=== PATIENT | male | born 1945 | race Caucasian/White ===

== ENCOUNTER → 2016-05-25 | Outpatient (CLI) | payer OTHER ==
[2016-05-25 10:05] LABS: Appearance,Urine Clear (Clear); Bilirubin,Urine Negative (Negative); Glucose,Urine (UA) Negative (Negative); Ketones,Urine Negative (Negative); Leukocyte Esterase,Urine Negative (Negative); Nitrite,Urine Negative (Negative); PH, Urine 5.5 (5.0-8.0); Protein,Urine Negative (Negative); Specific Gravity,Urine 1.022 (1.001-1.035); UA Billing (MACRO vs. MICRO) CHEM
[2016-05-25 10:21] LABS: Anisocytosis Slight; Basophils # (A) 0.1 k/uL (0-0.2); Basophils % (A) 1 %; CH 30.9; Eosinophils # (A) 0.2 k/uL (0-0.7); Eosinophils % (A) 3 %; HDW 3.61; HGB 13.9 gm/dL (13.0-17.5); Luc # (Auto) 0.15; Luc % (Auto) 2; Lymphocytes # (A) 1.5 k/uL (1.0-4.8); Lymphocytes % (A) 20 %; MCH 30.3 pg (25.0-35.0); MCV 91.7 fL (80.0-100.0); Mean Platelet Volume 6.9; Monocytes # (A) 0.5 k/uL (0-1.0); Monocytes % (A) 6 %; Neutrophils % (A) 68 %; Poikilocytosis Slight; RBC 4.58 m/uL (4.30-5.90); RDW 16.1 % (11.5-15.5); WBC 7.4 k/uL (3.8-10.6); WBC (Perox) 7.93
[2016-05-25 10:32] LABS: INR 1.1 (<1.1); Partial Thromboplastin Time 22.8 sec (22.0-30.0); Prothrombin Time 10.8 sec (9.0-12.0)
[2016-05-25 10:33] LABS: ALT 28 U/L (21-72); AST 21 U/L (17-59); Alkaline Phosphatase 77 U/L (38-126); Anion Gap 10 mmol/L; Blood Urea Nitrogen 12 mg/dL (9-20); Calcium 9.2 mg/dL (8.4-10.2); Carbon Dioxide 28 mmol/L (22-30); Chloride 102 mmol/L (98-107); Glucose 105 mg/dL (74-99); Non-African American GFR(MDRD) >60 (>60 ml/min/1.73 sqM); Potassium 4.3 mmol/L (3.5-5.1); Sodium 140 mmol/L (137-145); Total Bilirubin 0.9 mg/dL (0.2-1.3); Total Protein 6.5 g/dL (6.3-8.2)
== END ==
LOC: LABPAT 08:51
PROVIDERS: ATTEND Orthopaedic Surgery
DX: Z01.810 Encounter for preprocedural cardiovascular examination (principal); Z01.812 Encounter for preprocedural laboratory examination
CPT/HCPCS: 80053; 81003; 85025; 85610; 85730; 87070

== ENCOUNTER → 2016-07-28 | Outpatient (CLI) | payer OTHER ==
--- NOTE | 2016-08-05 11:00 | P.ARTDOP ---
Arterial Doppler LOWER EXTREMITY ARTERIAL DOPPLER: DATE OF SERVICE: 07/28/2016 Reason for study: Suspect PVD. Doppler waveforms: Multiphasic bilaterally throughout. Pulse volume recording: Normal configurations throughout. Pressure gradients: None. Ankle-brachial indices: Greater than 1 bilaterally. Toe pressures: 96 on the right, 91 on the left Impression: Normal study.
== END | disposition home or self-care (01) ==
LOC: RADUSWWP 13:50
PROVIDERS: ATTEND Family Medicine
DX: I73.9 Peripheral vascular disease, unspecified (principal)
CPT/HCPCS: 93923

== ENCOUNTER → 2016-09-14 | Outpatient (CLI) | payer OTHER ==
--- NOTE | 2016-09-14 14:18 | US ---
EXAMINATION TYPE: US venous doppler duplex LE LT DATE OF EXAM: 09/14/2016 1:18 PM COMPARISON: NONE CLINICAL HISTORY: R60.0 Localized Edema left leg. Pt states left foot swelling, previous DVT left leg 3 months ago, pt currently on blood thinners SIDE PERFORMED: Left TECHNIQUE: The lower extremity deep venous system is examined utilizing real time linear array sonog hiram with graded compression, doppler sonography and color-flow sonography. VESSELS IMAGED: External Iliac Vein (EIV) Common Femoral Vein Deep Femoral Vein Greater Saphenous Vein * Femoral Vein Popliteal Vein Small Saphenous Vein * Proximal Calf Veins (* superficial vessels) No popliteal fossa lesion is seen. Left Leg: Non-occluding thrombus of indeterminant age and partial compression from left EIV to dista l femoral vein Results called to Apurva Parmar at 's office at time of exam IMPRESSION: 1. THIS EXAMINATION IS NEGATIVE FOR ACUTE THROMBUS IN THE LEFT LEG. 2. EVIDENCE OF OLD THROMBUS WITHIN THE LEFT LEG.
== END | disposition home or self-care (01) ==
LOC: RADUSWWP 12:52
PROVIDERS: ATTEND Family Medicine
DX: R60.0 Localized edema (principal); Z86.718 Personal history of other venous thrombosis and embolism

== ENCOUNTER → 2017-01-15 | Outpatient (CLI) | payer OTHER ==
--- NOTE | 2017-01-15 18:29 | US ---
EXAMINATION TYPE: US venous doppler duplex LE BI DATE OF EXAM: 01/15/2017 6:18 PM COMPARISON: 09/14/2016 CLINICAL HISTORY: DVT I82.409, I82.59. Pt states abnormal labs, previous DVT left leg, pt currently o n blood thinners SIDE PERFORMED: Bilateral TECHNIQUE: The lower extremity deep venous system is examined utilizing real time linear array sonog hiram with graded compression, doppler sonography and color-flow sonography. VESSELS IMAGED: External Iliac Vein (EIV) Common Femoral Vein Deep Femoral Vein Greater Saphenous Vein * Femoral Vein Popliteal Vein Small Saphenous Vein * Proximal Calf Veins (* superficial vessels) Right Leg: Negative for DVT Left Leg: Negative for DVT, marked improvement from previous exam, partial compression at left CFV, however blood flow seen IMPRESSION: There is evidence for minimal chronic deep venous thrombosis on the left side. No evidenc e of deep venous thrombosis on the right side.
== END | disposition home or self-care (01) ==
LOC: RADUSMAIN 17:28
PROVIDERS: ATTEND Family Medicine
DX: I82.409 Acute embolism and thrombosis of unspecified deep veins of unspecified lower extremity (principal)
CPT/HCPCS: 93970

== ENCOUNTER → 2017-04-29 | Outpatient (CLI) | payer OTHER ==
--- NOTE | 2017-04-29 15:48 | US ---
EXAMINATION TYPE: US venous doppler duplex LE LT DATE OF EXAM: 04/29/2017 2:31 PM COMPARISON: US dated 01/15/2017 CLINICAL HISTORY: I82.502 Chronic DVT. SIDE PERFORMED: Left TECHNIQUE: The lower extremity deep venous system is examined utilizing real time linear array sonog hiram with graded compression, doppler sonography and color-flow sonography. VESSELS IMAGED: External Iliac Vein (EIV) Common Femoral Vein Deep Femoral Vein Greater Saphenous Vein * Femoral Vein Popliteal Vein Small Saphenous Vein * Proximal Calf Veins (* superficial vessels) Left Leg: Chronic changes seen in the femoral v, anterior v, widely patent, femoral v of small calib er with thready flow. Veins compressible. Grayscale, color doppler, spectral doppler imaging performed of the deep veins of the lower extremiti es. IMPRESSION: There is no evident deep venous thrombosis at or above the knee. Findings similar to pr evious exam, may be due to paired femoral vein, may be due to chronic deep venous thrombosis and was seen on prior exam.
== END ==
LOC: RADUSWWP 13:54
PROVIDERS: ATTEND Family Medicine
DX: I82.502 Chronic embolism and thrombosis of unspecified deep veins of left lower extremity (principal)

== ENCOUNTER → 2017-09-03 | Outpatient (CLI) | payer OTHER | END | disposition home or self-care (01) | LOC: LABWHC1 11:22 | PROVIDERS: ATTEND Orthopaedic Surgery | DX: Z01.812 Encounter for preprocedural laboratory examination (principal) | CPT/HCPCS: 86850; 86900; 86901; 87070 ==

== ENCOUNTER → 2017-09-13 | Outpatient (CLI) | payer OTHER ==
[2017-09-13 10:25] LABS: INR 1.3 (<1.2); Prothrombin Time 12.4 sec (9.0-12.0)
== END | disposition home or self-care (01) ==
LOC: LABWHC1 09:35
PROVIDERS: ATTEND Orthopaedic Surgery
DX: Z01.812 Encounter for preprocedural laboratory examination (principal); Z79.01 Long term (current) use of anticoagulants
CPT/HCPCS: 36415; 85610

== ENCOUNTER 2017-09-14 06:57 | Inpatient (IN) | payer OTHER ==
[2017-09-07 11:57] VITALS: BMI 30.8
[~2017-09-14 06:57] MED LIST: ACETAMINOPHEN TAB 500 MG TAB PO ONE; DEXAMETHASONE SOD PHOSPHATE 10 MG/ML 1 ML VIAL IV ONE; LIDOCAINE 1% 20 ML VIAL (10MG/ML) FOR IV START INTRADERMA PRN; MELOXICAM 7.5 MG TAB PO ONE; MIDAZOLAM 2 MG/2 ML VIAL IV PRN; ONDANSETRON 4 MG/2 ML VIAL IVP ONE; ROPIVACAINE 246.25 MG, EPINEPHrine 0.5 MG, KETOROLAC 30 MG, cloNIDine HCL/PF 80 MCG, WA... MISCELLANE ONE; SCOPOLAMINE 1.5MG/72HR PATCH TRANSDERM ONE; TRANEXAMIC ACID 1,000 MG in SODIUM CHLORIDE 0.9% 50 ML IVPB ONE; ceFAZolin IN SWFI 2 GM/20 ML SYRINGE IVP ONE
[2017-09-14] MEDS: LACTATED RINGERS 1,000 ML IV SCH (08:08)
[2017-09-14 08:21] LABS: INR 1.3 (<1.2); Prothrombin Time 11.9 sec (9.0-12.0)
[2017-09-14] MEDS ORDERED: GLYCOPYRROLATE 0.2 MG/ML 2 ML VIAL ONE (09:35)
[2017-09-14] MEDS ORDERED: SUCCINYLCHOLINE CHLORIDE 100 MG/5 ML SYR IV ONE (09:35)
[2017-09-14] MEDS ORDERED: ePHEDrine SULFATE/0.9% NACL/PF 50 MG/5 ML SYRINGE IV ONE (09:35)
[2017-09-14] MEDS ORDERED: SODIUM CHLORIDE 0.9% 100 ML BAG ONE (09:35)
[2017-09-14] MEDS ORDERED: fentaNYL (PF) 50 MCG/ML 2 ML AMP ONE (09:35)
[2017-09-14] MEDS ORDERED: PROPOFOL 10 MG/ML 20 ML VIAL IV ONE (09:35)
[2017-09-14] MEDS ORDERED: LIDOCAINE 1% INJ 10MG/ML (20 ML MDV) ONE (09:35)
[2017-09-14] MEDS ORDERED: VECURONIUM 10 MG VIAL IV ONE (09:35)
[2017-09-14] MEDS ORDERED: HYDROmorphone (PF) 1 MG/ML ONE (09:35)
[2017-09-14] MEDS ORDERED: TRANEXAMIC ACID 1,000 MG/10 ML VIAL ONE (09:35)
[2017-09-14] MEDS ORDERED: MIDAZOLAM 2 MG/2 ML VIAL ONE (09:35)
[2017-09-14] MEDS ORDERED: NEOSTIGMINE 1 MG/ML 10 ML VIAL ONE (09:35)
[2017-09-14] MEDS ORDERED: DIAZEPAM 5 MG TAB PO PRN (09:43)
[2017-09-14] MEDS ORDERED: NALOXONE 0.4 MG/ML 1 ML VIAL IV PRN (09:43)
[2017-09-14] MEDS ORDERED: MAGNESIUM HYDROXIDE 2,400 MG/10 ML CUP PO PRN (09:43)
[2017-09-14] MEDS ORDERED: hydrOXYzine PAMOATE 25 MG CAP PO PRN (09:43)
[2017-09-14] MEDS ORDERED: HYDROmorphone 1 MG/ML 1 ML SYRINGE IVP PRN ×3 (09:43)
[2017-09-14] MEDS ORDERED: HYDROcodone/APAP 5-325MG 1 EACH TAB PO PRN (09:43)
[2017-09-14] MEDS ORDERED: ONDANSETRON 4 MG/2 ML VIAL IVP PRN (09:43)
[2017-09-14] MEDS ORDERED: ceFAZolin 3,000 MG in SODIUM CHLORIDE 0.9% IRRIGATIO 3,000 ML IRRIGATION ONE (10:03)
[2017-09-14] MEDS ORDERED: LACTATED RINGERS 1,000 ML IV ONE (10:45)
--- NOTE | 2017-09-14 11:13 | P.OP ---
Date of Procedure: 09/14/17 Preoperative Diagnosis: Severe osteoarthritis left hip Postoperative Diagnosis: Severe osteoarthritis left hip Procedure(s) Performed: Left total hip arthroplasty with a direct anterior approach Implants: Childress [employer] nephew Polarstem size 7 standard [employer]hew R3, 3 hole acetabular shell, 52 mm [employer] reflection 6.5 mm cancellus screw, 20 mm 2 [employer] R3, XLPE 20 acetabular liner [employer]hew Oxinium femoral head 36 m, +0 All components were press-fit. The articulation is Oxinium on polyethylene. Anesthesia: GETA Surgeon: Eric Forbes Wind Farm Engineer #1: Rosalind Ayers Estimated Blood Loss (ml): 500 (188 mL returned with Cell Saver) Pathology: other (Femoral head) Condition: stable Disposition: PACU Indications for Procedure: After failure of conservative treatment we discussed the surgical and nonsurgical treatment options at length. Patient wishes to proceed with a total hip arthroplasty with a direct anterior approach. Complications specific to this procedure were discussed at length, including but not limited to infection, leg length discrepancy, dislocation, and nerve injury. Patient is aware of all these complications and informed consent was obtained Operative Findings: The operative findings are consistent with severe osteoarthritis of the left hip Description of Procedure: Patient was seen and evaluated in the preoperative area, consent was reviewed, and the surgical site was marked with a skin marker. Patient was then brought to the operating room and given prophylactic antibiotics intravenously. 1 g of Tranexamic acid was also given. A general anesthetic was administered by the anesthesia department. The patient was then placed on the [place] table with the bony prominences well-padded. The hip area was then prepped and draped in usual sterile fashion. A universal timeout was then performed, which confirmed the patient's name, surgical site, ALLERGIES, and procedure being performed. Next the incision site was located at 1 cm distal and 1 cm lateral to the anterior superior iliac spine. The skin and subcutaneous tissues were sharply incised. Incision was carefully dissected down to the fascia overlying the tensor fascia kristyn muscle. This fascia was then incised in line with the incision. Next, using blunt finger dissection, the tensor fascia kristyn muscle was dissected off its investing fascia. The muscle was then carefully retracted laterally with a cobra retractor over the lateral neck of the femur. Next, the circumflex vessels were identified and cauterized using the AquaMantis device. The anterior hip capsule was then exposed. The capsule was then opened and an inverted T fashion. Cobra retractors were then placed intracapsularly. The proximal femur was then visualized. The femoral neck was then osteotomized appropriate level above the lesser trochanter. Small amount of traction was placed with the [place] table. A small wedge of bone was then removed from the remaining femoral head. Next, using a corkscrew femoral head was easily removed from the acetabulum. On gross visual inspection, the femoral head had complete loss of articular cartilage in multiple periarticular osteophytes. Attention was then turned to the acetabulum. the acetabulum was exposed and any remaining labrum was excised. Sequential reaming of the acetabulum was performed using fluoroscopic guidance. When the appropriate size was reached, a trial was then placed. The position and fit of the trial was checked with fluoroscopy. The trial was then removed. Then, using fluoroscopic guidance, the final implant was impacted at 20 of anteversion and 40 of abduction, and fully seated in the acetabulum. 2 screws were then placed in the acetabulum. Again fluoroscopy was used to check position of the screws. Next, the liner was then impacted, with a 20 elevated liner located in the anterior superior quadrant. Component locking was confirmed. Attention was then directed to the femur. With the aid of the [place] table, the femur was externally rotated to approximately 130, extended, and abducted under the opposite leg. A side hook was then placed under the proximal femur, and the side hook elevator was used to elevate the proximal femur. Retractors were then placed. A capsular release was performed, as well as a release of the conjoined tendon, which afforded excellent visualization of the proximal femur. Next, a box osteotome was used to lateralize the proximal femur. A can handler was then used to locate the femoral canal. Sequential broaching was then performed with appropriate size which afforded excellent fixation in the proximal femur. A trial was then placed with appropriate head and neck, and the hip was gently reduced with the aid of the [place] table. Fluoroscopy was then used to check position of the components, as well as to ensure equal leg lengths. The hip was then gently dislocated and the trials were then removed. Final implants were then impacted and the hip was again reduced. Final fluoroscopic x-rays confirmed that the components were in anatomic position, as well as equal leg lengths. The hip was also taken through range of motion, and found to be stable. The hip was then copiously irrigated with antibiotic solution with pulsatile lavage. The hip was then irrigated with Irrisept solution. The soft tissues were then injected with a ropivacaine solution, which consisted of 246.25 mg of ropivacaine, 0.5 mg of epinephrine, 30 mg of Toradol, 80 g of clonidine, and 48.45 mL of sterile water, for a total of 100 mL of fluid injected. A second dose of 1 g of Tranexamic acid was also given. the fascia was then closed with 2-0 strata fix suture. The subcutaneous tissue was closed with 3-0 Vicryl. The subcuticular tissue was closed with 3-0 strata fix suture. The skin was then closed with Dermabond glue and a sterile silver dressing. The patient was then transferred to the recovery room in stable condition. The clinic office assistant ANNIKA Whitman was required due to the complexity of surgery, and the need for skilled addictions counselor assistant for positioning, draping, exposure, retraction, and closure of the wound.
[2017-09-14] MEDS: HYDROmorphone 0.5 MG/0.5 ML SYRINGE IVP PRN ×2 (11:48→11:59)
--- NOTE | 2017-09-14 12:14 | XR ---
EXAMINATION TYPE: XR Hip Limited LT DATE OF EXAM: 09/14/2017 CLINICAL HISTORY: Postoperative evaluation TECHNIQUE: Single portable view of the left hip was submitted. FINDINGS: Noted are changes of total hip arthroplasty with femoral and acetabular components appearin g well seated. Alignment is anatomic. Postsurgical soft tissue changes are evident. IMPRESSION: Satisfactory postoperative alignment
--- NOTE | 2017-09-14 12:16 | XR ---
Fluoroscopy History: lt anterior hip lt anterior hip. 31 sec fl time, 2 pics scanned
[2017-09-14] MEDS ORDERED: NITROGLYCERIN SL TABS 0.4 MG TAB SUBLINGUAL PRN (15:40)
[2017-09-14] MEDS ORDERED: IPRATROPIUM 0.5 MG/2.5 ML NEBU INHALATION PRN (15:40)
[2017-09-14] MEDS: SODIUM CHLORIDE 0.9% 1,000 ML IV SCH (16:28)
[2017-09-14] MEDS: BALSALAZIDE DISODIUM 750 MG CAPSULE PO SCH ×2 (16:29→21:24)
[2017-09-14] MEDS: ceFAZolin IN SWFI 2 GM/20 ML SYRINGE IVP SCH (16:30)
--- NOTE | 2017-09-14 17:14 | CONS ---
CONSULTATION DATE OF SERVICE: 09/14/2017 REASON FOR CONSULTATION: Advice regarding COPD and other medical issues requested by Dr. Forbes. HISTORY OF PRESENT ILLNESS: This 71-year-old gentleman with past medical history of COPD, DVT, hypertension, myocardial infarction, DJD, ulcerative colitis, being followed [facility] Dr[facility] after left total hip joint arthroplasty. There is no history of fever, rigors. No history of headache, loss of consciousness or seizures at this time. PAST MEDICAL HISTORY: History of COPD, DVT, hypertension, myocardial infarction, DJD, history of ulcerative colitis, CAD and CABG. MEDICATIONS: Prior to admission include home medications are: 1. Coumadin 5 mg p.o. daily. 2. Coenzyme Q10 10 mg p.o. daily. 3. Spiriva 1 capsule daily p.r.n. 4. Prilosec 20 mg b.i.d. 5. Nitrostat 0.4 mg p.r.n. 6. Mesalamine 370 mg-1125 mg p.o. b.i.d. 7. Zestril 10 mg p.o. daily. 8. Imdur 60 mg p.o. daily. 9. HydroDIURIL 25 mg p.o. daily. 10.Lovenox 100 mg subcu p.r.n. 11.Coreg 6.25 mg b.i.d. 12.Aspirin 81 mg p.o. daily. 13.Tylenol p.m. 2 tablets q.h.s. p.r.n. 14.Tylenol 650 q.6h p.r.n. ALLERGIES: Are STATINS. FAMILY HISTORY: History of CVA, TIA, DVT. SOCIAL HISTORY: Previous history of smoking. Occasional alcohol intake. REVIEW OF SYSTEMS: ENT: No diminished vision. No diminished hearing. Cardio system: No angina or palpitations. Respiration: No cough. GI: No nausea or vomiting. : No dysuria or hematuria. Nervous system: No numbness or weakness. Allergy/Immunology: No asthma or hayfever. Musculoskeletal as mentioned earlier. Hematology/Oncology: No history of anemia. Endocrine: No history of diabetes or hypothyroidism. CONSTITUTIONAL: As mentioned earlier. Dermatology: Negative. Rheumatology: Negative. Psychiatric: As mentioned earlier. PHYSICAL EXAMINATION: The patient is alert and oriented times three. Pulse 64, blood pressure 117/61, respirations 16, temperature 97.2, pulse ox 97% on 2 L. HEENT was conjunctivae normal. Oral mucosa moist. Neck is no jugular venous distention. No carotid bruit. No lymph node enlargement. Cardiovascular systems: S1, S2 muffled. Respirations: Breath sounds diminished in the bases. Few rhonchi. No crackles. ABDOMEN: Soft, nontender. Legs status post surgery. NERVOUS SYSTEM: Higher functions as mentioned earlier. Moves all four extremities. No focal deficits. Lymphatics: No lymph nodes palpable in the neck, axillae or groin. Skin no ulcer, rash or bleeding. LABS: INR 1.3. The previous labs prior to admission, the hematology is normal. Coags are normal. INR 1.3. Otherwise, urine is unremarkable. ASSESSMENT: 1. Status post left total hip joint arthroplasty. 2. History of chronic obstructive pulmonary disease. 3. History of deep vein thrombosis. 4. Hypertension. 5. Myocardial infarction. 6. History of degenerative joint disease. 7. History of ulcerative colitis. 8. History of coronary artery disease, coronary artery bypass grafting. 9. Remote history of nicotine dependence. RECOMMENDATIONS AND DISCUSSION: In this 71-year-old gentleman who presented with multiple medical issues, at this time, I recommend to continue current medications, management and symptomatic treatment. Resume the home medications. DVT prophylaxis. Coumadin protocol has been initiated. We will follow the patient closely with you and the patient may be asked to follow up with [facility] the [facility] in the [facility] setting. Further recommendations to follow. LUCILA / DAMIENN: [id number] / TAMICA
[2017-09-14] MEDS ORDERED: WARFARIN 5 MG TAB PO ONE (18:00)
[2017-09-14] MEDS ORDERED: HYDROmorphone 2 MG TAB PO PRN ×3 (20:27→20:28)
[2017-09-14] MEDS ORDERED: SENNOSIDES-DOCUSATE SODIUM 1 EACH TAB PO SCH (21:00)
[2017-09-14] MEDS: CARVEDILOL 6.25 MG TAB PO SCH (21:27)
[2017-09-15] MEDS: ceFAZolin IN SWFI 2 GM/20 ML SYRINGE IVP SCH (00:25)
[2017-09-15] MEDS: LACTATED RINGERS 1,000 ML IV SCH (00:27)
[2017-09-15] MEDS: HYDROcodone/APAP 5-325MG 1 EACH TAB PO PRN ×2 (03:52→10:54)
[2017-09-15] MEDS: SODIUM CHLORIDE 0.9% 1,000 ML IV SCH (04:42)
[2017-09-15 07:27] LABS: Basophils % (A) 0 %; Eosinophils % (A) 0 %; HCT 34.4 % (39.0-53.0); HGB 11.4 gm/dL (13.0-17.5); Lymphocytes % (A) 7 %; MCH 29.9 pg (25.0-35.0); MCV 90.4 fL (80.0-100.0); Mean Platelet Volume 7.5; Monocytes # (A) 0.9 k/uL (0-1.0); Monocytes % (A) 7 %; Neutrophils # (A) 11.1 k/uL (1.3-7.7); Neutrophils % (A) 85 %; Platelet Count 147 k/uL (150-450); Poikilocytosis Slight; RDW 14.9 % (11.5-15.5); WBC 13.1 k/uL (3.8-10.6)
[2017-09-15] MEDS ORDERED: PANTOPRAZOLE 40 MG TABLET PO SCH (07:30)
[2017-09-15 07:46] LABS: INR 1.2 (<1.2); Prothrombin Time 11.4 sec (9.0-12.0)
--- NOTE | 2017-09-15 08:56 | P.DS ---
Providers Date of admission: 09/14/17 06:57 Expected date of discharge: 09/15/17 Attending physician: Eric Forbes Consults: 09/14/17 09:43 Consult Physician Routine Consulting Provider: Apurva Parmar Consult Reason/Comments: medical management, anticoagulation and lovenox bridging Do you want consulting provider notified?: Yes 09/14/17 14:06 Consult Physician Routine Consulting Provider: Radha Olmos Consult Reason/Comments: medical management Do you want consulting provider notified?: Yes Primary care physician: [facility] - Discharge Diagnosis(es) (1) Primary osteoarthritis of left hip Current Visit: Yes Status: Acute (2) S/P total hip arthroplasty Current Visit: Yes Status: Acute Hospital Course: This is a 71-year-old male with known history of degenerative arthritis of the left hip. The patient presents for evaluation. After discussion and consideration patient elects to proceed with total hip arthroplasty. The patient is seen preoperatively by Dr. Forbes and medically cleared for surgery by their primary care physician. Patient is admitted to [facility] on 09/14/2017 for total hip arthroplasty. The procedures performed without complication or sequelae. The patient is doing well postoperatively. Labs and vital signs are stable on day of discharge. On day of discharge patient's hip incision is healing well. There is minimal erythema. There is no drainage noted at this time. There is minimal soft tissue swelling to the hip and thigh. Patient has full foot and ankle motion without difficulty or pain. Neurovascular status to the left lower extremity is intact. Patient is discharged home in good condition. Please see med rec for accurate list of home medications. Plan - Discharge Summary Discharge Rx Participant: Yes New Discharge Prescriptions: No Action Tiotropium [place] [Spiriva] 1 cap INHALATION RT-DAILY PRN PRN Reason: Dyspnea Nitroglycerin Sl Tabs [Nitrostat] 0.4 mg SUBLINGUAL Q5M PRN PRN Reason: Chest Pain Lisinopril [Zestril] 10 mg PO DAILY Omeprazole [PriLOSEC] 20 mg PO AC-BID Isosorbide Mononitrate ER [Imdur] 60 mg PO DAILY Acetaminophen Tab [Tylenol Tab] 650 mg PO Q6H PRN PRN Reason: Pain Hydrochlorothiazide [Hydrodiuril] 25 mg PO DAILY Aspirin 81 mg PO DAILY Acetaminophen/Diphenhydramine [Tylenol PM Extra Strength] 2 each PO HS PRN PRN Reason: Insomnia Enoxaparin [Lovenox] 100 mg SQ DIRECTED Warfarin [Coumadin] 5 mg PO DAILY Carvedilol [Coreg] 6.25 mg PO BID Ubidecarenone [Coenzyme Q10] 10 mg PO DAILY Mesalamine 375mg Sa Cap 1,125 mg PO BID Discharge Medication List Acetaminophen Tab [Tylenol Tab] 650 mg PO Q6H PRN 05/28/16 [History] Aspirin 81 mg PO DAILY 05/28/16 [History] Hydrochlorothiazide [Hydrodiuril] 25 mg PO DAILY 05/28/16 [History] Isosorbide Mononitrate ER [Imdur] 60 mg PO DAILY 05/28/16 [History] Lisinopril [Zestril] 10 mg PO DAILY 05/28/16 [History] Nitroglycerin Sl Tabs [Nitrostat] 0.4 mg SUBLINGUAL Q5M PRN 05/28/16 [History] Omeprazole [PriLOSEC] 20 mg PO AC-BID 05/28/16 [History] Tiotropium [place] [Spiriva] 1 cap INHALATION RT-DAILY PRN 05/28/16 [History] Acetaminophen/Diphenhydramine [Tylenol PM Extra Strength] 2 each PO HS PRN 09/07 [History] Carvedilol [Coreg] 6.25 mg PO BID 09/07/17 [History] Enoxaparin [Lovenox] 100 mg SQ DIRECTED 09/07/17 [History] Ubidecarenone [Coenzyme Q10] 10 mg PO DAILY 09/07/17 [History] Warfarin [Coumadin] 5 mg PO DAILY 09/07/17 [History] Mesalamine 375mg Sa Cap 1,125 mg PO BID 09/14/17 [History]
[2017-09-15] MEDS ORDERED: UBIDECARENONE 10 MG PO SCH (09:00)
[2017-09-15] MEDS ORDERED: ISOSORBIDE MONONITRATE ER 60 MG TAB.ER.24H PO SCH (09:00)
[2017-09-15] MEDS ORDERED: ASPIRIN 81 MG PO SCH (09:00)
[2017-09-15] MEDS ORDERED: HYDROCHLOROTHIAZIDE 25 MG TAB PO SCH (09:00)
[2017-09-15] MEDS ORDERED: LISINOPRIL 10 MG TAB PO SCH (09:00)
[2017-09-15] MEDS: CARVEDILOL 6.25 MG TAB PO SCH (09:01)
[2017-09-15] MEDS: BALSALAZIDE DISODIUM 750 MG CAPSULE PO SCH (09:01)
[2017-09-15 09:41] VITALS: BP 118/63; PULSE 60; RESP 12; TEMP 97.9
--- NOTE | 2017-09-15 14:11 | PN ---
PROGRESS NOTE DATE OF SERVICE: 09/15/2017 This is a 71-year-old gentleman who was admitted after left total knee arthroplasty, improving significantly. No chest pain. No palpitations. No fever. PHYSICAL EXAM: Alert and oriented x3. Pulse 60, blood pressure 118/63, respirations of 12, temperature 97.8, pulse ox 94% on room air. HEENT: Conjunctivae normal, oral mucosa moist. Neck is no jugular venous distention. No lymph node enlargement. CARDIOVASCULAR SYSTEM: S1, S2, muffled. RESPIRATORY: Breath sounds diminished at the bases, no rhonchi, no crackles. ABDOMEN: Soft, status post surgery. NERVOUS SYSTEM: No focal deficits. LABS: WBC is 13, hemoglobin is 11.5. ASSESSMENT: 1. Status post left total knee joint arthroplasty. 2. Chronic obstructive pulmonary disease. 3. History of deep venous thrombosis. 4. Hypertension. 5. Myocardial infarction. 6. History of degenerative joint disease. 7. History of ulcerative colitis. 8. Coronary artery disease, coronary artery bypass grafting. 9. Remote history of nicotine dependence. RECOMMENDATION: Recommend to continue with the current management and [id number] treatment. At this time I recommend to resume the home medications and follow closely with primary physician, Dr. Gilbert in the outpatient setting. Otherwise, continue to monitor. DVT prophylaxis. The rest of the recommendations per Orthopedic Surgery. Further recommendations to follow. MMODL / IJN: [id number] /
[2017-09-15] MEDS ORDERED: WARFARIN 7.5 MG TAB PO ONE (18:00)
== END 2017-09-15 14:48 | disposition home or self-care (01) | DRG 470 ==
LOC: 2ORMAIN 06:57 → 3SUR 13:59
PROVIDERS: ADMIT Orthopaedic Surgery; ATTEND Orthopaedic Surgery
PROC: 30233N0 Transfusion of Autologous Red Blood Cells into Peripheral Vein, Percutaneous Approach (ICD-10-PCS; 2017-09-14)
PROC: 0SRB06A Replacement of Left Hip Joint with Oxidized Zirconium on Polyethylene Synthetic Substitute, Uncemented, Open Approach (ICD-10-PCS; principal; 2017-09-14 09:20)
DX: M16.12 Unilateral primary osteoarthritis, left hip (principal); K51.90 Ulcerative colitis, unspecified, without complications; I10 Essential (primary) hypertension; I25.10 Atherosclerotic heart disease of native coronary artery without angina pectoris; I25.2 Old myocardial infarction; J44.9 Chronic obstructive pulmonary disease, unspecified; K21.9 Gastro-esophageal reflux disease without esophagitis; H91.90 Unspecified hearing loss, unspecified ear; H40.9 Unspecified glaucoma; R26.81 Unsteadiness on feet; E78.5 Hyperlipidemia, unspecified; Z86.718 Personal history of other venous thrombosis and embolism; Z87.891 Personal history of nicotine dependence; Z95.1 Presence of aortocoronary bypass graft; Z79.01 Long term (current) use of anticoagulants; Z79.82 Long term (current) use of aspirin; Z79.899 Other long term (current) drug therapy; Z88.8 Allergy status to other drugs, medicaments and biological substances; Z98.42 Cataract extraction status, left eye; Z98.41 Cataract extraction status, right eye; Z96.1 Presence of intraocular lens; Z71.6 Tobacco abuse counseling; Z82.49 Family history of ischemic heart disease and other diseases of the circulatory system
CPT/HCPCS: 73501; 85025; 85610; 86850; 86900; 86901; 88300

== ENCOUNTER → 2018-07-29 | Outpatient (CLI) | payer OTHER ==
--- NOTE | 2018-07-30 15:44 | CT ---
EXAMINATION TYPE: CT angio abd aorta w/Runoff DATE OF EXAM: 07/29/2018 COMPARISON: None HISTORY: c/o back pain CT DLP: 1772.4 mGycm, Automated Exposure Control for Dose Reduction was Utilized. CONTRAST: CT scan of the abdomen and pelvis is performed with oral and with IV Contrast, patient injected with 100 mL of Isovue 370. There are 3-D post processed images. FINDINGS: Abdominal aorta shows some atheromatous change. There is no aneurysm or dissection. There is patency of the celiac artery and superior mesenteric artery. There is moderate plaque formation at the origin of the celiac artery with probably 50% stenosis. There is bilateral arterial flow in the renal arter ies. There is arterial flow in the common internal and external iliac arteries bilaterally. There is arterial flow in the femoral arteries. There is significant plaque formation and severe stenosis righ t internal iliac artery. There is subtotal occlusion of the right proximal internal iliac artery. Liver spleen and stomach pancreas gallbladder appear normal. Bile ducts are not dilated. Kidneys have normal size and contour. There is no hydronephrosis. There is no retroperitoneal adenopathy. There i s no mesenteric edema. Bladder distends smoothly. There is no sign of free air. There is no sign of t hickened appendix. There is mild bilateral plaque formation in the femoral arteries. There is patency of the popliteal a rteries. There is patency of the tibial arteries and tibial artery trifurcations. There is arterial f low in the posterior tibial arteries at the ankles. There is suboptimal contrast visualization of the dorsalis pedis arteries. IMPRESSION: There is atherosclerotic disease with evidence of hemodynamic stenosis in the right internal iliac ar tonya. There is variable plaque formation in the femoral arteries without evidence of hemodynamic sten osis. There is limited distal arterial flow in the dorsalis pedis arteries that suggests distal steno sis.
== END ==
LOC: RADCTMAIN 14:53
PROVIDERS: ATTEND Physician Assistant Medical
DX: I70.90 Unspecified atherosclerosis (principal)
CPT/HCPCS: 82565; 84520; 75635; 36415; Q9967

== ENCOUNTER → 2018-07-29 | Outpatient (CLI) | payer OTHER ==
--- NOTE | 2018-07-29 16:12 | MR ---
EXAMINATION TYPE: MR lumbar spine wo con DATE OF EXAM: 07/29/2018 COMPARISON: NONE HISTORY: Low back pain per order. Pain for 40 years per patient. TECHNIQUE: Multiplanar, multisequence imaging of the lumbar spine is performed without IV contrast. FINDINGS: Sagittal images of the lumbar spine show vertebral body heights and alignment to appear sat isfactory. Multilevel disc desiccation and disc space narrowing is present. Disc space narrowing is m ost prominent L4-L5 level where it is moderate to borderline advanced. The conus medullaris is sarah l in position and signal ending at inferior L1 level. There is prominence of epidural fat beginning i n the upper sacrum noted. The bone marrow signal intensity is within normal limits. Axial images at the T12-L1 and L1-L2 levels are felt within normal limits. Axial images at the L2-L3 level show mild facet degenerative changes bilaterally with mild broad disc bulge minimally effacing anterior thecal sac. Axial images at the L3-L4 level show mild to moderate broad disc bulge with broad-based right paracen tral disc protrusion component axial image 13 effacing anterolateral thecal sac. There is mild/modera te facet degenerative changes and ligamentum flavum hypertrophy effacing posterior lateral thecal sac . There is mild right greater than left bilateral anterior inferior neural foraminal narrowing. Axial images at the L4-L5 level show moderate facet degenerative changes bilaterally. There is broad disc bulge with central disc protrusion component effacing anterior thecal sac. There is mild to mode rate right and mild left-sided anterior inferior neural foraminal narrowing. Axial images at the L5-S1 level show moderate facet degenerative changes bilaterally. There is centra l disc protrusion but spinal canal is preserved. Bilateral neural foramina are patent. No suspicious incidental retroperitoneal findings are seen. IMPRESSION: Multilevel degenerative changes in the lumbar spine as detailed above.
== END | disposition home or self-care (01) ==
LOC: RADMRIMAIN 14:33
DX: M47.817 Spondylosis without myelopathy or radiculopathy, lumbosacral region (principal)
CPT/HCPCS: 72148

== ENCOUNTER → 2018-09-19 | Outpatient (CLI) | payer OTHER ==
[2018-09-19 11:49] VITALS: BP 112/70; PULSE 73; RESP 16
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
== END | disposition home or self-care (01) ==
LOC: PNWHC3 11:20
PROVIDERS: ATTEND Anesthesiology
DX: M53.3 Sacrococcygeal disorders, not elsewhere classified (principal); M47.816 Spondylosis without myelopathy or radiculopathy, lumbar region; M54.2 Cervicalgia; M25.512 Pain in left shoulder; I10 Essential (primary) hypertension; I25.2 Old myocardial infarction; K51.90 Ulcerative colitis, unspecified, without complications; J44.9 Chronic obstructive pulmonary disease, unspecified; Z79.82 Long term (current) use of aspirin; Z79.899 Other long term (current) drug therapy; Z88.8 Allergy status to other drugs, medicaments and biological substances; Z86.718 Personal history of other venous thrombosis and embolism
CPT/HCPCS: 99211

== ENCOUNTER 2018-09-22 08:59 | Day surgery (SDC) | payer OTHER ==
[2018-09-20 16:16] VITALS: BMI 30.1
[~2018-09-22 08:59] MED LIST changes: -ACETAMINOPHEN TAB 500 MG TAB PO ONE; -DEXAMETHASONE SOD PHOSPHATE 10 MG/ML 1 ML VIAL IV ONE; +LACTATED RINGERS 1,000 ML IV SCH; -LIDOCAINE 1% 20 ML VIAL (10MG/ML) FOR IV START INTRADERMA PRN; -MELOXICAM 7.5 MG TAB PO ONE; -MIDAZOLAM 2 MG/2 ML VIAL IV PRN; -ONDANSETRON 4 MG/2 ML VIAL IVP ONE; -ROPIVACAINE 246.25 MG, EPINEPHrine 0.5 MG, KETOROLAC 30 MG, cloNIDine HCL/PF 80 MCG, WA... MISCELLANE ONE; -SCOPOLAMINE 1.5MG/72HR PATCH TRANSDERM ONE; -TRANEXAMIC ACID 1,000 MG in SODIUM CHLORIDE 0.9% 50 ML IVPB ONE; -ceFAZolin IN SWFI 2 GM/20 ML SYRINGE IVP ONE
[2018-09-22 09:41] VITALS: RESP 16; TEMP 98.2
--- NOTE | 2018-09-22 10:37 | P.PCN ---
Date of Procedure: 09/22/18 Preoperative Diagnosis: Sacrococcygeal joint arthritis Postoperative Diagnosis: Same as above Procedure(s) Performed: Sacrococcygeal joint steroid injection under fluoroscopic guidance Anesthesia: MAC (Moderate IV conscious sedation with fentanyl and Versed) Surgeon: Jennifer Calle Pathology: none sent Condition: stable Disposition: PACU Description of Procedure: The patient was seen in preoperative holding area consent was obtained and was brought into the procedure room and placed in prone position. Skin was prepped with ChloraPrep and draped in a sterile manner. Lidocaine 1% was used to numb the skin up at the target points that was about junction between the sacrum and the coccyx on the lateral view of fluoroscopy. I used 22-gauge 3-1/2 inch Quincke spinal needle to go and anterior and posterior direction. the sacrococcygeal joint using the lateral view of fluoroscopy I then injected 4 MLS of ropivacaine 0.5% +40 mg of Kenalog around the sacrococcygeal joint. patient tolerated procedure well. If the patient's pain does not get better he might need to have a sacroiliac joint or lumbar facet diagnostic medial branch block in the future.
[2018-09-22] MEDS ORDERED: IV FLUID CONTINUATION 900 ML IV ONE (10:40)
[2018-09-22 10:58] VITALS: BP 109/65; PULSE 62
--- NOTE | 2018-09-22 11:35 | FL ---
EXAMINATION TYPE: FL guided pain mgmt statistic DATE OF EXAM: 09/22/2018 HISTORY: Flouroscopy time 6 seconds of fluoroscopy provided. IMPRESSION: 1. Fluoroscopy time.
== END 2018-09-22 11:14 | disposition home or self-care (01) ==
LOC: ORPAIN 08:59
PROVIDERS: ATTEND Anesthesiology
DX: G89.29 Other chronic pain (principal); M47.898 Other spondylosis, sacral and sacrococcygeal region; M47.816 Spondylosis without myelopathy or radiculopathy, lumbar region; M19.90 Unspecified osteoarthritis, unspecified site; J44.9 Chronic obstructive pulmonary disease, unspecified; Z87.891 Personal history of nicotine dependence; Z86.718 Personal history of other venous thrombosis and embolism; I10 Essential (primary) hypertension; I25.2 Old myocardial infarction; K51.90 Ulcerative colitis, unspecified, without complications; Z95.1 Presence of aortocoronary bypass graft; Z96.642 Presence of left artificial hip joint; Z82.3 Family history of stroke; Z79.82 Long term (current) use of aspirin; Z79.899 Other long term (current) drug therapy; Z88.8 Allergy status to other drugs, medicaments and biological substances
CPT/HCPCS: 20610; J2250; J3301; J3010

== ENCOUNTER → 2018-10-05 | Outpatient (CLI) | payer OTHER ==
[2018-10-05 12:47] VITALS: BP 122/74; PULSE 64; RESP 16
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
== END | disposition home or self-care (01) ==
LOC: PNWHC3 12:19
PROVIDERS: ATTEND Student in an Organized Health Care Education/Training Program
DX: M51.36 Other intervertebral disc degeneration, lumbar region (principal); M47.816 Spondylosis without myelopathy or radiculopathy, lumbar region; Z87.891 Personal history of nicotine dependence; Z79.82 Long term (current) use of aspirin; Z79.899 Other long term (current) drug therapy
CPT/HCPCS: 99211

== ENCOUNTER 2018-10-11 08:42 | Day surgery (SDC) | payer OTHER ==
[2018-10-06 15:19] VITALS: BMI 30.1
[2018-10-11 09:10] VITALS: RESP 16; TEMP 97.3
--- NOTE | 2018-10-11 09:47 | P.PCN ---
Date of Procedure: 10/11/18 Procedure(s) Performed: PREOPERATIVE DIAGNOSIS : 1- Lumbar spondylosis with Facet Arthropathy without myelopathy . 2- Lumber degenerative disc disease POSTOPERATIVE DIAGNOSIS: 1- Lumbar spondylosis with Facet Arthropathy without myelopathy . 2- Lumber degenerative disc disease PROCEDURE: Diagnostic bilateral L3 , L4 , and L5 medial branch block under fluoroscopy guidance(fluoroscopy images available in the radiology Department ) to Block the facet joint at L4 5, and L5-S1 ANESTHESIA: Local with Ropivacain 0.5 % , moderate sedation with intravenous Versed 2 mg and Fentanyl 50 mcg. EBL: Minimal COMPLICATION: None. IV FLUIDS: 100 mL of normal saline. PROCEDURE INDICATION: Chronic low back pain secondary to Facet arthropathy unresponsive to conservative treatment. PROCEDURE DESCRIPTION: the patient was seen and identified in the preop holding area , risks and benefits and possible complications of the procedure and alternative were discussed with the patient, and the patient agreed to proceed with the procedure and signed the consent IV was started and vital signs monitored during the procedure and fluoroscopy was used to maximize the benefit and accuracy of the needle placement, and sedation was given to decrease patient anxiety, patient was taken to the procedure room and placed in prone position vital signs monitored in the back prepped with chlorhexidine X3 then under strict sterile technique using a right oblique fluoroscopy ,the junction of the transverse process and the superior articulating process of the right L3 , L4, and L5 vertebra which corresponding to the fluoroscopy image of the eye of the Jamel dog on the block side for the medial branches and subsequently , after local infiltration of skin and subcu tissuies with Ropivacaine 0.5 % , one mL at each level ,then 22-gauge Quincke-type needles , 3 needle was used , each one of them placed at the junction of the base of the transverse process and the superior articular process at the appropriate level, and the needle was advanced until the periosteum contacted, needle placement confirmed with AP oblique and lateral view and after appropriate needle placement confirmed, and after negative aspiration for heme and CSF and there was no paresthesia 1-1/2 mL of Ropivacaine 0.5% mixed with 20 mg Depo-Medrol , then half mL injected at each level after negative aspiration the needle subsequently removed and the same procedure repeated for the left side at left side at L3,, L4 and L5 levels. At the end of the procedure and the needles removed and a bandage applied after the skin was cleaned the cleaning solution patient taken to recovery room in stable condition and monitors in the recovery room for 20-30 minutes and discharged home in stable condition after discharge criteria met and patient kristie l follow up with the pain clinic in 2-4 weeks
[2018-10-11] MEDS ORDERED: IV FLUID CONTINUATION 1,000 ML IV ONE (09:53)
[2018-10-11 10:08] VITALS: BP 130/71; PULSE 57
--- NOTE | 2018-10-11 10:35 | FL ---
EXAMINATION TYPE: FL guided pain mgmt statistic DATE OF EXAM: 10/11/2018 FLUOROSCOPY Fluoroscopy time of 20 seconds was used during bilateral lumbar facet injections. 4 image/s document /s the procedure.
== END 2018-10-11 10:18 | disposition home or self-care (01) ==
LOC: ORPAIN 08:42
PROVIDERS: ATTEND Specialist
DX: M47.816 Spondylosis without myelopathy or radiculopathy, lumbar region (principal); M51.36 Other intervertebral disc degeneration, lumbar region; G89.29 Other chronic pain; I10 Essential (primary) hypertension; Z88.8 Allergy status to other drugs, medicaments and biological substances
CPT/HCPCS: 64493; 64494; J2250; J1030; J3010; 99152

== ENCOUNTER → 2018-10-25 | Day surgery (SDC) | payer OTHER ==
[2018-10-18 16:00] VITALS: BMI 30.1
[~2018-10-25] MED LIST changes: +IV FLUID CONTINUATION 1,000 ML IV ONE; +LIDOCAINE 1% 20 ML VIAL (10MG/ML) FOR IV START INTRADERMA ONE
[2018-10-25 09:55] VITALS: TEMP 97.9
--- NOTE | 2018-10-25 10:50 | P.PCN ---
Date of Procedure: 10/25/18 Procedure(s) Performed: PREOPERATIVE DIAGNOSIS : 1- Lumbar spondylosis with Facet Arthropathy without myelopathy . 2- Lumber degenerative disc disease POSTOPERATIVE DIAGNOSIS: 1- Lumbar spondylosis with Facet Arthropathy without myelopathy . 2- Lumber degenerative disc disease PROCEDURE: Diagnostic bilateral L3 , L4 , and L5 medial branch block under fluoroscopy guidance(fluoroscopy images available in the radiology Department ) to Block the facet joint at L4 5, and L5-S1 ANESTHESIA: Local with Ropivacain 0.5 % , moderate sedation with intravenous Versed 2 mg and Fentanyl 50 mcg. EBL: Minimal COMPLICATION: None. IV FLUIDS: 100 mL of normal saline. PROCEDURE INDICATION: Chronic low back pain secondary to Facet arthropathy unresponsive to conservative treatment. PROCEDURE DESCRIPTION: the patient was seen and identified in the preop holding area , risks and benefits and possible complications of the procedure and alternative were discussed with the patient, and the patient agreed to proceed with the procedure and signed the consent IV was started and vital signs monitored during the procedure and fluoroscopy was used to maximize the benefit and accuracy of the needle placement, and sedation was given to decrease patient anxiety, patient was taken to the procedure room and placed in prone position vital signs monitored in the back prepped with chlorhexidine X3 then under strict sterile technique using a right oblique fluoroscopy ,the junction of the transverse process and the superior articulating process of the right L3 , L4, and L5 vertebra which corresponding to the fluoroscopy image of the eye of the Jamel dog on the block side for the medial branches and subsequently , after local infiltration of skin and subcu tissuies with Ropivacaine 0.5 % , one mL at each level ,then 22-gauge Quincke-type needles , 3 needle was used , each one of them placed at the junction of the base of the transverse process and the superior articular process at the appropriate level, and the needle was advanced until the periosteum contacted, needle placement confirmed with AP oblique and lateral view and after appropriate needle placement confirmed, and after negative aspiration for heme and CSF and there was no paresthesia 1-1/2 mL of Ropivacaine 0.5% mixed with 20 mg Depo-Medrol , then half mL injected at each level after negative aspiration the needle subsequently removed and the same procedure repeated for the left side at left side at L3,, L4 and L5 levels. At the end of the procedure and the needles removed and a bandage applied after the skin was cleaned the cleaning solution patient taken to recovery room in stable condition and monitors in the recovery room for 20-30 minutes and discharged home in stable condition after discharge criteria met and patient will follow up with the pain clinic in 2-4 weeks
[2018-10-25 11:12] VITALS: BP 158/88; PULSE 55; RESP 18
--- NOTE | 2018-10-25 11:54 | FL ---
EXAMINATION TYPE: FL guided pain mgmt statistic DATE OF EXAM: 10/25/2018 CLINICAL HISTORY: Low back pain. TECHNIQUE: Fluoroscopy. COMPARISON: None. FINDINGS: Fluoroscopic guidance was provided during pain relief procedure performed by Dr. Hardin . A total of 7 seconds of fluoroscopic time was utilized during the procedure and 4 spot images are acquired. Images acquired shows needle localization at multiple levels within the lumbar spine. IMPRESSION: As Above.
== END | disposition home or self-care (01) ==
LOC: ORPAIN 08:55
PROVIDERS: ATTEND Specialist
DX: G89.29 Other chronic pain (principal); M47.816 Spondylosis without myelopathy or radiculopathy, lumbar region; Z88.8 Allergy status to other drugs, medicaments and biological substances
CPT/HCPCS: 64493; 64494; J2250; J1030; J3010; 99152

== ENCOUNTER → 2018-11-10 | Outpatient (CLI) | payer OTHER ==
[2018-11-10 12:49] VITALS: BP 138/71; PULSE 71; RESP 16
--- NOTE | 2018-11-10 15:01 | P.PAINPG ---
Subjective Progress Note Date: 11/10/18 This is 73-year-old who presents for follow-up after 2 diagnostic medial branch blocks. Unfortunately he somewhat misunderstood the pain diaries. He states that he did essentially have no pain after the procedure, however he was very active the next day. And during those later appears of activity has pain increased. However immediately after the block he reports almost 0 pain. Otherwise he reports no new symptoms. He continues to try to be active. Of note he does state that when he received steroids his pain does go away. He has ulcerative colitis, he is followed by the [facility] for his health. Objective - Vital Signs Vital signs: Vital Signs Temp Pulse 71 11/10/18 12:34 Resp 16 11/10/18 12:34 BP 138/71 11/10/18 12:34 Pulse Ox - Exam Vital Signs: Reviewed in EMR GENERAL: Well appearing, in no acute distress, PSYCH: Mood and affect is appropriate. Awake, alert, and oriented SKIN: Skin color, texture, turgor normal, no rashes or lesions HEENT: Normocephalic, atraumatic. EOM intact CV: No pedal edema RESP: Respirations are unlabored, no audible wheezing GI: Abdomen non-distended MUSCULOSKELETAL: Bilateral upper and lower extremity strength is normal and symmetric. No atrophy or tone abnormalities are noted. Lumbar spine: Positive pain to palpation over the lumbar spine and paraspinous muscles. Positive for pain with facet loading and back extension/rotation. Extremities: Peripheral joint ROM is full and pain free without obvious instability or laxity in all four extremities. No edema or skin discolorations noted. Gait: Gait is anantalgic NEUR: Bilateral upper and lower extremity coordination and muscle stretch reflexes are physiologic and symmetric. No loss of sensation is noted. Cranial nerves are grossly intact. Assessment and Plan Assessment: Assessment: 1. Lumbar spondylosis 2. Degenerative disc disease 3. Obesity Plan: 1. Explanation: I explained to him the multiple causes of low back pain includes being facetogenic, discogenic, muscular. 2. Opioid agreement: None 3. Counseling: The patient was counseled extensively on losing weight and stay active. 4. Procedures: Will Schedule him for lumbar RFA, we'll start with a left L3 L4 L5. 5. Consultations: None 6. Investigations: None 7. Medications: He does have excellent pain relief while using oral steroids. He also had whole-body pain relief after relieving preceding steroids shots from his orthopedic surgeon. Thus I told him to speak with his arranger assembler about using an NSAID. 8. Disposition: For his lumbar RFA on the left side. This will be followed by the right side. , PQRS Measure Charge Sheet Measure #226: Tobacco Use: Screen & Cessation Intervention: Pt not a tobacco user Measure #111: Pneumonia Vaccination: Pneumococcal vaccine NOT administered or previously given Measure #47: Advance Care Plan: Advance care planning discussed & documented, pt chose/unable to give Measure #131: Pain Assessment & Follow-up: Pain positive & plan documented, Follow-up scheduled PQRS Narrative: Smoking Status Former smoker Blood Pressure 138/71 Pain Intensity [Lower Back] 4 Scale Used Numeric (1 - 10) Hx Alcohol Use (MH) Yes Home Medications: Ambulatory Orders Acetaminophen Tab [Tylenol Tab] 650 mg PO Q6H PRN 05/28/16 Aspirin 81 mg PO DAILY 05/28/16 Hydrochlorothiazide [Hydrodiuril] 25 mg PO DAILY 05/28/16 Isosorbide Mononitrate ER [Imdur] 60 mg PO DAILY 05/28/16 Lisinopril [Zestril] 10 mg PO DAILY 05/28/16 Nitroglycerin Sl Tabs [Nitrostat] 0.4 mg SUBLINGUAL Q5M PRN 05/28/16 Omeprazole [PriLOSEC] 20 mg PO AC-BID 05/28/16 Tiotropium [place] [Spiriva] 1 cap INHALATION RT-DAILY 05/28/16 Acetaminophen/Diphenhydramine [Tylenol PM Extra Strength] 2 each PO HS 09/07/17 Carvedilol [Coreg] 6.25 mg PO BID 09/07/17 Ubidecarenone [Coenzyme Q10] 10 mg PO DAILY 09/07/17 Mesalamine 375mg Sa Cap 750 mg PO BID 09/14/17 Albuterol Inhaler [Ventolin Hfa Inhaler] 1 - 2 puff INHALATION RT-Q6H PRN 11/07/18 Controlled Substance Measures - Controlled Substance Measures Is patient prescribed a controlled substance at discharge?: No
== END ==
LOC: PNWHC3 12:20
PROVIDERS: ATTEND Student in an Organized Health Care Education/Training Program
DX: M51.36 Other intervertebral disc degeneration, lumbar region (principal); M47.816 Spondylosis without myelopathy or radiculopathy, lumbar region; E66.9 Obesity, unspecified; Z87.891 Personal history of nicotine dependence; Z79.899 Other long term (current) drug therapy; Z79.82 Long term (current) use of aspirin
CPT/HCPCS: 99211

== ENCOUNTER 2018-11-22 06:01 | Day surgery (SDC) | payer OTHER ==
[2018-11-18 17:52] VITALS: BMI 30.8
[~2018-11-22 06:01] MED LIST changes: -IV FLUID CONTINUATION 1,000 ML IV ONE; -LIDOCAINE 1% 20 ML VIAL (10MG/ML) FOR IV START INTRADERMA ONE
[2018-11-22 06:17] VITALS: TEMP 97.3
[2018-11-22 06:32] LABS: Glucose,Whole Blood 174 mg/dL (75-99)
[2018-11-22] MEDS ORDERED: IV FLUID CONTINUATION 1,000 ML IV ONE (07:28)
--- NOTE | 2018-11-22 07:29 | P.PCN ---
Date of Procedure: 11/22/18 Procedure(s) Performed: PREOPERATIVE DIAGNOSIS: 1-Lumbar Spondylosis with Facet Arthropathy without myelopathy. POSTOPERATIVE DIAGNOSIS: 1- Lumbar Spondylosis with Facet Arthropathy without myelopathy. PROCEDURES : Left Radiofrequency thermocoagulation, L3, L4 , and L5 medial branch, with fluoroscopic guidance (fluoroscopy images available in the radiology department) (Radiofrequency thermocoagulation of the left-sided facet joint at L4- 5 , and L5-S1. ANESTHESIA: Moderate sedation with intravenous versed 2 mg and fentaneyl 50 mcg, and local infiltration with Ropivacaine 0.5 % . EBL: Minimal PROCEDURE INDICATION: The patient with low back pain secondary to lumbar facet arthropathy who had more than 50% relief of her pain with previous diagnostic lumbar medial branch block with bupivacaine. PROCEDURE DESCRIPTION / TECHNIQUE: The patient was seen and identified in the preoperative area. Risks, benefits, complications, including but not limited to risk of infection ,bleeding , allergic reactions to the medications and no complete pain releife , and alternatives were discussed with the patient, the patient agreed to proceed with the procedure and signed the consent. IV was started. Vital signs remained stable throughout the procedure. Patient was taken to the OR and time out was completed. The patient was placed in the prone position on the procedure table. The lumber area was prepped and draped in the usual sterile fashion. . Vital signs were closely monitored during the procedure .IV sedation was used during the procedure to decrease patients anxiety. Using AP and then oblique fluoroscopy, the ``eye of the Jamel dog corre sponding to the connection between the superior and transverse articular processes of Left L3, L4, and L5 were identified, marked, and localized with 1% lidocaine. Subsequently, a [id number] radiofrequency cannula with a 10-mm active tip was advanced guided by fluoroscopy to each of the``eyes of the Jamel dog at Left L3, L4, and L5. Each site then underwent sensory testing at 50 Hz and 0 to 1 volt and motor testing at 2.5 Hz and 0 to 3 volt with local stimulation, but no radicular symptoms down the legs. Thereafter the Left L3, L4 , and L5 sites underwent radiofrequency thermocoagulation at 80 degrees celsius for 90 seconds after injecting 0.5 ml of PF Ropivacaine 1ml, then after the thermocoagulation done , 1 ml of the block solution containing Depo-Medrol 40 mg and 3 ml of Ropivacaine 0.5% was injected at the left L3 , L4 , and L5 , levels after negative aspiration of CSF and blood and with no paresthesias. Cannulas were retracted while injecting lidocaine 1% until the needle is out. At the end of the procedure, the skin was cleansed and bandages were applied. COMPLICATIONS: No acute complications. DISPOSITION / PLANS: The patient was placed in a supine position and transferred to the recovery area in a stable condition for observation and was discharged from the recovery room after meeting discharge criteria. Home discharge instructions given to the patient by the staff. The patient was reexamined prior to discharge. The patient will schedule a follow up in the clinic in 2-4 weeks.
[2018-11-22 07:39] VITALS: RESP 18
[2018-11-22 07:56] VITALS: BP 138/79; PULSE 72
--- NOTE | 2018-11-22 09:07 | FL ---
EXAMINATION TYPE: FL guided pain mgmt statistic DATE OF EXAM: 11/22/2018 HISTORY: Pain 8 sec fl, 3 films
== END 2018-11-22 08:02 | disposition home or self-care (01) ==
LOC: ORPAIN 06:01
PROVIDERS: ATTEND Specialist
DX: M47.816 Spondylosis without myelopathy or radiculopathy, lumbar region (principal); I25.10 Atherosclerotic heart disease of native coronary artery without angina pectoris; Z88.8 Allergy status to other drugs, medicaments and biological substances; Z79.82 Long term (current) use of aspirin; H91.90 Unspecified hearing loss, unspecified ear
CPT/HCPCS: 64635; 64636; J2250; J1030; J3010; 99152

== ENCOUNTER → 2018-12-06 | Day surgery (SDC) | payer OTHER ==
[2018-12-02 15:32] VITALS: BMI 16.5
[~2018-12-06] MED LIST changes: +IV FLUID CONTINUATION 725 ML IV ONE; +LIDOCAINE 1% 20 ML VIAL (10MG/ML) FOR IV START INTRADERMA ONE
[2018-12-06 07:36] VITALS: TEMP 97.5
[2018-12-06 07:53] LABS: Glucose,Whole Blood 135 mg/dL (75-99)
[2018-12-06 09:14] VITALS: PULSE 59
--- NOTE | 2018-12-06 09:23 | P.PCN ---
Date of Procedure: 12/06/18 Procedure(s) Performed: PREOPERATIVE DIAGNOSIS: Lumbar Spondylosis POSTOPERATIVE DIAGNOSIS: Same PROCEDURES: Radiofrequency ablation of the L3, L4, L5 medial branches with fluoroscopic guidance on the right side, for facets L4-5 and L5-S1 SURGEON: Greg Hansen MD. ANESTHESIA: Lidocaine 1% 5 mL, Moderate sedation with intravenous Versed and fentanyl, sedation time 22 minutes EBL: Minimal Fluoroscopy was used for the procedure and images were saved in the radiology portion of the chart. PROCEDURE INDICATION: The patient with low back pain secondary to lumbar facet arthropathy who had more than 50% relief of pain with previous diagnostic lumbar medial branch block X2. PROCEDURE DESCRIPTION / TECHNIQUE: The patient was seen and identified in the preoperative area. Risks, benefits, complications, including but not limited to risk of infection ,bleeding , allergic reactions to the medications and incomplete pain relief , and alternatives were discussed with the patient, the patient agreed to proceed with the procedure and signed the consent. IV was started. The operative site was marked. Patient was taken to the OR and time out was completed. The patient was placed in the prone position on the procedure table. The lumbar area was prepped and draped in the usual sterile fashion. . Vital signs were closely monitored during the procedure .IV sedation was used during the procedure to decrease patients anxiety. Using AP and then oblique fluoroscopy, the "eye of the Jamel dog" corresponding to the connection between the superior and transverse articular processes of the right L4 and L5 as well as the sacral ala were identified, marked, and localized with 1% lidocaine. Subsequently, an 18 guage 100 mm radiofrequency cannula with a 10-mm active tip was advanced guided by fluoroscopy to the identified target at each site. Needle positioning was confirmed on AP, oblique and lateral fluoroscopy. Motor testing at 2.5 Hz was done with paraspinal muscle stimulation only, and no radicular symptoms down the legs. Then 1 mL of 4% lidocaine was injected in each site. Radiofrequency thermocoagulation at 80 degrees celsius for 90 seconds was then performed. [place] were removed. Sterile dressings were applied. COMPLICATIONS: No acute complications. DISPOSITION / PLANS: The patient was placed in a supine position and transferred to the recovery area in a stable condition for observation and was discharged from the recovery room after meeting discharge criteria. Home discharge instructions given to the patient by the staff. The patient will follow up in clinic in 4 weeks.
[2018-12-06 09:40] VITALS: BP 130/80; RESP 18
--- NOTE | 2018-12-06 09:43 | FL ---
Fluoroscopy HISTORY: Pain 12 seconds fluoroscopy time supplied to the referring clinician. 8 intraoperative C-arm images docum ent the procedure. See dictated report from anesthesia.
== END ==
LOC: ORPAIN 07:16
PROVIDERS: ATTEND Anesthesiology
DX: M47.816 Spondylosis without myelopathy or radiculopathy, lumbar region (principal); E66.9 Obesity, unspecified; H91.90 Unspecified hearing loss, unspecified ear; Z87.891 Personal history of nicotine dependence; Z79.82 Long term (current) use of aspirin; Z79.899 Other long term (current) drug therapy; Z88.8 Allergy status to other drugs, medicaments and biological substances; Z68.31 Body mass index [BMI] 31.0-31.9, adult
CPT/HCPCS: 64635; 64636; J2250; J3010; 99152

== ENCOUNTER 2019-01-05 13:28 | Inpatient (IN) | payer OTHER, MEDICARE ==
[2019-01-05] MEDS ORDERED: SODIUM CHLORIDE 0.9% 2,000 ML IV STA (14:02)
[2019-01-05] MEDS ORDERED: SODIUM CHLORIDE 0.9% 1,000 ML IV STA (14:02)
--- NOTE | 2019-01-05 14:24 | ED ---
Nausea/Vomiting/Diarrhea HPI - General Chief complaint: Nausea/Vomiting/Diarrhea Stated complaint: Diarrhea Time Seen by Provider: 01/05/19 13:45 Source: patient, RN notes reviewed Mode of arrival: ambulatory Limitations: no limitations - History of Present Illness Initial comments: This a 73-year-old male who had a cardiac catheterization approximately 11 days ago who states he's had approximate 4 days of diarrhea now since starting a new medication. He's had multiple episodes per hour he feels weak lightheaded dizzy he is a diabetic was not had his medication for the same time markedly decreased oral intake. He is generally does not feel well. MD complaint: diarrhea - Related Data Home Medications Medication Instructions Recorded Confirmed Acetaminophen Tab [Tylenol Tab] 650 mg PO Q6H PRN 05/28/16 12/06/18 Aspirin 81 mg PO DAILY 05/28/16 12/06/18 Hydrochlorothiazide [Hydrodiuril] 25 mg PO DAILY 05/28/16 12/06/18 Isosorbide Mononitrate ER [Imdur] 60 mg PO DAILY 05/28/16 12/06/18 Lisinopril [Zestril] 10 mg PO DAILY 05/28/16 12/06/18 Nitroglycerin Sl Tabs [Nitrostat] 0.4 mg SUBLINGUAL Q5M PRN 05/28/16 12/06/18 Omeprazole [PriLOSEC] 20 mg PO AC-BID 05/28/16 12/06/18 Tiotropium [place] [Spiriva] 1 cap INHALATION RT-DAILY 05/28/16 12/06/18 Carvedilol [Coreg] 6.25 mg PO BID 09/07/17 12/06/18 Ubidecarenone [Coenzyme Q10] 10 mg PO DAILY 09/07/17 12/06/18 Mesalamine 375mg Sa Cap 750 mg PO BID 09/14/17 12/06/18 Albuterol Inhaler [Ventolin Hfa 1 - 2 puff INHALATION RT-Q6H PRN 11/07/18 12/06/18 Inhaler] metFORMIN HCL [Glucophage] 500 mg PO BID 11/23/18 12/06/18 Allergies Allergy/AdvReac Type Severity Reaction Status Date / Time [id number] Reductase AdvReac severe Verified 01/05/19 13:34 Inhibitor muscle cramps Review of Systems ROS Statement: Those systems with pertinent positive or pertinent negative responses have been documented in the HPI. ROS Other: All systems not noted in ROS Statement are negative. Past Medical History Past Medical History: COPD, Diabetes Mellitus, Deep Vein Thrombosis (DVT), Hypertension, Myocardial Infarction (SC), Osteoarthritis (OA) Additional Past Medical History / Comment(s): Ulcerative colitis. Chronic Back Pain. New onset DM. Last Myocardial Infarction Date:: 1992 History of Any Multi-Drug Resistant Organisms: None Reported Past Surgical History: Coronary Bypass/CABG, Heart Catheterization, Joint Replacement Additional Past Surgical History / Comment(s): triple bypass, colonoscopy, emily cataract surgery, lt nick. Pain Procedures Past Anesthesia/Blood Transfusion Reactions: No Reported Reaction Past Psychological History: No Psychological Hx Reported Smoking Status: Former smoker Past Alcohol Use History: None Reported Past Drug Use History: None Reported - Past Family History Brother(s) Family Medical History: CVA/TIA, Deep Vein Thrombosis (DVT) General Exam - General Exam Comments Initial Comments: This is a well-developed well-nourished awake alert oriented 3 male who is demonstrating cold with hearing which is normal for him. Limitations: no limitations General appearance: alert, lethargic Head exam: Present: atraumatic, normocephalic, normal inspection Eye exam: Present: normal appearance, PERRL, EOMI. Absent: scleral icterus, conjunctival injection, periorbital swelling ENT exam: Present: mucous membranes dry Neck exam: Present: normal inspection. Absent: tenderness, meningismus, lymphad enopathy Respiratory exam: Present: normal lung sounds bilaterally. Absent: respiratory distress, wheezes, rales, rhonchi, stridor Cardiovascular Exam: Present: normal rhythm, tachycardia, normal heart sounds. Absent: systolic murmur, diastolic murmur, rubs, gallop, clicks GI/Abdominal exam: Present: soft, tenderness (Epigastric tenderness palpation no guarding rebound masses or bruits), normal bowel sounds. Absent: distended, guarding, rebound, rigid Rectal exam: Present: deferred Extremities exam: Present: normal inspection, full ROM, normal capillary refill. Absent: tenderness, pedal edema, joint swelling, calf tenderness Back exam: Present: normal inspection Neurological exam: Present: alert, oriented X3, CN II-XII intact Psychiatric exam: Present: normal affect, normal mood Skin exam: Present: warm, dry, intact, normal color. Absent: rash Course Vital Signs 01/05/19 13:30 Temperature 98.2 F Pulse Rate 103 H Respiratory 16 Rate Blood Pressure 132/73 O2 Sat by Pulse 99 Oximetry Medical Decision Making - Medical Decision Making I did discuss findings with the family patient be admitted with GI consultation workup is not completed in the emergency department C. diff studies are pending - Lab Data Result diagrams: 01/05/19 14:09 01/05/19 14:09 Lab Results 01/05/19 01/05/19 01/05/19 Range/Units 14:09 14:09 14:42 WBC 12.3 H (3.8-10.6) k/uL RBC 4.74 (4.30-5.90) m/uL Hgb 15.2 (13.0-17.5) gm/dL Hct 42.7 (39.0-53.0) % MCV 90.1 (80.0-100.0) fL MCH 32.0 (25.0-35.0) pg MCHC 35.5 (31.0-37.0) g/dL RDW 14.3 (11.5-15.5) % Plt Count 180 (150-450) k/uL Neutrophils % 77 % Lymphocytes % 9 % Monocytes % 10 % Eosinophils % 0 % Basophils % 1 % Neutrophils # 9.5 H (1.3-7.7) k/uL Lymphocytes # 1.1 (1.0-4.8) k/uL Monocytes # 1.2 H (0-1.0) k/uL Eosinophils # 0.0 (0-0.7) k/uL Basophils # 0.1 (0-0.2) k/uL Hyperchromasia Slight Poikilocytosis Slight Sodium 136 L (137-145) mmol/L Potassium 3.6 (3.5-5.1) mmol/L Chloride 100 (98-107) mmol/L Carbon Dioxide 20 L (22-30) mmol/L Anion Gap 16 mmol/L BUN 23 H (9-20) mg/dL Creatinine 1.25 (0.66-1.25) mg/dL Est GFR (CKD-EPI)AfAm 66 (>60 ml/min/1.73 sqM) Est GFR (CKD-EPI)NonAf 57 (>60 ml/min/1.73 sqM) Glucose 265 H (74-99) mg/dL Plasma Lactic Acid Dirk 1.8 (0.7-2.0) mmol/L Calcium 10.2 (8.4-10.2) mg/dL Magnesium 1.2 L (1.6-2.3) mg/dL Total Bilirubin 1.4 H (0.2-1.3) mg/dL AST 32 (17-59) U/L ALT 32 (21-72) U/L Alkaline Phosphatase 70 (38-126) U/L Creatine Kinase 70 (55-170) U/L Total Protein 7.7 (6.3-8.2) g/dL Albumin 4.6 (3.5-5.0) g/dL Lipase 78 (23-300) U/L Acetone, Qual Negative (Negative) - Radiology Data Radiology results: report reviewed (I did review the imaging and report is evidence of enteritis versus ileus.), image reviewed Disposition Clinical Impression: Enteritis, Diarrhea, Dehydration, Hypomagnesemia syndrome, Hyperglycemia Disposition: ADMITTED IP TO THIS HOSP Condition: Fair Referrals: [facility] [Primary Care Provider] - 1-2 days
[2019-01-05 14:45] LABS: Basophils # (A) 0.1 k/uL (0-0.2); Basophils % (A) 1 %; Eosinophils % (A) 0 %; HCT 42.7 % (39.0-53.0); HGB 15.2 gm/dL (13.0-17.5); Hyperchromasia Slight; Lymphocytes # (A) 1.1 k/uL (1.0-4.8); Lymphocytes % (A) 9 %; MCHC 35.5 g/dL (31.0-37.0); MCV 90.1 fL (80.0-100.0); Mean Platelet Volume 6.4; Monocytes # (A) 1.2 k/uL (0-1.0); Monocytes % (A) 10 %; Neutrophils # (A) 9.5 k/uL (1.3-7.7); Neutrophils % (A) 77 %; Platelet Count 180 k/uL (150-450); Poikilocytosis Slight; RBC 4.74 m/uL (4.30-5.90); RDW 14.3 % (11.5-15.5); WBC 12.3 k/uL (3.8-10.6)
[2019-01-05 14:59] LABS: ALT 32 U/L (21-72); AST 32 U/L (17-59); African American GFR (CKD) 66 (>60 ml/min/1.73 sqM); Albumin 4.6 g/dL (3.5-5.0); Alkaline Phosphatase 70 U/L (38-126); Anion Gap 16 mmol/L; Blood Urea Nitrogen 23 mg/dL (9-20); Calcium 10.2 mg/dL (8.4-10.2); Carbon Dioxide 20 mmol/L (22-30); Chloride 100 mmol/L (98-107); Creatine Kinase 70 U/L (55-170); Glucose 265 mg/dL (74-99); Magnesium 1.2 mg/dL (1.6-2.3); Non-African American GFR(CKD) 57 (>60 ml/min/1.73 sqM); Potassium 3.6 mmol/L (3.5-5.1); Sodium 136 mmol/L (137-145); Total Bilirubin 1.4 mg/dL (0.2-1.3); Total Protein 7.7 g/dL (6.3-8.2)
--- NOTE | 2019-01-05 15:23 | XR ---
EXAMINATION TYPE: XR KUB DATE OF EXAM: 01/05/2019 CLINICAL DATA: 73-year-old male with diarrhea, pain, PHH COMPARISON: None FINDINGS: No evidence for free intraperitoneal air. Lung bases are clear. Median sternotomy wires. No dilated small bowel. Scattered colonic air-fluid levels are present. Relative osteopenia of bowel gas in the left side of the colon. No dilated bowel loops are identified. No definite suspicious calcifications. Cam deformity right femoral head neck junction with mild degenerative change at the hip. Left hip tot al arthroplasty demonstrated. IMPRESSION: 1. No evidence for free air or bowel obstruction. 2. Colonic air-fluid levels suggesting liquid stool which could reflect enteritis, colitis, or ileus.
[2019-01-05] MEDS ORDERED: ONDANSETRON 4 MG/2 ML VIAL IVP PRN (15:33)
[2019-01-05] MEDS ORDERED: NALOXONE 0.4 MG/ML 1 ML VIAL IV PRN (15:33)
[2019-01-05] MEDS ORDERED: ALBUTEROL NEBULIZED 2.5 MG/3 ML INHALATION PRN (15:36)
[2019-01-05] MEDS ORDERED: ACETAMINOPHEN TAB 325 MG TAB PO PRN (15:36)
[2019-01-05] MEDS ORDERED: NITROGLYCERIN SL TABS 0.4 MG TAB SUBLINGUAL PRN (15:36)
[2019-01-05] MEDS: MAGNESIUM SULFATE-D5W PMX 1 GM in DEXTROSE/WATER 1 100ML.BAG IVPB SCH ×2 (16:41→18:00)
[2019-01-05] MEDS: SODIUM CHLORIDE 0.9% 1,000 ML IV SCH (16:41)
[2019-01-05] MEDS ORDERED: NON FORMULARY DRUG (Omeprazole 20 MG) PO SCH (17:30)
[2019-01-05 17:35] LABS: Glucose,Whole Blood 205 mg/dL (75-99)
[2019-01-05] MEDS ORDERED: HYDROCORTISONE 1% OINT 28.35 GM TUBE TOPICAL PRN (17:43)
[2019-01-05] MEDS: INSULIN ASPART (NovoLOG) 100 UNIT/ML VIAL SQ SCH ×2 (17:50→20:02)
[2019-01-05] MEDS: CARVEDILOL 6.25 MG TAB PO SCH (17:50)
--- NOTE | 2019-01-05 18:32 | P.HPIM ---
History of Present Illness Patient is a pleasant 73-year-old gentleman came with the diarrhea multiple episodes a day has been going on for last day last 4 days about 30 episodes a day today he had more than 15 today. Patient felt lightheaded dizzy. Patient was having fever and some body aches about couple days ago fever lasted for one day. Patient does have history of ulcerative colitis his normal symptoms of ulcerative colitis of the blood in the stool. Patient presently doesn't have any fever chills. She and uses mesalamine for her ulcerative colitis. Patient had a recent cardiac catheterization which did not show any significant atherosclerotic occlusive disease. Patient also compresses about 4/5 abdominal discomfort dull pain Review of Systems REVIEW OF SYSTEMS: CONSTITUTIONAL: No fever, no malaise, no fatigue. HEENT: No recent visual problems or hearing problems. Denied any sore throat. CARDIOVASCULAR: No chest pain, orthopnea, PND, no palpitations, no syncope. PULMONARY: No shortness of breath, no cough, no hemoptysis. GASTROINTESTINAL: As mentioned in HPI NEUROLOGICAL: No headaches, no weakness, no numbness. HEMATOLOGICAL: Denies any bleeding or petechiae. GENITOURINARY: Denies any burning micturition, frequency, or urgency. MUSCULOSKELETAL/RHEUMATOLOGICAL: Denies any joint pain, swelling, or any muscle pain. ENDOCRINE: Denies any polyuria or polydipsia. The rest of the 14-point review of systems is negative. Past Medical History Past Medical History: COPD, Diabetes Mellitus, Deep Vein Thrombosis (DVT), Hypertension, Myocardial Infarction (DC), Osteoarthritis (OA) Additional Past Medical History / Comment(s): Ulcerative colitis. Chronic Back Pain. New onset DM. Last Myocardial Infarction Date:: 1992 History of Any Multi-Drug Resistant Organisms: None Reported Past Surgical History: Coronary Bypass/CABG, Heart Catheterization, Joint Replacement Additional Past Surgical History / Comment(s): triple bypass, colonoscopy, emily cataract surgery, lt nick. Pain Procedures Past Anesthesia/Blood Transfusion Reactions: No Reported Reaction Past Psychological History: No Psychological Hx Reported Smoking Status: Former smoker Past Alcohol Use History: None Reported Additional Past Alcohol Use History / Comment(s): smoked 40 years 3 ppd quit 01/2017 Past Drug Use History: None Reported - Past Family History Brother(s) Family Medical History: CVA/TIA, Deep Vein Thrombosis (DVT) Medications and Allergies Home Medications Medication Instructions Recorded Confirmed Type Acetaminophen Tab [Tylenol Tab] 650 mg PO Q6H PRN 05/28/16 01/05/19 History Aspirin 81 mg PO DAILY 05/28/16 01/05/19 History Hydrochlorothiazide [Hydrodiuril] 25 mg PO DAILY 05/28/16 01/05/19 History Isosorbide Mononitrate ER [Imdur] 60 mg PO DAILY 05/28/16 01/05/19 History Nitroglycerin Sl Tabs [Nitrostat] 0.4 mg SUBLINGUAL Q5M PRN 05/28/16 01/05/19 History Omeprazole [PriLOSEC] 20 mg PO AC-BID 05/28/16 01/05/19 History Tiotropium [place] [Spiriva] 1 cap INHALATION RT-DAILY 05/28/16 01/05/19 History Carvedilol [Coreg] 6.25 mg PO BID 09/07/17 01/05/19 History Ubidecarenone [Coenzyme Q10] 10 mg PO DAILY 09/07/17 01/05/19 History Mesalamine 375mg Sa Cap 750 mg PO TID 09/14/17 01/05/19 History metFORMIN HCL [Glucophage] 500 mg PO AC-BID 11/23/18 01/05/19 History Clotrimazole [Clotrimazole AF] 1 applic TOPICAL BID PRN 01/05/19 01/05/19 History Fluticasone Nasal [place] [Flonase 1 spray EA NOSTRIL BID PRN 01/05/19 01/05/19 History Nasal [place]] Hydrocortisone Oint 1 applic TOPICAL BID PRN 01/05/19 01/05/19 History [Hydrocortisone 2.5% Oint] Ibuprofen [Motrin] 400 mg PO Q6H PRN 01/05/19 01/05/19 History Lisinopril [Zestril] 5 mg PO BID 01/05/19 01/05/19 History Loratadine 10 mg PO DAILY 01/05/19 01/05/19 History Allergies Allergy/AdvReac Type Severity Reaction Status Date / Time Ofblfyz-Naz-Rup Reductase AdvReac severe Verified 01/05/19 13:34 Inhibitor muscle cramps Physical Exam Vitals: Vital Signs Temp Pulse Pulse Resp BP BP Pulse Ox 01/05/19 17:21 98.0 F 98 16 160/90 97 01/05/19 16:00 98 16 01/05/19 15:49 83 18 155/99 97 01/05/19 13:30 98.2 F 103 H 16 132/73 99 Intake and Output 01/05/19 01/05/19 01/05/19 06:59 14:59 22:59 Other: Weight 99.79 kg PHYSICAL EXAMINATION: GENERAL: The patient is alert and oriented x3, not in any acute distress. Well developed, well nourished. HEENT: Pupils are round and equally reacting to light. EOMI. No scleral icterus. No conjunctival pallor. Normocephalic, atraumatic. No pharyngeal erythema. No thyromegaly. CARDIOVASCULAR: S1 and S2 present. No murmurs, rubs, or gallops. PULMONARY: Chest is clear to auscultation, no wheezing or crackles. ABDOMEN: Soft, very mild diffuse tenderness, nondistended, normoactive bowel sounds. No palpable organomegaly. MUSCULOSKELETAL: No joint swelling or deformity. EXTREMITIES: No cyanosis, clubbing, or pedal edema. NEUROLOGICAL: Gross neurological examination did not reveal any focal deficits. SKIN: No rashes. Results CBC & Chem 7: 01/05/19 14:09 01/05/19 14:09 Labs: Abnormal Lab Results - Last 24 Hours (Table) 01/05/19 01/05/19 01/05/19 Range/Units 14:09 14:09 17:08 WBC 12.3 H (3.8-10.6) k/uL Neutrophils # 9.5 H (1.3-7.7) k/uL Monocytes # 1.2 H (0-1.0) k/uL Sodium 136 L (137-145) mmol/L Carbon Dioxide 20 L (22-30) mmol/L BUN 23 H (9-20) mg/dL Glucose 265 H (74-99) mg/dL POC Glucose (mg/dL) 205 H (75-99) mg/dL Magnesium 1.2 L (1.6-2.3) mg/dL Total Bilirubin 1.4 H (0.2-1.3) mg/dL Thrombosis Risk Factor Assmnt - Choose All That Apply Any of the Below Risk Factors Present?: Yes Each Factor Represents 1 point: Abnormal pulmonary function (COPD), Obesity (BMI >25) Each Risk Factor Represents 2 Points: Age 61-74 years Thrombosis Risk Factor Assessment Total Risk Factor Score: 4 Thrombosis Risk Factor Assessment Level: Moderate Risk Assessment and Plan Plan: -Diarrhea abdominal pain: Most probably viral enteritis ulcerative colitis flareup cannot be ruled out because of which I consulted gastroenterology CRP and ESR will be obtained but the these will be elevated even viral enteritis. C. diff was negative patient will be started on symptomatically treatment consid ering his significant discomfort and using bathroom multiple times in a day for diarrhea. -Acute renal failure secondary to dehydration from diarrhea patient was started on IV fluids will hold off on lisinopril temporally although cord will be continued. -Hypertension: Coronary will be continued and lisinopril will be held temporarily because of acute renal failure -COPD without any acute exacerbation -Type 2 diabetes mellitus next and heparin DVT in the past -Coronary artery disease History of DVT in the past presently not on any anticoagulation DVT prophylaxis early ambulation and subcutaneous heparin
[2019-01-05] MEDS: DIPHENOX-ATROP 2.5-0.025 MG 1 EACH TAB PO PRN (20:02)
[2019-01-05] MEDS: BALSALAZIDE DISODIUM 750 MG CAPSULE PO SCH (20:03)
[2019-01-05 20:09] LABS: Glucose,Whole Blood 222 mg/dL (75-99)
[2019-01-06] MEDS: SODIUM CHLORIDE 0.9% 1,000 ML IV SCH ×4 (00:10→19:52)
[2019-01-06] MEDS: HEPARIN SODIUM,PORCINE 5,000 UNIT/ML 1 ML VIAL SQ SCH ×4 (00:11→22:59)
[2019-01-06] MEDS: DIPHENOX-ATROP 2.5-0.025 MG 1 EACH TAB PO PRN (04:34)
[2019-01-06 07:24] LABS: Glucose,Whole Blood 163 mg/dL (75-99)
[2019-01-06 07:57] LABS: African American GFR (CKD) >90 (>60 ml/min/1.73 sqM); Anion Gap 10 mmol/L; Blood Urea Nitrogen 17 mg/dL (9-20); Calcium 8.5 mg/dL (8.4-10.2); Carbon Dioxide 23 mmol/L (22-30); Chloride 104 mmol/L (98-107); Glucose 157 mg/dL (74-99); Non-African American GFR(CKD) 82 (>60 ml/min/1.73 sqM); Potassium 3.2 mmol/L (3.5-5.1); Sodium 137 mmol/L (137-145)
[2019-01-06] MEDS: IPRATROPIUM 0.5 MG/2.5 ML NEBU INHALATION SCH ×4 (08:41→20:53)
[2019-01-06] MEDS ORDERED: HYDROCHLOROTHIAZIDE 50 MG TAB PO SCH (09:00)
[2019-01-06] MEDS ORDERED: LISINOPRIL 10 MG TAB PO SCH (09:00)
[2019-01-06] MEDS ORDERED: UBIDECARENONE 10 MG PO SCH (09:00)
[2019-01-06] MEDS ORDERED: PANTOPRAZOLE 40 MG/10 ML VIAL IV SCH (09:00)
[2019-01-06] MEDS: CARVEDILOL 6.25 MG TAB PO SCH ×2 (09:14→17:30)
[2019-01-06] MEDS: BALSALAZIDE DISODIUM 750 MG CAPSULE PO SCH ×3 (09:14→19:51)
[2019-01-06] MEDS: ASPIRIN 81 MG PO SCH (09:14)
[2019-01-06] MEDS: ISOSORBIDE MONONITRATE ER 60 MG TAB.ER.24H PO SCH (09:15)
[2019-01-06] MEDS: INSULIN ASPART (NovoLOG) 100 UNIT/ML VIAL SQ SCH ×4 (09:25→19:51)
[2019-01-06 09:33] LABS: HCT 36.3 % (39.0-53.0); HGB 12.8 gm/dL (13.0-17.5); MCH 31.9 pg (25.0-35.0); MCHC 35.1 g/dL (31.0-37.0); MCV 90.9 fL (80.0-100.0); Mean Platelet Volume 6.7; Platelet Count 145 k/uL (150-450); Poikilocytosis Slight; RDW 14.3 % (11.5-15.5); WBC 7.4 k/uL (3.8-10.6)
[2019-01-06] MEDS ORDERED: POTASSIUM CHLORIDE ER 20 MEQ TAB.ER PO STA (11:51)
[2019-01-06 12:01] LABS: Glucose,Whole Blood 166 mg/dL (75-99)
--- NOTE | 2019-01-06 18:50 | CONS ---
CONSULTATION DATE OF DICTATION: 01/06/2019 REASON FOR CONSULTATION: Acute severe diarrhea of 4 days' duration. HISTORY OF PRESENT ILLNESS: The patient is a 73-year-old pleasant white male with history of ulcerative colitis diagnosed about 15 years ago who is maintained on oral mesalamine 3.6 grams daily, admitted to the hospital with acute onset of diarrhea that started about 4 days ago. He started having multiple bowel movements, mucousy, but no blood. He was having about 15 to 20 bowel movements and occasionally 30 a day for the last 4 days. He denies any rectal bleeding. He was just started on Protonix 2 days earlier to that, and he stopped the medication. He was also started on metformin a few days earlier for diabetes mellitus, and he stopped the medication, but no change in his symptoms. He came into the emergency room and was subsequently admitted to the hospital for further evaluation. Today he had about 6 to 8 bowel movements. He never had these symptoms in the past. He reports no recent antibiotic use. Last flareup of ulcerative colitis was approximately 8 months ago and was treated with steroids for 6 weeks and his symptoms resolved. He, however, does not think that this seems like his exacerbation of ulcerative colitis. PAST MEDICAL HISTORY: 1. Ulcerative colitis diagnosed 10 years ago. 2. History of diabetes mellitus. 3. Hypertension. 4. DVT. 5. HI in the past. PAST SURGICAL HISTORY: 1. CABG. 2. Multiple colonoscopies; last one 2-1/2 years ago. 3. Bilateral cataract surgery. MEDICATIONS: Medications at home include: 1. Aspirin. 2. HydroDIURIL. 3. Imdur. 4. Nitrostat. 5. Prilosec. 6. Spiriva. 7. Coreg. 8. Coenzyme Q10. 9. Metformin. 10.Mesalamine. 11.Clotrimazole. 12.Flonase. 13.Hydrocortisone. 14.Motrin. 15.Zestril. 16.Loratadine. ALLERGIES: STATINS. SOCIAL HISTORY: Former smoker. No alcohol use. FAMILY HISTORY: Brother had DVT and CVA. REVIEW OF SYSTEMS: CARDIOPULMONARY: No chest pain or shortness of breath. GENITOURINARY: No dysuria or hematuria. MUSCULOSKELETAL: Unremarkable. SKIN: Unremarkable. ENDOCRINE: Unremarkable. PSYCHIATRIC: Unremarkable. NEUROLOGY: Unremarkable. ENT/VISION: Unremarkable. CONSTITUTIONAL: No recent weight loss. No fever, chills, night sweats. PHYSICAL EXAMINATION: He appears comfortable. No apparent distress. VITAL SIGNS: Stable. Blood pressure is 132/64, pulse rate 72, temperature 98.5. HEENT examination unremarkable. Conjunctivae pink. Sclerae anicteric. Oral cavity no lesions. NECK: No JVD or lymph node enlargement. CHEST: Clear to auscultation. HEART: Regular rate and rhythm. ABDOMEN: Soft. Non-tender. Non-distended. Bowel sounds are positive. No organomegaly. EXTREMITIES: No pedal edema. SKIN: No rashes. NEUROLOGIC: Alert and oriented x3. No focal deficits. LABS: Labs done yesterday showed WBC 12.3, hemoglobin 15.2, and platelets are normal. Basic metabolic panel is within normal limits. BUN 23, creatinine 1.25. Stool C difficile toxin is negative. CRP is elevated at 86.6. Labs from today show WBC 7.4, hemoglobin 12.8, platelets 145. IMPRESSION: 1. Acute onset of diarrhea for the last 4 days' duration with no blood or mucus in the stool. Most likely we are dealing with infectious etiology, but possibility of exacerbation of ulcerative colitis cannot be excluded. However, the patient states that his last flareup of ulcerative colitis was about 8 months ago and usually he has bloody diarrhea with it. At this time will rule out infectious etiology. C difficile toxin is negative. Rest of the stool studies are pending. 2. History of ulcerative colitis diagnosed 10 years ago; has been in clinical remission. Maintained on mesalamine 3.6 grams daily. 3. Acute kidney injury related to dehydration, which is gradually improving. Presently on IV hydration. 4. Chronic obstructive pulmonary disease. 5. Type 2 diabetes mellitus. RECOMMENDATIONS: 1. Await rest of the stool studies. 2. If the stool studies are negative, I will consider starting him on IV steroids tomorrow for possible flareup of ulcerative colitis. 3. In the meantime, continue with clear liquid diet. 4. IV hydration. 5. Repeat labs in the morning. Will follow with you closely during his hospital stay. Thank you for this consultation. MMODL / IJN: [id number] /
[2019-01-06 19:42] LABS: Glucose,Whole Blood 210 mg/dL (75-99)
[2019-01-07 06:57] LABS: Glucose,Whole Blood 155 mg/dL (75-99)
[2019-01-07] MEDS: HEPARIN SODIUM,PORCINE 5,000 UNIT/ML 1 ML VIAL SQ SCH ×3 (07:27→22:22)
[2019-01-07] MEDS: ASPIRIN 81 MG PO SCH (07:27)
[2019-01-07] MEDS: INSULIN ASPART (NovoLOG) 100 UNIT/ML VIAL SQ SCH ×4 (07:27→22:22)
[2019-01-07] MEDS: BALSALAZIDE DISODIUM 750 MG CAPSULE PO SCH ×3 (07:28→22:22)
[2019-01-07] MEDS: PANTOPRAZOLE 40 MG TABLET PO SCH (07:28)
[2019-01-07] MEDS: CARVEDILOL 6.25 MG TAB PO SCH ×2 (07:28→15:32)
[2019-01-07] MEDS: ISOSORBIDE MONONITRATE ER 60 MG TAB.ER.24H PO SCH (07:28)
[2019-01-07] MEDS: SODIUM CHLORIDE 0.9% 1,000 ML IV SCH ×3 (07:34→22:23)
[2019-01-07] MEDS: IPRATROPIUM 0.5 MG/2.5 ML NEBU INHALATION SCH ×4 (09:10→20:15)
[2019-01-07 09:42] LABS: African American GFR (CKD) >90 (>60 ml/min/1.73 sqM); Anion Gap 9 mmol/L; Blood Urea Nitrogen 16 mg/dL (9-20); Carbon Dioxide 22 mmol/L (22-30); Chloride 107 mmol/L (98-107); Glucose 245 mg/dL (74-99); Non-African American GFR(CKD) 82 (>60 ml/min/1.73 sqM); Potassium 3.9 mmol/L (3.5-5.1); Sodium 138 mmol/L (137-145)
--- NOTE | 2019-01-07 09:46 | PN ---
PROGRESS NOTE DATE OF DICTATION: January 07, 2019 Patient is a 73-year-old pleasant white male admitted to the hospital with severe diarrhea for the last few days duration. He has been having bowel movements anywhere from 3-4 an hour which are loose to watery in consistency, but no blood or mucus in the stool. The patient does have history of longstanding ulcerative colitis diagnosed about 10 years ago and has been maintained on oral mesalamine. His last flare-up was about 8 months ago. He however denies any blood or mucus in the stool. He came into the emergency room and he did have stool studies for C difficile toxin that was negative. Stool cultures preliminary results negative. In the meantime, he continues to have diarrhea. He had about 20 bowel movements yesterday, all day yesterday. He denies any abdominal pain. He reports no nausea, vomiting. PHYSICAL EXAMINATION: He appears comfortable. No apparent distress. VITAL SIGNS: Stable. Blood pressure 173/88, pulse is 67, temperature 97.4. HEENT examination unremarkable. Conjunctivae pink. Sclerae anicteric. Oral cavity no lesions. NECK: No JVD or lymph node enlargement. CHEST: Clear to auscultation. HEART: Regular rate and rhythm. ABDOMEN: Soft. Bowel sounds are positive. No organomegaly. EXTREMITIES: No pedal edema. SKIN: No rashes. NEUROLOGIC: Alert and oriented x3. No focal deficits. LABS: From yesterday: WBC 7.4, hemoglobin 12.8, platelets 145 1000. Stool for C difficile toxin is negative. Stool lactoferrin was positive. C-reactive protein was 86. IMPRESSION: This is a patient with longstanding history of ulcerative colitis, admitted to the hospital with severe diarrhea for the last few days duration, has been having bowel movements anywhere from 25-30 a day which are loose to watery in consistency. Stool studies so far: C difficile toxin negative. Cultures still pending. CRP is elevated at 86 and stool lactoferrin is positive. With this, it is likely that we are dealing with exacerbation of ulcerative colitis, though not a classical presentation. RECOMMENDATIONS: 1. Start him on IV Solu-Medrol 20 mg q.8 hours. 2. Continue with a low fiber diet. 3. Continue with oral mesalamine. 4. Hold antimotility agents. 5. Repeat labs in the morning and will follow with you closely. Thank you for this consultation. MMODL / IJN: [id number] /
[2019-01-07] MEDS: methylPREDNISolone SOD SUCCI 40 MG/ML 1 ML VIAL IV SCH ×3 (09:53→22:21)
--- NOTE | 2019-01-07 11:07 | P.PN ---
Subjective Progress Note Date: 01/06/19 Principal diagnosis: Intractable diarrhea Acute renal injury/dehydration Hypokalemia History of ulcerative colitis maintained on mesalamine 73-year-old gentleman came with the diarrhea multiple episodes a day has been going on for last day last 4 days about 30 episodes a day today he had more than 15 today. Patient felt lightheaded dizzy. Patient was having fever and some rula dy aches about couple days ago fever lasted for one day. Patient does have history of ulcerative colitis his normal symptoms of ulcerative colitis of the blood in the stool. Patient presently doesn't have any fever chills. She and uses mesalamine for her ulcerative colitis. Patient had a recent cardiac catheterization which did not show any significant atherosclerotic occlusive disease. Patient also compresses about 4/5 abdominal discomfort dull pain 01/06/2019 Patient is seen and evaluated in room with family members at bedside; continues to have recurrent episodes of watery diarrhea Vital signs remained stable with a temperature of 98.5, pulse 72, respiration 12 and blood pressure 110/64 with SpO2 of 94% on room air Lab review shows a white blood count improved from 12.3 yesterday down to 7.4, hemoglobin of 12.8 and platelet count of 145; chemical profile shows low potassium of 3.2 which will be supplemented with by mouth potassium; blood sugars range between 157-265 Patient has had diarrhea for 4 days; possibility of infectious diarrhea versus ulcerative colitis, patient is maintained on mesalamine 3.6 g daily; C. diff toxin is negative; rest of stool studies are pending; GI is following and recommending to wait for stool studies and starting patient on IV steroids for possible ulcerative colitis flareup if stool studies remain negative; patient remains on clear liquid diet; continue with IV fluid hydration and monitor renal function and electrolytes Objective - Vital Signs Vital signs: Vital Signs Temp 97.6 F 01/06/19 07:00 Pulse 76 01/06/19 08:57 Resp 16 01/06/19 07:00 BP 144/83 01/06/19 07:00 Pulse Ox 96 01/06/19 07:00 Intake & Output 01/05/19 01/06/19 01/06/19 18:59 06:59 18:59 Intake Total 180 1537.5 Balance 180 1537.5 Weight 99.79 kg Intake: Intake, IV Titration 1537.5 Amount Magnesium Sulfate-D5w Pmx 100 1 gm In Dextrose/Water 1 100ml.bag @ 100 mls/hr IVPB Q1H KATELYNN Rx#: [id number] Sodium Chloride 0.9% 1, 1437.5 000 ml @ 125 mls/hr IV . Q8H KATELYNN Rx#:[id number] Oral 180 Other: Voiding Method Toilet Toilet # Voids 2 # Bowel Movements 3 - Exam HEENT: Pupils are round and equally reacting to light. EOMI. No scleral icterus. No conjunctival pallor. Normocephalic, atraumatic. No pharyngeal erythema. No thyromegaly. CARDIOVASCULAR: S1 and S2 present. No murmurs, rubs, or gallops. PULMONARY: Chest is clear to auscultation, no wheezing or crackles. ABDOMEN: Soft, very mild diffuse tenderness, nondistended, normoactive bowel sounds. No palpable organomegaly. MUSCULOSKELETAL: No joint swelling or deformity. EXTREMITIES: No cyanosis, clubbing, or pedal edema. - Labs CBC & Chem 7: 01/06/19 06:57 01/07/19 09:17 Labs: Abnormal Lab Results - Last 24 Hours (Table) 01/05/19 01/05/19 01/05/19 Range/Units 14:09 14:09 15:30 WBC 12.3 H (3.8-10.6) k/uL RBC (4.30-5.90) m/uL Hgb (13.0-17.5) gm/dL Hct (39.0-53.0) % Plt Count (150-450) k/uL Neutrophils # 9.5 H (1.3-7.7) k/uL Monocytes # 1.2 H (0-1.0) k/uL Sodium 136 L (137-145) mmol/L Potassium (3.5-5.1) mmol/L Carbon Dioxide 20 L (22-30) mmol/L BUN 23 H (9-20) mg/dL Glucose 265 H (74-99) mg/dL POC Glucose (mg/dL) (75-99) mg/dL Magnesium 1.2 L (1.6-2.3) mg/dL Total Bilirubin 1.4 H (0.2-1.3) mg/dL C-Reactive Protein 86.6 H (<10.0) mg/L 01/05/19 01/05/19 01/06/19 Range/Units 17:08 19:57 06:57 WBC (3.8-10.6) k/uL RBC 4.00 L (4.30-5.90) m/uL Hgb 12.8 L (13.0-17.5) gm/dL Hct 36.3 L (39.0-53.0) % Plt Count 145 L (150-450) k/uL Neutrophils # (1.3-7.7) k/uL Monocytes # (0-1.0) k/uL Sodium (137-145) mmol/L Potassium (3.5-5.1) mmol/L Carbon Dioxide (22-30) mmol/L BUN (9-20) mg/dL Glucose (74-99) mg/dL POC Glucose (mg/dL) 205 H 222 H (75-99) mg/dL Magnesium (1.6-2.3) mg/dL Total Bilirubin (0.2-1.3) mg/dL C-Reactive Protein (<10.0) mg/L 01/06/19 01/06/19 Range/Units 06:57 07:16 WBC (3.8-10.6) k/uL RBC (4.30-5.90) m/uL Hgb (13.0-17.5) gm/dL Hct (39.0-53.0) % Plt Count (150-450) k/uL Neutrophils # (1.3-7.7) k/uL Monocytes # (0-1.0) k/uL Sodium (137-145) mmol/L Potassium 3.2 L (3.5-5.1) mmol/L Carbon Dioxide (22-30) mmol/L BUN (9-20) mg/dL Glucose 157 H (74-99) mg/dL POC Glucose (mg/dL) 163 H (75-99) mg/dL Magnesium (1.6-2.3) mg/dL Total Bilirubin (0.2-1.3) mg/dL C-Reactive Protein (<10.0) mg/L Assessment and Plan Assessment: -Diarrhea abdominal pain: Most probably viral enteritis ulcerative colitis flareup cannot be ruled out because of which I consulted gastroenterology CRP and ESR will be obtained but the these will be elevated even viral enteritis. C. diff was negative patient will be started on symptomatically treatment considering his significant discomfort and using bathroom multiple times in a day for diarrhea. -Acute renal failure secondary to dehydration from diarrhea patient was started on IV fluids will hold off on lisinopril temporally although cord will be continued. -Hypertension: Coronary will be continued and lisinopril will be held temporarily because of acute renal failure -COPD without any acute exacerbation -Type 2 diabetes mellitus next and heparin DVT in the past -Coronary artery disease History of DVT in the past presently not on any anticoagulation DVT prophylaxis early ambulation and subcutaneous heparin
[2019-01-07 11:56] LABS: Glucose,Whole Blood 180 mg/dL (75-99)
--- NOTE | 2019-01-07 16:01 | P.PN ---
Subjective Progress Note Date: 01/07/19 Principal diagnosis: Intractable diarrhea Acute renal injury/dehydration Hypokalemia History of ulcerative colitis maintained on mesalamine 73-year-old gentleman came with the diarrhea multiple episodes a day has been going on for last day last 4 days about 30 episodes a day today he had more than 15 today. Patient felt lightheaded dizzy. Patient was having fever and some rula dy aches about couple days ago fever lasted for one day. Patient does have history of ulcerative colitis his normal symptoms of ulcerative colitis of the blood in the stool. Patient presently doesn't have any fever chills. She and uses mesalamine for her ulcerative colitis. Patient had a recent cardiac catheterization which did not show any significant atherosclerotic occlusive disease. Patient also compresses about 4/5 abdominal discomfort dull pain 01/06/2019 Patient is seen and evaluated in room with family members at bedside; continues to have recurrent episodes of watery diarrhea Vital signs remained stable with a temperature of 98.5, pulse 72, respiration 12 and blood pressure 110/64 with SpO2 of 94% on room air Lab review shows a white blood count improved from 12.3 yesterday down to 7.4, hemoglobin of 12.8 and platelet count of 145; chemical profile shows low potassium of 3.2 which will be supplemented with by mouth potassium; blood sugars range between 157-265 Patient has had diarrhea for 4 days; possibility of infectious diarrhea versus ulcerative colitis, patient is maintained on mesalamine 3.6 g daily; C. diff toxin is negative; rest of stool studies are pending; GI is following and recommending to wait for stool studies and starting patient on IV steroids for possible ulcerative colitis flareup if stool studies remain negative; patient remains on clear liquid diet; continue with IV fluid hydration and monitor renal function and electrolytes 01/07/2019 Patient is seen and evaluated in room at bedside; reports marked improvement in symptoms since started on IV steroids; patient is being followed by GI and has been started on IV Solu-Medrol 20 mg every 8 hours and recommended a low fiber diet and to continue with oral mesalamine; antimotility agents are put on hold; according to GI patient does not have a classic presentation of exacerbation of ulcerative colitis but in view of elevated CRP at 86 and stool lactoferrin positive he will be treated with IV steroids for acute exacerbation of ulcerativ e colitis Objective - Vital Signs Vital signs: Vital Signs Temp 97.4 F L 01/07/19 07:00 Pulse 70 01/07/19 09:22 Resp 18 01/07/19 07:00 BP 173/88 01/07/19 07:00 Pulse Ox 95 01/07/19 07:00 Intake & Output 01/06/19 01/07/19 01/07/19 18:59 06:59 18:59 Intake Total 240 2045 Balance 240 2045 Intake: Intake, IV Titration 1225 Amount Sodium Chloride 0.9% 1, 1225 000 ml @ 125 mls/hr IV . Q8H [facility] Rx#:[id number] Oral 240 820 Other: Voiding Method Toilet Toilet # Voids 3 2 # Bowel Movements 3 4 # [place] 3 - Exam HEENT: Pupils are round and equally reacting to light. EOMI. No scleral icterus. No conjunctival pallor. Normocephalic, atraumatic. No pharyngeal erythema. No thyromegaly. CARDIOVASCULAR: S1 and S2 present. No murmurs, rubs, or gallops. PULMONARY: Chest is clear to auscultation, no wheezing or crackles. ABDOMEN: Soft, very mild diffuse tenderness, nondistended, normoactive bowel s ounds. No palpable organomegaly. MUSCULOSKELETAL: No joint swelling or deformity. EXTREMITIES: No cyanosis, clubbing, or pedal edema. - Labs CBC & Chem 7: 01/06/19 06:57 01/07/19 09:17 Labs: Abnormal Lab Results - Last 24 Hours (Table) 01/06/19 01/06/19 01/06/19 Range/Units 10:47 11:55 19:38 Glucose (74-99) mg/dL POC Glucose (mg/dL) 166 H 210 H (75-99) mg/dL Calcium (8.4-10.2) mg/dL Stool Lactoferrin POSITIVE H (NEGATIVE) 01/07/19 01/07/19 Range/Units 06:44 09:17 Glucose 245 H (74-99) mg/dL POC Glucose (mg/dL) 155 H (75-99) mg/dL Calcium 8.0 L (8.4-10.2) mg/dL Stool Lactoferrin (NEGATIVE) Microbiology - Last 24 Hours (Table) 01/06/19 10:47 Stool Culture - Preliminary Stool Assessment and Plan Assessment: -Diarrhea abdominal pain: Most probably viral enteritis ulcerative colitis flareup cannot be ruled out because of which I consulted gastroenterology CRP and ESR will be obtained but the these will be elevated even viral enteritis. C. diff was negative patient will be started on symptomatically treatment considering his significant discomfort and using bathroom multiple times in a day for diarrhea. -Acute renal failure secondary to dehydration from diarrhea patient was started on IV fluids will hold off on lisinopril temporally although cord will be demario nued. -Hypertension: Coronary will be continued and lisinopril will be held temporarily because of acute renal failure -COPD without any acute exacerbation -Type 2 diabetes mellitus next and heparin DVT in the past -Coronary artery disease History of DVT in the past presently not on any anticoagulation DVT prophylaxis early ambulation and subcutaneous heparin
[2019-01-07 17:09] LABS: Glucose,Whole Blood 281 mg/dL (75-99)
[2019-01-07] MEDS: DIPHENOX-ATROP 2.5-0.025 MG 1 EACH TAB PO PRN (18:28)
[2019-01-07 22:22] LABS: Glucose,Whole Blood 290 mg/dL (75-99)
[2019-01-08 06:52] LABS: Glucose,Whole Blood 248 mg/dL (75-99)
[2019-01-08] MEDS: INSULIN ASPART (NovoLOG) 100 UNIT/ML VIAL SQ SCH ×4 (07:13→21:08)
[2019-01-08] MEDS: methylPREDNISolone SOD SUCCI 40 MG/ML 1 ML VIAL IV SCH ×2 (07:14→18:17)
[2019-01-08] MEDS: PANTOPRAZOLE 40 MG TABLET PO SCH (07:14)
[2019-01-08] MEDS: BALSALAZIDE DISODIUM 750 MG CAPSULE PO SCH ×3 (07:14→21:06)
[2019-01-08] MEDS: HEPARIN SODIUM,PORCINE 5,000 UNIT/ML 1 ML VIAL SQ SCH ×2 (07:14→17:24)
[2019-01-08] MEDS: ASPIRIN 81 MG PO SCH (07:14)
[2019-01-08] MEDS: CARVEDILOL 6.25 MG TAB PO SCH ×2 (07:14→17:24)
[2019-01-08] MEDS: ISOSORBIDE MONONITRATE ER 60 MG TAB.ER.24H PO SCH (07:14)
[2019-01-08] MEDS: SODIUM CHLORIDE 0.9% 1,000 ML IV SCH ×3 (07:15→21:09)
[2019-01-08] MEDS: IPRATROPIUM 0.5 MG/2.5 ML NEBU INHALATION SCH ×4 (09:29→19:39)
[2019-01-08 11:23] LABS: Basophils # (A) 0.1 k/uL (0-0.2); Basophils % (A) 1 %; Eosinophils % (A) 0 %; HCT 36.4 % (39.0-53.0); HGB 12.4 gm/dL (13.0-17.5); Lymphocytes # (A) 0.7 k/uL (1.0-4.8); Lymphocytes % (A) 7 %; MCH 30.9 pg (25.0-35.0); MCHC 33.9 g/dL (31.0-37.0); Mean Platelet Volume 6.5; Monocytes # (A) 0.6 k/uL (0-1.0); Monocytes % (A) 5 %; Neutrophils # (A) 9.6 k/uL (1.3-7.7); Neutrophils % (A) 86 %; Platelet Count 156 k/uL (150-450); Poikilocytosis Slight; RDW 14.2 % (11.5-15.5); WBC 11.1 k/uL (3.8-10.6)
[2019-01-08 11:38] LABS: African American GFR (CKD) >90 (>60 ml/min/1.73 sqM); Anion Gap 12 mmol/L; Blood Urea Nitrogen 14 mg/dL (9-20); Calcium 8.6 mg/dL (8.4-10.2); Carbon Dioxide 21 mmol/L (22-30); Chloride 108 mmol/L (98-107); Glucose 229 mg/dL (74-99); Non-African American GFR(CKD) 86 (>60 ml/min/1.73 sqM); Potassium 3.9 mmol/L (3.5-5.1); Sodium 141 mmol/L (137-145)
[2019-01-08 12:06] LABS: Glucose,Whole Blood 237 mg/dL (75-99)
--- NOTE | 2019-01-08 12:21 | PN ---
PROGRESS NOTE DATE OF SERVICE: January 08, 2019 Patient is a 73-year-old, pleasant white male admitted to the hospital with severe diarrhea for the last few days duration. He has history of ulcerative colitis which has been in clinical remission for the last several years, maintained on balsalazide 3 tablets 3 times daily. He continues to have severe diarrhea with bowel movements anywhere from 15-20 a day. He was started on IV Solu-Medrol 20 mg q.8 hours yesterday with no significant change in his symptoms. He denies any abdominal pain. No rectal bleeding. PHYSICAL EXAMINATION: He appears comfortable. No apparent distress. Vital signs stable. Blood pressure is 112/86, pulse rate 66 per minute. Afebrile. HEENT Examination unremarkable. Conjunctivae pink. Sclerae anicteric. Oral cavity no lesions. NECK: No JVD or lymph node enlargement. Chest was clear to auscultation. HEART: Regular rate and rhythm. ABDOMEN: Soft. Bowel sounds are positive. No organomegaly. EXTREMITIES: No pedal edema. Skin no rashes. NEUROLOGIC: Alert and oriented x3. No focal deficits. LABORATORY DATA: Labs done from today: WBC 11.1, hemoglobin 12.4, platelets are normal. Basic metabolic panel is within normal limits. IMPRESSION: Acute onset of severe diarrhea for the last few days duration, possibly exacerbation of ulcerative colitis. Stool cultures have been negative. Stool lactoferrin was positive. C diff was negative. Presently on IV Solu-Medrol 20 mg q.8 hours with no significant change in the symptoms. RECOMMENDATION: 1. Continue with Solu-Medrol 20 mg q.8 hours. 2. Advance diet as tolerated. 3. Repeat labs in the morning. 4. Repeat C-reactive protein in the morning. 5. Continue with balsalazide 2.25 g daily. Thank you for this consultation. We will follow with you closely during his hospital stay. MMODL / IJN: [id number] /
--- NOTE | 2019-01-08 16:13 | P.PN ---
Subjective Progress Note Date: 01/08/19 Principal diagnosis: Intractable diarrhea Acute renal injury/dehydration Hypokalemia History of ulcerative colitis maintained on mesalamine 73-year-old gentleman came with the diarrhea multiple episodes a day has been going on for last day last 4 days about 30 episodes a day today he had more than 15 today. Patient felt lightheaded dizzy. Patient was having fever and some rula dy aches about couple days ago fever lasted for one day. Patient does have history of ulcerative colitis his normal symptoms of ulcerative colitis of the blood in the stool. Patient presently doesn't have any fever chills. She and uses mesalamine for her ulcerative colitis. Patient had a recent cardiac catheterization which did not show any significant atherosclerotic occlusive disease. Patient also compresses about 4/5 abdominal discomfort dull pain 01/06/2019 Patient is seen and evaluated in room with family members at bedside; continues to have recurrent episodes of watery diarrhea Vital signs remained stable with a temperature of 98.5, pulse 72, respiration 12 and blood pressure 110/64 with SpO2 of 94% on room air Lab review shows a white blood count improved from 12.3 yesterday down to 7.4, hemoglobin of 12.8 and platelet count of 145; chemical profile shows low potassium of 3.2 which will be supplemented with by mouth potassium; blood sugars range between 157-265 Patient has had diarrhea for 4 days; possibility of infectious diarrhea versus ulcerative colitis, patient is maintained on mesalamine 3.6 g daily; C. diff toxin is negative; rest of stool studies are pending; GI is following and recommending to wait for stool studies and starting patient on IV steroids for possible ulcerative colitis flareup if stool studies remain negative; patient remains on clear liquid diet; continue with IV fluid hydration and monitor renal function and electrolytes 01/07/2019 Patient is seen and evaluated in room at bedside; reports marked improvement in symptoms since started on IV steroids; patient is being followed by GI and has been started on IV Solu-Medrol 20 mg every 8 hours and recommended a low fiber diet and to continue with oral mesalamine; antimotility agents are put on hold; according to GI patient does not have a classic presentation of exacerbation of ulcerative colitis but in view of elevated CRP at 86 and stool lactoferrin positive he will be treated with IV steroids for acute exacerbation of ulcerativ e colitis 01/08/2019 Patient is seen and evaluated in room; reports marked improvement in symptoms; has been ambulating in the room Vital signs remained stable with a temperature of 97.6, pulse 57, blood pressure 119/60 and SpO2 of 93% Lab review shows a white blood count of 11.1, hemoglobin of 12.4; blood sugars slightly elevated at 229 Patient remains on IV Solu-Medrol 20 mg every 8 hours for possible exacerbation of ulcerative colitis; patient is recommended to continue with Balsalazine 2.25 g daily patient's diet will be advanced as tolerated; we will repeat CRP and CBC in the morning Possible discharge in next 24-48 hours once cleared by GI Objective - Vital Signs Vital signs: Vital Signs Temp 97.6 F 01/08/19 07:00 Pulse 65 01/08/19 07:00 Resp 17 01/08/19 07:00 BP 162/79 01/08/19 07:00 Pulse Ox 93 L 01/08/19 07:00 Intake & Output 01/07/19 01/08/19 01/08/19 18:59 06:59 18:59 Intake Total 2110 Balance 2110 Intake: Intake, IV Titration 1250 Amount Sodium Chloride 0.9% 1, 1250 000 ml @ 125 mls/hr IV . Q8H [facility] Rx#:[id number] Oral 860 Other: Voiding Method Toilet # Voids 2 1 # Bowel Movements 2 1 - Exam HEENT: Pupils are round and equally reacting to light. EOMI. No scleral icterus. No conjunctival pallor. Normocephalic, atraumatic. No pharyngeal erythema. No thyromegaly. CARDIOVASCULAR: S1 and S2 present. No murmurs, rubs, or gallops. PULMONARY: Chest is clear to auscultation, no wheezing or crackles. ABDOMEN: Soft, very mild diffuse tenderness, nondistended, normoactive bowel sounds. No palpable organomegaly. MUSCULOSKELETAL: No joint swelling or deformity. EXTREMITIES: No cyanosis, clubbing, or pedal edema. - Labs CBC & Chem 7: 01/08/19 11:00 01/08/19 11:00 Labs: Abnormal Lab Results - Last 24 Hours (Table) 01/07/19 01/07/19 01/07/19 Range/Units 11:44 16:56 22:10 POC Glucose (mg/dL) 180 H 281 H 290 H (75-99) mg/dL 11/17/19 Range/Units 06:40 POC Glucose (mg/dL) 248 H (75-99) mg/dL Assessment and Plan Assessment: -Diarrhea abdominal pain: Most probably viral enteritis ulcerative colitis flareup cannot be ruled out because of which I consulted gastroenterology CRP and ESR will be obtained but the these will be elevated even viral enteritis. C. diff was negative patient will be started on symptomatically treatment considering his significant discomfort and using bathroom multiple times in a day for diarrhea. -Acute renal failure secondary to dehydration from diarrhea patient was started on IV fluids will hold off on lisinopril temporally although cord will be continued. -Hypertension: Coronary will be continued and lisinopril will be held temporarily because of acute renal failure -COPD without any acute exacerbation -Type 2 diabetes mellitus next and heparin DVT in the past -Coronary artery disease History of DVT in the past presently not on any anticoagulation DVT prophylaxis early ambulation and subcutaneous heparin Time with Patient: Greater than 30
[2019-01-08 17:17] LABS: Glucose,Whole Blood 202 mg/dL (75-99)
[2019-01-08 21:16] LABS: Glucose,Whole Blood 203 mg/dL (75-99)
[2019-01-09] MEDS: HEPARIN SODIUM,PORCINE 5,000 UNIT/ML 1 ML VIAL SQ SCH ×4 (00:37→23:19)
[2019-01-09 06:31] LABS: Basophils # (A) 0.1 k/uL (0-0.2); Basophils % (A) 1 %; Eosinophils % (A) 0 %; HCT 33.5 % (39.0-53.0); HGB 11.3 gm/dL (13.0-17.5); Lymphocytes # (A) 1.5 k/uL (1.0-4.8); Lymphocytes % (A) 20 %; MCH 31.5 pg (25.0-35.0); MCHC 33.8 g/dL (31.0-37.0); MCV 93.2 fL (80.0-100.0); Mean Platelet Volume 6.9; Monocytes # (A) 0.4 k/uL (0-1.0); Monocytes % (A) 6 %; Neutrophils # (A) 5.3 k/uL (1.3-7.7); Neutrophils % (A) 72 %; Platelet Count 142 k/uL (150-450); Poikilocytosis Slight; RDW 14.4 % (11.5-15.5); WBC 7.4 k/uL (3.8-10.6)
[2019-01-09 06:50] LABS: C Reactive Protein 20.9 mg/L (<10.0); Magnesium 1.5 mg/dL (1.6-2.3)
[2019-01-09 07:04] LABS: Glucose,Whole Blood 158 mg/dL (75-99)
[2019-01-09] MEDS: BALSALAZIDE DISODIUM 750 MG CAPSULE PO SCH ×3 (08:25→20:23)
[2019-01-09] MEDS: INSULIN ASPART (NovoLOG) 100 UNIT/ML VIAL SQ SCH ×4 (08:25→20:22)
[2019-01-09] MEDS: SODIUM CHLORIDE 0.9% 1,000 ML IV SCH ×3 (08:26→23:18)
[2019-01-09] MEDS: PANTOPRAZOLE 40 MG TABLET PO SCH (08:26)
[2019-01-09] MEDS: CARVEDILOL 6.25 MG TAB PO SCH ×2 (08:26→17:14)
[2019-01-09] MEDS: predniSONE 20 MG TAB PO SCH (08:26)
[2019-01-09] MEDS: ASPIRIN 81 MG PO SCH (08:26)
[2019-01-09] MEDS: ISOSORBIDE MONONITRATE ER 60 MG TAB.ER.24H PO SCH (08:26)
[2019-01-09] MEDS: IPRATROPIUM 0.5 MG/2.5 ML NEBU INHALATION SCH ×4 (09:34→18:59)
[2019-01-09 12:08] LABS: Glucose,Whole Blood 197 mg/dL (75-99)
[2019-01-09] MEDS: AZITHROMYCIN 500 MG TAB PO SCH (14:38)
[2019-01-09 16:39] LABS: Glucose,Whole Blood 303 mg/dL (75-99)
--- NOTE | 2019-01-09 16:40 | PN ---
PROGRESS NOTE DATE OF DICTATION: 01/09/2019 The patient is a 73-year-old pleasant white male admitted to the hospital with severe diarrhea that started about a week before hospitalization. He was having 20 to 30 bowel movements a day. He has a longstanding history of ulcerative colitis. Because of his clinical presentation, it was thought his symptoms were related to exacerbation of ulcerative colitis and he was started on IV steroids, Solu-Medrol 20 mg q.8 hours, which was changed to prednisone 40 mg daily. This morning stool cultures were positive for Campylobacter jejuni. He was started on azithromycin 500 mg daily. The patient is feeling better today. He had only 2 bowel movements. No new complaints. PHYSICAL EXAMINATION: He appears comfortable. No apparent distress. VITAL SIGNS: Stable. Blood pressure 148/78, pulse rate 65, temperature 98. HEENT examination unremarkable. Conjunctivae pink. Sclerae anicteric. Oral cavity no lesions. NECK: No JVD or lymph node enlargement. CHEST: Clear to auscultation. HEART: Regular rate and rhythm. ABDOMEN: Soft. Bowel sounds are positive. No organomegaly. EXTREMITIES: No pedal edema. SKIN: No rashes. NEUROLOGIC: Alert and oriented x3. No focal deficits. LABS: Labs from today show stool positive for Campylobacter jejuni. Basic metabolic panel is normal. WBC 7.4, hemoglobin 11.3. Platelets are 142. C-reactive protein decreased to 20.9. IMPRESSION: 1. Campylobacter jejuni colitis. Patient started on azithromycin 500 mg daily. 2. Possible exacerbation of ulcerative colitis with superimposed acute infectious colitis, on prednisone 40 mg p.o. daily, and he is doing much better. C-reactive protein has decreased from 80 to 20 today. RECOMMENDATIONS: 1. Continue with azithromycin 500 mg daily. 2. Continue with the prednisone 40 mg daily and taper it by 5 mg every week. 3. He can be discharged home tomorrow with an outpatient followup in 2 weeks. Thank you for this consultation. MMODL / IJN: [id number] /
--- NOTE | 2019-01-09 18:40 | P.PN ---
Subjective this is a pleasant 73 yo M with pmh of ulcerative colitis , copd , dvt , DM, Hypertension , coronary artery disease s/p CABG, who present with GI symptoms of nausea, vomiting , diarrhea and abd pain , pt has been evaluated by GI team who found him to have flare up of UC, his stool culture is positive for c.jejeni, and pt was started on zithromax by ID team . pt is improved since admission and his CRP is trending down. Objective - Vital Signs Vital signs: Vital Signs Temp 98.0 F 01/09/19 15:00 Pulse 70 01/09/19 15:31 Resp 18 01/09/19 15:00 BP 148/79 01/09/19 15:00 Pulse Ox 95 01/09/19 15:00 Intake & Output 01/08/19 01/09/19 01/09/19 18:59 06:59 18:59 Intake Total 1440 Balance 1440 Intake: Oral 1440 Other: Voiding Method Toilet # Voids 4 2 2 # Bowel Movements 4 2 5 - Exam GENERAL: The patient is alert and oriented x3, not in any acute distress. Well developed, well nourished. HEENT: Pupils are round and equally reacting to light. EOMI. No scleral icterus. No conjunctival pallor. Normocephalic, atraumatic. No pharyngeal erythema. No thyromegaly. CARDIOVASCULAR: S1 and S2 present. No murmurs, rubs, or gallops. PULMONARY: Chest is clear to auscultation, no wheezing or crackles. -ABDOMEN: Soft, mild abd tenderness with no rebound tenderness, nondistended, no rmoactive bowel sounds. No palpable organomegaly. MUSCULOSKELETAL: No joint swelling or deformity. EXTREMITIES: No cyanosis, clubbing, or pedal edema. NEUROLOGICAL: Gross neurological examination did not reveal any focal deficits. SKIN: No rashes. - Labs CBC & Chem 7: 01/09/19 06:11 01/08/19 11:00 Labs: Abnormal Lab Results - Last 24 Hours (Table) 01/07/19 01/08/19 01/09/19 Range/Units 07:49 21:05 06:11 RBC 3.60 L (4.30-5.90) m/uL Hgb 11.3 L (13.0-17.5) gm/dL Hct 33.5 L (39.0-53.0) % Plt Count 142 L (150-450) k/uL POC Glucose (mg/dL) 203 H (75-99) mg/dL Hemoglobin A1c 7.0 H (4.0-6.0) % Magnesium (1.6-2.3) mg/dL C-Reactive Protein (<10.0) mg/L 01/09/19 01/09/19 01/09/19 Range/Units 06:11 07:01 11:30 RBC (4.30-5.90) m/uL Hgb (13.0-17.5) gm/dL Hct (39.0-53.0) % Plt Count (150-450) k/uL POC Glucose (mg/dL) 158 H 197 H (75-99) mg/dL Hemoglobin A1c (4.0-6.0) % Magnesium 1.5 L (1.6-2.3) mg/dL C-Reactive Protein 20.9 H (<10.0) mg/L 01/09/19 Range/Units 16:36 RBC (4.30-5.90) m/uL Hgb (13.0-17.5) gm/dL Hct (39.0-53.0) % Plt Count (150-450) k/uL POC Glucose (mg/dL) 303 H (75-99) mg/dL Hemoglobin A1c (4.0-6.0) % Magnesium (1.6-2.3) mg/dL C-Reactive Protein (<10.0) mg/L Microbiology - Last 24 Hours (Table) 01/06/19 10:47 Stool Culture - Final Stool Campylobacter jejuni ss jejune Assessment and Plan Assessment: - ulcerative colitis flareup : follow up recommendation by gastroenterology team , pt is on steroid and zithromax, -gastroneteritis, infectious with c. jejunei, complicating UC, c/w zithromax as per ID team -Hypertension: Coronary will be continued and lisinopril will be held temporarily because of acute renal failure -COPD without any acute exacerbation -Type 2 diabetes mellitus next and heparin DVT in the past -Coronary artery disease -History of DVT in the past presently not on any anticoagulation -DVT prophylaxis early ambulation and subcutaneous heparin -gi px: protonix
[2019-01-09 20:18] LABS: Glucose,Whole Blood 236 mg/dL (75-99)
--- NOTE | 2019-01-09 23:01 | P.CONS ---
History of Present Illness - Reason for Consult Consult date: 01/09/19 Positive stool cultures Requesting physician: Almas E Sheet - Chief Complaint diarrhea x 1 week - History of Present Illness Patient is a 73-year-old male past medical history significant for ulcerative colitis patient presented to the ER at [facility] on 01/05/2019 with a chief complaints of diarrhea that apparently started on Wednesday about 5 days before presented to the hospital patient mentioning eating outside on Wednesday the restaurant that he ate fried chicken however after biting to the patient noticed the chicken was brought in his did not eat any further subsequently started having diarrhea 2 days later and the patient was having multiple episodes of loose watery stools almost 10-15 times per day patient did have some crampy lower abdominal pain with intensity about 5-6 out of 10 and no radiation some nausea but no vomiting denies high-grade fever with the symptom the patient was initially evaluated by the ER physician on arrival to the ER the patient was afebrile he did have elevated white count of 12,000 stool for C. dif ficile was negative patient was started on steroids with concern for possible ulcerative colitis exacerbation stool culture was sent which came back positive for Campylobacter jejuni today hence infectious disease was consulted for further recommendation regarding antibiotic therapy. Review of Systems Positive point has been mentioned in HPI rest of the systems are negative Past Medical History Past Medical History: COPD, Diabetes Mellitus, Deep Vein Thrombosis (DVT), Hypertension, Myocardial Infarction (MD), Osteoarthritis (OA) Additional Past Medical History / Comment(s): Ulcerative colitis. Chronic Back Pain. New onset DM. Last Myocardial Infarction Date:: 1992 History of Any Multi-Drug Resistant Organisms: None Reported Past Surgical History: Coronary Bypass/CABG, Heart Catheterization, Joint Replacement Additional Past Surgical History / Comment(s): triple bypass, colonoscopy, emily cataract surgery, lt nick. Pain Procedures Past Anesthesia/Blood Transfusion Reactions: No Reported Reaction Past Psychological History: No Psychological Hx Reported Smoking Status: Former smoker Past Alcohol Use History: None Reported Additional Past Alcohol Use History / Comment(s): smoked 40 years 3 ppd quit 01/2017 Past Drug Use History: None Reported - Past Family History Brother(s) Family Medical History: CVA/TIA, Deep Vein Thrombosis (DVT) Medications and Allergies Home Medications Medication Instructions Recorded Confirmed Type Acetaminophen Tab [Tylenol Tab] 650 mg PO Q6H PRN 05/28/16 01/05/19 History Aspirin 81 mg PO DAILY 05/28/16 01/05/19 History Hydrochlorothiazide [Hydrodiuril] 25 mg PO DAILY 05/28/16 01/05/19 History Isosorbide Mononitrate ER [Imdur] 60 mg PO DAILY 05/28/16 01/05/19 History Nitroglycerin Sl Tabs [Nitrostat] 0.4 mg SUBLINGUAL Q5M PRN 05/28/16 01/05/19 History Omeprazole [PriLOSEC] 20 mg PO AC-BID 05/28/16 01/05/19 History Tiotropium [place] [Spiriva] 1 cap INHALATION RT-DAILY 05/28/16 01/05/19 History Carvedilol [Coreg] 6.25 mg PO BID 09/07/17 01/05/19 History Ubidecarenone [Coenzyme Q10] 10 mg PO DAILY 09/07/17 01/05/19 History Mesalamine 375mg Sa Cap 750 mg PO TID 09/14/17 01/05/19 History metFORMIN HCL [Glucophage] 500 mg PO AC-BID 11/23/18 01/05/19 History Clotrimazole [Clotrimazole AF] 1 applic TOPICAL BID PRN 01/05/19 01/05/19 History Fluticasone Nasal [place] [Flonase 1 spray EA NOSTRIL BID PRN 01/05/19 01/05/19 History Nasal [place]] Hydrocortisone Oint 1 applic TOPICAL BID PRN 01/05/19 01/05/19 History [Hydrocortisone 2.5% Oint] Ibuprofen [Motrin] 400 mg PO Q6H PRN 01/05/19 01/05/19 History Lisinopril [Zestril] 5 mg PO BID 01/05/19 01/05/19 History Loratadine 10 mg PO DAILY 01/05/19 01/05/19 History Azithromycin [Zithromax] 500 mg PO DAILY 3 Days #3 tab 01/09/19 Rx Allergies Allergy/AdvReac Type Severity Reaction Status Date / Time Ahmetlg-Blb-Sts Reductase AdvReac severe Verified 01/05/19 13:34 Inhibitor muscle cramps Physical Exam Vitals: Vital Signs Temp Pulse Pulse Resp BP Pulse Ox 01/09/19 11:36 73 01/09/19 11:27 72 01/09/19 09:44 68 01/09/19 09:34 66 01/09/19 07:00 97.8 F 52 L 17 153/82 92 L 01/09/19 01:07 98.6 F 77 18 139/80 94 L 01/08/19 19:49 97.4 F L 67 16 140/83 94 L 01/08/19 16:12 72 01/08/19 16:00 72 01/08/19 14:47 97.6 F 57 L 17 119/60 93 L 01/08/19 13:34 72 01/08/19 13:20 72 Intake and Output 01/08/19 01/09/19 01/09/19 22:59 06:59 14:59 Intake Total 860 580 Balance 860 580 Intake: Oral 860 580 Other: Voiding Method Toilet # Voids 1 2 # Bowel Movements 1 2 GENERAL DESCRIPTION: Elderly male lying in bed, no distress. No tachypnea or accessory muscle of respiration use. HEENT: Shows Pallor , no scleral icterus. Oral mucous membrane is dry. NECK: Trachea central, no thyromegaly. LUNGS: Unlabored breathing. Clear to auscultation anteriorly. No wheeze or crackle. HEART: S1, S2, regular rate and rhythm. ABDOMEN: Soft, mild distention no tenderness , guarding or rigidity EXTREMITIES: No edema of feet. SKIN: No rash, no masses palpable. NEUROLOGICAL: The patient is awake, alert, oriented x3, mood and affect normal. Results CBC & Chem 7: 01/09/19 06:11 01/08/19 11:00 Labs: Abnormal Lab Results - Last 24 Hours (Table) 01/07/19 01/08/19 01/08/19 Range/Units 07:49 17:14 21:05 RBC (4.30-5.90) m/uL Hgb (13.0-17.5) gm/dL Hct (39.0-53.0) % Plt Count (150-450) k/uL POC Glucose (mg/dL) 202 H 203 H (75-99) mg/dL Hemoglobin A1c 7.0 H (4.0-6.0) % Magnesium (1.6-2.3) mg/dL C-Reactive Protein (<10.0) mg/L 01/09/19 01/09/19 01/09/19 Range/Units 06:11 06:11 07:01 RBC 3.60 L (4.30-5.90) m/uL Hgb 11.3 L (13.0-17.5) gm/dL Hct 33.5 L (39.0-53.0) % Plt Count 142 L (150-450) k/uL POC Glucose (mg/dL) 158 H (75-99) mg/dL Hemoglobin A1c (4.0-6.0) % Magnesium 1.5 L (1.6-2.3) mg/dL C-Reactive Protein 20.9 H (<10.0) mg/L 01/09/19 Range/Units 11:30 RBC (4.30-5.90) m/uL Hgb (13.0-17.5) gm/dL Hct (39.0-53.0) % Plt Count (150-450) k/uL POC Glucose (mg/dL) 197 H (75-99) mg/dL Hemoglobin A1c (4.0-6.0) % Magnesium (1.6-2.3) mg/dL C-Reactive Protein (<10.0) mg/L Microbiology - Last 24 Hours (Table) 01/06/19 10:47 Stool Culture - Final Stool Campylobacter jejuni ss jejune Assessment and Plan Assessment: patient presented to the hospital with intractable diarrhea this patient symptoms started after eating some raw/partially cooked fried chicken for likely the source of this infectious diarrhea and the patient will benefit from treatment with azithromycin (1) Infectious diarrhea Current Visit: Yes Status: Acute Code(s): A09 - INFECTIOUS GASTROENTERITIS AND COLITIS, UNSPECIFIED SNOMED Code(s): 29307982 Plan: 1-we will start the patient on azithromycin 500 mg p.o. daily 2-discontinue Lomotil which is not indicated infectious diarrhea 3-gentle IV fluid We will follow on clinical condition and cultures to further adjust medication if needed Thank you for this consultation we will follow the patient along with you Time with Patient: Greater than 30
[2019-01-09] MEDS ORDERED: Magnesium Replacement Protocol 1 EACH MISC MISCELLANE PRN (23:07)
[2019-01-10 07:01] LABS: Glucose,Whole Blood 163 mg/dL (75-99)
[2019-01-10] MEDS: BALSALAZIDE DISODIUM 750 MG CAPSULE PO SCH (07:22)
[2019-01-10] MEDS: AZITHROMYCIN 500 MG TAB PO SCH (07:22)
[2019-01-10] MEDS: predniSONE 20 MG TAB PO SCH (07:22)
[2019-01-10] MEDS: ISOSORBIDE MONONITRATE ER 60 MG TAB.ER.24H PO SCH (07:23)
[2019-01-10] MEDS: PANTOPRAZOLE 40 MG TABLET PO SCH (07:23)
[2019-01-10] MEDS: ASPIRIN 81 MG PO SCH (07:24)
[2019-01-10] MEDS: CARVEDILOL 6.25 MG TAB PO SCH (07:24)
[2019-01-10] MEDS: INSULIN ASPART (NovoLOG) 100 UNIT/ML VIAL SQ SCH ×2 (07:24→12:11)
[2019-01-10] MEDS: SODIUM CHLORIDE 0.9% 1,000 ML IV SCH (07:25)
[2019-01-10] MEDS: HEPARIN SODIUM,PORCINE 5,000 UNIT/ML 1 ML VIAL SQ SCH (07:30)
[2019-01-10] MEDS ORDERED: CALCIUM CARB-VIT D 500MG-200UN 1 EACH TAB PO SCH (07:30)
[2019-01-10] MEDS: IPRATROPIUM 0.5 MG/2.5 ML NEBU INHALATION SCH ×3 (07:47→15:38)
[2019-01-10] MEDS ORDERED: amLODIPine 5 MG TAB PO SCH (09:00)
[2019-01-10] MEDS ORDERED: MAGNESIUM OXIDE 400 MG TAB PO STA (10:00)
[2019-01-10 11:46] LABS: Glucose,Whole Blood 230 mg/dL (75-99)
--- NOTE | 2019-01-10 13:32 | P.PN ---
Subjective Progress Note Date: 01/10/19 The patient is a pleasant 73-year-old male admitted to the hospital with severe diarrhea that started about a week before this hospitalization. Prior to admission he was having 20-30 bowel movements a day. He has he has a history of ulcerative colitis, and because of clinical presentation he was thought to have an ulcerative flare and started on IV steroids which then were switched to oral prednisone 40 mg daily. Yesterday stool cultures were positive for Campylobacter jejuni. Patient was started on azithromycin 500 mg daily is feeling better today. No further diarrhea, nausea, or vomiting. Objective - Vital Signs Vital signs: Vital Signs Temp 98.7 F 01/10/19 07:35 Pulse 70 01/10/19 12:00 Resp 16 01/10/19 07:35 BP 168/91 01/10/19 07:35 Pulse Ox 95 01/10/19 07:35 Intake & Output 01/09/19 01/10/19 01/10/19 18:59 06:59 18:59 Intake Total 1160 110 Balance 1160 110 Intake: Oral 1160 110 Other: Voiding Method Toilet # Voids 2 2 # Bowel Movements 5 1 - Exam General appearance: The patient is alert, oriented, in no acute distress. HET: Head is normocephalic and atraumatic. Pupils are equal and reactive. Oropharynx is clear without lesions. Neck: Supple without lymphadenopathy. Trachea midline. Heart: S1 S2. Regular rate and rhythm. Lungs: No crackles or wheezes are heard. Abdomen: Soft, nontender, nondistended with bowel sounds. No peritoneal signs. No palpable organomegaly or masses. Extremities: Normal skin color and turgor. No cyanosis, rash, ulceration, clubbing, or edema. Radial and pedal pulses are 2/4 bilaterally. Neurological: No focal deficits. Strength and sensation are grossly intact. - Labs CBC & Chem 7: 01/09/19 06:11 01/08/19 11:00 Labs: Abnormal Lab Results - Last 24 Hours (Table) 01/09/19 01/09/19 01/10/19 Range/Units 16:36 20:06 06:33 POC Glucose (mg/dL) 303 H 236 H (75-99) mg/dL Magnesium 1.5 L (1.6-2.3) mg/dL 01/10/19 01/10/19 Range/Units 06:49 11:44 POC Glucose (mg/dL) 163 H 230 H (75-99) mg/dL Magnesium (1.6-2.3) mg/dL Assessment and Plan Assessment: 1.Campylobacter jejuni . Patient currently on azithromycin 500 mg daily. 2. Possible exacerbation of ulcerative colitis with superimposed acute infectious colitis, currently on prednisone 40 mg by mouth daily and is doing better. C reactive protein has decreased from 80-20 yesterday Plan: 1. Continue with azithromycin 500 mg daily. 2. Continue with prednisone 40 mg daily and taper by 5 mg every week 3. Patient is okay to be discharged home with outpatient following up in 2-3 weeks. The above dictated assessment and findings were discussed with Dr. Hodges. The impression and plan of care have been directed as dictated.
--- NOTE | 2019-01-10 14:42 | PN ---
PROGRESS NOTE DATE OF SERVICE: 01/10/2019 REASON FOR FOLLOWUP: Acute bacterial gastroenteritis with Campylobacter. INTERVAL HISTORY: The patient is currently afebrile. The patient is breathing comfortably. The patient denies having any chest pain or any cough. The patient's diarrhea has much improved and mentioned he has had to go only once since this morning and it is forming up. No nausea. No vomiting. No abdominal pain. PHYSICAL EXAMINATION: Blood pressure 160/91 with a pulse of 62, temperature 98.7, he is 95% on room air. General description is an elderly male, up in the room, in no distress. RESPIRATORY SYSTEM: Unlabored breathing, clear to auscultation anteriorly. HEART: S1, S2. Regular rate and rhythm. ABDOMEN: Soft. No tenderness. LABS: No new labs have been obtained today. DIAGNOSTIC IMPRESSION: Patient with acute Campylobacter jejuni gastroenteritis, possibly related to exposure to partially cooked chicken. Patient clinically responded to azithromycin, to continue for another three days and close outpatient followup. MMODL / IJN: [id number] /
[2019-01-10] MEDS: MAGNESIUM SULFATE-D5W PMX 1 GM in DEXTROSE/WATER 1 100ML.BAG IVPB SCH ×2 (14:59→15:11)
[2019-01-10 15:22] VITALS: BP 119/75; PULSE 60; RESP 18; TEMP 97.6
--- NOTE | 2019-01-10 22:18 | P.DS ---
Providers Date of admission: 01/05/19 15:33 Attending physician: Wiliam Dawn Consults: 01/05/19 15:34 Consult Physician Routine Consulting Provider: Fanny Hodges Consult Reason/Comments: Diarrhea Do you want consulting provider notified?: Yes 01/09/19 12:25 Consult Physician Routine Consulting Provider: Emilie Monteiro Consult Reason/Comments: recommendation for treatment of positive cultures Do you want consulting provider notified?: Yes Primary care physician: [facility] Hospital Course: Diagnoses: - ulcerative colitis flareup -gastroneteritis, infectious with c. jejunei, complicating UC, c/w zithromax as per ID team -Hypertension: Coronary will be continued and lisinopril will be held temporarily because of acute renal failure -Hypomagnesemia -COPD without any acute exacerbation -Type 2 diabetes mellitus -History of Coronary artery disease -History of DVT in the past presently not on any anticoagulation Hospital course: this is a pleasant 73 yo M with pmh of ulcerative colitis , copd , dvt , DM, Hypertension , coronary artery disease s/p CABG, who present with GI symptoms of nausea, vomiting , diarrhea and abd pain , pt has been evaluated by GI team who found him to have flare up of UC, his stool culture is positive for c.jejeni, and pt was started on zithromax by ID team . pt is improved since admission and his CRP is trending down. Patient is tolerating diet well with no nausea vomiting, has abdominal pain is significantly improved and he still has semi loose bowel movements about 16 BM yesterday, however it is 2-3 times since morning, but is much improved compared to where he comes to the hospital by more than 50% as per patient description. Patient will be discharged on Zithromax 500 mg daily and tapered dose of prednisone 40 with lowering the dose 5 mg every week On the day of discharge patient denies any other symptoms, no chest pain or dyspnea. No dizziness on the day of discharge pt magnesium was 1.5 , iv replacement was ordered however pt refused iv therapy because he did not want iv line to be placed again. risk including but not limited to the risk of hypomagnesemia and hypokalemia and/or cardiac arrhythmia and/or are explained for him in detail, he agrees to oral mg oxide with script provided for him , pt was encourage to consume more Mg-rich food like fruit and vegetables and f/u closely with his doctors and he agrees Patient was cleared for discharge by gastroenterology and ID team Problems and management plan were discussed with the patient and he verbalized understanding and acceptance Patient was found stable and can be discharged home however he needs follow-up as an outpatient. Patient was instructed to follow up with PCP within one week and patient agrees. Appointments made for the patient with the [facility] on 01/[address] Monteiro on 01/[address] Hodges the transport aircrewman on 01/30 and patient made aware of these appointments and timing and he agrees and states he will follow-up. Gen: patient is a AAOx3, no distress CVS: S1-S2, RRR, no murmur Lungs: B/L CTA, no wheezing Abdomen: soft, no distention, no tenderness, positive bowel sounds Extremity: no leg edema or induration Time spent more than 35 minutes Patient Condition at Discharge: Fair Plan - Discharge Summary Discharge Rx Participant: Yes New Discharge Prescriptions: New Azithromycin [Zithromax] 500 mg PO DAILY 3 Days #3 tab Calcium Carb-Vit D 500Mg-200Un [Oscal 500+D] 1 each PO BID-W/MEALS #60 tab Pantoprazole [Protonix] 40 mg PO DAILY #20 tablet. Magnesium Oxide [Mag-Ox] 400 mg PO BID #20 tablet predniSONE 10 mg PO DIRECTED #84 tab Continue Tiotropium [place] [Spiriva] 1 cap INHALATION RT-DAILY Nitroglycerin Sl Tabs [Nitrostat] 0.4 mg SUBLINGUAL Q5M PRN PRN Reason: Chest Pain Omeprazole [PriLOSEC] 20 mg PO AC-BID Isosorbide Mononitrate ER [Imdur] 60 mg PO DAILY Acetaminophen Tab [Tylenol] 650 mg PO Q6H PRN PRN Reason: Pain Hydrochlorothiazide [Hydrodiuril] 25 mg PO DAILY Aspirin 81 mg PO DAILY Carvedilol [Coreg] 6.25 mg PO BID Ubidecarenone [Coenzyme Q10] 10 mg PO DAILY Mesalamine 375mg Sa Cap 750 mg PO TID metFORMIN HCL [Glucophage] 500 mg PO AC-BID Lisinopril [Zestril] 5 mg PO BID Hydrocortisone Oint [Hydrocortisone 2.5% Oint] 1 applic TOPICAL BID PRN PRN Reason: ITCHING EARS Fluticasone Nasal [place] [Flonase Nasal [place]] 1 spray EA NOSTRIL BID PRN PRN Reason: Allergy Symptoms Clotrimazole [Clotrimazole AF] 1 applic TOPICAL BID PRN PRN Reason: FUNGAL INFECTION Discontinued Loratadine 10 mg PO DAILY Ibuprofen [Motrin] 400 mg PO Q6H PRN PRN Reason: Pain Discharge Medication List Acetaminophen Tab [Tylenol] 650 mg PO Q6H PRN 05/28/16 [History] Aspirin 81 mg PO DAILY 05/28/16 [History] Hydrochlorothiazide [Hydrodiuril] 25 mg PO DAILY 05/28/16 [History] Isosorbide Mononitrate ER [Imdur] 60 mg PO DAILY 05/28/16 [History] Nitroglycerin Sl Tabs [Nitrostat] 0.4 mg SUBLINGUAL Q5M PRN 05/28/16 [History] Omeprazole [PriLOSEC] 20 mg PO AC-BID 05/28/16 [History] Tiotropium [place] [Spiriva] 1 cap INHALATION RT-DAILY 05/28/16 [History] Carvedilol [Coreg] 6.25 mg PO BID 09/07/17 [History] Ubidecarenone [Coenzyme Q10] 10 mg PO DAILY 09/07/17 [History] Mesalamine 375mg Sa Cap 750 mg PO TID 09/14/17 [History] metFORMIN HCL [Glucophage] 500 mg PO AC-BID 11/23/18 [History] Clotrimazole [Clotrimazole AF] 1 applic TOPICAL BID PRN 01/05/19 [History] Fluticasone Nasal [place] [Flonase Nasal [place]] 1 spray EA NOSTRIL BID PRN 01/05/19 [History] Hydrocortisone Oint [Hydrocortisone 2.5% Oint] 1 applic TOPICAL BID PRN 01/05/19 [History] Lisinopril [Zestril] 5 mg PO BID 01/05/19 [History] Azithromycin [Zithromax] 500 mg PO DAILY 3 Days #3 tab 01/09/19 [Rx] Calcium Carb-Vit D 500Mg-200Un [Oscal 500+D] 1 each PO BID-W/MEALS #60 tab 01/10 [Rx] Magnesium Oxide [Mag-Ox] 400 mg PO BID #20 tablet 01/10/19 [Rx] Pantoprazole [Protonix] 40 mg PO DAILY #20 tablet. 01/10/19 [Rx] predniSONE 10 mg PO DIRECTED #84 tab 01/10/19 [Rx] Follow up Appointment(s)/Referral(s): Emilie Monteiro MD [STAFF PHYSICIAN] - 01/17/19 1:30 pm [facility] [Primary Care Provider] - 01/26/19 3:00 pm (With Fanny Steven MD [STAFF PHYSICIAN] - 01/30/19 1:30 pm Patient Instructions/Handouts: Dehydration (DC), Hypomagnesemia (DC) Activity/Diet/Wound Care/Special Instructions: Fax discharge medication list to [facility] at dc, INdigent form given to nursing resume your previous diet and encourage fruit and vegetables consumption activity is limited till you see your doctor Discharge Disposition: HOME SELF-CARE
== END 2019-01-10 17:03 | disposition home or self-care (01) | DRG 372 ==
LOC: EC 13:28 → 4SSUR 15:33
PROVIDERS: ADMIT Internal Medicine; ATTEND Internal Medicine
DX: A04.5 Campylobacter enteritis (principal); K51.90 Ulcerative colitis, unspecified, without complications; N17.9 Acute kidney failure, unspecified; E11.65 Type 2 diabetes mellitus with hyperglycemia; J44.9 Chronic obstructive pulmonary disease, unspecified; E83.42 Hypomagnesemia; E86.0 Dehydration; E87.6 Hypokalemia; I10 Essential (primary) hypertension; I25.10 Atherosclerotic heart disease of native coronary artery without angina pectoris; I25.2 Old myocardial infarction; G89.29 Other chronic pain; M19.90 Unspecified osteoarthritis, unspecified site; M54.9 Dorsalgia, unspecified; R79.82 Elevated C-reactive protein (CRP); Z79.82 Long term (current) use of aspirin; Z79.84 Long term (current) use of oral hypoglycemic drugs; Z79.899 Other long term (current) drug therapy; Z86.718 Personal history of other venous thrombosis and embolism; Z87.891 Personal history of nicotine dependence; Z95.1 Presence of aortocoronary bypass graft; Z88.8 Allergy status to other drugs, medicaments and biological substances; Z96.642 Presence of left artificial hip joint; Z98.42 Cataract extraction status, left eye; Z98.41 Cataract extraction status, right eye; Z96.1 Presence of intraocular lens; Z82.3 Family history of stroke; Z82.49 Family history of ischemic heart disease and other diseases of the circulatory system
CPT/HCPCS: 36415; 74018; 80048; 80053; 82009; 82550; 83036; 83605; 83630; 83690; 83735; 85025; 85027; 85652; 86140; 87045; 87046; 87324; 94640; 96360; 96361; 99285

== ENCOUNTER 2019-03-22 06:42 | Day surgery (SDC) | payer MEDICARE, OTHER ==
[2019-03-17 13:38] VITALS: BMI 30.1
[~2019-03-22 06:42] MED LIST changes: -IV FLUID CONTINUATION 725 ML IV ONE; -LACTATED RINGERS 1,000 ML IV SCH; +LIDOCAINE 1% (10MG/ML) FOR IV START INTRADERMA PRN; -LIDOCAINE 1% 20 ML VIAL (10MG/ML) FOR IV START INTRADERMA ONE
[2019-03-22 07:16] VITALS: TEMP 97.9
[2019-03-22 07:22] LABS: Glucose,Whole Blood 178 mg/dL (75-99)
[2019-03-22] MEDS: LACTATED RINGERS 1,000 ML IV SCH ×2 (07:23→07:29)
[2019-03-22] MEDS ORDERED: PROPOFOL 10 MG/ML 20 ML VIAL IV ONE (07:31)
[2019-03-22] MEDS ORDERED: LIDOCAINE 1% INJ 10MG/ML (20 ML MDV) ONE (07:31)
[2019-03-22 08:02] VITALS: RESP 16
--- NOTE | 2019-03-22 08:02 | P.PCN ---
Date of Procedure: 03/22/19 Procedure(s) Performed: Brief history: Patient is a pleasant 70-year-old white male scheduled for an elective upper endoscopy as well as colonoscopy as a part of evaluation of intermittent epigastric pain, abdominal bloating and long-standing history of ulcerative colitis diagnosed in 1989. He remains in clinical remission. He recently had a flareup in December 2018 at which time he was diagnosed with Campylobacter jejuni infection and also had a flareup of ulcerative colitis treated with stapling doses of steroids. His last colonoscopy was in February 2016. Procedure performed: Esophagogastroduodenoscopy with biopsy Colonoscopy with random biopsies Preoperative diagnosis: Epigastric pain/abdominal bloating Long-standing history of ulcerative colitis Anesthesia: MAC Procedure: After informed consent was obtained from the patient was brought into the endoscopy unit and IV sedation was administered by anesthesia under continuous monitoring. Initially upper endoscopy was done. The Olympus GF 160 video endoscope was inserted inserted into the mouth and esophagus intubated without any difficulty and was gradually advanced into the stomach and duodenum and carefully examined. The bulb and second part of the duodenum appeared normal. The scope was then withdrawn into the stomach adequately insufflated with air and upon careful examination the antrum had mild gastritis and biopsies were done from this area. The body, cardia and fundus appeared normal. The scope was then withdrawn into the esophagus. The GE junction was located at 40 cm to the incisors. It appeared regular with no erythema erosions or ulcerations. Rest of the esophagus appeared normal. Patient tolerated the procedure well. At this time the patient continued to remain sedation. Initial digital rectal examination was normal. Olympus CF 160 video colonoscope was then inserted into the rectum and gradually advanced to the cecum without any difficulty. Careful examination was performed as the scope was gradually being withdrawn. The prep was excellent. The cecum, ascending colon, transverse colon, descending colon appeared normal. In the sigmoid colon there was mild patchy areas of erythema noted. The rest of the, sigmoid colon and rectum appeared normal. biopsies were done at every Ret 10 cm intervals from the cecum to the rectum to rule out dysplasia. Reroflexion was performed in the rectum and no lesions were noted. Patient tolerated the procedure well. Impression: 1. Upper endoscopy revealed minimal antral gastritis but no evidence of esophagitis or peptic ulcer disease 2. Colonoscopy revealed mild erythema noted in the sigmoid colon consistent with mild colitis but the rest of the colon appeared normal. Recommendations: Findings of this examination were discussed with the patient as well as his family. He was advised to follow with the biopsy sites. If the biopsy does not show any evidence of dysplasia, he can have a repeat coloscopy in 2 years.
[2019-03-22 08:19] VITALS: BP 148/78; PULSE 69
== END 2019-03-22 08:39 | disposition home or self-care (01) ==
LOC: ORWHC2ENDO 06:42
PROVIDERS: ATTEND Internal Medicine Gastroenterology
DX: K29.50 Unspecified chronic gastritis without bleeding (principal); K63.89 Other specified diseases of intestine; K51.90 Ulcerative colitis, unspecified, without complications; I25.2 Old myocardial infarction; I25.10 Atherosclerotic heart disease of native coronary artery without angina pectoris; I10 Essential (primary) hypertension; E78.5 Hyperlipidemia, unspecified; J44.9 Chronic obstructive pulmonary disease, unspecified; E11.9 Type 2 diabetes mellitus without complications; Z79.82 Long term (current) use of aspirin; Z79.899 Other long term (current) drug therapy; Z79.84 Long term (current) use of oral hypoglycemic drugs; Z88.8 Allergy status to other drugs, medicaments and biological substances; Z86.718 Personal history of other venous thrombosis and embolism; Z87.891 Personal history of nicotine dependence; Z95.1 Presence of aortocoronary bypass graft; Z91.89 Other specified personal risk factors, not elsewhere classified
CPT/HCPCS: 88305; 45380; 43239; J2001; J2704

== ENCOUNTER → 2022-02-21 | Outpatient (CLI) | payer OTHER ==
--- NOTE | 2022-02-21 13:51 | MR ---
EXAMINATION TYPE: MR lumbar spine wo con DATE OF EXAM: 02/21/2022 1:32 PM COMPARISON: MRI lumbar spine 08/08/2018. CLINICAL INDICATION:Male, 76 years old with history of M54.59 low back pain; TECHNIQUE: Multi planar, multi sequence imaging was performed utilizing: T1-weighted, T2-weighted, a nd turbo inversion recovery imaging of the lumbar spine. IV Contrast: None. FINDINGS: Alignment: The lumbar vertebral bodies have preserved heights and alignment. Cord: The conus medullaris and the distal spinal cord appear unremarkable with regards to their signa l intensity and morphology. Bones/Discs: Multilevel disc degeneration changes this signal is grossly maintained. Multilevel dege nerative disc disease is noted and most pronounced at the L3-L5. L1-L2: No evidence of significant spinal canal stenosis or neural foraminal stenosis. L2-L3: Disc bulge and facet joint arthropathy without significant spinal canal stenosis and mild bila teral neural foraminal stenosis. L3-L4: Disc bulge and facet joint arthropathy without significant spinal canal stenosis and mild bila teral neural foraminal stenosis. L4-L5: Central disc protrusion without significant spinal canal stenosis. Facet joint arthropathy wit h mild bilateral neural foraminal stenosis. L5-S1: No evidence of significant spinal canal stenosis. Facet joint arthropathy mild bilateral neura l foraminal stenosis. IMPRESSION: 1. No definitive evidence of disc herniation or significant spinal canal stenosis. 2. Multilevel disc degeneration with associated osteoarthritic changes. Sylvian multilevel mild neur al foraminal stenosis.
== END | disposition home or self-care (01) ==
LOC: RADMRIMAIN 12:19
PROVIDERS: ATTEND Physician Assistant Medical
DX: M51.36 Other intervertebral disc degeneration, lumbar region (principal); M99.73 Connective tissue and disc stenosis of intervertebral foramina of lumbar region; M48.061 Spinal stenosis, lumbar region without neurogenic claudication; M47.816 Spondylosis without myelopathy or radiculopathy, lumbar region
CPT/HCPCS: 72148

== ENCOUNTER → 2022-05-20 | Outpatient (CLI) | payer OTHER ==
--- NOTE | 2022-05-20 14:15 | P.PAINPG ---
PQRS Measure Charge Sheet Comment: A 76 yr old male with a history of severe and chronic LBP secondary to lumbar DDD and spondylosis with facet arthropathy without myelopathy presents today for evaluation s/p IRENE L4-L5. Pt states he experienced 100% pain relief x 3 days s/p procedure. Pt states he underwent an RFA of the BL L4-L5, L5-S1 and experienced 90% pain relief x 2 yrs s/p procedure. Pain level is provoked at 9 /10 in intensity, constant, localized in the lumbar spine R>L, sharp in character w/o shooting pain. Pain is provoked by bending, lifting, twisting. Pain is alleviated with heat, medications, sitting, use of a cane fro ambulatory assistance, repositioning and rest. Interventional pain procedures completed include IRENE L4-L5, BL RFA L3-L5 (Nov 2018) Patient is currently on Tyl Patient denies any side effects of the medication(s), denies excessive drowsiness or sleepiness, denies suicidal ideation and reports that the current pain medication is helping to control the pain and improve activities of daily living. Patient denies any motor or sensory deficits. Patient denies any fever or night sweats, denies any change in the bowel movements or urination. Physical Examination: -Constitutional: Cooperative. Not in acute distress . - Neurologic: Cranial nerve II to XII intact. No focal neurological deficits. - Psychatric: Alert & oriented x 3. Matching mood & appropriate affect. Judgment and insight intact. - Musculoskeletal: Cervical spine: Muscle bulk/ tone/ strength in the bilateral upper extremities normal Vertebral body tenderness to palpation over Spurling test positive Distraction test positive Facet loading test positive TTP Thoracic spine Muscle bulk / tone/ strength in the bilateral paraspinal muscles normal Vertebral body tender to palpation over Facet loading test positive TTP Lumbar spine: Motor bulk/ tone/ strength lower extremities , thigh and legs : 5/5 Deep tendon reflexes : Normal Knee Jerk. Normal Ankle Jerk . Vertebral body tenderness to palpation over Lumbar Facet Loading Test positive TTP over BL L4-L5, L5-S1 facets Straight Leg Raise: positive at 30 degrees right side/ left side Gaenslen's Test positive Sacral spine : Severe tenderness over the Sacroiliac joint: right side / left side Range of motion: Flexion of the lumbar spine <60 degrees Range of motion: Extension of the lumbar spine <20 degrees Gaenslen's Test positive right side / left side Crystal test: positive right side / left side Thigh Thrust Test positive right side / left side Sacral Thrust Test positive right side / left side Assessment and plan: Chronic LBP secondary to lumbar DDD, spondylosis with facet arthropathy without myelopathy Recommendation of BL RFA L4-L5, L5-S1. Pt exhibited sufficient and sub stantial pain relief w prior RFA procedure. Risks, benefits of procedure discussed and pt verbalized understanding. Admits to anticoagulant use or medical history of diabetes. Protocol for discontinuation/ continuation of medications stephanie procedure discussed. All questions answered. I have spent less than 30 minutes on patient care today. Dr Hardin was available by phone for the evaluation of this patient. The time was used to review the medical records including relevant urine studies and Prescription history (MAPs), review of the available imaging, evaluation and examination of the patient, coordination of care with the medical staff and if applicable referring physicians, as well as creation of the medical record PQRS Narrative: Smoking Status Former smoker Hx Alcohol Use (MH) Yes Home Medications: Ambulatory Orders Aspirin 81 mg PO DAILY 05/28/16 Isosorbide Mononitrate ER [Imdur] 60 mg PO DAILY 05/28/16 Nitroglycerin Sl Tabs [Nitrostat] 0.4 mg SUBLINGUAL Q5M PRN 05/28/16 Omeprazole [PriLOSEC] 20 mg PO AC-BID 05/28/16 Tiotropium [place] [Spiriva] 2 puff INHALATION BID 05/28/16 hydroCHLOROthiazide [Hydrodiuril] 25 mg PO DAILY 05/28/16 carvediloL [Coreg] 6.25 mg PO BID 09/07/17 Mesalamine 375mg Sa Cap 1,200 mg PO BID 09/14/17 metFORMIN HCL [Glucophage] 1,000 mg PO AC-BID 11/23/18 Clotrimazole [Clotrimazole AF] 1 applic TOPICAL BID PRN 01/05/19 lisinopriL [Zestril] 5 mg PO BID 01/05/19 Calcium Carb-Vit D 500Mg-5Mcg [Oscal 500+D 5 Mcg (200 Iu)] 1 each PO BID-W/MEALS #60 tab 01/10/19 Magnesium Oxide [Mag-Ox] 400 mg PO DAILY 03/17/19 Ibuprofen/Diphenhydramine HCl [Advil Pm Liqui-Gels] 1 each PO HS 04/27/22 Controlled Substance Measures - Controlled Substance Measures Is patient prescribed a controlled substance at discharge?: No
[2022-05-20 14:51] VITALS: BP 154/74; PULSE 60; RESP 18; TEMP 97.5
== END ==
LOC: PNWHC3 12:07
PROVIDERS: ATTEND Specialist
DX: M51.36 Other intervertebral disc degeneration, lumbar region (principal); M47.816 Spondylosis without myelopathy or radiculopathy, lumbar region; G89.29 Other chronic pain; Z87.891 Personal history of nicotine dependence; Z79.82 Long term (current) use of aspirin; Z88.8 Allergy status to other drugs, medicaments and biological substances
CPT/HCPCS: 99211

== ENCOUNTER → 2022-08-06 | Outpatient (CLI) | payer OTHER ==
[2022-08-06 14:32] VITALS: BP 130/68; PULSE 59; RESP 18
--- NOTE | 2022-08-13 10:29 | P.PAINPG ---
PQRS Measure Charge Sheet Comment: A 76 yr old male with a history of severe and chronic LBP x yrs secondary to lumbar DDD and spondylosis with facet arthropathy without myelopathy presents today for evaluation s/p BL RFA L4-L5, L5-S1. Pt states he experienced 0 % pain relief s/p procedure. Pain level is provoked at 8 /10 in intensity, constant, localized in the lumbar spine, dull in character without shooting pain. Pain is provoked by walking, bending. Pain is alleviated with medication, sitting, reclining and rest. Interventional pain procedures completed include BL RFA L3-L5 (June 2022) Patient is currently on ASA Patient denies any side effects of the medication(s), denies excessive drowsiness or sleepiness, denies suicidal ideation and reports that the current pain medication is helping to control the pain and improve activities of daily living. Patient denies any motor or sensory deficits. Patient denies any fever or night sweats, denies any change in the bowel movements or urination. Physical Examination: -Constitutional: Cooperative. Not in acute distress . - Neurologic: Cranial nerve II to XII intact. No focal neurological deficits. - Psychatric: Alert & oriented x 3. Matching mood & appropriate affect. Judgment and insight intact. - Musculoskeletal: Cervical spine: Muscle bulk/ tone/ strength in the bilateral upper extremities normal Vertebral body tenderness to palpation over Spurling test positive Distraction test positive Facet loading test positive TTP Thoracic spine Muscle bulk / tone/ strength in the bilateral paraspinal muscles normal Vertebral body tender to palpation over Facet loading test positive TTP Lumbar spine: Point tenderness over BL iliolumbar joint Motor bulk/ tone/ strength lower extremities , thigh and legs : 5/5 Deep tendon reflexes : Normal Knee Jerk. Normal Ankle Jerk . Vertebral body tenderness to palpation over Henao Test positive Lumbar Facet Loading Test positive Straight Leg Raise: positive at 30 degrees right side/ left side Gaenslen's Test positive Sacral spine : Severe tenderness over the Sacroiliac joint: right side / left side Range of motion: Flexion of the lumbar spine <60 degrees Range of motion: Extension of the lumbar spine <20 degrees Gaenslen's Test positive right side / left side Crystal test: positive right side / left side Thigh Thrust Test positive right side / left side Sacral Thrust Test positive right side / left side Assessment and plan: Chronic LBP secondary to lumbar DDD, spondylosis with facet arthropathy without myelopathy Recommendation of BL iliolumbar ligament injection. May need a series for optimal pain relief. Risks, benefits of procedure discussed and pt verbalized understanding. Admits to anticoagulant use or medical history of diabetes. Protocol for discontinuation/ continuation of medications stephanie procedure discussed. Minimal anesthesia provided, if clinically indicated, consisting of Versed and Fentanyl. All questions answered. I have spent less than 30 minutes on patient care today. Dr Hardin was available by phone for the evaluation of this patient. The time was used to review the medical records including relevant urine studies and Prescription history (MAPs), review of the available imaging, evaluation and examination of the patient, coordination of care with the medical staff and if applicable referring physicians, as well as creation of the medical record PQRS Narrative: Smoking Status Former smoker Hx Alcohol Use (MH) Yes Home Medications: Ambulatory Orders Aspirin 81 mg PO DAILY 05/28/16 Isosorbide Mononitrate ER [Imdur] 60 mg PO DAILY 05/28/16 Nitroglycerin Sl Tabs [Nitrostat] 0.4 mg SUBLINGUAL Q5M PRN 05/28/16 Omeprazole [PriLOSEC] 20 mg PO AC-BID 05/28/16 Tiotropium [place] [Spiriva] 2 puff INHALATION BID 05/28/16 hydroCHLOROthiazide [Hydrodiuril] 25 mg PO DAILY 05/28/16 carvediloL [Coreg] 6.25 mg PO BID 09/07/17 Mesalamine 375mg Sa Cap 1,200 mg PO BID 09/14/17 metFORMIN HCL [Glucophage] 1,000 mg PO AC-BID 11/23/18 Clotrimazole [Clotrimazole AF] 1 applic TOPICAL BID PRN 01/05/19 lisinopriL [Zestril] 5 mg PO BID 01/05/19 Calcium Carb-Vit D 500Mg-5Mcg [Oscal 500+D 5 Mcg (200 Iu)] 1 each PO BID-W/MEALS #60 tab 01/10/19 Magnesium Oxide [Mag-Ox] 400 mg PO DAILY 03/17/19 Ibuprofen/Diphenhydramine HCl [Advil Pm Liqui-Gels] 1 each PO HS 04/27/22 Controlled Substance Measures - Controlled Substance Measures Is patient prescribed a controlled substance at discharge?: No
== END ==
LOC: PNWHC3 12:26
PROVIDERS: ATTEND Specialist
DX: M51.36 Other intervertebral disc degeneration, lumbar region (principal); M47.816 Spondylosis without myelopathy or radiculopathy, lumbar region; G89.29 Other chronic pain; Z87.891 Personal history of nicotine dependence; Z79.82 Long term (current) use of aspirin; Z88.6 Allergy status to analgesic agent
CPT/HCPCS: 99211

== ENCOUNTER 2022-09-03 11:50 | Day surgery (SDC) | payer OTHER ==
[2022-08-31 11:27] VITALS: BMI 27.3
[~2022-09-03 11:50] MED LIST changes: +LACTATED RINGERS 1,000 ML IV SCH; -LIDOCAINE 1% (10MG/ML) FOR IV START INTRADERMA PRN
[2022-09-03 12:18] VITALS: TEMP 97.7
[2022-09-03 12:31] LABS: Glucose,Whole Blood 112 mg/dL (70-110)
[2022-09-03] MEDS ORDERED: ROPIVACAINE 5 MG/ML 20 ML AMPULE ONE (12:37)
[2022-09-03] MEDS ORDERED: methylPREDNISolone ACETATE 40 MG/ML 1 ML VIAL ONE (12:37)
[2022-09-03 12:49] VITALS: PULSE 55; RESP 18
--- NOTE | 2022-09-03 12:51 | P.PCN ---
Date of Procedure: 09/03/22 Procedure(s) Performed: Procedure= bilateral iliolumbar ligament steroid injection under fluoroscopy guidance (fluoroscopy image stored on file in the radiology Department ) Preoperative diagnosis= 1-bilateral iliolumbar ligament neuralgia 2-lumbar degenerative disc disease 3-lumbar facet arthropathy Postoperative diagnosis=Same as preop Diagnosis . Complication = none Condition= stable Anesthesia= local anesthesia with ropivacaine 0.5% 4 ml only Indication for the procedure= patient complaining of low back pain , examination was positive for severe tenderness over the iliolumbar ligament bilaterally and patient diagnosed with iliolumbar ligament neuralgia, for this reason he was good candidate for iliolumbar ligament steroid injection. Description of the procedure= procedure risk and benefits discussed with the patient, including but not limited, risk of infection and bleeding, and ALLERGIC reaction to the medication and not complete pain relief and patient agreed with the preceding patient taken to the operating room, placed in prone position or standard monitors applied to the patient then after induction of anesthesia back prepped with chlorhexidine 3 times , Then under strict sterile technique, first I did the right sacroiliac joint the which was identified under fluoroscopy guidance been local infiltration of the skin and subcu interstitial with lidocaine 1% then 25-gauge Quincke Needle advanced slowly under fluoroscopy and placed in the proximity of right iliolumbar ligament, (in the middle of the distance between the L5 transverse process and the sacral alar on the right side) needle placement confirmed with AP and oblique and lateral view, and after appropriate needle placement confirmed and after negative aspiration, or heme , then Ropivacaine 0.5% 2 mL, and 20 mg of Depo-Medrol mixed together ,after negative aspiration patient tolerated the procedure well without any complication. Then the exact same procedure done for the left side and I did the left side iliolumbar ligament steroid injection, then the the procedure patient tolerated the procedure well without any complication and patient back cleaned and patient returned to the supine position and transferred to recovery room in stable condition
[2022-09-03 13:07] VITALS: BP 136/67
--- NOTE | 2022-09-03 13:49 | FL ---
Fluoroscopy History: SNG Sheath Lig Inj Atul Ileo Lumbar Inj 7sec fluoro time [id number] DAP
== END 2022-09-03 13:09 | disposition home or self-care (01) ==
LOC: ORPAIN 11:50
PROVIDERS: ATTEND Specialist
DX: M51.36 Other intervertebral disc degeneration, lumbar region (principal); M47.816 Spondylosis without myelopathy or radiculopathy, lumbar region; Z79.82 Long term (current) use of aspirin
CPT/HCPCS: 20550; J1030; J2795

== ENCOUNTER → 2022-09-28 | Outpatient (CLI) | payer OTHER ==
[2022-09-28 12:38] VITALS: BP 99/63; PULSE 65; RESP 15; TEMP 97.7
--- NOTE | 2022-09-28 14:43 | P.PAINPG ---
PQRS Measure Charge Sheet Comment: A 76 yr old male with a history of severe and chronic LBP x yrs secondary to lumbar DDD and spondylosis with facet arthropathy without myelopathy presents today for evaluation s/p BL iliolumbar ligament injection. Pt states he experienced 0 % pain relief s/p procedure. Pain level is provoked at 8 /10 in intensity, constant, localized in the lumbar spine, dull in character without shooting pain. Pain is provoked by walking, bending. Pain is alleviated with medication, sitting, reclining and rest. Oswestry axial pain score of 28. Interventional pain procedures completed include BL RFA L3-L5 (June 2022), BL iliolumbar (Sep 2022) Patient is currently on ASA Patient denies any side effects of the medication(s), denies excessive drowsiness or sleepiness, denies suicidal ideation and reports that the current pain medication is helping to control the pain and improve activities of daily living. Patient denies any motor or sensory deficits. Patient denies any fever or night sweats, denies any change in the bowel movements or urination. Physical Examination: -Constitutional: Cooperative. Not in acute distress . - Neurologic: Cranial nerve II to XII intact. No focal neurological deficits. - Psychatric: Alert & oriented x 3. Matching mood & appropriate affect. Judgment and insight intact. - Musculoskeletal: Cervical spine: Muscle bulk/ tone/ strength in the bilateral upper extremities normal Vertebral body tenderness to palpation over Spurling test positive Distraction test positive Facet loading test positive TTP Thoracic spine Muscle bulk / tone/ strength in the bilateral paraspinal muscles normal Vertebral body tender to palpation over Facet loading test positive TTP Lumbar spine: Motor bulk/ tone/ strength lower extremities , thigh and legs : 5/5 Deep tendon reflexes : Normal Knee Jerk. Normal Ankle Jerk . Vertebral body tenderness to palpation over L5 Henao Test positive Lumbar Facet Loading Test positive Straight Leg Raise: positive at 35 degrees right side/ left side Gaenslen's Test positive Sacral spine : Severe tenderness over the Sacroiliac joint: right side / left side Range of motion: Flexion of the lumbar spine <60 degrees Range of motion: Extension of the lumbar spine <20 degrees Gaenslen's Test positive right side / left side Crystal test: positive right side / left side Thigh Thrust Test positive right side / left side Sacral Thrust Test positive right side / left side Assessment and plan: Chronic LBP secondary to lumbar DDD, spondylosis with facet arthropathy without myelopathy Recommendation of R TFESI L5-S1. May need a series for optimal pain relief. Risks, benefits of procedure discussed and pt verbalized understanding. Admits to anticoagulant use or medical history of diabetes. Protocol for discontinuation/ continuation of medications stephanie procedure discussed. Minimal anesthesia provided, if clinically indicated, consisting of Versed and Fentanyl. All questions answered. I have spent less than 30 minutes on patient care today. Dr Hardin was available by phone for the evaluation of this patient. The time was used to review the medical records including relevant urine studies and Prescription history (MAPs), review of the available imaging, evaluation and examination of the patient, coordination of care with the medical staff and if applicable referring physicians, as well as creation of the medical record PQRS Narrative: Smoking Status Former smoker Hx Alcohol Use (MH) Yes Home Medications: Ambulatory Orders Aspirin 81 mg PO DAILY 05/28/16 Isosorbide Mononitrate ER [Imdur] 60 mg PO DAILY 05/28/16 Nitroglycerin Sl Tabs [Nitrostat] 0.4 mg SUBLINGUAL Q5M PRN 05/28/16 Omeprazole [PriLOSEC] 20 mg PO AC-BID 05/28/16 Tiotropium [place] [Spiriva] 2 puff INHALATION BID 05/28/16 hydroCHLOROthiazide [Hydrodiuril] 25 mg PO DAILY 05/28/16 carvediloL [Coreg] 6.25 mg PO BID 09/07/17 Mesalamine 375mg Sa Cap 1,200 mg PO BID 09/14/17 metFORMIN HCL [Glucophage] 1,000 mg PO AC-BID 11/23/18 Clotrimazole [Clotrimazole AF] 1 applic TOPICAL BID PRN 01/05/19 lisinopriL [Zestril] 5 mg PO BID 01/05/19 Magnesium Oxide [Mag-Ox] 400 mg PO DAILY 03/17/19 Ibuprofen/Diphenhydramine HCl [Advil Pm Liqui-Gels] 1 each PO HS 04/27/22 Controlled Substance Measures - Controlled Substance Measures Is patient prescribed a controlled substance at discharge?: No
== END ==
LOC: PNWHC3 12:08
PROVIDERS: ATTEND Specialist
DX: M51.36 Other intervertebral disc degeneration, lumbar region (principal); M47.816 Spondylosis without myelopathy or radiculopathy, lumbar region; G89.29 Other chronic pain; Z87.891 Personal history of nicotine dependence; Z79.82 Long term (current) use of aspirin; Z88.8 Allergy status to other drugs, medicaments and biological substances
CPT/HCPCS: 99211

== ENCOUNTER 2022-10-15 11:46 | Day surgery (SDC) | payer OTHER ==
[2022-10-09 14:43] VITALS: BMI 27.3
[2022-10-15 12:33] VITALS: TEMP 97.1
[2022-10-15 12:34] LABS: Glucose,Whole Blood 140 mg/dL (70-110)
[2022-10-15] MEDS ORDERED: IOPAMIDOL M200 10 ML VIAL ONE (12:37)
[2022-10-15] MEDS ORDERED: DEXAMETHASONE SOD PHOSPHATE 10 MG/ML 1 ML VIAL ONE (12:37)
--- NOTE | 2022-10-15 12:47 | P.PCN ---
Date of Procedure: 10/15/22 Surgeon: Jennifer Calle Pathology: none sent Condition: stable Disposition: PACU Description of Procedure: Preoperative Diagnosis: lumbar radiculopathy, Lumbar DDD, Lumbar spondylosis Postoperative Diagnosis: Same as above Procedure(s) Performed: Transforaminal epidural steroid injection for level L5- S1 on the Right side under fluoroscopic guidance Anesthesia: Local only with 1% lidocaine Surgeon: Jennifer Calle Condition: stable Disposition: PACU Description of Procedure: . The patient was seen and identified in the preoperative area. Risks, benefits, complications, and alternatives were discussed with the patient. The patient agreed to proceed with the procedure and signed the consent. IV was started, and vital signs were stable. Patient was taken to the OR and time out was completed. The patient was placed in the prone position on procedure table and a pillow was placed under the abdomen to reduce lumbar lordosis. The lumbosacral area was prepped and draped in the usual sterile fashion. Critical pause was taken. Vital signs were closely monitored during the procedure. Conscious sedation was used during the procedure to decrease patients anxiety. Lidocaine 1% was used to numb the skin up at the target points that were chosen as follows: For the L5-S1 level the target point was at the 6 o'clock position of L5 pedicle in the Rt oblique view. The correct view was obtained by squaring off the L5 vertebra on the AP view of fluoroscopy then the C-arm was tilted to the Rt oblique position to an angle at which the superior articular process of the lower vertebra would point to the middle of the pedicle above it at the 6 o'clock position as mentioned above . Then I used 3-1/2 inch 22-gauge Quincke spinal needle to get to the target point mentioned above by touching the inferior edge of the L4 pedicle and then walking off the bone and into the superior part of the L5-S1 foramen using the lateral view of fluoroscopy. I then injected 1 mL of Isovue contrast dye which showed typical epidurogram around the L5 nerve root and into the epidural space. Then I injected 1 mL of lidocaine 1% +10 mg of Decadron.. Patient tolerated procedure well,and was transferred to PACU in stable condition. A copy of the needle placement picture was saved to the fluoroscopy machine.
[2022-10-15 13:21] VITALS: BP 151/69; PULSE 57; RESP 18
--- NOTE | 2022-10-15 13:24 | FL ---
Intraoperative/procedural fluoroscopic services were provided for right lumbar transforaminal epidura l injection. Total fluoroscopy time is 12.0 seconds with a total of 2 submitted images to PACS. Total DAP [id number] [id number]. Please see the operative note for further details.
== END 2022-10-15 13:29 | disposition home or self-care (01) ==
LOC: ORPAIN 11:46
PROVIDERS: ATTEND Anesthesiology
DX: M51.16 Intervertebral disc disorders with radiculopathy, lumbar region (principal); M47.26 Other spondylosis with radiculopathy, lumbar region; I10 Essential (primary) hypertension; E78.5 Hyperlipidemia, unspecified; I25.10 Atherosclerotic heart disease of native coronary artery without angina pectoris; Z95.1 Presence of aortocoronary bypass graft; Z88.8 Allergy status to other drugs, medicaments and biological substances; Z79.899 Other long term (current) drug therapy
CPT/HCPCS: 64483; J1100; Q9966

== ENCOUNTER → 2022-11-26 | Outpatient (CLI) | payer OTHER ==
--- NOTE | 2022-11-26 14:54 | P.PAINPG ---
PQRS Measure Charge Sheet Comment: A 76 yr old male with a history of severe and chronic LBP x yrs secondary to lumbar DDD and spondylosis with facet arthropathy without myelopathy presents today for evaluation s/p R TFESI L5-S1 #1. Pt states he experienced 80 % pain relief x 3 wks s/p procedure. Pain level is provoked at 3 /10 in intensity, constant, localized in the lumbar spine, dull in character without shooting pain. Pain is provoked by walking, bending. Pain is alleviated with medication, sitting, reclining and rest. Oswestry axial pain score of 28. Interventional pain procedures completed include BL RFA L3-L5 (June 2022), BL iliolumbar (Sep 2022), R TFESI L5-S1 x1 Patient is currently on ASA Patient denies any side effects of the medication(s), denies excessive drowsiness or sleepiness, denies suicidal ideation and reports that the current pain medication is helping to control the pain and improve activities of daily living. Patient denies any motor or sensory deficits. Patient denies any fever or night sweats, denies any change in the bowel movements or urination. Physical Examination: -Constitutional: Cooperative. Not in acute distress . - Neurologic: Cranial nerve II to XII intact. No focal neurological deficits. - Psychatric: Alert & oriented x 3. Matching mood & appropriate affect. Judgment and insight intact. - Musculoskeletal: Cervical spine: Muscle bulk/ tone/ strength in the bilateral upper extremities normal Vertebral body tenderness to palpation over Spurling test positive Distraction test positive Facet loading test positive TTP Thoracic spine Muscle bulk / tone/ strength in the bilateral paraspinal muscles normal Vertebral body tender to palpation over Facet loading test positive TTP Lumbar spine: Motor bulk/ tone/ strength lower extremities , thigh and legs : 5/5 Deep tendon reflexes : Normal Knee Jerk. Normal Ankle Jerk . Vertebral body tenderness to palpation over L5 Henao Test positive Lumbar Facet Loading Test positive Straight Leg Raise: positive at 35 degrees right side/ left side Gaenslen's Test positive Sacral spine : Severe tenderness over the Sacroiliac joint: right side / left side Range of motion: Flexion of the lumbar spine <60 degrees Range of motion: Extension of the lumbar spine <20 degrees Gaenslen's Test positive right side / left side Crystal test: positive right side / left side Thigh Thrust Test positive right side / left side Sacral Thrust Test positive right side / left side Assessment and plan: Chronic LBP secondary to lumbar DDD, spondylosis with facet arthropathy without myelopathy Will follow up with the [place] hospital. All questions answered. I have spent less than 30 minutes on patient care today. Dr Hardin was available by phone for the evaluation of this patient. The time was used to review the medical records including relevant urine studies and Prescription history (MAPs), review of the available imaging, evaluation and examination of t he patient, coordination of care with the medical staff and if applicable referring physicians, as well as creation of the medical record PQRS Narrative: Smoking Status Former smoker Hx Alcohol Use (MH) Yes Home Medications: Ambulatory Orders Aspirin 81 mg PO DAILY 05/28/16 Isosorbide Mononitrate ER [Imdur] 60 mg PO DAILY 05/28/16 Nitroglycerin Sl Tabs [Nitrostat] 0.4 mg SL Q5M PRN 05/28/16 Omeprazole [PriLOSEC] 20 mg PO DAILY 05/28/16 carvediloL [Coreg] 6.25 mg PO BID 09/07/17 lisinopriL [Zestril] 5 mg PO BID 01/05/19 Albuterol Inhaler [Ventolin Hfa Inhaler] 2 puff INHALATION RT-Q6H PRN 11/10/22 Calcium Carbonate [Tums] 1,000 mg PO TID PRN 11/10/22 Cyanocobalamin (Vitamin B-12) [Vitamin B-12] 1,000 mcg PO DAILY 11/10/22 Empagliflozin [Jardiance] 10 mg PO DAILY 11/10/22 Fluticasone Propion/Salmeterol [Advair 250-50 Diskus] 1 puff INHALATION RT-BID 11/10/22 Loperamide HCl [Loperamide] 2 mg PO TID PRN 11/10/22 Magnesium Oxide 420mg 420 mg PO BID 11/10/[address] 1200mg 2,400 mg PO BID 11/10/22 Omeprazole 40 mg PO HS 11/10/22 Tiotropium 2.5 Mcg/Puff [Spiriva Respimat 2.5 Mcg] 2 puff INHALATION RT-DAILY 11/10/22 metFORMIN HCL 1,000 mg PO BID 11/10/22 Controlled Substance Measures - Controlled Substance Measures Is patient prescribed a controlled substance at discharge?: No
[2022-11-27 09:18] VITALS: BP 119/60; PULSE 59; RESP 16
== END ==
LOC: PNWHC3 11:56
PROVIDERS: ATTEND Specialist
DX: M51.36 Other intervertebral disc degeneration, lumbar region (principal); M47.816 Spondylosis without myelopathy or radiculopathy, lumbar region; G89.29 Other chronic pain; E11.9 Type 2 diabetes mellitus without complications; Z79.01 Long term (current) use of anticoagulants; Z79.84 Long term (current) use of oral hypoglycemic drugs; Z87.891 Personal history of nicotine dependence; Z79.82 Long term (current) use of aspirin; Z88.8 Allergy status to other drugs, medicaments and biological substances
CPT/HCPCS: 99211

== ENCOUNTER 2022-12-22 20:33 | Inpatient (IN) | payer OTHER, MEDICARE ==
[2022-12-22] MEDS ORDERED: PANTOPRAZOLE 40 MG/10 ML VIAL IVP STA (21:08)
[2022-12-22] MEDS ORDERED: SODIUM CHLORIDE 0.9% 1,000 ML IV STA (21:08)
--- NOTE | 2022-12-22 21:10 | ED ---
General Adult HPI - General Chief complaint: GI Bleed Stated complaint: GI bleed Time Seen by Provider: 12/22/22 20:35 Source: patient, RN notes reviewed Mode of arrival: EMS Limitations: no limitations - History of Present Illness Initial comments: Patient is a pleasant 77-year-old male presenting to the emergency department with concern for GI bleed. Onset was last day. Patient does have nausea. Patient is having dark stools, red. No abdominal pain. Patient does have history of ulcerative colitis. No weakness or dyspnea. - Related Data Home Medications Medication Instructions Recorded Confirmed Aspirin 81 mg PO DAILY 05/28/16 12/22/22 Isosorbide Mononitrate ER [Imdur] 60 mg PO DAILY 05/28/16 12/22/22 Nitroglycerin Sl Tabs [Nitrostat] 0.4 mg SL Q5M PRN 05/28/16 12/22/22 Omeprazole [PriLOSEC] 20 mg PO DAILY 05/28/16 12/22/22 carvediloL [Coreg] 6.25 mg PO BID 09/07/17 12/22/22 lisinopriL [Zestril] 5 mg PO BID 01/05/19 12/22/22 Calcium Carbonate [Tums] 1,000 mg PO TID PRN 11/10/22 12/22/22 Cyanocobalamin (Vitamin B-12) 1,000 mcg PO DAILY 11/10/22 12/22/22 [Vitamin B-12] Empagliflozin [Jardiance] 10 mg PO DAILY 11/10/22 12/22/22 Loperamide HCl [Loperamide] 2 mg PO TID PRN 11/10/22 12/22/22 Magnesium Oxide 420mg 420 mg PO BID 11/10/22 12/22/[address] 1200mg 2,400 mg PO BID 11/10/22 12/22/22 Omeprazole 40 mg PO HS 11/10/22 12/22/22 Tiotropium 2.5 Mcg/Puff [Spiriva 2 puff INHALATION RT-DAILY 11/10/22 12/22/22 Respimat 2.5 Mcg] metFORMIN HCL 1,000 mg PO BID 11/10/22 12/22/22 Mometasone/Formoterol [Dulera 100 2 puff INHALATION RT-BID 12/22/22 12/22/22 Mcg-5 Mcg Inhaler] Allergies Allergy/AdvReac Type Severity Reaction Status Date / Time Ufezfrx-BIV-HeU Reductase AdvReac severe Verified 12/22/22 21:14 Inhibitor muscle [Zkpjjhx-Upg-Gib Reductase cramps Inhibitor] Review of Systems ROS Statement: Those systems with pertinent positive or pertinent negative responses have been documented in the HPI. ROS Other: All systems not noted in ROS Statement are negative. Constitutional: Denies: fever Eyes: Denies: eye pain ENT: Denies: ear pain Respiratory: Denies: cough, dyspnea Cardiovascular: Denies: chest pain Endocrine: Denies: fatigue Gastrointestinal: Reports: nausea, hematochezia. Denies: abdominal pain, vomiting Genitourinary: Denies: dysuria Musculoskeletal: Denies: back pain Past Medical History Past Medical History: Coronary Artery Disease (CAD), COPD, Diabetes Mellitus, Deep Vein Thrombosis (DVT), GERD/Reflux, Hyperlipidemia, Hypertension, My ocardial Infarction ([place]), Osteoarthritis (OA) Additional Past Medical History / Comment(s): Ulcerative colitis. Chronic Back Pain. "itchy scalp" Last Myocardial Infarction Date:: 1992 History of Any Multi-Drug Resistant Organisms: None Reported Past Surgical History: Coronary Bypass/CABG, Heart Catheterization, Joint Replacement Additional Past Surgical History / Comment(s): colonoscopy, emily cataract surgery, triple bypass 25 yrs ago, left hip replacement, Past Anesthesia/Blood Transfusion Reactions: No Reported Reaction Past Psychological History: Anxiety Smoking Status: Former smoker Past Alcohol Use History: Rare Past Drug Use History: None Reported - Past Family History Brother(s) Family Medical History: CVA/TIA, Deep Vein Thrombosis (DVT) Father Family Medical History: Cancer General Exam Limitations: no limitations General appearance: alert, in no apparent distress Head exam: Present: normocephalic Eye exam: Present: normal appearance ENT exam: Present: mucous membranes dry Neck exam: Present: normal inspection Respiratory exam: Present: normal lung sounds bilaterally Cardiovascular Exam: Present: regular rate, normal rhythm GI/Abdominal exam: Present: soft, normal bowel sounds. Absent: distended, tenderness, guarding, rebound, rigid, pulsatile mass Rectal exam: Present: black stool Extremities exam: Present: normal inspection Neurological exam: Present: alert Psychiatric exam: Present: normal affect, normal mood Skin exam: Present: normal color Course Vital Signs 12/22/22 12/22/22 12/22/22 20:35 21:00 22:00 Temperature 97.6 F Pulse Rate 86 90 82 Respiratory 18 16 18 Rate Blood Pressure 86/59 89/44 102/53 O2 Sat by Pulse 100 100 97 Oximetry Medical Decision Making - Medical Decision Making Was pt. sent in by a medical professional or institution (, PA, OWNER, urgent care, hospital, or care home...) When possible be specific @ -No Did you speak to anyone other than the patient for history (EMS, parent, family, police, friend...)? What history was obtained from this source @ - is present after arrival and provides additional history including on set of 1 AM this morning. Did you review nursing and triage notes (agree or disagree)? Why? @ -I reviewed and agree with nursing and triage notes Were old charts reviewed (outside hosp., previous admission, EMS record, old EKG, old radiological studies, urgent care reports/EKG's, care home records)? Report findings @ -No old charts were reviewed Differential Diagnosis (chest pain, altered mental status, abdominal pain women, abdominal pain men, vaginal bleeding, weakness, fever, dyspnea, syncope, headache, dizziness, GI bleed, back pain, seizure, CVA, palpatations, mental health, musculoskeletal)? @ -Differential GI Bleed: Esophageal varices, aortoenteric fistula, [place], gastritis, peptic ulcer disease, diverticulosis, inflammatory bowel disease, hemorrhoids, fissure, colitis, malignancy, Meckels diverticulum, this is not meant to be an all- inclusive list. EKG interpreted by me (3pts min.). @ -As above X-rays interpreted by me (1pt min.). @ -None done CT interpreted by me (1pt min.). @ -None done U/S interpreted by me (1pt. min.). @ -None done What testing was considered but not performed or refused? (CT, X-rays, U/S, labs)? Why? @ -None What meds were considered but not given or refused? Why? @ -None Did you discuss the management of the patient with other professionals (professionals i.e. , ANNIKA, OWNER, lab, RT, psych nurse, director of social services, roller mechanic, teacher, guest services officer, leather case finisher)? Give summary @ -Case was discussed with Dr. mckeon who will admit covering hospital call Was smoking cessation discussed for >3mins.? @ -No Was critical care preformed (if so, how long)? @ -33 minutes critical care time provided Were there social determinants of health that impacted care today? How? (H omelessness, low income, unemployed, alcoholism, drug addiction, transportation, low edu. Level, literacy, decrease access to med. care, long term, rehab)? @ -No Was there de-escalation of care discussed even if they declined (Discuss DNR or withdrawal of care, Hospice)? DNR status @ -No What co-morbidities impacted this encounter? (DM, HTN, Smoking, COPD, CAD, Cancer, CVA, ARF, Chemo, Hep., AIDS, mental health diagnosis, sleep apnea, morbid obesity)? @ -None Was patient admitted / discharged? Hospital course, mention meds given and route, prescriptions, significant lab abnormalities, going to OR and other pertinent info. @ -Patient reevaluated. Blood pressure has increased to 100 systolic on several readings. Patient and family updated on results and plan. Patient will be given 1 unit of blood secondary to hemoglobin 6.0. Patient will be admitted. Admission orders written. GI will be placed on consult. Undiagnosed new problem with uncertain prognosis? @ -No Drug Therapy requiring intensive monitoring for toxicity (Heparin, Nitro, Insulin, Cardizem)? @ -Patient will need monitoring for blood transfusion Were any procedures done? @ -No Diagnosis/symptom? @ -Lower GI hemorrhage Acute, or Chronic, or Acute on Chronic? @ -Acute Uncomplicated (without systemic symptoms) or Complicated (systemic symptoms)? @ -default Side effects of treatment? @ -No Exacerbation, Progression, or Severe Exacerbation? @ -No Poses a threat to life or bodily function? How? (Chest pain, [place], [place], pneumonia, PE, COPD, DKA, ARF, appy, cholecystitis, CVA, Diverticulitis, Homicidal, Suicidal, threat to staff... and all critical care pts) @ -No - Lab Data Result diagrams: 12/22/22 21:28 12/22/22 21:28 Lab Results 12/22/22 12/22/22 12/22/22 Range/Units 21:28 21:28 21:28 WBC 11.8 H (3.8-10.6) k/uL RBC 2.19 L (4.30-5.90) m/uL Hgb 6.0 L* D (13.0-17.5) gm/dL Hct 19.3 L* (39.0-53.0) % MCV 88.1 D (80.0-100.0) fL MCH 27.5 (25.0-35.0) pg MCHC 31.2 (31.0-37.0) g/dL RDW 15.6 H (11.5-15.5) % Plt Count 182 D (150-450) k/uL MPV 8.9 Neutrophils % 77 % Lymphocytes % 13 % Monocytes % 7 % Eosinophils % 1 % Basophils % 0 % Neutrophils # 9.1 H (1.3-7.7) k/uL Lymphocytes # 1.5 (1.0-4.8) k/uL Monocytes # 0.8 (0-1.0) k/uL Eosinophils # 0.1 (0-0.7) k/uL Basophils # 0.0 (0-0.2) k/uL Hypochromasia Marked Poikilocytosis Slight PT 14.0 H (10.0-12.5) sec INR 1.3 H (<1.2) APTT 22.0 (22.0-30.0) sec Sodium 138 (137-145) mmol/L Potassium 4.5 (3.5-5.1) mmol/L Chloride 111 H (98-107) mmol/L Carbon Dioxide 16 L (22-30) mmol/L Anion Gap 11 mmol/L BUN 35 H (9-20) mg/dL Creatinine 0.93 (0.66-1.25) mg/dL Est GFR (CKD-EPI)AfAm >90 (>60 ml/min/1.73 sqM) Est GFR (CKD-EPI)NonAf 79 (>60 ml/min/1.73 sqM) Glucose 151 H (74-99) mg/dL Calcium 7.9 L (8.4-10.2) mg/dL Total Bilirubin 0.9 (0.2-1.3) mg/dL AST 32 (17-59) U/L ALT 20 (4-49) U/L Alkaline Phosphatase 51 (38-126) U/L Total Protein 4.5 L (6.3-8.2) g/dL Albumin 2.5 L (3.5-5.0) g/dL Blood Type Blood Type Recheck Bld Type Recheck Status Antibody Screen Spec Expiration Date 12/22/22 Range/Units 21:28 WBC (3.8-10.6) k/uL RBC (4.30-5.90) m/uL Hgb (13.0-17.5) gm/dL Hct (39.0-53.0) % MCV (80.0-100.0) fL MCH (25.0-35.0) pg MCHC (31.0-37.0) g/dL RDW (11.5-15.5) % Plt Count (150-450) k/uL MPV Neutrophils % % Lymphocytes % % Monocytes % % Eosinophils % % Basophils % % Neutrophils # (1.3-7.7) k/uL Lymphocytes # (1.0-4.8) k/uL Monocytes # (0-1.0) k/uL Eosinophils # (0-0.7) k/uL Basophils # (0-0.2) k/uL Hypochromasia Poikilocytosis PT (10.0-12.5) sec INR (<1.2) APTT (22.0-30.0) sec Sodium (137-145) mmol/L Potassium (3.5-5.1) mmol/L Chloride (98-107) mmol/L Carbon Dioxide (22-30) mmol/L Anion Gap mmol/L BUN (9-20) mg/dL Creatinine (0.66-1.25) mg/dL Est GFR (CKD-EPI)AfAm (>60 ml/min/1.73 sqM) Est GFR (CKD-EPI)NonAf (>60 ml/min/1.73 sqM) Glucose (74-99) mg/dL Calcium (8.4-10.2) mg/dL Total Bilirubin (0.2-1.3) mg/dL AST (17-59) U/L ALT (4-49) U/L Alkaline Phosphatase (38-126) U/L Total Protein (6.3-8.2) g/dL Albumin (3.5-5.0) g/dL Blood Type A Negative Blood Type Recheck A Neg Bld Type Recheck Status No Antibody Screen NEGATIVE Spec Expiration Date 12/25/20222327 Critical Care Time Critical Care Time: Yes Total Critical Care Time: 33 Disposition Clinical Impression: Lower gastrointestinal hemorrhage Disposition: ADMITTED IP TO THIS HOSP Is patient prescribed a controlled substance at d/c from ED?: No Referrals: Apurva Parmar, PAC [Family Provider] - 1-2 days Time of Disposition: 23:04
[2022-12-22 22:01] LABS: ALT 20 U/L (4-49); AST 32 U/L (17-59); African American GFR (CKD) >90 (>60 ml/min/1.73 sqM); Albumin 2.5 g/dL (3.5-5.0); Alkaline Phosphatase 51 U/L (38-126); Anion Gap 11 mmol/L; Blood Urea Nitrogen 35 mg/dL (9-20); Calcium 7.9 mg/dL (8.4-10.2); Carbon Dioxide 16 mmol/L (22-30); Chloride 111 mmol/L (98-107); Glucose 151 mg/dL (74-99); Non-African American GFR(CKD) 79 (>60 ml/min/1.73 sqM); Potassium 4.5 mmol/L (3.5-5.1); Sodium 138 mmol/L (137-145); Total Bilirubin 0.9 mg/dL (0.2-1.3); Total Protein 4.5 g/dL (6.3-8.2)
[2022-12-22 22:33] LABS: Basophils % (A) 0 %; Eosinophils # (A) 0.1 k/uL (0-0.7); Eosinophils % (A) 1 %; Hypochromasia Marked; Lymphocytes # (A) 1.5 k/uL (1.0-4.8); Lymphocytes % (A) 13 %; MCH 27.5 pg (25.0-35.0); MCHC 31.2 g/dL (31.0-37.0); Mean Platelet Volume 8.9; Monocytes # (A) 0.8 k/uL (0-1.0); Monocytes % (A) 7 %; Neutrophils # (A) 9.1 k/uL (1.3-7.7); Neutrophils % (A) 77 %; Poikilocytosis Slight; RBC 2.19 m/uL (4.30-5.90); RDW 15.6 % (11.5-15.5); WBC 11.8 k/uL (3.8-10.6)
[2022-12-22 22:38] LABS: INR 1.3 (<1.2)
[2022-12-22 22:59] LABS: HCT 19.3 % (39.0-53.0); MCV 88.1 fL (80.0-100.0); Platelet Count 182 k/uL (150-450)
[2022-12-22] MEDS ORDERED: NALOXONE 0.4 MG/ML 1 ML VIAL IV PRN (23:04)
[2022-12-22] MEDS ORDERED: ACETAMINOPHEN TAB 325 MG TAB PO PRN (23:04)
[2022-12-22] MEDS ORDERED: ACETAMINOPHEN TAB 500 MG TAB PO STA (23:05)
[2022-12-22] MEDS ORDERED: PANTOPRAZOLE 40 MG/10 ML VIAL IV SCH (23:15)
[2022-12-22] MEDS: SODIUM CHLORIDE 0.9% 1,000 ML IV SCH (23:39)
[2022-12-23] MEDS ORDERED: SODIUM CHLORIDE 0.9% 1,000 ML IV ONE ×3 (01:38→14:59)
[2022-12-23 02:04] LABS: Glucose,Whole Blood 202 mg/dL (70-110)
[2022-12-23] MEDS: SODIUM CHLORIDE 0.9% 1,000 ML IV ONE ×2 (02:16→02:29)
[2022-12-23] MEDS: NOREPINEPHRINE 4 MG in SODIUM CHLORIDE 0.9% 250 ML IV SCH ×3 (02:45→17:52)
--- NOTE | 2022-12-23 03:27 | P.CNPUL ---
History of Present Illness Consult date: 12/23/22 Requesting physician: Danilo Arteaga Reason for consult: other (Acute GI bleed and ICU management) Chief complaint: GI bleeding History of present illness: I am seeing this patient in new consultation today 12/23/2022 in the emergency room, after an A-team was called for symptomatic anemia and GI bleeding. Patient is a 77-year-old white male with past medical history significant for ulcerative colitis, coronary artery disease with previous CABG, hyperlipidemia, hypertension, COPD, history of DVT, GERD, osteoarthritis. Patient states that he has been having dark red bowel movements for the last 4 days. Admits abdominal distention and mild abdominal tenderness. Admits nausea without any reported emesis. On arrival to the emergency room, his hemoglobin was found to be 6 g/dL. Patient was transfused 2 units PRBC. On my evaluation, he remains hypotensive. We have given a total of 3 L normal saline bolus. He is being started on Levophed for refractory hypotension. GI has been consulted. Despite his hypotension, patient is awake and alert. He is able to answer my questions. There is generalized pallor. He is hypothermic, and external warming blanket is on. He states that he has been taking extra doses of aspirin when he is in pain. Denies any anticoagulant use. Patient states that he has had multiple colonoscopies. Denies history of GI malignancies. Admits history of ulcerative colitis. Patient is incontinent and there is dark red blood with clots. CBC on arrival shows a WBC count 11.8, hemoglobin 6, hematocrit 19.3, platelets 182. INR 1.3. APTT 22. BMP on arrival shows sodium 130, potassium 4.5, chloride 111, serum bicarb 16, BUN 35, creatinine 0.93, glucose 151. LFTs not elevated. Normal saline is infusing at 130 ML's per hour. As stated above, the patient remains hypotensive, this can receive an additional 2 units PRBCs per GI. Patient will be admitted to the intensive care unit. Review of Systems REVIEW OF SYSTEMS: CONSTITUTIONAL: Denies any recent significant weight loss or weight gain. EYES: Denies change in vision. EARS, NOSE, MOUTH, THROAT: Denies headaches, denies sore throat. CARDIOVASCULAR: Denies chest pain, palpitations or syncopal episodes. RESPIRATORY: Denies shortness of breath, cough, congestion or hemoptysis. GASTROINTESTINAL: See HPI GENITOURINARY: Denies hematuria, denies infections. MUSKULOSKELETAL: Denies pain, denies swelling. INTEGUMENTARY: Denies rash, denies eczema. NEUROLOGICAL: Denies recent memory loss, no recent seizure activity. PSYCHIATRIC: Denies anxiety, denies depression. HEMATOLOGIC/LYMPHATIC: Denies anemia, denies enlarged lymph node Past Medical History Past Medical History: Coronary Artery Disease (CAD), COPD, Diabetes Mellitus, Deep Vein Thrombosis (DVT), GERD/Reflux, Hyperlipidemia, Hypertension, Myocardial Infarction ([place]), Osteoarthritis (OA) Additional Past Medical History / Comment(s): Ulcerative colitis. Chronic Back Pain. "itchy scalp" Last Myocardial Infarction Date:: 1992 History of Any Multi-Drug Resistant Organisms: None Reported Past Surgical History: Coronary Bypass/CABG, Heart Catheterization, Joint Replacement Additional Past Surgical History / Comment(s): colonoscopy, emily cataract surgery, triple bypass 25 yrs ago, left hip replacement, Past Anesthesia/Blood Transfusion Reactions: No Reported Reaction Past Psychological History: Anxiety Smoking Status: Former smoker Past Alcohol Use History: Rare Past Drug Use History: None Reported - Past Family History Brother(s) Family Medical History: CVA/TIA, Deep Vein Thrombosis (DVT) Father Family Medical History: Cancer Medications and Allergies Home Medications Medication Instructions Recorded Confirmed Type RX: Aspirin 81 mg PO DAILY 05/28/16 12/22/22 History RX: Isosorbide Mononitrate ER 60 mg PO DAILY 05/28/16 12/22/22 History [Imdur] RX: Nitroglycerin Sl Tabs 0.4 mg SL Q5M PRN 05/28/16 12/22/22 History [Nitrostat] RX: Omeprazole [PriLOSEC] 20 mg PO DAILY 05/28/16 12/22/22 History RX: carvediloL [Coreg] 6.25 mg PO BID 09/07/17 12/22/22 History RX: lisinopriL [Zestril] 5 mg PO BID 01/05/19 12/22/22 History Magnesium Oxide 420mg 420 mg PO BID 11/10/22 12/22/[address] 1200mg 2,400 mg PO BID 11/10/22 12/22/22 History RX: Calcium Carbonate [Tums] 1,000 mg PO TID PRN 11/10/22 12/22/22 History RX: Cyanocobalamin (Vitamin B-12) 1,000 mcg PO DAILY 11/10/22 12/22/22 History [Vitamin B-12] RX: Empagliflozin [Jardiance] 10 mg PO DAILY 11/10/22 12/22/22 History RX: Loperamide HCl [Loperamide] 2 mg PO TID PRN 11/10/22 12/22/22 History RX: Omeprazole 40 mg PO HS 11/10/22 12/22/22 History RX: Tiotropium 2.5 Mcg/Puff 2 puff INHALATION RT-DAILY 11/10/22 12/22/22 History [Spiriva Respimat 2.5 Mcg] RX: metFORMIN HCL 1,000 mg PO BID 11/10/22 12/22/22 History Mometasone/Formoterol [Dulera 100 2 puff INHALATION RT-BID 12/22/22 12/22/22 History Mcg-5 Mcg Inhaler] Allergies Allergy/AdvReac Type Severity Reaction Status Date / Time Irbpuvf-TJN-UgL Reductase AdvReac severe Verified 12/22/22 21:14 Inhibitor muscle [Aepfmzb-Mgj-Bha Reductase cramps Inhibitor] Physical Exam Vitals: Vital Signs Temp Pulse Resp BP Pulse Ox 12/23/22 02:07 84 19 97/49 100 12/23/22 01:30 95 F L 84 27 H 80/46 95 12/23/22 01:22 95 F L 85 16 84/44 96 12/23/22 01:21 95 F L 85 16 84/44 96 12/23/22 01:13 94.8 F L 91 18 61/34 12/23/22 01:00 96 16 126/102 97 12/23/22 00:30 103 H 18 73/50 97 12/23/22 00:29 97.6 F 102 H 18 74/45 97 12/23/22 00:09 97.6 F 99 16 92/54 12/23/22 00:00 89 18 78/45 94 L 12/22/22 23:59 97.6 F 64 16 78/45 100 12/22/22 23:30 82 16 94/39 96 12/22/22 22:00 82 18 102/53 97 12/22/22 21:00 90 16 89/44 100 12/22/22 20:35 97.6 F 86 18 86/59 100 Intake and Output 12/22/22 12/22/22 12/23/22 14:59 22:59 06:59 Intake Total 620 Balance 620 Intake: Blood Product 620 As-1 Unit 310 [id number] Rc As-1 Unit 310 [id number] Other: Weight 81.647 kg GENERAL EXAM: Alert, 77-year-old white male, generalized pallor, hypothermic, comfortable in no apparent distress. HEAD: Normocephalic and atraumatic EYES: Normal reaction of pupils, equal size. NOSE: Clear with pink turbinates. THROAT: No erythema or exudates. NECK: No masses, no JVD. CHEST: No chest wall deformity. There is a healed sternotomy incision LUNGS: Equal air entry with no crackles, wheeze, rhonchi or dullness. On room air. No conversational dyspnea or accessory muscle use.. CVS: S1 and S2 normal with no audible murmur, regular rhythm. No extra heart sounds ABDOMEN: No hepatosplenomegaly, active bowel sounds, no guarding or rigidity. Some facial grimacing with deep palpation. Abdomen appears bloated and mildly distended. SPINE: No scoliosis or deformity SKIN: No rashes. Generalized pallor CENTRAL NERVOUS SYSTEM: No focal deficits, tone is normal in all 4 extremities. EXTREMITIES: There is no peripheral edema, clubbing, or cyanosis. Peripheral pulses are intact. Results - Laboratory Findings CBC and BMP: 12/22/22 21:28 12/22/22 21:28 PT/INR, D-dimer PT 14.0 sec (10.0-12.5) H 12/22/22 21:28 INR 1.3 (<1.2) H 12/22/22 21:28 Abnormal lab findings: Abnormal Labs 12/22/22 12/22/22 12/22/22 21:28 21:28 21:28 WBC 11.8 H RBC 2.19 L Hgb 6.0 L* D Hct 19.3 L* RDW 15.6 H Neutrophils # 9.1 H PT 14.0 H INR 1.3 H Chloride 111 H Carbon Dioxide 16 L BUN 35 H Glucose 151 H POC Glucose (mg/dL) Calcium 7.9 L Total Protein 4.5 L Albumin 2.5 L Crossmatch 12/22/22 12/23/22 21:28 02:03 WBC RBC Hgb Hct RDW Neutrophils # PT INR Chloride Carbon Dioxide BUN Glucose POC Glucose (mg/dL) 202 H Calcium Total Protein Albumin Crossmatch See Detail Assessment and Plan Assessment: Acute GI bleeding Symptomatic anemia, secondary to above, status/post transfusion 2 units PRBC Hypovolemic shock, secondary to above Prerenal azotemia Non-anion gap metabolic acidosis, secondary to diarrhea History of ulcerative colitis Coronary artery disease, with remote history of previous CABG Hyperlipidemia COPD, stable History of DVT GERD Osteoarthritis Plan: Patient will be transferred to the intensive care unit Patient is status post 2 units PRBC transfusion. Patient will be given an additional 2 units PRBC. Patient has received 3 L normal saline bolus. Despite this, he remains hypotensive, and norepinephrine will be started. GI called and made aware of consult. Repeat hemoglobin pending Add Protonix twice a day Hold NSAIDs Patient is hypothermic and has external warming blanket on Patient's condition is currently critical, and he is a full code. Patient is being monitored in the intensive care unit. I have personally seen and examined the patient, performed the documentation and the assessment and plan as written. Number of minutes spent on the visit:20 Time with Patient: Greater than 30
[2022-12-23 03:33] LABS: African American GFR (CKD) 87 (>60 ml/min/1.73 sqM); Anion Gap 11 mmol/L; Blood Urea Nitrogen 34 mg/dL (9-20); Calcium 6.9 mg/dL (8.4-10.2); Carbon Dioxide 11 mmol/L (22-30); Chloride 116 mmol/L (98-107); Glucose 137 mg/dL (74-99); Non-African American GFR(CKD) 76 (>60 ml/min/1.73 sqM); Potassium 4.8 mmol/L (3.5-5.1); Sodium 138 mmol/L (137-145)
--- NOTE | 2022-12-23 07:20 | CT ---
EXAMINATION TYPE: CT angio abdomen pelvis CT DLP: 2431.4 mGycm, Automated exposure control for dose reduction was used. DATE OF EXAM: 12/23/2022 6:37 AM COMPARISON: CTA abdomen aorta with runoff 07/29/2018. CLINICAL INDICATION:Male, 77 years old with history of GI bleed PROTOCOL; GI Bleed TECHNIQUE: Multiple thin slice sub-millimeter images were obtained of the abdomen and pelvis before a nd after the uneventful administration of contrast. Patient was given Isovue 370, 100 cc intravenousl y. Delayed imaging was performed. 3-D reconstructed images and maximum intensity projection images w ere obtained of the aorta. FINDINGS: CTA Abdomen and pelvis: The abdominal aorta does not demonstrate aneurysmal dilatation. Atherosclero tic plaquing is identified within the abdominal aorta. The origins of the superior mesenteric artery , renal arteries, inferior mesenteric artery, and celiac axis are patent. Mild stenosis of the origin of the celiac axis secondary to plaque formation. Mild stenosis of the origin of the SMA secondary t o noncalcified plaque. Atherosclerotic plaquing is identified in the common iliac arteries. LIVER: Posterior notch sign with subtle surface nodularity of the liver. GALLBLADDER AND BILE DUCTS: Contracted appearance of the gallbladder. Cholelithiasis. No biliary duct al dilatation. PANCREAS: Mildly atrophic. SPLEEN: Mildly enlarged measuring 16.0 cm in AP dimension. ADRENAL GLANDS: Unremarkable. KIDNEYS AND URETERS: No evidence of hydronephrosis or renal calculus. The kidneys enhance symmetrical ly. PELVIS BLADDER: Nondistended with Rayo catheter in place. REPRODUCTIVE: Unremarkable. ABDOMEN & PELVIS STOMACH AND BOWEL: Small hiatal hernia, duodenum is unremarkable. Rectal tube identified. No focal rula wel wall thickening or surrounding inflammatory changes. No focal hyperdense material within the dell l. No evidence of bowel obstruction. PERITONEUM: No evidence of pneumoperitoneum. Small volume ascites within the abdomen pelvis. VASCULATURE: No evidence of aortic aneurysm. MUSCULOSKELETAL: No acute osseous abnormalities. Left total hip arthroplasty. Median sternotomy wires . Mild degenerative changes of the visualized spine. LYMPH NODES: No gross evidence for lymphadenopathy. SOFT TISSUE/ABDOMINAL WALL: Unremarkable LOWER CHEST: Visualized lung bases are clear. Coronary artery calcifications. IMPRESSION 1. No CTA evidence for active GI bleed. 2. Atherosclerotic disease involving abdominal aorta without evidence for aneurysm. 3. Small volume ascites. 4. Splenomegaly. 5. Subtle surface nodularity of the liver. Correlate for cirrhosis. 6. Cholelithiasis.
[2022-12-23] MEDS ORDERED: DEXTROSE 50% SYRINGE 50 ML IVP PRN ×2 (08:10)
--- NOTE | 2022-12-23 09:02 | CONS ---
CONSULTATION HISTORY OF PRESENT ILLNESS: This is a 77-year-old gentleman with a history of hypertension, type 2 diabetes, hyperlipidemia, CAD with prior bypass surgery, and PCI. He had a recent cardiac cath in October of this year, which revealed that he had a graft to the obtuse marginal branch, occluded but the graft to the diagonal, PEDROZA to LAD were patent. His right coronary was heavily calcified with a lot of plaque, but no critical stenosis was noted. He was advised medical therapy. This procedure was performed on November 10, 2022. This patient's hemoglobin at that time was about 10.7. He came into the emergency room complaining of having seen some blood in his stool, felt weak, and had some nausea, dark stools, and some horace blood in the stools also. He does have history of ulcerative colitis. He complained of some fatigue as well. He also had abdominal bloating and discomfort. Was found to have a hemoglobin of 6.0 with active lower gastrointestinal bleeding with a combination of melanotic stool as well as red stool. His hemoglobin is 6.2. He received 2 units of blood and he is going to get 2 additional units of blood. He still has some melanotic stool mixed with horace blood at this time. He does not have any chest discomfort. His troponin is elevated, which is probably related to oxygen mismatch given his drop in hemoglobin and known diffuse coronary disease. He is resting comfortably at the time of my evaluation. He is on a small dose of Levophed which is being weaned off. Blood pressure is about 110. Urine output is fair. He is on 130 mL of IV fluids. His last echo revealed ejection fraction of 50% to 55% and this was performed on November 11, 2022. He did not have any significant pulmonary hypertension. He has mild aortic sclerosis without stenosis. PAST MEDICAL HISTORY: 1. Type 2 diabetes. 2. Hypertension. 3. Hyperlipidemia. 4. CAD with prior bypass surgery. Recent cardiac cath suggesting diffuse noncritical disease and medical therapy advised. 5. History of previous GI bleed as well. CT angiogram did not reveal any evidence for active GI bleeding and there was some nodularity on the liver for possible cirrhosis and some cholelithiasis. 6. Remarkable for some orthopedic surgeries. 7. Cataract surgery as well. PHYSICAL EXAMINATION: VITAL SIGNS: Blood pressure is 112/70, pulse rate is about 72 per minute. HEENT: Unremarkable. Fundus was not examined. NECK: Supple. No JVD. HEART: S1, S2 heard normally. No significant murmurs. LUNGS: Reveal bilateral decent air entry. ABDOMEN: Distended, mildly bloated. No tenderness. EXTREMITIES: Lower extremities reveal diminished pulses. CENTRAL NERVOUS SYSTEM: Normal. IMAGING STUDIES: EKG revealed sinus mechanism with precordial ST depression, cannot exclude this being ischemia. The ST-segment depression is more prominent compared to the one that he had already from October of last year. This could be a nonspecific finding. LABORATORY DATA: Suggest that the initial troponin is 0.846. IMPRESSION: 1. Acute lower gastrointestinal bleeding with active melanotic stool combined with mixed blood and a hemoglobin of 6.0. 2. Coronary artery disease, stable with previous bypass surgery and PCI, details of percutaneous coronary intervention unavailable. 3. Hypertension. 4. Type 2 diabetes. 5. Hyperlipidemia. RECOMMENDATIONS: No intervention is necessary for elevated troponin. If the patient is tachycardic, I would recommend intravenous beta janessa since he is n.p.o. Obviously no heparin. We will monitor the patient closely. Agree with blood transfusion which is being done aggressively. Whenever possible endoscopy and if there is a source of bleeding that can be addressed would be helpful. Prognosis remains guarded. MMODL / IJN: [id number] /
[2022-12-23] MEDS ORDERED: PROPOFOL 10 MG/ML 20 ML VIAL IV ONE (09:05)
[2022-12-23] MEDS ORDERED: MIDAZOLAM 2 MG/2 ML VIAL ONE (09:05)
[2022-12-23] MEDS ORDERED: SUCCINYLCHOLINE CHLORIDE 200 MG/10 ML VIAL IV ONE (09:05)
[2022-12-23] MEDS ORDERED: LIDOCAINE 1% INJ 10MG/ML (20 ML MDV) ONE (09:05)
[2022-12-23] MEDS ORDERED: PHENYLEPHRINE-0.9% NACL SYG 1,000 MCG/10 ML SYRINGE ONE (09:05)
[2022-12-23 09:18] LABS: Basophils % (A) 0 %; Eosinophils % (A) 0 %; HCT 28.7 % (39.0-53.0); Hypochromasia Slight; Lymphocytes # (A) 1.5 k/uL (1.0-4.8); Lymphocytes % (A) 14 %; MCH 31.4 pg (25.0-35.0); MCHC 34.4 g/dL (31.0-37.0); MCV 91.1 fL (80.0-100.0); Mean Platelet Volume 12.8; Monocytes # (A) 0.6 k/uL (0-1.0); Monocytes % (A) 6 %; Neutrophils # (A) 8.7 k/uL (1.3-7.7); Neutrophils % (A) 79 %; Poikilocytosis Slight; RBC 3.15 m/uL (4.30-5.90); RDW 14.7 % (11.5-15.5)
[2022-12-23 09:25] LABS: HGB 9.9 gm/dL (13.0-17.5)
--- NOTE | 2022-12-23 10:15 | P.CONS ---
History of Present Illness - Reason for Consult Consult date: 12/23/22 GI bleed Requesting physician: Richardson May - Chief Complaint Bloody bowel movements - History of Present Illness This is 77-year-old male with a history of coronary artery disease status post CABG, COPD, ulcerative colitis, GERD, DVT, and hyperlipidemia who presented to the emergency department with complaints of rectal bleeding and bloody bowel movements are. Patient was noted to be significantly anemic with a hemoglobin of 6.0 with active bleed of dark blood coming per rectum. Patient states he has had dark stool and maroon colored blood over the last 2 weeks duration. He denies being on any anticoagulation, states that he takes via low-dose aspirin daily however if he has back pain he will take at least 2 full dose aspirin daily. Patient has followed with Dr. Hodges for his ulcerative colitis currently on mesalamine but has not seen her in 2-3 years. Last EGD and colonoscopy was done by Dr. Hodges in 2019. EGD revealed minimal antral gastritis but no e vidence of esophagitis or peptic ulcer disease. Colonoscopy revealed mild erythema noted in the sigmoid colon consistent with mild colitis but the rest of the colon appeared normal.. He currently denies any abdominal pain, no nausea or vomiting. He has a rectal tube in place with about 200 mL of dark red blood. He was admitted to the ICU for symptomatic anemia with active GI bleed. Currently on pressors. Patient had a CTA chest abdomen and pelvis that reported no active bleed noted. Did note subtle nodularity of the liver, correlate for cirrhosis. Patient denies any previous history of known liver disease, denies any history of cirrhosis of the liver and no history of alcohol abuse. Patient was given 4 units of PRBC transfusion, repeat CBC currently pending. Admitting Labs WBC 11.8 hemoglobin 6.0 hematocrit 19 platelet count 182,010 or 1.3 sodium 138 potassium 4.5 BUN 35 creatinine 0.9 glucose 151, total bilirubin 0.9 AST 32 ALT 20 alkaline phosphatase 51 troponin 0.846 Review of Systems REVIEW OF SYSTEMS: CARDIOPULMONARY: No chest pain or shortness of breath. Gastrointestinal: No abdominal pain. No nausea or vomiting. No hematemesis, coffee-ground emesis. Rectal bleeding dark maroon. GENITOURINARY: No dysuria or hematuria. MUSCULOSKELETAL: Reports normal range of motion., Joint pain. Back pain. SKIN: No rashes. No jaundice. ENDOCRINE: No chills, fevers. No excessive weight gain or loss. No polydipsia or polyuria. PSYCHIATRIC: Unremarkable. NEUROLOGY: No change in mental status. Denies dizziness, headache. ENT: Vision unremarkable. CONSTITUTIONAL: No recent weight loss. No fever, chills, night sweats. Past Medical History Past Medical History: Coronary Artery Disease (CAD), COPD, Diabetes Mellitus, Deep Vein Thrombosis (DVT), GERD/Reflux, Hyperlipidemia, Hypertension, Myocard ial Infarction (OK), Osteoarthritis (OA) Additional Past Medical History / Comment(s): Ulcerative colitis. Chronic Back Pain. "itchy scalp" Last Myocardial Infarction Date:: 1992 History of Any Multi-Drug Resistant Organisms: None Reported Past Surgical History: Coronary Bypass/CABG, Heart Catheterization, Joint Replacement Additional Past Surgical History / Comment(s): colonoscopy, emily cataract surgery, triple bypass 25 yrs ago, left hip replacement, Past Anesthesia/Blood Transfusion Reactions: No Reported Reaction Past Psychological History: Anxiety Smoking Status: Former smoker Past Alcohol Use History: Rare Past Drug Use History: None Reported - Past Family History Brother(s) Family Medical History: CVA/TIA, Deep Vein Thrombosis (DVT) Father Family Medical History: Cancer Medications and Allergies Home Medications Medication Instructions Recorded Confirmed Type Aspirin 81 mg PO DAILY 05/28/16 12/22/22 History Isosorbide Mononitrate ER [Imdur] 60 mg PO DAILY 05/28/16 12/22/22 History Nitroglycerin Sl Tabs [Nitrostat] 0.4 mg SL Q5M PRN 05/28/16 12/22/22 History Omeprazole [PriLOSEC] 20 mg PO DAILY 05/28/16 12/22/22 History carvediloL [Coreg] 6.25 mg PO BID 09/07/17 12/22/22 History lisinopriL [Zestril] 5 mg PO BID 01/05/19 12/22/22 History Calcium Carbonate [Tums] 1,000 mg PO TID PRN 11/10/22 12/22/22 History Cyanocobalamin (Vitamin B-12) 1,000 mcg PO DAILY 11/10/22 12/22/22 History [Vitamin B-12] Empagliflozin [Jardiance] 10 mg PO DAILY 11/10/22 12/22/22 History Loperamide HCl [Loperamide] 2 mg PO TID PRN 11/10/22 12/22/22 History Magnesium Oxide 420mg 420 mg PO BID 11/10/22 12/22/[address] 1200mg 2,400 mg PO BID 11/10/22 12/22/22 History Omeprazole 40 mg PO HS 11/10/22 12/22/22 History Tiotropium 2.5 Mcg/Puff [Spiriva 2 puff INHALATION RT-DAILY 11/10/22 12/22/22 History Respimat 2.5 Mcg] metFORMIN HCL 1,000 mg PO BID 11/10/22 12/22/22 History Mometasone/Formoterol [Dulera 100 2 puff INHALATION RT-BID 12/22/22 12/22/22 History Mcg-5 Mcg Inhaler] Allergies Allergy/AdvReac Type Severity Reaction Status Date / Time Xghbxlc-PEM-JwH Reductase AdvReac severe Verified 12/22/22 21:14 Inhibitor muscle [Kwztpag-Byn-Wti Reductase cramps Inhibitor] Physical Exam Vitals: Vital Signs Temp Pulse Resp BP Pulse Ox 12/23/22 07:19 36.9 F L 78 18 107/53 96 12/23/22 07:18 36.9 F L 78 18 107/53 96 12/23/22 07:00 76 18 127/59 97 12/23/22 06:45 72 18 99 12/23/22 06:30 98.4 F 77 11 L 118/61 97 12/23/22 06:00 95/53 12/23/22 05:52 36.5 F L 98 16 102/63 97 12/23/22 05:45 75 18 99/52 97 12/23/22 05:32 36.5 F L 75 19 99/52 97 12/23/22 05:30 16 94/54 97 12/23/22 05:18 97.5 F L 80 14 94/54 97 12/23/22 05:15 80 22 104/53 98 12/23/22 05:00 80 19 95/53 98 12/23/22 04:45 81 13 94/50 98 12/23/22 04:30 81 24 89/47 96 12/23/22 04:15 80 17 78/50 94 L 12/23/22 04:00 79 21 92/55 94 L 12/23/22 03:57 35.6 F L 79 21 92/55 94 L 12/23/22 03:45 78 15 90/47 96 12/23/22 03:37 35.5 F L 78 12 90/47 94 L 12/23/22 03:30 77 18 96/59 94 L 12/23/22 03:15 95.9 F L 78 18 86/47 95 12/23/22 03:00 80 25 H 76/44 97 12/23/22 02:45 82 23 93 L 12/23/22 02:07 84 19 97/49 100 12/23/22 01:30 95 F L 84 27 H 80/46 95 12/23/22 01:22 95 F L 85 16 84/44 96 12/23/22 01:21 95 F L 85 16 84/44 96 12/23/22 01:13 94.8 F L 91 18 61/34 12/23/22 01:00 96 16 126/102 97 12/23/22 00:30 103 H 18 73/50 97 12/23/22 00:29 97.6 F 102 H 18 74/45 97 12/23/22 00:09 97.6 F 99 16 92/54 12/23/22 00:00 89 18 78/45 94 L 12/22/22 23:59 97.6 F 64 16 78/45 100 12/22/22 23:30 82 16 94/39 96 12/22/22 22:00 82 18 102/53 97 12/22/22 21:00 90 16 89/44 100 12/22/22 20:35 97.6 F 86 18 86/59 100 Intake and Output 12/22/22 12/23/22 12/23/22 22:59 06:59 14:59 Intake Total 940.888 283 Balance 940.888 283 Intake: Intake, IV Titration 10.888 Amount Norepinephrine 4 mg In 10.888 Sodium Chloride 0.9% 250 ml @ 0.03 MCG/KG/MIN 9. 332 mls/hr IV .Q24H [facility] Rx#:[id number] Blood Product 930 283 Rc As-1 Unit 310 [id number] Rc As-1 Unit 310 [id number] Rc As-1 Unit 310 [id number] Rc Pheresis As-3 Unit 0 283 [id number] Other: Weight 81.647 kg General appearance: The patient is alert, oriented, appears in no acute distress. HET: Head is normocephalic and atraumatic. Conjunctiva pink. Sclera anicteric. Neck: Supple without lymphadenopathy. Trachea midline. Heart: S1 S2. Regular rate and rhythm. Lungs: Diminished. Abdomen: Soft, nontender, mildly distended. No guarding or rigidity. Skin: No rashes. No jaundice. Extremities: Normal skin color and turgor. No pedal edema. Neurological: No focal deficits. Alert and oriented x3. Results CBC & Chem 7: 12/23/22 07:45 12/23/22 03:10 Labs: Abnormal Lab Results - Last 24 Hours (Table) 12/22/22 12/22/22 12/22/22 Range/Units 21:28 21:28 21:28 WBC 11.8 H (3.8-10.6) k/uL RBC 2.19 L (4.30-5.90) m/uL Hgb 6.0 L* D (13.0-17.5) gm/dL Hct 19.3 L* (39.0-53.0) % RDW 15.6 H (11.5-15.5) % Neutrophils # 9.1 H (1.3-7.7) k/uL PT 14.0 H (10.0-12.5) sec INR 1.3 H (<1.2) Chloride 111 H (98-107) mmol/L Carbon Dioxide 16 L (22-30) mmol/L BUN 35 H (9-20) mg/dL Glucose 151 H (74-99) mg/dL POC Glucose (mg/dL) (70-110) mg/dL Calcium 7.9 L (8.4-10.2) mg/dL Troponin I (0.000-0.034) ng/mL Total Protein 4.5 L (6.3-8.2) g/dL Albumin 2.5 L (3.5-5.0) g/dL Crossmatch 12/22/22 12/23/22 12/23/22 Range/Units 21:28 02:03 03:10 WBC (3.8-10.6) k/uL RBC (4.30-5.90) m/uL Hgb (13.0-17.5) gm/dL Hct (39.0-53.0) % RDW (11.5-15.5) % Neutrophils # (1.3-7.7) k/uL PT (10.0-12.5) sec INR (<1.2) Chloride 116 H (98-107) mmol/L Carbon Dioxide 11 L (22-30) mmol/L BUN 34 H (9-20) mg/dL Glucose 137 H (74-99) mg/dL POC Glucose (mg/dL) 202 H (70-110) mg/dL Calcium 6.9 L (8.4-10.2) mg/dL Troponin I (0.000-0.034) ng/mL Total Protein (6.3-8.2) g/dL Albumin (3.5-5.0) g/dL Crossmatch See Detail 12/23/22 Range/Units 03:10 WBC (3.8-10.6) k/uL RBC (4.30-5.90) m/uL Hgb (13.0-17.5) gm/dL Hct (39.0-53.0) % RDW (11.5-15.5) % Neutrophils # (1.3-7.7) k/uL PT (10.0-12.5) sec INR (<1.2) Chloride (98-107) mmol/L Carbon Dioxide (22-30) mmol/L BUN (9-20) mg/dL Glucose (74-99) mg/dL POC Glucose (mg/dL) (70-110) mg/dL Calcium (8.4-10.2) mg/dL Troponin I 0.846 H* (0.000-0.034) ng/mL Total Protein (6.3-8.2) g/dL Albumin (3.5-5.0) g/dL Crossmatch CT scan - abdomen: report reviewed Assessment and Plan (1) GI bleed Narrative/Plan: 77-year-old male with history of ulcerative colitis on mesalamine who follows with Dr. Hodges however has not been seen within 2-3 years came in with dark maroon colored blood per rectum. Patient was noted to be hypotensive with a hemoglobin of 6, BUN elevated at 34. Patient denies any abdominal pain, nausea or vomiting. Currently on mesalamine. Last EGD colonoscopy [address] Hodges without any significant findings. This is likely an upper GI bleed, possible etiology includes peptic ulcer disease, AVM, gastritis, esophagitis, or other possible etiologies. Patient currently in ICU getting supportive care with pressors and IV fluids. He is status post 4 units of PRBC transfusion. Scheduled for upper endoscopy Current Visit: Yes Status: Acute Code(s): K92.2 - GASTROINTESTINAL HEMORRHAGE, UNSPECIFIED SNOMED Code(s): 23399628 (2) Symptomatic anemia Current Visit: Yes Status: Acute Code(s): D64.9 - ANEMIA, UNSPECIFIED SNOMED Code(s): 608737844 (3) COPD (chronic obstructive pulmonary disease) Current Visit: Yes Status: Acute Code(s): J44.9 - CHRONIC OBSTRUCTIVE PULMONARY DISEASE, UNSPECIFIED SNOMED Code(s): 48076996 (4) Coronary artery disease Current Visit: Yes Status: Acute Code(s): I25.10 - ATHSCL HEART DISEASE OF [place] CORONARY ARTERY W/O ANG PCTRS SNOMED Code(s): 13464195 Plan: 1. Continue symptomatic and supportive care 2. Repeat stat CBC, transfuse for hemoglobin less than 7 3. Continue ICU management 4. Protonix 40 mg twice a day 5. Keep nothing by mouth 6. Avoid NSAIDs 7. Patient scheduled for EGD. Procedure discussed with patient including risks and benefits, patient is agreeable to proceed. Thank you for this consultation, we will continue to follow. Dr. Yesica Hodges I agree with the dictator's note, documented as a scribe by Page Jacobson.
--- NOTE | 2022-12-23 10:25 | P.PCN ---
Date of Procedure: 12/23/22 Procedure(s) Performed: BRIEF HISTORY: Patient is a 76-year-old, pleasant, white been admitted hospital with severe GI bleed. He has been having intermittent black tarry stools for the last 2 weeks. Gastric into the emergency room and was noted to have significant amount of large black dark colored stool and was subsequently hypertensive. Had a hemoglobin of 6 months procedure. He initially received 2 units of peptic ulceration and was transferred to the intensive care unit and while in ICU had minimal amount of bleeding and the tumor units of is a transition. Repeat CBC is pending this morning. His been taking aspirin on a regular basis. No history of peptic ulcer disease. He has long-standing history of ulcerative colitis which has been in clinical remission.. No history of chronic liver disease or alcohol abuse. PROCEDURE PERFORMED: Esophagogastroduodenoscopy with esophageal variceal ligation. PREOPERATIVE DIAGNOSIS: Acute upper GI bleed. Anesthesia Gen. PROCEDURE: After informed consent was obtained, the patient was brought into the endoscopy unit. IV sedation was administered by Anesthesia under continuous monitoring. Initially the Olympus GIF-140 video endoscope was inserted into the mouth. Esophagus intubated without any difficulty. It was gradually advanced into the stomach and duodenum and carefully examined. There was large amount of fresh blood with clots noted in the stomach and the duodenal bulb. Using a therapeutic duodenoscope most of the clots were suctioned out. The bulb and the second part of the duodenum appeared normal. The scope at this time was withdrawn to the stomach, adequately insufflated with air, and upon careful examination, mucosa of the antrum, body, appeared normal. The rest of large amount of clots noted in the cardia and the fundus of the stomach. As suction was being performed with therapeutic scope there was fresh blood that was noticed from the distal esophagus. At this endoscope was withdrawn to the esophagus. There were large distal esophageal varices noted and one of the esophageal varix that have active bleeding identified. At this time the patient was bleeding significantly the scope was removed and anesthesia decided to intubate the patient. Patient was started on IV Sandostatin drip. 1 unit of PRBC transfusion was ordered. Repeat EGD was performed. Scope was advanced into the distal esophagus. Total of 6 bands were deployed one of them on the actively bleeding esophageal varix and good hemostasis was achieved. Patient tolerated the procedure well. IMPRESSION: 1. Actively bleeding distal esophageal varix status post variceal ligation as described above 2. Large distal esophageal varices. 3. Large clot in the fundus of the stomach and this area could not be adequately visualized. RECOMMENDATIONS: The findings of this examination were discussed with the patient . He'll be started on IV Sandostatin drip at 50 mcg/hour an hour. Continue with IV Protonix every 12 hours.. Monitor CBC every 6 hours and transfuse as needed.
[2022-12-23] MEDS ORDERED: LACTATED RINGERS 1,000 ML IV ONE ×2 (10:28)
--- NOTE | 2022-12-23 11:00 | XR ---
EXAMINATION TYPE: XR chest 1V portable DATE OF EXAM: 12/23/2022 10:53 AM COMPARISON: Chest radiographs from 11/10/2022 TECHNIQUE: XR chest 1V portable Portable AP radiograph of the chest. CLINICAL INDICATION:Male, 77 years old with history of Tube placement; FINDINGS: Patient is rotated which limits evaluation. Lungs/Pleura: No pleural effusion or pneumothorax. Left midlung linear atelectasis. Left basilar atel ectasis. Pulmonary vascularity: Unremarkable. Heart/mediastinum: Cardiomediastinal silhouette is prominent in size. Atherosclerotic calcifications are seen in the aorta. Musculoskeletal: No acute osseous pathology. Midline sternotomy wires are noted and stable. Other findings: None Lines/Tubes: Endotracheal tube with distal tip 2.7 cm above the joanna Enteric tube with its distal tip and side-port projecting under the diaphragm and projecting over the gastric lumen. Distal tip in the region of distal stomach. IMPRESSION: 1. Appropriate position of endotracheal and enteric tubes. 2. Left basilar and midlung atelectasis.
[2022-12-23 11:05] LABS: Glucose,Whole Blood 147 mg/dL (70-110)
[2022-12-23] MEDS: SODIUM CHLORIDE 0.9% 1,000 ML IV SCH ×3 (11:07→18:39)
[2022-12-23] MEDS: PANTOPRAZOLE 40 MG/10 ML VIAL IVP SCH ×2 (11:07→20:38)
[2022-12-23] MEDS: OCTREOTIDE 500 MCG in SODIUM CHLORIDE 0.9% 250 ML IV SCH ×2 (11:08→18:40)
[2022-12-23] MEDS: INSULIN ASPART (NovoLOG) 100 UNIT/ML VIAL SQ SCH ×3 (11:09→20:39)
[2022-12-23] MEDS: LEVOFLOXACIN 500MG-D5W PMX 500 MG in DEXTROSE/WATER 1 100ML.BAG IVPB SCH (11:26)
[2022-12-23] MEDS ORDERED: IPRATROPIUM 0.5 MG/2.5 ML NEBU INHALATION SCH (12:00)
[2022-12-23 12:05] LABS: ABG Base Excess -9.5 mmol/L; ABG HCO3 18 mmol/L (21-25); ABG Oxygen Saturation 98.3 % (94-97); ABG PCO2 40 mmHg (35-45); ABG PH 7.25 (7.35-7.45); ABG PO2 115 mmHg (83-108); ABG TCO2 19 mmol/L (19-24); Allen Test Performed? Yes
[2022-12-23] MEDS ORDERED: IPRATROPIUM-ALBUTEROL 3 ML NEB INHALATION PRN (12:13)
[2022-12-23] MEDS ORDERED: SODIUM BICARB 8.4% 50 ML SYR (1 MEQ/ML) IV STA ×2 (12:20→16:50)
--- NOTE | 2022-12-23 14:07 | P.HPIM ---
History of Present Illness H&P Date: 12/23/22 Patient is a 77-year-old male with history of ulcerative colitis, CAD status post CABG, hypertension, dyslipidemia, COPD, type 2 diabetes presenting with GI bleed. Patient currently intubated and sedated. Significant other at bedside. Claims that he has not been feeling well for the last 3 days. Complaining of abdominal pain. Occasionally has back pain as well. He does take aspirin and Aleve. Unsure if he was taking more. 2 L, he is also complaining of chest pain and they claimed that he has been doubling his aspirin recently. Does not smoke, no alcohol use or illicit drug use. In the ED, initial temperature was 97.6, pulse 86, respiratory rate 18, blood pressure 86/59, saturating 100% on room air. WBC 11.8, hemoglobin 6, platelet 182, INR 1.3, bicarb 16, BUN 35, creatinine 0.93. In the ED, patient was transfused 2 units of PRBCs and was given IV fluids up to 3 L. Despite fluids and blood products, patient remained hypotensive. He was initially admitted to another hospitalist service. ICU was also consulted. He was started on norepinephrine, along with 2 more units of PRBCs. Patient now in medical ICU. GI consulted. EGD showed active bleeding and distal esophageal varices status post variceal ligation, large distal esophageal varices, large clot in the fundus of the stomach. Cannot be visualized. Patient also started on octreotide drip. Pertinent positives and negatives as discussed in HPI, a complete review of systems was performed and all other systems are negative. Patient seen and examined at bedside. Vital signs reviewed General: Intubated and sedated Derm: warm, dry Head: atraumatic, normocephalic, symmetric Eyes: Anicteric sclera, pupils equal and reactive ENT: Nose and ears atraumatic, NG tube in place with dark red blood draining Neck: No thyromegaly, supple Mouth: no lip lesion, mucus membranes moist Cardiovascular: S1S2 reg, no murmur, no edema Lungs: clear to auscultation bilateral, no rhonchi, no rales, no wheeze, no accessory muscle use, intubated Abdominal: soft, nontender to palpation, no guarding, no appreciable organomegaly Ext: no gross muscle atrophy Neuro: Sedated Psych: Unable to assess Assessment/Plan: Active: Acute blood loss anemia secondary to upper GI bleed Hemorrhagic shock Esophageal varices status post ligation History of ulcerative colitis Metabolic acidosis History of hypertension NSTEMI History of CAD status post CABG Type 2 diabetes -GI note reviewed -On 40 mg IV twice a day Protonix -On norepinephrine, continue to wean vasopressors -CBCs every 6 hours -ICU note reviewed, continue supportive care -Hold home antihypertensives -Hold aspirin -Cardiology consulted -Troponin uptrend to 16.7 -Sliding scale insulin, hold oral antidiabetic Chronic: COPD without exacerbation The patient is admitted with an anticipated greater than 2 midnight stay as inpatient status for evaluation of GI bleed. Surrogate decision-maker: Daughter CODE STATUS: Full code DVT prophylaxis: SCDs Anticipated discharge date: Pending clinical course Anticipated discharge place: Pending clinical course A total of 65 minutes was spent on the care of this complex patient more than 50% of the time was spent in counseling and care coordination. Past Medical History Past Medical History: Coronary Artery Disease (CAD), COPD, Diabetes Mellitus, Deep Vein Thrombosis (DVT), GERD/Reflux, Hyperlipidemia, Hypertension, Myocardial Infarction (AR), Osteoarthritis (OA) Additional Past Medical History / Comment(s): Ulcerative colitis. Chronic Back Pain. "itchy scalp" Last Myocardial Infarction Date:: 1992 History of Any Multi-Drug Resistant Organisms: None Reported Past Surgical History: Coronary Bypass/CABG, Heart Catheterization, Joint Repla cement Additional Past Surgical History / Comment(s): colonoscopy, emily cataract surgery, triple bypass 25 yrs ago, left hip replacement, Past Anesthesia/Blood Transfusion Reactions: No Reported Reaction Past Psychological History: Anxiety Smoking Status: Former smoker Past Alcohol Use History: Rare Past Drug Use History: None Reported - Past Family History Brother(s) Family Medical History: CVA/TIA, Deep Vein Thrombosis (DVT) Father Family Medical History: Cancer Medications and Allergies Home Medications Medication Instructions Recorded Confirmed Type Aspirin 81 mg PO DAILY 05/28/16 12/22/22 History Isosorbide Mononitrate ER [Imdur] 60 mg PO DAILY 05/28/16 12/22/22 History Nitroglycerin Sl Tabs [Nitrostat] 0.4 mg SL Q5M PRN 05/28/16 12/22/22 History Omeprazole [PriLOSEC] 20 mg PO DAILY 05/28/16 12/22/22 History carvediloL [Coreg] 6.25 mg PO BID 09/07/17 12/22/22 History lisinopriL [Zestril] 5 mg PO BID 01/05/19 12/22/22 History Calcium Carbonate [Tums] 1,000 mg PO TID PRN 11/10/22 12/22/22 History Cyanocobalamin (Vitamin B-12) 1,000 mcg PO DAILY 11/10/22 12/22/22 History [Vitamin B-12] Empagliflozin [Jardiance] 10 mg PO DAILY 11/10/22 12/22/22 History Loperamide HCl [Loperamide] 2 mg PO TID PRN 11/10/22 12/22/22 History Magnesium Oxide 420mg 420 mg PO BID 11/10/22 12/22/[address] 1200mg 2,400 mg PO BID 11/10/22 12/22/22 History Omeprazole 40 mg PO HS 11/10/22 12/22/22 History Tiotropium 2.5 Mcg/Puff [Spiriva 2 puff INHALATION RT-DAILY 11/10/22 12/22/22 History Respimat 2.5 Mcg] metFORMIN HCL 1,000 mg PO BID 11/10/22 12/22/22 History Mometasone/Formoterol [Dulera 100 2 puff INHALATION RT-BID 12/22/22 12/22/22 History Mcg-5 Mcg Inhaler] Allergies Allergy/AdvReac Type Severity Reaction Status Date / Time Dlyxxcm-LDS-VfG Reductase AdvReac severe Verified 12/22/22 21:14 Inhibitor muscle [Bdzrudr-Pbr-Tng Reductase cramps Inhibitor] Physical Exam Vitals: Vital Signs Temp Pulse Resp BP Pulse Ox 12/23/22 07:19 36.9 F L 78 18 107/53 96 12/23/22 07:18 36.9 F L 78 18 107/53 96 12/23/22 07:00 76 18 127/59 97 12/23/22 06:45 72 18 99 12/23/22 06:30 98.4 F 77 11 L 118/61 97 12/23/22 06:00 95/53 12/23/22 05:52 36.5 F L 98 16 102/63 97 12/23/22 05:45 75 18 99/52 97 12/23/22 05:32 36.5 F L 75 19 99/52 97 12/23/22 05:30 16 94/54 97 12/23/22 05:18 97.5 F L 80 14 94/54 97 12/23/22 05:15 80 22 104/53 98 12/23/22 05:00 80 19 95/53 98 12/23/22 04:45 81 13 94/50 98 12/23/22 04:30 81 24 89/47 96 12/23/22 04:15 80 17 78/50 94 L 12/23/22 04:00 79 21 92/55 94 L 12/23/22 03:57 35.6 F L 79 21 92/55 94 L 12/23/22 03:45 78 15 90/47 96 12/23/22 03:37 35.5 F L 78 12 90/47 94 L 12/23/22 03:30 77 18 96/59 94 L 12/23/22 03:15 95.9 F L 78 18 86/47 95 12/23/22 03:00 80 25 H 76/44 97 12/23/22 02:45 82 23 93 L 12/23/22 02:07 84 19 97/49 100 12/23/22 01:30 95 F L 84 27 H 80/46 95 12/23/22 01:22 95 F L 85 16 84/44 96 12/23/22 01:21 95 F L 85 16 84/44 96 12/23/22 01:13 94.8 F L 91 18 61/34 12/23/22 01:00 96 16 126/102 97 12/23/22 00:30 103 H 18 73/50 97 12/23/22 00:29 97.6 F 102 H 18 74/45 97 12/23/22 00:09 97.6 F 99 16 92/54 12/23/22 00:00 89 18 78/45 94 L 12/22/22 23:59 97.6 F 64 16 78/45 100 12/22/22 23:30 82 16 94/39 96 12/22/22 22:00 82 18 102/53 97 12/22/22 21:00 90 16 89/44 100 12/22/22 20:35 97.6 F 86 18 86/59 100 Intake and Output 12/22/22 12/23/22 12/23/22 22:59 06:59 14:59 Intake Total 940.888 283 Balance 940.888 283 Intake: Intake, IV Titration 10.888 Amount Norepinephrine 4 mg In 10.888 Sodium Chloride 0.9% 250 ml @ 0.03 MCG/KG/MIN 9. 332 mls/hr IV .Q24H [facility] [place] Rx#:[id number] Blood Product 930 283 Rc As-1 Unit 310 [id number] Rc As-1 Unit 310 [id number] Rc As-1 Unit 310 [id number] Rc Pheresis As-3 Unit 0 283 [id number] Other: Weight 81.647 kg Results CBC & Chem 7: 12/23/22 07:45 12/23/22 03:10 Labs: Abnormal Lab Results - Last 24 Hours (Table) 12/22/22 12/22/22 12/22/22 Range/Units 21:28 21:28 21:28 WBC 11.8 H (3.8-10.6) k/uL RBC 2.19 L (4.30-5.90) m/uL Hgb 6.0 L* D (13.0-17.5) gm/dL Hct 19.3 L* (39.0-53.0) % RDW 15.6 H (11.5-15.5) % Neutrophils # 9.1 H (1.3-7.7) k/uL PT 14.0 H (10.0-12.5) sec INR 1.3 H (<1.2) Chloride 111 H (98-107) mmol/L Carbon Dioxide 16 L (22-30) mmol/L BUN 35 H (9-20) mg/dL Glucose 151 H (74-99) mg/dL POC Glucose (mg/dL) (70-110) mg/dL Calcium 7.9 L (8.4-10.2) mg/dL Troponin I (0.000-0.034) ng/mL Total Protein 4.5 L (6.3-8.2) g/dL Albumin 2.5 L (3.5-5.0) g/dL Crossmatch 12/22/22 12/23/22 12/23/22 Range/Units 21:28 02:03 03:10 WBC (3.8-10.6) k/uL RBC (4.30-5.90) m/uL Hgb (13.0-17.5) gm/dL Hct (39.0-53.0) % RDW (11.5-15.5) % Neutrophils # (1.3-7.7) k/uL PT (10.0-12.5) sec INR (<1.2) Chloride 116 H (98-107) mmol/L Carbon Dioxide 11 L (22-30) mmol/L BUN 34 H (9-20) mg/dL Glucose 137 H (74-99) mg/dL POC Glucose (mg/dL) 202 H (70-110) mg/dL Calcium 6.9 L (8.4-10.2) mg/dL Troponin I (0.000-0.034) ng/mL Total Protein (6.3-8.2) g/dL Albumin (3.5-5.0) g/dL Crossmatch See Detail 12/23/22 Range/Units 03:10 WBC (3.8-10.6) k/uL RBC (4.30-5.90) m/uL Hgb (13.0-17.5) gm/dL Hct (39.0-53.0) % RDW (11.5-15.5) % Neutrophils # (1.3-7.7) k/uL PT (10.0-12.5) sec INR (<1.2) Chloride (98-107) mmol/L Carbon Dioxide (22-30) mmol/L BUN (9-20) mg/dL Glucose (74-99) mg/dL POC Glucose (mg/dL) (70-110) mg/dL Calcium (8.4-10.2) mg/dL Troponin I 0.846 H* (0.000-0.034) ng/mL Total Protein (6.3-8.2) g/dL Albumin (3.5-5.0) g/dL Crossmatch
[2022-12-23 14:25] LABS: HCT 31.5 % (39.0-53.0); HGB 10.2 gm/dL (13.0-17.5); Hypochromasia Moderate; MCHC 32.5 g/dL (31.0-37.0); MCV 92.2 fL (80.0-100.0); Mean Platelet Volume 8.8; Platelet Count 162 k/uL (150-450); Poikilocytosis Slight; RBC 3.42 m/uL (4.30-5.90); RDW 15.3 % (11.5-15.5); WBC 30.2 k/uL (3.8-10.6)
[2022-12-23] MEDS: IPRATROPIUM-ALBUTEROL 3 ML NEB INHALATION SCH ×2 (15:01→19:58)
--- NOTE | 2022-12-23 15:48 | P.PN ---
Progress Note - Text Progress Note Date: 12/23/22 Patient was reevaluated this afternoon, he underwent EGD, and he was found to have bleeding esophageal varix requiring ligation. Patient received a total of 4 units of packed RBCs so far, patient had no previous history of alcohol related liver disease but apparently he does have findings suggestive of liver cirrhosis. At any rate patient was sent back to the ICU intubated and mechanically ventilated, his ventilator settings were adjusted, patient remains on norepinephrine at 0.12 mcg/kg/m he is on octreotide, and the plan is to keep him intubated and mechanically ventilated overnight, discussed his condition and his status with the at bedside, I also discussed his condition with Dr. Baxter/net programmer analyst the plan is to keep him intubated overnight, we will address possibly weaning and extubation in the next 24 hours. Patient is obviously critically ill, lines including a central line and arterial line were placed. We will continue to follow.
[2022-12-23 17:58] LABS: Glucose,Whole Blood 138 mg/dL (70-110)
[2022-12-23 18:18] LABS: HCT 26.6 % (39.0-53.0); HGB 9.1 gm/dL (13.0-17.5); Hypochromasia Slight; MCH 30.5 pg (25.0-35.0); MCHC 34.2 g/dL (31.0-37.0); MCV 89.3 fL (80.0-100.0); Platelet Count 149 k/uL (150-450); Poikilocytosis Moderate; RBC 2.98 m/uL (4.30-5.90); RDW 15.7 % (11.5-15.5); WBC 30.4 k/uL (3.8-10.6)
[2022-12-23 18:32] LABS: African American GFR (CKD) 81 (>60 ml/min/1.73 sqM); Anion Gap 7 mmol/L; Blood Urea Nitrogen 38 mg/dL (9-20); Calcium 6.5 mg/dL (8.4-10.2); Carbon Dioxide 15 mmol/L (22-30); Chloride 117 mmol/L (98-107); Glucose 122 mg/dL (74-99); Non-African American GFR(CKD) 70 (>60 ml/min/1.73 sqM); Potassium 4.6 mmol/L (3.5-5.1); Sodium 139 mmol/L (137-145)
[2022-12-23] MEDS: BUDESONIDE 1 MG/2 ML NEBU INHALATION SCH (19:58)
[2022-12-23] MEDS: FORMOTEROL FUMARATE 20 MCG/2 ML NEBU INHALATION SCH (19:59)
[2022-12-23] MEDS ORDERED: SYMBICORT 80-4.5 MCG INHALER INHALATION SCH (20:00)
[2022-12-23 20:28] LABS: Glucose,Whole Blood 139 mg/dL (70-110)
[2022-12-23] MEDS: CHLORHEXIDINE GLUCONATE 15 ML CUP MUCOUS MEM SCH (20:38)
--- NOTE | 2022-12-23 21:58 | OP ---
OPERATIVE REPORT DATE OF SERVICE : PROCEDURES PERFORMED: Placement of a right femoral arterial line. PREOPERATIVE DIAGNOSES: Gastrointestinal bleeding and hypotension requiring norepinephrine. POSTOPERATIVE DIAGNOSES: Gastrointestinal bleeding and hypotension requiring norepinephrine. ANESTHESIA USED: None deployed. DESCRIPTION OF PROCEDURE: The right groin was prepared in a sterile fashion. Drapes were applied, the right femoral artery was palpated, easily cannulated, and a guidewire was placed. The area around the guidewire was dilated. Then, a femoral arterial catheter was placed over the guidewire, and the guidewire was removed. Good blood flow, good waveform, line was secured using 3.0 silk sutures, no complications. MMODL / IJN: [id number] /
--- NOTE | 2022-12-23 21:58 | OP ---
OPERATIVE REPORT DATE OF SERVICE : PROCEDURES PERFORMED: Placement of a right triple-lumen catheter in the right femoral vein. PREOPERATIVE DIAGNOSES: Massive gastrointestinal bleeding and hypotension requiring norepinephrine. POSTOPERATIVE DIAGNOSES: Massive gastrointestinal bleeding and hypotension requiring norepinephrine. ANESTHESIA USED: 2 mL of 1% lidocaine. DESCRIPTION OF PROCEDURE: The patient was placed in supine position, the right groin was prepared in a sterile fashion and drapes were applied. The area was locally anesthetized. Then, the femoral vein was easily cannulated and a guidewire was placed. The area around the guidewire was dilated. Then, a triple-lumen catheter was inserted over the guidewire, and the guidewire was removed. Good blood flow noted in the 3 different ports of the triple- lumen catheter, line was secured using 3.0 silk sutures. No complications. MMODL / IJN: [id number] /
[2022-12-24 00:03] LABS: Glucose,Whole Blood 191 mg/dL (70-110)
[2022-12-24 00:03] LABS: Glucose,Whole Blood 177 mg/dL (70-110)
[2022-12-24 00:22] LABS: Anisocytosis Slight; HCT 27.8 % (39.0-53.0); HGB 9.3 gm/dL (13.0-17.5); Hypochromasia Moderate; MCH 30.2 pg (25.0-35.0); MCHC 33.5 g/dL (31.0-37.0); MCV 90.2 fL (80.0-100.0); Mean Platelet Volume 9.5; Platelet Count 150 k/uL (150-450); Poikilocytosis Moderate; RBC 3.08 m/uL (4.30-5.90); RDW 16.3 % (11.5-15.5); WBC 32.2 k/uL (3.8-10.6)
[2022-12-24] MEDS: NOREPINEPHRINE 4 MG in SODIUM CHLORIDE 0.9% 250 ML IV SCH (02:07)
[2022-12-24] MEDS: SODIUM CHLORIDE 0.9% 1,000 ML IV SCH ×3 (02:09→23:13)
[2022-12-24] MEDS: INSULIN ASPART (NovoLOG) 100 UNIT/ML VIAL SQ SCH ×3 (02:11→17:32)
[2022-12-24 02:12] LABS: Glucose,Whole Blood 189 mg/dL (70-110)
[2022-12-24] MEDS: OCTREOTIDE 500 MCG in SODIUM CHLORIDE 0.9% 250 ML IV SCH ×3 (03:20→13:48)
[2022-12-24 05:48] LABS: Anisocytosis Slight; HCT 27.7 % (39.0-53.0); HGB 9.4 gm/dL (13.0-17.5); Hypochromasia Moderate; Mean Platelet Volume 8.8; Platelet Count 162 k/uL (150-450); Poikilocytosis Moderate; RBC 3.05 m/uL (4.30-5.90); RDW 16.2 % (11.5-15.5); WBC 24.2 k/uL (3.8-10.6)
[2022-12-24 06:03] LABS: INR 1.3 (<1.2); Prothrombin Time 13.2 sec (10.0-12.5)
[2022-12-24 06:05] LABS: ABG Base Excess -9.6 mmol/L; ABG HCO3 16 mmol/L (21-25); ABG Oxygen Saturation 95.1 % (94-97); ABG PCO2 31 mmHg (35-45); ABG PH 7.33 (7.35-7.45); ABG PO2 72 mmHg (83-108); ABG TCO2 17 mmol/L (19-24); Allen Test Performed? Yes
[2022-12-24 06:08] LABS: African American GFR (CKD) 69 (>60 ml/min/1.73 sqM); Anion Gap 9 mmol/L; Blood Urea Nitrogen 43 mg/dL (9-20); Calcium 6.6 mg/dL (8.4-10.2); Carbon Dioxide 15 mmol/L (22-30); Chloride 116 mmol/L (98-107); Glucose 170 mg/dL (74-99); Non-African American GFR(CKD) 60 (>60 ml/min/1.73 sqM); Potassium 4.4 mmol/L (3.5-5.1); Sodium 140 mmol/L (137-145)
[2022-12-24] MEDS: BUDESONIDE 1 MG/2 ML NEBU INHALATION SCH ×2 (07:52→20:29)
[2022-12-24] MEDS: FORMOTEROL FUMARATE 20 MCG/2 ML NEBU INHALATION SCH ×2 (07:52→20:29)
[2022-12-24] MEDS: IPRATROPIUM-ALBUTEROL 3 ML NEB INHALATION SCH ×4 (07:52→20:29)
--- NOTE | 2022-12-24 07:56 | XR ---
EXAMINATION TYPE: XR chest 1V portable DATE OF EXAM: 12/24/2022 COMPARISON: 12/23/2022 INDICATION: Tube placement TECHNIQUE: Single frontal view of the chest is obtained. FINDINGS: The heart size is normal. The pulmonary vasculature is normal. Left lower lobe consolidation is present. There is silhouetting the left diaphragm. Findings are wors ening Endotracheal tube tip is 4 cm above the joanna. Nasogastric tube transverses the thorax with tip in t he abdomen. IMPRESSION: 1. Left lower lobe infiltrate and/or effusion. Findings are worsening. 2. Lines and catheters discussed above
[2022-12-24] MEDS ORDERED: CALCIUM GLUCONATE IN NACL 2 GM in SALINE 1 100ML.BAG IVPB ONE (08:30)
[2022-12-24] MEDS: PANTOPRAZOLE 40 MG/10 ML VIAL IVP SCH ×2 (08:58→21:01)
[2022-12-24] MEDS: CHLORHEXIDINE GLUCONATE 15 ML CUP MUCOUS MEM SCH ×2 (08:58→21:01)
[2022-12-24] MEDS ORDERED: SODIUM BICARB 8.4% 50 ML SYR (1 MEQ/ML) IV STA (09:30)
[2022-12-24] MEDS: LEVOFLOXACIN 500MG-D5W PMX 500 MG in DEXTROSE/WATER 1 100ML.BAG IVPB SCH (10:38)
[2022-12-24 11:26] LABS: Hepatitis A Antibody IgM Nonreactive; Hepatitis B Core IgM Nonreactive; Hepatitis B Surface Antigen Nonreactive; Hepatitis C IgG Antibody Nonreactive
[2022-12-24 11:33] LABS: Glucose,Whole Blood 222 mg/dL (70-110)
--- NOTE | 2022-12-24 11:38 | PN ---
PROGRESS NOTE SUBJECTIVE: This is a 77-year-old gentleman admitted yesterday with upper GI bleed and also had a variceal bleed that has been addressed by Dr. Hodges. He is on Sandostatin drip. He is on a ventilator, deeply sedated. His troponin profile suggests a nuh-VE-rkhegtiyc AL. However, he is known to have coronary disease with calcified coronary artery involving the right coronary artery, 1 graft is patent along with the PEDROZA being patent. For now, I am recommending conservative management. No intervention. OBJECTIVE: VITAL SIGNS: Stable. He is on a small dose of Levophed. HEART: S1 and S2 heard normally. Short systolic murmur audible at the base. LUNGS: Bilateral ventilator-assisted breaths sounds. ABDOMEN: Soft. EXTREMITIES: Lower extremities reveal diminished pulses. CENTRAL NERVOUS SYSTEM: Assessment was not performed. Prognosis remains guarded. MMODL / IJN: [id number] /
[2022-12-24 11:42] LABS: Anisocytosis Slight; HCT 24.8 % (39.0-53.0); HGB 8.3 gm/dL (13.0-17.5); Hypochromasia Moderate; MCH 30.4 pg (25.0-35.0); MCHC 33.6 g/dL (31.0-37.0); MCV 90.5 fL (80.0-100.0); Mean Platelet Volume 9.3; Platelet Count 108 k/uL (150-450); Poikilocytosis Moderate; RBC 2.74 m/uL (4.30-5.90); RDW 16.5 % (11.5-15.5); WBC 16.5 k/uL (3.8-10.6)
--- NOTE | 2022-12-24 12:06 | P.PN ---
Subjective Progress Note Date: 12/24/22 Hospital Course: 77-year-old male with history of ulcerative colitis, CAD status post CABG, hypertension, dyslipidemia, COPD, type 2 diabetes presenting with GI bleed. In the ED, initial temperature was 97.6, pulse 86, respiratory rate 18, blood pressure 86/59, saturating 100% on room air. WBC 11.8, hemoglobin 6, platelet 182, INR 1.3, bicarb 16, BUN 35, creatinine 0.93. In the ED, patient was transfused 2 units of PRBCs and was given IV fluids up to 3 L. Despite fluids and blood products, patient remained hypotensive. He was initially admitted to another hospitalist service. ICU was also consulted. He was started on norepinephrine, along with 2 more units of PRBCs. Patient now in medical ICU. GI consulted. EGD showed active bleeding and distal esophageal varices status post variceal ligation, large distal esophageal varices, large clot in the fundus of the stomach, but underlying tissue Cannot be visualized. Patient also started on octreotide drip. Patient currently intubated and sedated. Subjective: Patient seen and examined at bedside. No acute events overnight. Off of norepinephrine. Still intubated and sedated. Still having some NG output with bloody emesis, has a rectal tube with bloody stool. Pertinent positives and negatives as discussed above, a complete review of systems was performed and all other systems are negative. Vitals Signs Reviewed. General: Intubated and sedated Derm: warm, dry Head: atraumatic, normocephalic, symmetric Eyes: Anicteric sclera, pupils equal and reactive ENT: Nose and ears atraumatic, NG tube in place with dark red blood draining Neck: No thyromegaly, supple Mouth: no lip lesion, mucus membranes moist Cardiovascular: S1S2 reg, no murmur, no edema Lungs: clear to auscultation bilateral, no rhonchi, no rales, no wheeze, no accessory muscle use, intubated Abdominal: soft, nontender to palpation, no guarding, no appreciable organomegaly Ext: no gross muscle atrophy Neuro: Sedated Psych: Unable to assess Data Reviewed Today: Pertinent Labs: 16.5, hemoglobin 8.3, INR 1.3, pH 7.33, pCO2 31, bicarbonate 15, creatinine 1.17, blood sugars range between 170-222, A1c 5.7 Imaging: Chest x-ray and apparently interpreted, shows left lower lobe opacity Assessment and Plan: Patient is critically ill, prognosis Cardizem Acute blood loss anemia secondary to upper GI bleed Esophageal varices status post ligation History of ulcerative colitis Hemorrhagic versus septic shock Metabolic acidosis History of hypertension NSTEMI History of CAD status post CABG Type 2 diabetes -GI following -On 40 mg IV twice a day Protonix, octreotide infusion at 50 MCG per hour -He likely has cirrhosis -Currently off of his pressors -Also on levofloxacin 500 mg IV every 24 hours -CBCs every 6 hours, continues to down trend hemoglobin -Patient being transfused with 1 unit of PRBCs -ICU note reviewed, continue supportive care -Patient was given sodium bicarb 50 mEq 3 over the last 2 days -Hold home antihypertensives -Hold aspirin -Cardiology note reviewed, recommended conservative management for now -Echocardiogram pending -Sliding scale insulin, hold oral antidiabetic Chronic: COPD without exacerbation DVT ppx: SCDs Code status: Full code Anticipated discharge place: Pending clinical course Anticipated discharge time: Pending clinical course Objective - Vital Signs Vital signs: Vital Signs Temp 99.0 F 12/24/22 12:00 Pulse 101 H 12/24/22 12:00 Resp 16 12/24/22 12:00 BP 110/56 12/24/22 01:15 Pulse Ox 96 12/24/22 12:00 FiO2 50 12/24/22 12:00 Intake & Output 12/23/22 12/24/22 12/24/22 18:59 06:59 18:59 Intake Total 4705.380 2340.269 1097.276 Output Total 1135 548 168 Balance 3570.380 1792.269 929.276 Weight 92.5 kg Intake: IV 2800 1560 980 Calcium Gluconate in NaCl 100 2 gm In Saline 1 100ml. bag @ 100 mls/hr IVPB ONCE ONE Rx#:[id number] Levofloxacin 500Mg-D5w 100 Pmx 500 mg In Dextrose/ Water 1 100ml.bag @ 100 mls/hr IVPB Q24H [facility] Rx#: [id number] Sodium Chloride 0.9% 1, 1300 1560 780 000 ml @ 130 mls/hr IV . Q7H42M [facility] Rx#:[id number] Intake, IV Titration 1622.380 780.269 117.276 Amount Norepinephrine 4 mg In 350.277 310.348 19.911 Sodium Chloride 0.9% 250 ml @ 0.03 MCG/KG/MIN 9. 332 mls/hr IV .Q24H [facility] Rx#:[id number] Octreotide 500 mcg In 188.333 260.000 Sodium Chloride 0.9% 250 ml @ 50 MCG/HR 25 mls/hr IV .Q10H [facility] Rx#: [id number] Sodium Chloride 0.9% 1, 1000 000 ml @ 999 mls/hr IV . Q1H1M [facility] Rx#:[id number] propofoL 1,000 mg In 83.770 209.921 97.365 Empty Bag 1 bag @ 15 MCG/ KG/MIN 7.348 mls/hr IV . [id number] [facility] Rx#:[id number] Oral 0 Tube Feeding 0 Blood Product 283 Rc As-1 Unit 0 [id number] Rc Pheresis As-3 Unit 283 [id number] Output: Gastric Drainage 200 270 Urine 535 278 168 Stool 400 0 Other: Voiding Method Indwelling Catheter Indwelling Catheter Indwelling Catheter # Bowel Movements 1 ABP, PAP, CO, CI - Last Documented Arterial Blood Pressure 116/49 - Labs CBC & Chem 7: 12/24/22 11:36 12/24/22 05:05 Labs: Abnormal Lab Results - Last 24 Hours (Table) 12/23/22 12/23/22 12/23/22 Range/Units 11:54 12:03 14:13 WBC 30.2 H (3.8-10.6) k/uL RBC 3.42 L (4.30-5.90) m/uL Hgb 10.2 L (13.0-17.5) gm/dL Hct 31.5 L (39.0-53.0) % RDW (11.5-15.5) % Plt Count (150-450) k/uL PT (10.0-12.5) sec INR (<1.2) ABG pH 7.25 L (7.35-7.45) ABG pCO2 (35-45) mmHg ABG pO2 115 H (83-108) mmHg ABG HCO3 18 L (21-25) mmol/L ABG Total CO2 (19-24) mmol/L ABG O2 Saturation 98.3 H (94-97) % Chloride (98-107) mmol/L Carbon Dioxide (22-30) mmol/L BUN (9-20) mg/dL Glucose (74-99) mg/dL POC Glucose (mg/dL) (70-110) mg/dL Calcium (8.4-10.2) mg/dL Ammonia (<30) umol/L Troponin I 16.700 H* (0.000-0.034) ng/mL 12/23/22 12/23/22 12/23/22 Range/Units 17:56 18:08 18:08 WBC 30.4 H (3.8-10.6) k/uL RBC 2.98 L (4.30-5.90) m/uL Hgb 9.1 L (13.0-17.5) gm/dL Hct 26.6 L (39.0-53.0) % RDW 15.7 H (11.5-15.5) % Plt Count 149 L (150-450) k/uL PT (10.0-12.5) sec INR (<1.2) ABG pH (7.35-7.45) ABG pCO2 (35-45) mmHg ABG pO2 (83-108) mmHg ABG HCO3 (21-25) mmol/L ABG Total CO2 (19-24) mmol/L ABG O2 Saturation (94-97) % Chloride 117 H (98-107) mmol/L Carbon Dioxide 15 L (22-30) mmol/L BUN 38 H (9-20) mg/dL Glucose 122 H (74-99) mg/dL POC Glucose (mg/dL) 138 H (70-110) mg/dL Calcium 6.5 L (8.4-10.2) mg/dL Ammonia (<30) umol/L Troponin I (0.000-0.034) ng/mL 12/23/22 12/24/22 12/24/22 Range/Units 20:27 00:00 00:00 WBC 32.2 H (3.8-10.6) k/uL RBC 3.08 L (4.30-5.90) m/uL Hgb 9.3 L (13.0-17.5) gm/dL Hct 27.8 L (39.0-53.0) % RDW 16.3 H (11.5-15.5) % Plt Count (150-450) k/uL PT (10.0-12.5) sec INR (<1.2) ABG pH (7.35-7.45) ABG pCO2 (35-45) mmHg ABG pO2 (83-108) mmHg ABG HCO3 (21-25) mmol/L ABG Total CO2 (19-24) mmol/L ABG O2 Saturation (94-97) % Chloride (98-107) mmol/L Carbon Dioxide (22-30) mmol/L BUN (9-20) mg/dL Glucose (74-99) mg/dL POC Glucose (mg/dL) 139 H 191 H (70-110) mg/dL Calcium (8.4-10.2) mg/dL Ammonia (<30) umol/L Troponin I (0.000-0.034) ng/mL 12/24/22 12/24/22 12/24/22 Range/Units 00:01 02:10 03:54 WBC (3.8-10.6) k/uL RBC (4.30-5.90) m/uL Hgb (13.0-17.5) gm/dL Hct (39.0-53.0) % RDW (11.5-15.5) % Plt Count (150-450) k/uL PT (10.0-12.5) sec INR (<1.2) ABG pH 7.33 L (7.35-7.45) ABG pCO2 31 L (35-45) mmHg ABG pO2 72 L (83-108) mmHg ABG HCO3 16 L (21-25) mmol/L ABG Total CO2 17 L (19-24) mmol/L ABG O2 Saturation (94-97) % Chloride (98-107) mmol/L Carbon Dioxide (22-30) mmol/L BUN (9-20) mg/dL Glucose (74-99) mg/dL POC Glucose (mg/dL) 177 H 189 H (70-110) mg/dL Calcium (8.4-10.2) mg/dL Ammonia (<30) umol/L Troponin I (0.000-0.034) ng/mL 12/24/22 12/24/22 12/24/22 Range/Units 05:05 05:05 05:05 WBC 24.2 H (3.8-10.6) k/uL RBC 3.05 L (4.30-5.90) m/uL Hgb 9.4 L (13.0-17.5) gm/dL Hct 27.7 L (39.0-53.0) % RDW 16.2 H (11.5-15.5) % Plt Count (150-450) k/uL PT 13.2 H (10.0-12.5) sec INR 1.3 H (<1.2) ABG pH (7.35-7.45) ABG pCO2 (35-45) mmHg ABG pO2 (83-108) mmHg ABG HCO3 (21-25) mmol/L ABG Total CO2 (19-24) mmol/L ABG O2 Saturation (94-97) % Chloride 116 H (98-107) mmol/L Carbon Dioxide 15 L (22-30) mmol/L BUN 43 H (9-20) mg/dL Glucose 170 H (74-99) mg/dL POC Glucose (mg/dL) (70-110) mg/dL Calcium 6.6 L (8.4-10.2) mg/dL Ammonia (<30) umol/L Troponin I (0.000-0.034) ng/mL 12/24/22 12/24/22 12/24/22 Range/Units 10:00 11:32 11:36 WBC 16.5 H (3.8-10.6) k/uL RBC 2.74 L (4.30-5.90) m/uL Hgb 8.3 L (13.0-17.5) gm/dL Hct 24.8 L (39.0-53.0) % RDW 16.5 H (11.5-15.5) % Plt Count 108 L (150-450) k/uL PT (10.0-12.5) sec INR (<1.2) ABG pH (7.35-7.45) ABG pCO2 (35-45) mmHg ABG pO2 (83-108) mmHg ABG HCO3 (21-25) mmol/L ABG Total CO2 (19-24) mmol/L ABG O2 Saturation (94-97) % Chloride (98-107) mmol/L Carbon Dioxide (22-30) mmol/L BUN (9-20) mg/dL Glucose (74-99) mg/dL POC Glucose (mg/dL) 222 H (70-110) mg/dL Calcium (8.4-10.2) mg/dL Ammonia 41 H (<30) umol/L Troponin I (0.000-0.034) ng/mL
--- NOTE | 2022-12-24 12:45 | CA ---
Transthoracic Echo Report Name: Prem Vincent Age: 77 Gender: M : 1945 Exam Date: 12/23/2022 16:10 Exam Location: [facility] Ht (in): 70 Wt (lb): 180 Ordering Physician: Rahul Boyd MD Attending/Referring Phys: Graphic Engineer Jaymie Vlaentin [facility] Procedure CPT: Indications: Assess left ventricular function Cardiac Hx: Technical Quality: Technically difficult study Contrast 1: Definity Total Dose (mL): 5 Contrast 2: Total Dose (mL): MEASUREMENTS (Male / Female) Normal Values 2D ECHO LV Diastolic Diameter PLAX 4.6 cm 4.2 - 5.9 / 3.9 - 5.3 cm LV Systolic Diameter PLAX 3.2 cm IVS Diastolic Thickness 0.9 cm 0.6 - 1.0 / 0.6 - 0.9 cm LVPW Diastolic Thickness 0.9 cm 0.6 - 1.0 / 0.6 - 0.9 cm LV Relative Wall Thickness 0.4 DOPPLER Mitral E Point Velocity 76.7 cm/s Mitral A Point Velocity 96.8 cm/s Mitral E to A Ratio 0.8 MV Deceleration Time 168.5 ms LV E' Lateral Velocity 15.6 cm/s Mitral E to LV E' Lateral Ratio 4.9 LV E' Septal Velocity 9.7 cm/s Mitral E to LV E' Septal Ratio 7.9 FINDINGS Left Ventricle Left ventricular wall thickness normal. Left ventricular cavity size normal. Normal left ventricular wall motion. Left ventricular ejection fraction is estimated at 55-60 %. Right Ventricle Right Atrium Left Atrium Mitral Valve Aortic Valve Tricuspid Valve Pulmonic Valve Pericardium No pericardial effusion. Aorta CONCLUSIONS Limited study for LV function. Normal left ventricular size and systolic function Previewed by: Dr. Marcia Dempsey MD (Electronically Signed) Final Date: 24 December 2022 12:44
[2022-12-24] MEDS ORDERED: LACTULOSE 20 GM/30 ML CUP PO SCH (13:00)
--- NOTE | 2022-12-24 13:11 | P.PN ---
Subjective Progress Note Date: 12/24/22 Principal diagnosis: Acute upper GI bleeding secondary to esophageal varices I am seeing this patient in new consultation today 12/23/2022 in the emergency room, after an A-team was called for symptomatic anemia and GI bleeding. Patient is a 77-year-old white male with past medical history significant for ulcerative colitis, coronary artery disease with previous CABG, hyperlipidemia, hypertension, COPD, history of DVT, GERD, osteoarthritis. Patient states that he has been having dark red bowel movements for the last 4 days. Admits abdominal distention and mild abdominal tenderness. Admits nausea without any reported emesis. On arrival to the emergency room, his hemoglobin was found to be 6 g/dL. Patient was transfused 2 units PRBC. On my evaluation, he remains hypotensive. We have given a total of 3 L normal saline bolus. He is being started on Levophed for refractory hypotension. GI has been consulted. Despite his hypotension, patient is awake and alert. He is able to answer my questions. There is generalized pallor. He is hypothermic, and external warming blanket is on. He states that he has been taking extra doses of aspirin when he is in pain. Denies any anticoagulant use. Patient states that he has had multiple colonoscopies. Denies history of GI malignancies. Admits history of ulcerative colitis. Patient is incontinent and there is dark red blood with clots. CBC on arrival shows a WBC count 11.8, hemoglobin 6, hematocrit 19.3, platelets 182. INR 1.3. APTT 22. BMP on arrival shows sodium 130, potassium 4.5, chloride 111, serum bicarb 16, BUN 35, creatinine 0.93, glucose 151. LFTs not elevated. Normal saline is infusing at 130 ML's per hour. As stated above, the patient remains hypotensive, this can receive an additional 2 units PRBCs per GI. Patient will be admitted to the intensive care unit. Patient was reevaluated today on 12/24/22, patient remains intubated and mechanically ventilated, he is on assist control rate of 16 tidal volume 500 FiO2 50% and PEEP of 5, ABG showed a pO2 of 72 pCO2 31 pH of 7.33 hence one amp of bicarb was given. Patient remains on propofol at 15 mcg/kg/m patient remains on octreotide at 50 g per hour, may consider running this for the next 5 days. Patient received a total of 4 units of packed RBCs since admission, his hemoglobin today is 8.3. WBC count 16 .5, platelets 108. Ammonia level is 41 hence the patient will be started on lactulose. Basic metabolic profile remains abnormal with a bicarb of 15, patient has a non-anion gap hyperchloremic metabolic acidosis. BUN is 43 creatinine 1.17 hepatitis screen has been negative nonreactive including hepatitis A B C.. There is no evidence of active bleeding at present, although there is some coffee-ground material noted in the nasogastric tube. And the patient had some dark stools earlier. Hemodynamically patient is stable, he is off norepinephrine, blood pressure is 116/49. Chest x-ray showed endotracheal tube in proper position, and he does have left basilar atelectasis/effusion, possible early infiltrate, will empirically start the patient on Zosyn. He did have a low-grade temp last night, not to mention the patient did have leukocytosis yesterday and today. Objective - Vital Signs Vital signs: Vital Signs Temp 99.0 F 12/24/22 12:00 Pulse 101 H 12/24/22 12:00 Resp 16 12/24/22 12:00 BP 110/56 12/24/22 01:15 Pulse Ox 96 12/24/22 12:00 FiO2 50 12/24/22 12:00 Intake & Output 12/23/22 12/24/22 12/24/22 18:59 06:59 18:59 Intake Total 4705.380 2340.269 1097.276 Output Total 1135 548 168 Balance 3570.380 1792.269 929.276 Weight 92.5 kg Intake: IV 2800 1560 980 Calcium Gluconate in NaCl 100 2 gm In Saline 1 100ml. bag @ 100 mls/hr IVPB ONCE ONE Rx#:[id number] Levofloxacin 500Mg-D5w 100 Pmx 500 mg In Dextrose/ Water 1 100ml.bag @ 100 mls/hr IVPB Q24H [facility] Rx#: [id number] Sodium Chloride 0.9% 1, 1300 1560 780 000 ml @ 130 mls/hr IV . Q7H42M [facility] Rx#:[id number] Intake, IV Titration 1622.380 780.269 117.276 Amount Norepinephrine 4 mg In 350.277 310.348 19.911 Sodium Chloride 0.9% 250 ml @ 0.03 MCG/KG/MIN 9. 332 mls/hr IV .Q24H [facility] Rx#:[id number] Octreotide 500 mcg In 188.333 260.000 Sodium Chloride 0.9% 250 ml @ 50 MCG/HR 25 mls/hr IV .Q10H [facility] Rx#: [id number] Sodium Chloride 0.9% 1, 1000 000 ml @ 999 mls/hr IV . Q1H1M [facility] Rx#:[id number] propofoL 1,000 mg In 83.770 209.921 97.365 Empty Bag 1 bag @ 15 MCG/ KG/MIN 7.348 mls/hr IV . [id number] [facility] Rx#:[id number] Oral 0 Tube Feeding 0 Blood Product 283 Rc As-1 Unit 0 [id number] Rc Pheresis As-3 Unit 283 [id number] Output: Gastric Drainage 200 270 Urine 535 278 168 Stool 400 0 Other: Voiding Method Indwelling Catheter Indwelling Catheter Indwelling Catheter # Bowel Movements 1 ABP, PAP, CO, CI - Last Documented Arterial Blood Pressure 116/49 - Exam Physical Exam: Revealed a 77-year-old white male intubated, sedated, mechanically ventilated, in no distress Head: Atraumatic normocephalic HEENT:[Neck is supple.] [No neck masses.] [No thyromegaly.] [No JVD.], Moist mucous membranes, endotracheal tube and orogastric tube are intact Chest: Symmetrical chest expansion, minimal crackles at the bases no rhonchi and no wheezes Cardiac Exam: [Normal S1 and S2, no S3 gallop, no murmur.] Abdomen: [Soft, nontender, no megaly, no rebound, no guarding, normal bowel sounds.] Extremities: [No clubbing, no edema, no cyanosis.] Neurological Exam: Not assessed patient is sedated on propofol. However the patient will be given a sedation interruption today and assessment of mental status off propofol Psychiatric: Could not assess Skin: No rashes - Labs CBC & Chem 7: 12/24/22 11:36 12/24/22 05:05 Labs: Abnormal Lab Results - Last 24 Hours (Table) 12/23/22 12/23/22 12/23/22 Range/Units 11:54 14:13 17:56 WBC 30.2 H (3.8-10.6) k/uL RBC 3.42 L (4.30-5.90) m/uL Hgb 10.2 L (13.0-17.5) gm/dL Hct 31.5 L (39.0-53.0) % RDW (11.5-15.5) % Plt Count (150-450) k/uL PT (10.0-12.5) sec INR (<1.2) ABG pH (7.35-7.45) ABG pCO2 (35-45) mmHg ABG pO2 (83-108) mmHg ABG HCO3 (21-25) mmol/L ABG Total CO2 (19-24) mmol/L Chloride (98-107) mmol/L Carbon Dioxide (22-30) mmol/L BUN (9-20) mg/dL Glucose (74-99) mg/dL POC Glucose (mg/dL) 138 H (70-110) mg/dL Calcium (8.4-10.2) mg/dL Ammonia (<30) umol/L Troponin I 16.700 H* (0.000-0.034) ng/mL 12/23/22 12/23/22 12/23/22 Range/Units 18:08 18:08 20:27 WBC 30.4 H (3.8-10.6) k/uL RBC 2.98 L (4.30-5.90) m/uL Hgb 9.1 L (13.0-17.5) gm/dL Hct 26.6 L (39.0-53.0) % RDW 15.7 H (11.5-15.5) % Plt Count 149 L (150-450) k/uL PT (10.0-12.5) sec INR (<1.2) ABG pH (7.35-7.45) ABG pCO2 (35-45) mmHg ABG pO2 (83-108) mmHg ABG HCO3 (21-25) mmol/L ABG Total CO2 (19-24) mmol/L Chloride 117 H (98-107) mmol/L Carbon Dioxide 15 L (22-30) mmol/L BUN 38 H (9-20) mg/dL Glucose 122 H (74-99) mg/dL POC Glucose (mg/dL) 139 H (70-110) mg/dL Calcium 6.5 L (8.4-10.2) mg/dL Ammonia (<30) umol/L Troponin I (0.000-0.034) ng/mL 12/24/22 12/24/22 12/24/22 Range/Units 00:00 00:00 00:01 WBC 32.2 H (3.8-10.6) k/uL RBC 3.08 L (4.30-5.90) m/uL Hgb 9.3 L (13.0-17.5) gm/dL Hct 27.8 L (39.0-53.0) % RDW 16.3 H (11.5-15.5) % Plt Count (150-450) k/uL PT (10.0-12.5) sec INR (<1.2) ABG pH (7.35-7.45) ABG pCO2 (35-45) mmHg ABG pO2 (83-108) mmHg ABG HCO3 (21-25) mmol/L ABG Total CO2 (19-24) mmol/L Chloride (98-107) mmol/L Carbon Dioxide (22-30) mmol/L BUN (9-20) mg/dL Glucose (74-99) mg/dL POC Glucose (mg/dL) 191 H 177 H (70-110) mg/dL Calcium (8.4-10.2) mg/dL Ammonia (<30) umol/L Troponin I (0.000-0.034) ng/mL 12/24/22 12/24/22 12/24/22 Range/Units 02:10 03:54 05:05 WBC (3.8-10.6) k/uL RBC (4.30-5.90) m/uL Hgb (13.0-17.5) gm/dL Hct (39.0-53.0) % RDW (11.5-15.5) % Plt Count (150-450) k/uL PT (10.0-12.5) sec INR (<1.2) ABG pH 7.33 L (7.35-7.45) ABG pCO2 31 L (35-45) mmHg ABG pO2 72 L (83-108) mmHg ABG HCO3 16 L (21-25) mmol/L ABG Total CO2 17 L (19-24) mmol/L Chloride 116 H (98-107) mmol/L Carbon Dioxide 15 L (22-30) mmol/L BUN 43 H (9-20) mg/dL Glucose 170 H (74-99) mg/dL POC Glucose (mg/dL) 189 H (70-110) mg/dL Calcium 6.6 L (8.4-10.2) mg/dL Ammonia (<30) umol/L Troponin I (0.000-0.034) ng/mL 12/24/22 12/24/22 12/24/22 Range/Units 05:05 05:05 10:00 WBC 24.2 H (3.8-10.6) k/uL RBC 3.05 L (4.30-5.90) m/uL Hgb 9.4 L (13.0-17.5) gm/dL Hct 27.7 L (39.0-53.0) % RDW 16.2 H (11.5-15.5) % Plt Count (150-450) k/uL PT 13.2 H (10.0-12.5) sec INR 1.3 H (<1.2) ABG pH (7.35-7.45) ABG pCO2 (35-45) mmHg ABG pO2 (83-108) mmHg ABG HCO3 (21-25) mmol/L ABG Total CO2 (19-24) mmol/L Chloride (98-107) mmol/L Carbon Dioxide (22-30) mmol/L BUN (9-20) mg/dL Glucose (74-99) mg/dL POC Glucose (mg/dL) (70-110) mg/dL Calcium (8.4-10.2) mg/dL Ammonia 41 H (<30) umol/L Troponin I (0.000-0.034) ng/mL 12/24/22 12/24/22 Range/Units 11:32 11:36 WBC 16.5 H (3.8-10.6) k/uL RBC 2.74 L (4.30-5.90) m/uL Hgb 8.3 L (13.0-17.5) gm/dL Hct 24.8 L (39.0-53.0) % RDW 16.5 H (11.5-15.5) % Plt Count 108 L (150-450) k/uL PT (10.0-12.5) sec INR (<1.2) ABG pH (7.35-7.45) ABG pCO2 (35-45) mmHg ABG pO2 (83-108) mmHg ABG HCO3 (21-25) mmol/L ABG Total CO2 (19-24) mmol/L Chloride (98-107) mmol/L Carbon Dioxide (22-30) mmol/L BUN (9-20) mg/dL Glucose (74-99) mg/dL POC Glucose (mg/dL) 222 H (70-110) mg/dL Calcium (8.4-10.2) mg/dL Ammonia (<30) umol/L Troponin I (0.000-0.034) ng/mL Assessment and Plan Assessment: Impression: Acute upper GI bleeding secondary to esophageal varices, status post EGD and ligation Acute hypoxic respiratory failure secondary to massive upper GI bleeding with possible aspiration of blood, requiring intubation and mechanical ventilation d uring EGD. Acute blood loss anemia secondary to esophageal varices bleeding Non-anion gap metabolic acidosis History of underlying coronary artery disease and previous history of CABG with elevated troponin on this admission, being addressed by cardiology Dyslipidemia History of underlying COPD but relatively stable History of DVT History of GERD Degenerative joint disease and possible aspiration pneumonia history of ulcerative colitis Acute hemorrhagic shock, strongly doubt septic shock History of underlying COPD, inactive Recommendation: Continue ventilatory support Consider sedation interruption and assessment for potential weaning Continue octreotide Continue to monitor CBC and transfuse for hemoglobin below 7 Continue Protonix Start patient on antibiotics empirically, For presumptive aspiration pneumonia cardiology is recommending conservative management for elevated troponin and possible acute non-ST elevation myocardial infarction Continue DVT prophylaxis/compression stockings Overall prognosis remains guarded We'll continue to follow Patient is critically ill Critical care time is over 30 Time with Patient: Greater than 30
[2022-12-24] MEDS: PIPERACILLIN-TAZOBACTAM 3.375 GM in SODIUM CHLORIDE 0.9% 100 ML IVPB SCH (15:15)
[2022-12-24] MEDS: LACTULOSE 20 GM/30 ML CUP PO SCH ×2 (15:15→21:02)
--- NOTE | 2022-12-24 16:13 | P.PN ---
Subjective Progress Note Date: 12/24/22 Principal diagnosis: Esophageal Variceal bleed This is 77-year-old male with a history of coronary artery disease status post CABG, COPD, ulcerative colitis, GERD, DVT, and hyperlipidemia who presented to the emergency department with complaints of rectal bleeding and bloody bowel movements are. Patient was noted to be significantly anemic with a hemoglobin of 6.0 with active bleed of dark blood coming per rectum. Patient states he has had dark stool and maroon colored blood over the last 2 weeks duration. He denies being on any anticoagulation, states that he takes via low-dose aspirin daily however if he has back pain he will take at least 2 full dose aspirin daily. Patient has followed with Dr. Hodges for his ulcerative colitis currently on mesalamine but has not seen her in 2-3 years. Last EGD and colonoscopy was done by Dr. Hodges in 2019. EGD revealed minimal antral gastritis but no evidence of esophagitis or peptic ulcer disease. Colonoscopy revealed mild erythema noted in the sigmoid colon consistent with mild colitis but the rest of the colon appeared normal.. He currently denies any abdominal pain, no nausea or vomiting. He has a rectal tube in place with about 200 mL of dark red blood. He was admitted to the ICU for symptomatic anemia with active GI bleed. Currently on pressors. Patient had a CTA chest abdomen and pelvis that reported no active bleed noted. Did note subtle nodularity of the liver, correlate for cirrhosis. Patient denies any previous history of known liver disease, denies any history of cirrhosis of the liver and no history of alcohol abuse. Patient was given 4 units of PRBC transfusion, repeat CBC currently pending. Admitting Labs WBC 11.8 hemoglobin 6.0 hematocrit 19 platelet count 182,010 or 1.3 sodium 138 potassium 4.5 BUN 35 creatinine 0.9 glucose 151, total bilirubin 0.9 AST 32 ALT 20 alkaline phosphatase 51 troponin 0.846 12/24/2022 Patient seen and examined today as a follow-up. Yesterday he underwent upper endoscopy with findings of active distal esophageal varix bleed status post variceal ligation. Large distal esophageal varices and large clot in the fundus of the stomach. Patient was subsequently intubated yesterday during his procedure and brought to the ICU. He remains in the ICU intubated, they are trialing a sedation holiday. He is not tolerating very well. He is not requir ing pressor support. Approximately 100 mL out of his NG tube of dark blood. No significant output from rectal tube. Hemoglobin this morning was stable at 9.4. He is status post 5 units of PRBC transfusion. Was also noted to have elevated ammonia this morning at 41. Hepatitis serology nonreactive. Cardiology following for elevated troponins. Objective - Vital Signs Vital signs: Vital Signs Temp 99.3 F 12/24/22 04:00 Pulse 94 12/24/22 08:01 Resp 25 H 12/24/22 07:00 BP 110/56 12/24/22 01:15 Pulse Ox 94 L 12/24/22 07:00 FiO2 50 12/24/22 07:42 Intake & Output 12/23/22 12/24/22 12/24/22 18:59 06:59 18:59 Intake Total 4705.380 2340.269 130 Output Total 1135 548 30 Balance 3570.380 1792.269 100 Weight 92.5 kg Intake: IV 2800 1560 130 Sodium Chloride 0.9% 1, 1300 1560 130 000 ml @ 130 mls/hr IV . Q7H42M [facility] Rx#:[id number] Intake, IV Titration 1622.380 780.269 Amount Norepinephrine 4 mg In 350.277 310.348 Sodium Chloride 0.9% 250 ml @ 0.03 MCG/KG/MIN 9. 332 mls/hr IV .Q24H [facility] Rx#:[id number] Octreotide 500 mcg In 188.333 260.000 Sodium Chloride 0.9% 250 ml @ 50 MCG/HR 25 mls/hr IV .Q10H [facility] Rx#: [id number] Sodium Chloride 0.9% 1, 1000 000 ml @ 999 mls/hr IV . Q1H1M [facility] Rx#:[id number] propofoL 1,000 mg In 83.770 209.921 Empty Bag 1 bag @ 15 MCG/ KG/MIN 7.348 mls/hr IV . [id number] [facility] Rx#:[id number] Oral 0 Tube Feeding 0 Blood Product 283 Rc As-1 Unit 0 [id number] Rc Pheresis As-3 Unit 283 [id number] Output: Gastric Drainage 200 270 Urine 535 278 30 Stool 400 0 Other: Voiding Method Indwelling Catheter Indwelling Catheter # Bowel Movements 1 ABP, PAP, CO, CI - Last Documented Arterial Blood Pressure 109/46 - Exam General appearance: The patient is intubated on mechanical ventilation, trialing sedation holiday, he is awake and following some commands. HET: Head is normocephalic and atraumatic. Conjunctiva pink. Sclera anicteric. Neck: Supple without lymphadenopathy. Abdomen: Soft, nontender, nondistended. Extremities: Normal skin color and turgor. No pedal edema Skin: No rashes, no jaundice Neurological: Intubated, awake. - Labs CBC & Chem 7: 12/24/22 11:36 12/24/22 05:05 Labs: Abnormal Lab Results - Last 24 Hours (Table) 12/22/22 12/23/22 12/23/22 Range/Units 21:28 07:45 07:45 WBC 11.0 H (3.8-10.6) k/uL RBC 3.15 L (4.30-5.90) m/uL Hgb 9.9 L D (13.0-17.5) gm/dL Hct 28.7 L (39.0-53.0) % RDW (11.5-15.5) % Plt Count (150-450) k/uL Neutrophils # 8.7 H (1.3-7.7) k/uL PT (10.0-12.5) sec INR (<1.2) ABG pH (7.35-7.45) ABG pCO2 (35-45) mmHg ABG pO2 (83-108) mmHg ABG HCO3 (21-25) mmol/L ABG Total CO2 (19-24) mmol/L ABG O2 Saturation (94-97) % Chloride (98-107) mmol/L Carbon Dioxide (22-30) mmol/L BUN (9-20) mg/dL Glucose (74-99) mg/dL POC Glucose (mg/dL) (70-110) mg/dL Calcium (8.4-10.2) mg/dL Troponin I 8.080 H* (0.000-0.034) ng/mL Crossmatch See Detail 12/23/22 12/23/22 12/23/22 Range/Units 11:03 11:54 12:03 WBC (3.8-10.6) k/uL RBC (4.30-5.90) m/uL Hgb (13.0-17.5) gm/dL Hct (39.0-53.0) % RDW (11.5-15.5) % Plt Count (150-450) k/uL Neutrophils # (1.3-7.7) k/uL PT (10.0-12.5) sec INR (<1.2) ABG pH 7.25 L (7.35-7.45) ABG pCO2 (35-45) mmHg ABG pO2 115 H (83-108) mmHg ABG HCO3 18 L (21-25) mmol/L ABG Total CO2 (19-24) mmol/L ABG O2 Saturation 98.3 H (94-97) % Chloride (98-107) mmol/L Carbon Dioxide (22-30) mmol/L BUN (9-20) mg/dL Glucose (74-99) mg/dL POC Glucose (mg/dL) 147 H (70-110) mg/dL Calcium (8.4-10.2) mg/dL Troponin I 16.700 H* (0.000-0.034) ng/mL Crossmatch 12/23/22 12/23/22 12/23/22 Range/Units 14:13 17:56 18:08 WBC 30.2 H 30.4 H (3.8-10.6) k/uL RBC 3.42 L 2.98 L (4.30-5.90) m/uL Hgb 10.2 L 9.1 L (13.0-17.5) gm/dL Hct 31.5 L 26.6 L (39.0-53.0) % RDW 15.7 H (11.5-15.5) % Plt Count 149 L (150-450) k/uL Neutrophils # (1.3-7.7) k/uL PT (10.0-12.5) sec INR (<1.2) ABG pH (7.35-7.45) ABG pCO2 (35-45) mmHg ABG pO2 (83-108) mmHg ABG HCO3 (21-25) mmol/L ABG Total CO2 (19-24) mmol/L ABG O2 Saturation (94-97) % Chloride (98-107) mmol/L Carbon Dioxide (22-30) mmol/L BUN (9-20) mg/dL Glucose (74-99) mg/dL POC Glucose (mg/dL) 138 H (70-110) mg/dL Calcium (8.4-10.2) mg/dL Troponin I (0.000-0.034) ng/mL Crossmatch 12/23/22 12/23/22 12/24/22 Range/Units 18:08 20:27 00:00 WBC 32.2 H (3.8-10.6) k/uL RBC 3.08 L (4.30-5.90) m/uL Hgb 9.3 L (13.0-17.5) gm/dL Hct 27.8 L (39.0-53.0) % RDW 16.3 H (11.5-15.5) % Plt Count (150-450) k/uL Neutrophils # (1.3-7.7) k/uL PT (10.0-12.5) sec INR (<1.2) ABG pH (7.35-7.45) ABG pCO2 (35-45) mmHg ABG pO2 (83-108) mmHg ABG HCO3 (21-25) mmol/L ABG Total CO2 (19-24) mmol/L ABG O2 Saturation (94-97) % Chloride 117 H (98-107) mmol/L Carbon Dioxide 15 L (22-30) mmol/L BUN 38 H (9-20) mg/dL Glucose 122 H (74-99) mg/dL POC Glucose (mg/dL) 139 H (70-110) mg/dL Calcium 6.5 L (8.4-10.2) mg/dL Troponin I (0.000-0.034) ng/mL Crossmatch 12/24/22 12/24/22 12/24/22 Range/Units 00:00 00:01 02:10 WBC (3.8-10.6) k/uL RBC (4.30-5.90) m/uL Hgb (13.0-17.5) gm/dL Hct (39.0-53.0) % RDW (11.5-15.5) % Plt Count (150-450) k/uL Neutrophils # (1.3-7.7) k/uL PT (10.0-12.5) sec INR (<1.2) ABG pH (7.35-7.45) ABG pCO2 (35-45) mmHg ABG pO2 (83-108) mmHg ABG HCO3 (21-25) mmol/L ABG Total CO2 (19-24) mmol/L ABG O2 Saturation (94-97) % Chloride (98-107) mmol/L Carbon Dioxide (22-30) mmol/L BUN (9-20) mg/dL Glucose (74-99) mg/dL POC Glucose (mg/dL) 191 H 177 H 189 H (70-110) mg/dL Calcium (8.4-10.2) mg/dL Troponin I (0.000-0.034) ng/mL Crossmatch 12/24/22 12/24/22 12/24/22 Range/Units 03:54 05:05 05:05 WBC 24.2 H (3.8-10.6) k/uL RBC 3.05 L (4.30-5.90) m/uL Hgb 9.4 L (13.0-17.5) gm/dL Hct 27.7 L (39.0-53.0) % RDW 16.2 H (11.5-15.5) % Plt Count (150-450) k/uL Neutrophils # (1.3-7.7) k/uL PT (10.0-12.5) sec INR (<1.2) ABG pH 7.33 L (7.35-7.45) ABG pCO2 31 L (35-45) mmHg ABG pO2 72 L (83-108) mmHg ABG HCO3 16 L (21-25) mmol/L ABG Total CO2 17 L (19-24) mmol/L ABG O2 Saturation (94-97) % Chloride 116 H (98-107) mmol/L Carbon Dioxide 15 L (22-30) mmol/L BUN 43 H (9-20) mg/dL Glucose 170 H (74-99) mg/dL POC Glucose (mg/dL) (70-110) mg/dL Calcium 6.6 L (8.4-10.2) mg/dL Troponin I (0.000-0.034) ng/mL Crossmatch 12/24/22 Range/Units 05:05 WBC (3.8-10.6) k/uL RBC (4.30-5.90) m/uL Hgb (13.0-17.5) gm/dL Hct (39.0-53.0) % RDW (11.5-15.5) % Plt Count (150-450) k/uL Neutrophils # (1.3-7.7) k/uL PT 13.2 H (10.0-12.5) sec INR 1.3 H (<1.2) ABG pH (7.35-7.45) ABG pCO2 (35-45) mmHg ABG pO2 (83-108) mmHg ABG HCO3 (21-25) mmol/L ABG Total CO2 (19-24) mmol/L ABG O2 Saturation (94-97) % Chloride (98-107) mmol/L Carbon Dioxide (22-30) mmol/L BUN (9-20) mg/dL Glucose (74-99) mg/dL POC Glucose (mg/dL) (70-110) mg/dL Calcium (8.4-10.2) mg/dL Troponin I (0.000-0.034) ng/mL Crossmatch Assessment and Plan (1) GI bleed Narrative/Plan: 77-year-old male with history of ulcerative colitis on mesalamine who follows with Dr. Hodges however has not been seen within 2-3 years came in with dark maroon colored blood per rectum. Patient was noted to be hypotensive with a hemoglobin of 6, BUN elevated at 34. Patient denies any abdominal pain, nausea or vomiting. Currently on mesalamine. Last EGD colonoscopy [address] Hodges without any significant findings. This is likely an upper GI bleed, possible etiology includes peptic ulcer disease, AVM, gastritis, esophagitis, or other possible etiologies. Patient currently in ICU getting supportive care with pressors and IV fluids. He is status post 4 units of PRBC transfusion. Scheduled for upper endoscopy 12/24/2022 next 10 patient status post ETT with findings of actively bleeding esophageal varix, multiple esophageal varices. 6 bands were placed. Patient likely had underlying liver disease undiagnosed. LFTs have been normal. CT abdomen and pelvis does report nodular contour of the liver. Unclear etiology of liver cirrhosis. Current Visit: Yes Status: Acute Code(s): K92.2 - GASTROINTESTINAL HEMORRHAGE, UNSPECIFIED SNOMED Code(s): 18957227 (2) Symptomatic anemia Current Visit: Yes Status: Acute Code(s): D64.9 - ANEMIA, UNSPECIFIED SNOMED Code(s): 923124575 (3) COPD (chronic obstructive pulmonary disease) Current Visit: Yes Status: Acute Code(s): J44.9 - CHRONIC OBSTRUCTIVE PULMONARY DISEASE, UNSPECIFIED SNOMED Code(s): 44578610 (4) Coronary artery disease Current Visit: Yes Status: Acute Code(s): I25.10 - ATHSCL HEART DISEASE OF [place] CORONARY ARTERY W/O ANG PCTRS SNOMED Code(s): 75128646 (5) Elevated troponin Current Visit: Yes Status: Acute Code(s): R79.89 - OTHER SPECIFIED ABNORMAL FINDINGS OF BLOOD CHEMISTRY SNOMED Code(s): 034866478 (6) Liver cirrhosis Current Visit: Yes Status: Acute Code(s): K74.60 - UNSPECIFIED CIRRHOSIS OF LIVER SNOMED Code(s): 36685130 (7) Esophageal varices Current Visit: Yes Status: Acute Code(s): I85.00 - ESOPHAGEAL VARICES WITHOUT BLEEDING SNOMED Code(s): 73443685 Plan: 1. Continue symptomatic and supportive care 2. Continue CBC every 6 hours, transfuse per hemoglobin less than 7 3. Continue ICU management 4. Protonix 40 mg twice a day 5. Keep nothing by mouth 6. Avoid NSAIDs 7. Continue Levaquin as ordered 8. Continue octreotide for at least 48 hours, will reevaluate tomorrow 9. Hepatitis panel ordered and reviewed. Nonreactive 10. Liver serology pending 11. Agree with lactulose, 30 g 3 times a day, titrate to have 3-4 bowel movements daily. Thank you for this consultation, we will continue to follow. Dr. Yesica Hodges I agree with the dictator's note, documented as a scribe by Page Jacobson.
[2022-12-24 17:22] LABS: Ceruloplasmin 17.9 mg/dL (20.0-60.0)
[2022-12-24 17:26] LABS: Glucose,Whole Blood 189 mg/dL (70-110)
[2022-12-24 18:01] LABS: Alpha Fetoprotein, Tumor Mkr <3.00 ng/mL (0.00-7.90)
[2022-12-24 18:44] LABS: Anisocytosis Slight; HCT 23.7 % (39.0-53.0); Hypochromasia Moderate; MCH 30.3 pg (25.0-35.0); MCHC 33.5 g/dL (31.0-37.0); MCV 90.4 fL (80.0-100.0); Mean Platelet Volume 9.3; Poikilocytosis Moderate; RBC 2.63 m/uL (4.30-5.90); RDW 16.5 % (11.5-15.5); WBC 14.6 k/uL (3.8-10.6)
[2022-12-24 19:58] LABS: Platelet Count 99 k/uL (150-450)
[2022-12-24 23:45] LABS: Glucose,Whole Blood 205 mg/dL (70-110)
[2022-12-25] MEDS: PIPERACILLIN-TAZOBACTAM 3.375 GM in SODIUM CHLORIDE 0.9% 100 ML IVPB SCH ×2 (00:04→08:49)
[2022-12-25] MEDS: INSULIN ASPART (NovoLOG) 100 UNIT/ML VIAL SQ SCH ×4 (00:04→18:11)
[2022-12-25 00:30] LABS: Anisocytosis Slight; Hypochromasia Moderate; MCH 30.4 pg (25.0-35.0); MCHC 33.3 g/dL (31.0-37.0); MCV 91.2 fL (80.0-100.0); Mean Platelet Volume 9.3; Platelet Count 103 k/uL (150-450); Poikilocytosis Moderate; RBC 2.63 m/uL (4.30-5.90); RDW 16.7 % (11.5-15.5); WBC 13.7 k/uL (3.8-10.6)
[2022-12-25] MEDS: SODIUM CHLORIDE 0.9% 1,000 ML IV SCH ×3 (02:39→21:08)
[2022-12-25 05:19] LABS: Anisocytosis Slight; Basophils % (A) 0 %; Eosinophils % (A) 0 %; HCT 23.9 % (39.0-53.0); HGB 7.8 gm/dL (13.0-17.5); Hypochromasia Moderate; Lymphocytes # (A) 1.1 k/uL (1.0-4.8); Lymphocytes % (A) 8 %; MCH 29.5 pg (25.0-35.0); MCHC 32.4 g/dL (31.0-37.0); MCV 91.1 fL (80.0-100.0); Mean Platelet Volume 9.1; Monocytes # (A) 0.9 k/uL (0-1.0); Monocytes % (A) 7 %; Neutrophils % (A) 83 %; Platelet Count 103 k/uL (150-450); Poikilocytosis Moderate; RBC 2.62 m/uL (4.30-5.90); RDW 16.8 % (11.5-15.5); WBC 13.2 k/uL (3.8-10.6)
[2022-12-25 05:24] LABS: African American GFR (CKD) 78 (>60 ml/min/1.73 sqM); Anion Gap 7 mmol/L; Blood Urea Nitrogen 46 mg/dL (9-20); Calcium 7.1 mg/dL (8.4-10.2); Carbon Dioxide 17 mmol/L (22-30); Chloride 119 mmol/L (98-107); Glucose 186 mg/dL (74-99); Non-African American GFR(CKD) 68 (>60 ml/min/1.73 sqM); Potassium 3.7 mmol/L (3.5-5.1); Sodium 143 mmol/L (137-145)
[2022-12-25] MEDS ORDERED: Potassium Replacement Protocol 1 EACH MISC MISCELLANE PRN ×2 (05:36→19:25)
[2022-12-25] MEDS: POTASSIUM CHLORIDE 10 MEQ in WATER FOR INJECTION 1 100ML.BAG IVPB SCH ×2 (05:50→06:45)
[2022-12-25 05:57] LABS: Glucose,Whole Blood 188 mg/dL (70-110)
[2022-12-25 06:26] LABS: ABG Base Excess -5.8 mmol/L; ABG HCO3 20 mmol/L (21-25); ABG PCO2 36 mmHg (35-45); ABG PH 7.35 (7.35-7.45); ABG PO2 82 mmHg (83-108); ABG TCO2 21 mmol/L (19-24); Allen Test Performed? Yes
[2022-12-25] MEDS: FORMOTEROL FUMARATE 20 MCG/2 ML NEBU INHALATION SCH ×2 (07:45→19:31)
[2022-12-25] MEDS: BUDESONIDE 1 MG/2 ML NEBU INHALATION SCH ×2 (07:45→19:31)
[2022-12-25] MEDS: IPRATROPIUM-ALBUTEROL 3 ML NEB INHALATION SCH ×4 (07:45→19:30)
--- NOTE | 2022-12-25 08:19 | XR ---
EXAMINATION TYPE: XR chest 1V portable DATE OF EXAM: 12/25/2022 Comparison: 12/24/2022 Clinical History: 77-year-old male Tube placement Findings: ET and NG tubes are satisfactory. Median sternotomy wires. Heart upper limits of normal in size. Pers istent retrocardiac and left basilar opacity but with improving aeration from prior. Impression: Persistent left basilar opacity though with improving aeration.
[2022-12-25] MEDS: CHLORHEXIDINE GLUCONATE 15 ML CUP MUCOUS MEM SCH ×2 (08:48→21:08)
[2022-12-25] MEDS: LACTULOSE 20 GM/30 ML CUP PO SCH ×3 (08:48→21:07)
[2022-12-25] MEDS: PANTOPRAZOLE 40 MG/10 ML VIAL IVP SCH ×2 (08:48→21:08)
[2022-12-25] MEDS: OCTREOTIDE 500 MCG in SODIUM CHLORIDE 0.9% 250 ML IV SCH ×2 (08:50→17:54)
--- NOTE | 2022-12-25 09:03 | P.PN ---
Subjective Progress Note Date: 12/25/22 Principal diagnosis: Esophageal Variceal bleed This is 77-year-old male with a history of coronary artery disease status post CABG, COPD, ulcerative colitis, GERD, DVT, and hyperlipidemia who presented to the emergency department with complaints of rectal bleeding and bloody bowel movements are. Patient was noted to be significantly anemic with a hemoglobin of 6.0 with active bleed of dark blood coming per rectum. Patient states he has had dark stool and maroon colored blood over the last 2 weeks duration. He denies being on any anticoagulation, states that he takes via low-dose aspirin daily however if he has back pain he will take at least 2 full dose aspirin daily. Patient has followed with Dr. Hodges for his ulcerative colitis currently on mesalamine but has not seen her in 2-3 years. Last EGD and colonoscopy was done by Dr. Hodges in 2019. EGD revealed minimal antral gastritis but no evidence of esophagitis or peptic ulcer disease. Colonoscopy revealed mild erythema noted in the sigmoid colon consistent with mild colitis but the rest of the colon appeared normal.. He currently denies any abdominal pain, no nausea or vomiting. He has a rectal tube in place with about 200 mL of dark red blood. He was admitted to the ICU for symptomatic anemia with active GI bleed. Currently on pressors. Patient had a CTA chest abdomen and pelvis that reported no active bleed noted. Did note subtle nodularity of the liver, correlate for cirrhosis. Patient denies any previous history of known liver disease, denies any history of cirrhosis of the liver and no history of alcohol abuse. Patient was given 4 units of PRBC transfusion, repeat CBC currently pending. Admitting Labs WBC 11.8 hemoglobin 6.0 hematocrit 19 platelet count 182,010 or 1.3 sodium 138 potassium 4.5 BUN 35 creatinine 0.9 glucose 151, total bilirubin 0.9 AST 32 ALT 20 alkaline phosphatase 51 troponin 0.846 12/24/2022 Patient seen and examined today as a follow-up. Yesterday he underwent upper endoscopy with findings of active distal esophageal varix bleed status post variceal ligation. Large distal esophageal varices and large clot in the fundus of the stomach. Patient was subsequently intubated yesterday during his procedure and brought to the ICU. He remains in the ICU intubated, they are trialing a sedation holiday. He is not tolerating very well. He is not requir ing pressor support. Approximately 100 mL out of his NG tube of dark blood. No significant output from rectal tube. Hemoglobin this morning was stable at 9.4. He is status post 5 units of PRBC transfusion. Was also noted to have elevated ammonia this morning at 41. Hepatitis serology nonreactive. Cardiology following for elevated troponins. 12/25/2022 Patient seen and examined today as a follow-up. Patient has been hemodynamically stable. Still not requiring any pressors. He remains intubated and sedated. Minimal output from rectal tube, remains dark. Approximately 170 mL's of dark output from NG tube. Hemoglobin has been having a slight trend down with repeat today of 7.8. He was started on lactulose yesterday, repeat ammonia 32. He has remained afebrile. He remains on IV Levaquin as well as octreotide. Objective - Vital Signs Vital signs: Vital Signs Temp 98.2 F 12/25/22 04:00 Pulse 90 12/25/22 06:00 Resp 20 12/25/22 06:00 BP 110/56 12/24/22 01:15 Pulse Ox 96 12/25/22 06:00 FiO2 50 12/25/22 04:48 Intake & Output 12/24/22 12/24/22 12/25/22 06:59 18:59 06:59 Intake Total 2340.269 2379.659 1705 Output Total 548 710 745 Balance 4941.563 8237.659 960 Weight 92.5 kg 96.6 kg Intake: IV 1560 1990 1505 Calcium Gluconate in NaCl 100 2 gm In Saline 1 100ml. bag @ 100 mls/hr [facility] Rx#:[id number] Levofloxacin 500Mg-D5w 100 Pmx 500 mg In Dextrose/ Water 1 100ml.bag @ 100 mls/hr IVPB Q24H [facility] Rx#: [id number] Piperacillin-Tazobactam 3 100 75 .375 gm In Sodium Chloride 0.9% 100 ml @ 25 mls/hr IVPB Q8HR [facility] Rx# :[id number] Sodium Chloride 0.9% 1, 1560 1690 1430 000 ml @ 130 mls/hr IV . Q7H42M [facility] Rx#:[id number] Intake, IV Titration 780.269 389.659 200 Amount Norepinephrine 4 mg In 310.348 19.911 Sodium Chloride 0.9% 250 ml @ 0.03 MCG/KG/MIN 9. 332 mls/hr IV .Q24H [facility] Rx#:[id number] Octreotide 500 mcg In 260.000 218.333 Sodium Chloride 0.9% 250 ml @ 50 MCG/HR 25 mls/hr IV .Q10H [facility] Rx#: [id number] propofoL 1,000 mg In 209.921 151.415 200 Empty Bag 1 bag @ 15 MCG/ KG/MIN 7.348 mls/hr IV . [id number] [facility] Rx#:[id number] Tube Feeding 0 0 Output: Gastric Drainage 270 150 175 Urine 278 360 545 Stool 0 200 25 Other: Voiding Method Indwelling Catheter Indwelling Catheter Indwelling Catheter ABP, PAP, CO, CI - Last Documented Arterial Blood Pressure 121/49 - Exam General appearance: The patient is intubated on mechanical ventilation, trialing sedation holiday, he is awake and following some commands. HET: Head is normocephalic and atraumatic. Conjunctiva pink. Sclera anicteric. Neck: Supple without lymphadenopathy. Abdomen: Soft, nontender, nondistended. Extremities: Normal skin color and turgor. No pedal edema Skin: No rashes, no jaundice Neurological: Intubated, awake. - Labs CBC & Chem 7: 12/25/22 05:00 12/25/22 05:00 Labs: Abnormal Lab Results - Last 24 Hours (Table) 12/24/22 12/24/22 12/24/22 Range/Units 10:00 10:00 11:32 WBC (3.8-10.6) k/uL RBC (4.30-5.90) m/uL Hgb (13.0-17.5) gm/dL Hct (39.0-53.0) % RDW (11.5-15.5) % Plt Count (150-450) k/uL Neutrophils # (1.3-7.7) k/uL ABG pO2 (83-108) mmHg ABG HCO3 (21-25) mmol/L Chloride (98-107) mmol/L Carbon Dioxide (22-30) mmol/L BUN (9-20) mg/dL Glucose (74-99) mg/dL POC Glucose (mg/dL) 222 H (70-110) mg/dL Calcium (8.4-10.2) mg/dL Ammonia 41 H (<30) umol/L CK-MB (CK-2) (0.0-3.4) ng/mL Ceruloplasmin 17.9 L (20.0-60.0) mg/dL 12/24/22 12/24/22 12/24/22 Range/Units 11:36 17:25 17:40 WBC 16.5 H 14.6 H (3.8-10.6) k/uL RBC 2.74 L 2.63 L (4.30-5.90) m/uL Hgb 8.3 L 8.0 L (13.0-17.5) gm/dL Hct 24.8 L 23.7 L (39.0-53.0) % RDW 16.5 H 16.5 H (11.5-15.5) % Plt Count 108 L 99 L (150-450) k/uL Neutrophils # (1.3-7.7) k/uL ABG pO2 (83-108) mmHg ABG HCO3 (21-25) mmol/L Chloride (98-107) mmol/L Carbon Dioxide (22-30) mmol/L BUN (9-20) mg/dL Glucose (74-99) mg/dL POC Glucose (mg/dL) 189 H (70-110) mg/dL Calcium (8.4-10.2) mg/dL Ammonia (<30) umol/L CK-MB (CK-2) (0.0-3.4) ng/mL Ceruloplasmin (20.0-60.0) mg/dL 12/24/22 12/25/22 12/25/22 Range/Units 23:44 00:08 04:57 WBC 13.7 H (3.8-10.6) k/uL RBC 2.63 L (4.30-5.90) m/uL Hgb 8.0 L (13.0-17.5) gm/dL Hct 24.0 L (39.0-53.0) % RDW 16.7 H (11.5-15.5) % Plt Count 103 L (150-450) k/uL Neutrophils # (1.3-7.7) k/uL ABG pO2 (83-108) mmHg ABG HCO3 (21-25) mmol/L Chloride (98-107) mmol/L Carbon Dioxide (22-30) mmol/L BUN (9-20) mg/dL Glucose (74-99) mg/dL POC Glucose (mg/dL) 205 H (70-110) mg/dL Calcium (8.4-10.2) mg/dL Ammonia 32 H (<30) umol/L CK-MB (CK-2) (0.0-3.4) ng/mL Ceruloplasmin (20.0-60.0) mg/dL 12/25/22 12/25/22 12/25/22 Range/Units 05:00 05:00 05:00 WBC 13.2 H (3.8-10.6) k/uL RBC 2.62 L (4.30-5.90) m/uL Hgb 7.8 L (13.0-17.5) gm/dL Hct 23.9 L (39.0-53.0) % RDW 16.8 H (11.5-15.5) % Plt Count 103 L (150-450) k/uL Neutrophils # 11.0 H (1.3-7.7) k/uL ABG pO2 (83-108) mmHg ABG HCO3 (21-25) mmol/L Chloride 119 H (98-107) mmol/L Carbon Dioxide 17 L (22-30) mmol/L BUN 46 H (9-20) mg/dL Glucose 186 H (74-99) mg/dL POC Glucose (mg/dL) (70-110) mg/dL Calcium 7.1 L (8.4-10.2) mg/dL Ammonia (<30) umol/L CK-MB (CK-2) 16.2 H (0.0-3.4) ng/mL Ceruloplasmin (20.0-60.0) mg/dL 12/25/22 12/25/22 Range/Units 05:55 06:17 WBC (3.8-10.6) k/uL RBC (4.30-5.90) m/uL Hgb (13.0-17.5) gm/dL Hct (39.0-53.0) % RDW (11.5-15.5) % Plt Count (150-450) k/uL Neutrophils # (1.3-7.7) k/uL ABG pO2 82 L (83-108) mmHg ABG HCO3 20 L (21-25) mmol/L Chloride (98-107) mmol/L Carbon Dioxide (22-30) mmol/L BUN (9-20) mg/dL Glucose (74-99) mg/dL POC Glucose (mg/dL) 188 H (70-110) mg/dL Calcium (8.4-10.2) mg/dL Ammonia (<30) umol/L CK-MB (CK-2) (0.0-3.4) ng/mL Ceruloplasmin (20.0-60.0) mg/dL Assessment and Plan (1) GI bleed Narrative/Plan: 77-year-old male with history of ulcerative colitis on mesalamine who follows with Dr. Hodges however has not been seen within 2-3 years came in with dark maroon colored blood per rectum. Patient was noted to be hypotensive with a hemoglobin of 6, BUN elevated at 34. Patient denies any abdominal pain, nausea or vomiting. Currently on mesalamine. Last EGD colonoscopy [address] Hodges without any significant findings. This is likely an upper GI bleed, possible etiology includes peptic ulcer disease, AVM, gastritis, esophagitis, or other possible etiologies. Patient currently in ICU getting supportive care with pre ssors and IV fluids. He is status post 4 units of PRBC transfusion. Scheduled for upper endoscopy 12/24/2022 next 10 patient status post ETT with findings of actively bleeding esophageal varix, multiple esophageal varices. 6 bands were placed. Patient likely had underlying liver disease undiagnosed. LFTs have been normal. CT abdomen and pelvis does report nodular contour of the liver. Unclear etiology of liver cirrhosis. Current Visit: Yes Status: Acute Code(s): K92.2 - GASTROINTESTINAL HEMORRHAGE, UNSPECIFIED SNOMED Code(s): 59436617 (2) Symptomatic anemia Current Visit: Yes Status: Acute Code(s): D64.9 - ANEMIA, UNSPECIFIED SNOMED Code(s): 106163757 (3) COPD (chronic obstructive pulmonary disease) Current Visit: Yes Status: Acute Code(s): J44.9 - CHRONIC OBSTRUCTIVE PULMONARY DISEASE, UNSPECIFIED SNOMED Code(s): 02329029 (4) Coronary artery disease Current Visit: Yes Status: Acute Code(s): I25.10 - ATHSCL HEART DISEASE OF [place] CORONARY ARTERY W/O ANG PCTRS SNOMED Code(s): 46781838 (5) Elevated troponin Current Visit: Yes Status: Acute Code(s): R79.89 - OTHER SPECIFIED ABNORMAL FINDINGS OF BLOOD CHEMISTRY SNOMED Code(s): 483232937 (6) Liver cirrhosis Narrative/Plan: Unclear etiology of liver cirrhosis. Patient has no history of known liver disease, no history of alcohol abuse in the past. May be related to nonalcoholic fatty liver. Further workup can be done as an outpatient. This was all discussed with patient's significant other past as well as daughter and [id number]. Current Visit: Yes Status: Acute Code(s): K74.60 - UNSPECIFIED CIRRHOSIS OF LIVER SNOMED Code(s): 13640546 (7) Esophageal varices Current Visit: Yes Status: Acute Code(s): I85.00 - ESOPHAGEAL VARICES WITHOUT BLEEDING SNOMED Code(s): 40131194 Plan: 1. Continue symptomatic and supportive care 2. Continue CBC every 6 hours, transfuse per hemoglobin less than 7 3. Continue ICU management 4. Protonix 40 mg twice a day 5. Keep nothing by mouth 6. Avoid NSAIDs 7. Continue Levaquin as ordered 8. Continue octreotide through today. May discontinue tomorrow morning. 9. Hepatitis panel ordered and reviewed. Nonreactive 10. Possible trial of sedation holiday and extubation today 11. Agree with lactulose, 30 g 3 times a day, titrate to have 3-4 bowel movements daily. Thank you for this consultation. Patient to follow-up with gastroenterology and urology upon discharge. Thank you for allowing us to participate in the care of the patient, the GI service will sign off, gastroenterology will not be available at the hospital this weekend and through next week. If further evaluation by gastroenterology is required the patient will need transfer as per the primary team's discretion. Dr. Yesica Hodges I agree with the dictator's note, documented as a scribe by Page Jacobson.
[2022-12-25] MEDS: DEXMEDETOMIDINE/0.9% NACL(PMX) 400 MCG in EMPTY BAG 1 BAG IV SCH ×2 (09:26→18:14)
--- NOTE | 2022-12-25 10:10 | PN ---
PROGRESS NOTE SUBJECTIVE: Mr. Vincent is still intubated. He is off Levophed. Heart rate is in the 70s, sinus. Blood pressure is about 120/70. He is having decent urine output. He came in with upper GI bleed, variceal bleed, underwent ligation of the esophageal varices. His hemoglobin is stable. Weaning efforts are going to start today again after weaning off his propofol. PLAN: To continue current supportive care. Patient does have 2 patent bypass grafts and calcified RCA, but in the setting of hypotension and GI bleed, we are opting for conservative management, had a recent cardiac cath in October, ejection fraction is well preserved on echo. Continue current supportive care and we will place him on nitroglycerin paste 1 inch q.6 hours to chest wall as well and weaning efforts in progress. MMODL / IJN: [id number] /
--- NOTE | 2022-12-25 11:08 | P.PN ---
Subjective Progress Note Date: 12/25/22 Hospital Course: 77-year-old male with history of ulcerative colitis, CAD status post CABG, hyp ertension, dyslipidemia, COPD, type 2 diabetes presenting with GI bleed. In the ED, initial temperature was 97.6, pulse 86, respiratory rate 18, blood pressure 86/59, saturating 100% on room air. WBC 11.8, hemoglobin 6, platelet 182, INR 1.3, bicarb 16, BUN 35, creatinine 0.93. In the ED, patient was transfused 2 units of PRBCs and was given IV fluids up to 3 L. Despite fluids and blood products, patient remained hypotensive. He was initially admitted to another hospitalist service. ICU was also consulted. He was started on norepinephrine, along with 2 more units of PRBCs. Patient now in medical ICU. GI consulted. EGD showed active bleeding and distal esophageal varices status post variceal ligation, large distal esophageal varices, large clot in the fundus of the stomach, but underlying tissue Cannot be visualized. Patient also started on octreotide drip. Patient currently intubated and sedated. Hemoglobin stable. Patient no longer on pressors. Pending sedation holiday and possible extubation. Subjective: Patient seen and examined at bedside. No acute events overnight. Still having some NG output with bloody emesis, also has a fecal management system with blood y stool. Pending sedation holiday and possible extubation. Pertinent positives and negatives as discussed above, a complete review of systems was performed and all other systems are negative. Vitals Signs Reviewed. General: Intubated and sedated Derm: warm, dry Head: atraumatic, normocephalic, symmetric Eyes: Anicteric sclera, pupils equal and reactive ENT: Nose and ears atraumatic, NG tube in place with dark red blood draining Neck: No thyromegaly, supple Mouth: no lip lesion, mucus membranes moist Cardiovascular: S1S2 reg, no murmur, no edema Lungs: clear to auscultation bilateral, no rhonchi, no rales, no wheeze, no accessory muscle use, intubated Abdominal: soft, nontender to palpation, no guarding, no appreciable organomegaly Ext: no gross muscle atrophy Neuro: Sedated Psych: Unable to assess Data Reviewed Today: Pertinent Labs: WBC 13.2, hemoglobin 7.8, platelet 103, sodium 143, bicarb 17, BUN 46, creatinine 1.06, blood sugars range between 186-205 Imaging: Chest x-ray and apparently interpreted, shows left lower lobe opacity Echocardiogram report reviewed, shows normal LV size and systolic function Assessment and Plan: Patient is critically ill, prognosis is guarded Acute blood loss anemia secondary to upper GI bleed Esophageal varices status post ligation Suspected cirrhosis History of ulcerative colitis Hemorrhagic versus septic shock, resolved Aspiration pneumonia Metabolic acidosis History of hypertension NSTEMI History of CAD status post CABG Type 2 diabetes, A1c 5.7 -GI note reviewed, may discontinue octreotide infusion at 50 MCG per hour for tomorrow, continue IV Protonix 40 mg twice a day, no GI service available over the weekend and next week. If patient begins to bleed again, he will likely need further care by surgery for would need to be transferred. -CBCs every 6 hours, continues to down trend hemoglobin -Patient being transfused with 1 unit of PRBCs -ICU following, consider sedation holiday and possible extubation -Antibiotics descalated to ceftriaxone 2 g IV daily and azithromycin IV 500 mg daily, should cover for aspiration pneumonia as well as SBP prophylaxis -Blood cultures and sputum cultures, and legionella urine antigen pending -Patient was given sodium bicarb 50 mEq 3 over the last 2 days -Hold home antihypertensives -Hold aspirin -Cardiology note reviewed, recommended conservative management for now started on nitroglycerin topical 1 inch every 6 hours -Echocardiogram pending -Sliding scale insulin every 6 hours, hold oral antidiabetic, monitor for hypoglycemia Chronic: COPD without exacerbation DVT ppx: SCDs Code status: Full code Anticipated discharge place: Pending clinical course Anticipated discharge time: Pending clinical course Objective - Vital Signs Vital signs: Vital Signs Temp 98.2 F 12/25/22 08:00 Pulse 89 12/25/22 10:00 Resp 22 12/25/22 10:00 BP 110/56 12/24/22 01:15 Pulse Ox 97 12/25/22 10:00 FiO2 50 12/25/22 08:00 Intake & Output 12/24/22 12/25/22 12/25/22 18:59 06:59 18:59 Intake Total 8969.659 2039.912 659.188 Output Total 335 745 260 Balance 9825.429 3521.912 399.188 Weight 96.6 kg Intake: IV 1989 1505 620 Calcium Gluconate in NaCl 100 2 gm In Saline 1 100ml. bag @ 100 mls/hr IVPB ONCE ONE Rx#:[id number] Levofloxacin 500Mg-D5w 100 Pmx 500 mg In Dextrose/ Water 1 100ml.bag @ 100 mls/hr IVPB Q24H COUNT INCLUDES THE [facility] Rx#: [id number] Piperacillin-Tazobactam 3 100 75 100 .375 gm In Sodium Chloride 0.9% 100 ml @ 25 mls/hr IVPB Q8HR [facility] Rx# :[id number] Sodium Chloride 0.9% 1, 1690 1430 520 000 ml @ 130 mls/hr IV . Q7H42M COUNT INCLUDES THE [facility] Rx#:[id number] Intake, IV Titration 389.659 534.912 39.188 Amount Dexmedetomidine/0.9% NaCl 3.019 (Pmx) 400 mcg In Empty Bag 1 bag @ 0.2 MCG/KG/HR 4.83 mls/hr IV .[id number] COUNT INCLUDES THE [facility] Rx#:[id number] Norepinephrine 4 mg In 19.911 Sodium Chloride 0.9% 250 ml @ 0.03 MCG/KG/MIN 9. 332 mls/hr IV .Q24H COUNT INCLUDES THE [facility] Rx#:[id number] Octreotide 500 mcg In 218.333 250 Sodium Chloride 0.9% 250 ml @ 50 MCG/HR 25 mls/hr IV .Q10H COUNT INCLUDES THE [facility] Rx#: [id number] propofoL 1,000 mg In 151.415 284.912 36.169 Empty Bag 1 bag @ 15 MCG/ KG/MIN 7.348 mls/hr IV . [id number] COUNT INCLUDES THE [facility] Rx#:[id number] Tube Feeding 0 Output: Gastric Drainage 150 175 Urine 360 545 260 Stool 200 25 Other: Voiding Method Indwelling Catheter Indwelling Catheter Indwelling Catheter ABP, PAP, CO, CI - Last Documented Arterial Blood Pressure 116/47 - Labs CBC & Chem 7: 12/25/22 05:00 12/25/22 05:00 Labs: Abnormal Lab Results - Last 24 Hours (Table) 12/24/22 12/24/22 12/24/22 Range/Units 10:00 11:32 11:36 WBC 16.5 H (3.8-10.6) k/uL RBC 2.74 L (4.30-5.90) m/uL Hgb 8.3 L (13.0-17.5) gm/dL Hct 24.8 L (39.0-53.0) % RDW 16.5 H (11.5-15.5) % Plt Count 108 L (150-450) k/uL Neutrophils # (1.3-7.7) k/uL ABG pO2 (83-108) mmHg ABG HCO3 (21-25) mmol/L Chloride (98-107) mmol/L Carbon Dioxide (22-30) mmol/L BUN (9-20) mg/dL Glucose (74-99) mg/dL POC Glucose (mg/dL) 222 H (70-110) mg/dL Calcium (8.4-10.2) mg/dL Ammonia (<30) umol/L CK-MB (CK-2) (0.0-3.4) ng/mL Ceruloplasmin 17.9 L (20.0-60.0) mg/dL 12/24/22 12/24/22 12/24/22 Range/Units 17:25 17:40 23:44 WBC 14.6 H (3.8-10.6) k/uL RBC 2.63 L (4.30-5.90) m/uL Hgb 8.0 L (13.0-17.5) gm/dL Hct 23.7 L (39.0-53.0) % RDW 16.5 H (11.5-15.5) % Plt Count 99 L (150-450) k/uL Neutrophils # (1.3-7.7) k/uL ABG pO2 (83-108) mmHg ABG HCO3 (21-25) mmol/L Chloride (98-107) mmol/L Carbon Dioxide (22-30) mmol/L BUN (9-20) mg/dL Glucose (74-99) mg/dL POC Glucose (mg/dL) 189 H 205 H (70-110) mg/dL Calcium (8.4-10.2) mg/dL Ammonia (<30) umol/L CK-MB (CK-2) (0.0-3.4) ng/mL Ceruloplasmin (20.0-60.0) mg/dL 12/25/22 12/25/22 12/25/22 Range/Units 00:08 04:57 05:00 WBC 13.7 H 13.2 H (3.8-10.6) k/uL RBC 2.63 L 2.62 L (4.30-5.90) m/uL Hgb 8.0 L 7.8 L (13.0-17.5) gm/dL Hct 24.0 L 23.9 L (39.0-53.0) % RDW 16.7 H 16.8 H (11.5-15.5) % Plt Count 103 L 103 L (150-450) k/uL Neutrophils # 11.0 H (1.3-7.7) k/uL ABG pO2 (83-108) mmHg ABG HCO3 (21-25) mmol/L Chloride (98-107) mmol/L Carbon Dioxide (22-30) mmol/L BUN (9-20) mg/dL Glucose (74-99) mg/dL POC Glucose (mg/dL) (70-110) mg/dL Calcium (8.4-10.2) mg/dL Ammonia 32 H (<30) umol/L CK-MB (CK-2) (0.0-3.4) ng/mL Ceruloplasmin (20.0-60.0) mg/dL 12/25/22 12/25/22 12/25/22 Range/Units 05:00 05:00 05:55 WBC (3.8-10.6) k/uL RBC (4.30-5.90) m/uL Hgb (13.0-17.5) gm/dL Hct (39.0-53.0) % RDW (11.5-15.5) % Plt Count (150-450) k/uL Neutrophils # (1.3-7.7) k/uL ABG pO2 (83-108) mmHg ABG HCO3 (21-25) mmol/L Chloride 119 H (98-107) mmol/L Carbon Dioxide 17 L (22-30) mmol/L BUN 46 H (9-20) mg/dL Glucose 186 H (74-99) mg/dL POC Glucose (mg/dL) 188 H (70-110) mg/dL Calcium 7.1 L (8.4-10.2) mg/dL Ammonia (<30) umol/L CK-MB (CK-2) 16.2 H (0.0-3.4) ng/mL Ceruloplasmin (20.0-60.0) mg/dL 12/25/22 Range/Units 06:17 WBC (3.8-10.6) k/uL RBC (4.30-5.90) m/uL Hgb (13.0-17.5) gm/dL Hct (39.0-53.0) % RDW (11.5-15.5) % Plt Count (150-450) k/uL Neutrophils # (1.3-7.7) k/uL ABG pO2 82 L (83-108) mmHg ABG HCO3 20 L (21-25) mmol/L Chloride (98-107) mmol/L Carbon Dioxide (22-30) mmol/L BUN (9-20) mg/dL Glucose (74-99) mg/dL POC Glucose (mg/dL) (70-110) mg/dL Calcium (8.4-10.2) mg/dL Ammonia (<30) umol/L CK-MB (CK-2) (0.0-3.4) ng/mL Ceruloplasmin (20.0-60.0) mg/dL
[2022-12-25] MEDS ORDERED: AZITHROMYCIN 500 MG in SODIUM CHLORIDE 0.9% 250 ML IVPB SCH (11:15)
[2022-12-25 11:47] LABS: Glucose,Whole Blood 197 mg/dL (70-110)
--- NOTE | 2022-12-25 12:11 | P.PN ---
Subjective Progress Note Date: 12/25/22 Principal diagnosis: Acute upper GI bleeding secondary to esophageal varices I am seeing this patient in new consultation today 12/23/2022 in the emergency room, after an A-team was called for symptomatic anemia and GI bleeding. Patient is a 77-year-old white male with past medical history significant for ulcerative colitis, coronary artery disease with previous CABG, hyperlipidemia, hypertension, COPD, history of DVT, GERD, osteoarthritis. Patient states that he has been having dark red bowel movements for the last 4 days. Admits abdominal distention and mild abdominal tenderness. Admits nausea without any reported emesis. On arrival to the emergency room, his hemoglobin was found to be 6 g/dL. Patient was transfused 2 units PRBC. On my evaluation, he remains hypotensive. We have given a total of 3 L normal saline bolus. He is being started on Levophed for refractory hypotension. GI has been consulted. Despite his hypotension, patient is awake and alert. He is able to answer my questions. There is generalized pallor. He is hypothermic, and external warming blanket is on. He states that he has been taking extra doses of aspirin when he is in pain. Denies any anticoagulant use. Patient states that he has had multiple colonoscopies. Denies history of GI malignancies. Admits history of ulcerative colitis. Patient is incontinent and there is dark red blood with clots. CBC on arrival shows a WBC count 11.8, hemoglobin 6, hematocrit 19.3, platelets 182. INR 1.3. APTT 22. BMP on arrival shows sodium 130, potassium 4.5, chloride 111, serum bicarb 16, BUN 35, creatinine 0.93, glucose 151. LFTs not elevated. Normal saline is infusing at 130 ML's per hour. As stated above, the patient remains hypotensive, this can receive an additional 2 units PRBCs per GI. Patient will be admitted to the intensive care unit. Patient was reevaluated today on 12/24/22, patient remains intubated and mechanically ventilated, he is on assist control rate of 16 tidal volume 500 FiO2 50% and PEEP of 5, ABG showed a pO2 of 72 pCO2 31 pH of 7.33 hence one amp of bicarb was given. Patient remains on propofol at 15 mcg/kg/m patient remains on octreotide at 50 g per hour, may consider running this for the next 5 days. Patient received a total of 4 units of packed RBCs since admission, his hemoglobin today is 8.3. WBC count 16 .5, platelets 108. Ammonia level is 41 hence the patient will be started on lactulose. Basic metabolic profile remains abnormal with a bicarb of 15, patient has a non-anion gap hyperchloremic metabolic acidosis. BUN is 43 creatinine 1.17 hepatitis screen has been negative nonreactive including hepatitis A B C.. There is no evidence of active bleeding at present, although there is some coffee-ground material noted in the nasogastric tube. And the patient had some dark stools earlier. Hemodynamically patient is stable, he is off norepinephrine, blood pressure is 116/49. Chest x-ray showed endotracheal tube in proper position, and he does have left basilar atelectasis/effusion, possible early infiltrate, will empirically start the patient on Zosyn. He did have a low-grade temp last night, not to mention the patient did have leukocytosis yesterday and today. Review on 12/25/2022, patient remains in the ICU, intubated and mechanically ventilated. He is on assist control rate of 2012 volume 500 FiO2 50% and PEEP of 5. ABG showed a pO2 of 82 pCO2 36 pH of 7.35. Chest x-ray showed adequate positioning of the endotracheal tube, bibasilar atelectasis is noted and small right-sided pleural effusion is also noted. No clear-cut evidence of infiltrate. Patient is arousable, but does not seem to follow any instructions, he seems to be restless agitated and keeps moving his head back and forth, but does not follow instructions. Hence I will transition propofol to Precedex, and at least give the patient a trial of pressure support and CPAP decided this could be tolerated. Obviously the patient is not quite ready for weaning and extubation at this point, but will try Precedex replacing propofol. Remains on antibiotics empirically for aspiration/Zosyn. His ammonia level went down from 41 down to 32. Hemoglobin today is stable at 7.9. No clear-cut evidence of actual active bleeding at this point. Patient received a total of 4 units of packed RBCs since admission WBC count is 13.2 hemoglobin 7.8, basic metabolic profile is normal bicarb is a bit low at 17 BUN is 46 creatinine 1.06. Objective - Vital Signs Vital signs: Vital Signs Temp 98.2 F 12/25/22 08:00 Pulse 75 12/25/22 11:38 Resp 19 12/25/22 11:00 BP 110/56 12/24/22 01:15 Pulse Ox 97 12/25/22 11:00 FiO2 50 12/25/22 11:23 Intake & Output 12/24/22 12/25/22 12/25/22 18:59 06:59 18:59 Intake Total 2379.659 2039.912 807.945 Output Total 710 745 315 Balance 8606.436 9362.912 492.945 Weight 96.6 kg Intake: IV 1990 1505 750 Calcium Gluconate in NaCl 100 2 gm In Saline 1 100ml. bag @ 100 mls/hr IVPB ONCE ONE Rx#:[id number] Levofloxacin 500Mg-D5w 100 Pmx 500 mg In Dextrose/ Water 1 100ml.bag @ 100 mls/hr IVPB Q24H [facility] Rx#: [id number] Piperacillin-Tazobactam 3 100 75 100 .375 gm In Sodium Chloride 0.9% 100 ml @ 25 mls/hr IVPB Q8HR [facility] Rx# :[id number] Sodium Chloride 0.9% 1, 1690 1430 650 000 ml @ 130 mls/hr IV . Q7H42M [facility] Rx#:[id number] Intake, IV Titration 389.659 534.912 57.945 Amount Dexmedetomidine/0.9% NaCl 21.776 (Pmx) 400 mcg In Empty Bag 1 bag @ 0.2 MCG/KG/HR 4.83 mls/hr IV .[id number] [facility] Rx#:[id number] Norepinephrine 4 mg In 19.911 Sodium Chloride 0.9% 250 ml @ 0.03 MCG/KG/MIN 9. 332 mls/hr IV .Q24H [facility] Rx#:[id number] Octreotide 500 mcg In 218.333 250 Sodium Chloride 0.9% 250 ml @ 50 MCG/HR 25 mls/hr IV .Q10H [facility] Rx#: [id number] propofoL 1,000 mg In 151.415 284.912 36.169 Empty Bag 1 bag @ 15 MCG/ KG/MIN 7.348 mls/hr IV . [id number] [facility] Rx#:[id number] Tube Feeding 0 Output: Gastric Drainage 150 175 Urine 360 545 315 Stool 200 25 Other: Voiding Method Indwelling Catheter Indwelling Catheter Indwelling Catheter ABP, PAP, CO, CI - Last Documented Arterial Blood Pressure 101/43 - Exam Physical Exam: Revealed a 77-year-old white male intubated, seems to be admitted to restless off propofol, agitated does not follow instructions Head: Atraumatic normocephalic HEENT:[Neck is supple.] [No neck masses.] [No thyromegaly.] [No JVD.], Moist mucous membranes, endotracheal tube and orogastric tube are intact Chest: Symmetrical chest expansion, minimal crackles at the bases no rhonchi and no wheezes Cardiac Exam: [Normal S1 and S2, no S3 gallop, no murmur.] Abdomen: [Soft, nontender, no megaly, no rebound, no guarding, normal bowel sounds.] Extremities: [No clubbing, no edema, no cyanosis.] Neurological Exam: Off propofol, patient seems to be a bit restless and agitated, opens eyes but does not follow any instructions Psychiatric: Could not assess Skin: No rashes - Labs CBC & Chem 7: 12/25/22 05:00 12/25/22 05:00 Labs: Abnormal Lab Results - Last 24 Hours (Table) 12/24/22 12/24/22 12/24/22 Range/Units 10:00 17:25 17:40 WBC 14.6 H (3.8-10.6) k/uL RBC 2.63 L (4.30-5.90) m/uL Hgb 8.0 L (13.0-17.5) gm/dL Hct 23.7 L (39.0-53.0) % RDW 16.5 H (11.5-15.5) % Plt Count 99 L (150-450) k/uL Neutrophils # (1.3-7.7) k/uL ABG pO2 (83-108) mmHg ABG HCO3 (21-25) mmol/L Chloride (98-107) mmol/L Carbon Dioxide (22-30) mmol/L BUN (9-20) mg/dL Glucose (74-99) mg/dL POC Glucose (mg/dL) 189 H (70-110) mg/dL Calcium (8.4-10.2) mg/dL Ammonia (<30) umol/L CK-MB (CK-2) (0.0-3.4) ng/mL Ceruloplasmin 17.9 L (20.0-60.0) mg/dL 12/24/22 12/25/22 12/25/22 Range/Units 23:44 00:08 04:57 WBC 13.7 H (3.8-10.6) k/uL RBC 2.63 L (4.30-5.90) m/uL Hgb 8.0 L (13.0-17.5) gm/dL Hct 24.0 L (39.0-53.0) % RDW 16.7 H (11.5-15.5) % Plt Count 103 L (150-450) k/uL Neutrophils # (1.3-7.7) k/uL ABG pO2 (83-108) mmHg ABG HCO3 (21-25) mmol/L Chloride (98-107) mmol/L Carbon Dioxide (22-30) mmol/L BUN (9-20) mg/dL Glucose (74-99) mg/dL POC Glucose (mg/dL) 205 H (70-110) mg/dL Calcium (8.4-10.2) mg/dL Ammonia 32 H (<30) umol/L CK-MB (CK-2) (0.0-3.4) ng/mL Ceruloplasmin (20.0-60.0) mg/dL 12/25/22 12/25/22 12/25/22 Range/Units 05:00 05:00 05:00 WBC 13.2 H (3.8-10.6) k/uL RBC 2.62 L (4.30-5.90) m/uL Hgb 7.8 L (13.0-17.5) gm/dL Hct 23.9 L (39.0-53.0) % RDW 16.8 H (11.5-15.5) % Plt Count 103 L (150-450) k/uL Neutrophils # 11.0 H (1.3-7.7) k/uL ABG pO2 (83-108) mmHg ABG HCO3 (21-25) mmol/L Chloride 119 H (98-107) mmol/L Carbon Dioxide 17 L (22-30) mmol/L BUN 46 H (9-20) mg/dL Glucose 186 H (74-99) mg/dL POC Glucose (mg/dL) (70-110) mg/dL Calcium 7.1 L (8.4-10.2) mg/dL Ammonia (<30) umol/L CK-MB (CK-2) 16.2 H (0.0-3.4) ng/mL Ceruloplasmin (20.0-60.0) mg/dL 12/25/22 12/25/22 12/25/22 Range/Units 05:55 06:17 11:46 WBC (3.8-10.6) k/uL RBC (4.30-5.90) m/uL Hgb (13.0-17.5) gm/dL Hct (39.0-53.0) % RDW (11.5-15.5) % Plt Count (150-450) k/uL Neutrophils # (1.3-7.7) k/uL ABG pO2 82 L (83-108) mmHg ABG HCO3 20 L (21-25) mmol/L Chloride (98-107) mmol/L Carbon Dioxide (22-30) mmol/L BUN (9-20) mg/dL Glucose (74-99) mg/dL POC Glucose (mg/dL) 188 H 197 H (70-110) mg/dL Calcium (8.4-10.2) mg/dL Ammonia (<30) umol/L CK-MB (CK-2) (0.0-3.4) ng/mL Ceruloplasmin (20.0-60.0) mg/dL Assessment and Plan Assessment: Impression: Acute upper GI bleeding secondary to esophageal varices, status post EGD and ligation Acute hypoxic respiratory failure secondary to massive upper GI bleeding with possible aspiration of blood, requiring intubation and mechanical ventilation during EGD. Acute blood loss anemia secondary to esophageal varices bleeding Non-anion gap metabolic acidosis History of underlying coronary artery disease and previous history of CABG with elevated troponin on this admission, being addressed by cardiology Dyslipidemia History of underlying COPD but relatively stable History of DVT History of GERD Degenerative joint disease and possible aspiration pneumonia history of ulcerative colitis Acute hemorrhagic shock, strongly doubt septic shock History of underlying COPD, inactive Recommendation: Continue ventilatory support Transition propofol to Precedex in order to adequately assess mental status off propofol. Continue octreotide Continue to monitor CBC and transfuse for hemoglobin below 7 Continue Protonix Continue Zosyn for presumptive aspiration pneumonia cardiology is recommending conservative management for elevated troponin and possible acute non-ST elevation myocardial infarction Continue DVT prophylaxis/compression stockings Overall prognosis remains guarded We'll continue to follow Patient is critically ill Critical care time is over 30 Time with Patient: Greater than 30
[2022-12-25] MEDS: NITROGLYCERIN OINT 1 INCH/GM PACKET TOPICAL SCH ×2 (12:21→18:12)
[2022-12-25 12:38] LABS: Anisocytosis Slight; HCT 20.9 % (39.0-53.0); Hypochromasia Moderate; MCH 29.8 pg (25.0-35.0); MCHC 32.6 g/dL (31.0-37.0); MCV 91.5 fL (80.0-100.0); Mean Platelet Volume 10.3; Poikilocytosis Moderate; RBC 2.28 m/uL (4.30-5.90); RDW 17.2 % (11.5-15.5); WBC 9.1 k/uL (3.8-10.6)
[2022-12-25 12:48] LABS: HGB 6.8 gm/dL (13.0-17.5)
[2022-12-25 13:00] VITALS: BMI 30.5
[2022-12-25 13:00] LABS: Platelet Count 65 k/uL (150-450)
[2022-12-25] MEDS ORDERED: NOREPINEPHRINE 8 MG in SODIUM CHLORIDE 0.9% 250 ML IV SCH (13:00)
--- NOTE | 2022-12-25 14:18 | P.DS ---
Providers Date of admission: 12/22/22 23:05 Expected date of discharge: 12/25/22 Attending physician: Mark Ponce MD Consults: 12/22/22 23:04 Consult Physician Urgent Consulting Provider: Fanny Hodges Consult Reason/Comments: lower gi hemorrhage Do you want consulting provider notified?: Yes 12/23/22 01:06 Consult Physician Routine Consulting Provider: Rahul Boyd Consult Reason/Comments: GI bleeding. Anemia. Do you want consulting provider notified?: Already Contacted 12/23/22 04:17 Consult Physician Routine Consulting Provider: Rosendo Metzger Consult Reason/Comments: Elevated Troponins Do you want consulting provider notified?: Already Contacted Primary care physician: Eric Gilbert [facility] Course: Discharge Diagnosis: Acute blood loss anemia secondary to upper GI bleed Esophageal varices status post ligation Suspected cirrhosis History of ulcerative colitis Hemorrhagic versus septic shock Aspiration pneumonia Metabolic acidosis History of hypertension NSTEMI History of CAD status post CABG Type 2 diabetes, A1c 5.7 Hospital Course: 77-year-old male with history of ulcerative colitis, CAD status post CABG, hypertension, dyslipidemia, COPD, type 2 diabetes presenting with GI bleed. In the ED, initial temperature was 97.6, pulse 86, respiratory rate 18, blood pressure 86/59, saturating 100% on room air. WBC 11.8, hemoglobin 6, platelet 182, INR 1.3, bicarb 16, BUN 35, creatinine 0.93. In the ED, patient was transfused 2 units of PRBCs and was given IV fluids up to 3 L. Despite fluids and blood products, patient remained hypotensive. He was initially admitted to another hospitalist service. ICU was also consulted. He was started on norepinephrine, along with 2 more units of PRBCs. Patient now in medical ICU. GI consulted. EGD showed active bleeding and distal esophageal varices status post variceal ligation, large distal esophageal varices, large clot in the fundus of the stomach, but underlying tissue Cannot be visualized. Patient also started on octreotide drip. Patient currently intubated and sedated. Hemoglobin continues to down trend. Patient currently on norepinephrine. Patient also has left lower lobe opacity on x-ray concerning for aspiration, currently on ceftriaxone and azithromycin. Also in NSTEMI, cardiology was consulted. Not recommending any interventions due to current hemorrhagic shock. GI service no longer available. Patient pending discharge to [facility]. Accepted by attending, Dr. Ibrahim. Patient seen and examined at bedside. Vital signs reviewed and stable. General: Intubated and sedated Derm: warm, dry Head: atraumatic, normocephalic, symmetric Eyes: Anicteric sclera, pupils equal and reactive ENT: Nose and ears atraumatic, NG tube in place with dark red blood draining Neck: No thyromegaly, supple Mouth: no lip lesion, mucus membranes moist Cardiovascular: S1S2 reg, no murmur, no edema Lungs: clear to auscultation bilateral, no rhonchi, no rales, no wheeze, no accessory muscle use, intubated Abdominal: soft, nontender to palpation, no guarding, no appreciable organomegaly Ext: no gross muscle atrophy Neuro: Sedated Psych: Unable to assess Patient Condition at Discharge: Critical Plan - Discharge Summary Discharge Rx Participant: No New Discharge Prescriptions: No Action Nitroglycerin Sl Tabs [Nitrostat] 0.4 mg SL Q5M PRN PRN Reason: Chest Pain Omeprazole [PriLOSEC] 20 mg PO DAILY Isosorbide Mononitrate ER [Imdur] 60 mg PO DAILY Aspirin 81 mg PO DAILY carvediloL [Coreg] 6.25 mg PO BID lisinopriL [Zestril] 5 mg PO BID Magnesium Oxide 420mg 420 mg PO BID Tiotropium 2.5 Mcg/Puff [Spiriva Respimat 2.5 Mcg] 2 puff INHALATION RT-DAILY Calcium Carbonate [Tums] 1,000 mg PO TID PRN PRN Reason: Heartburn Mesalamine Dr 1200mg 2,400 mg PO BID metFORMIN HCL 1,000 mg PO BID Omeprazole 40 mg PO HS Loperamide HCl [Loperamide] 2 mg PO TID PRN PRN Reason: IBS Mometasone/Formoterol [Dulera 100 Mcg-5 Mcg Inhaler] 2 puff INHALATION RT-BID Empagliflozin [Jardiance] 10 mg PO DAILY Cyanocobalamin (Vitamin B-12) [Vitamin B-12] 1,000 mcg PO DAILY Discharge Medication List Aspirin 81 mg PO DAILY 05/28/16 [History] Isosorbide Mononitrate ER [Imdur] 60 mg PO DAILY 05/28/16 [History] Nitroglycerin Sl Tabs [Nitrostat] 0.4 mg SL Q5M PRN 05/28/16 [History] Omeprazole [PriLOSEC] 20 mg PO DAILY 05/28/16 [History] carvediloL [Coreg] 6.25 mg PO BID 09/07/17 [History] lisinopriL [Zestril] 5 mg PO BID 01/05/19 [History] Calcium Carbonate [Tums] 1,000 mg PO TID PRN 11/10/22 [History] Cyanocobalamin (Vitamin B-12) [Vitamin B-12] 1,000 mcg PO DAILY 11/10/22 [History] Empagliflozin [Jardiance] 10 mg PO DAILY 11/10/22 [History] Loperamide HCl [Loperamide] 2 mg PO TID PRN 11/10/22 [History] Magnesium Oxide 420mg 420 mg PO BID 11/10/22 [History] Mesalamine Dr 1200mg 2,400 mg PO BID 11/10/22 [History] Omeprazole 40 mg PO HS 11/10/22 [History] Tiotropium 2.5 Mcg/Puff [Spiriva Respimat 2.5 Mcg] 2 puff INHALATION RT-DAILY 11/10/22 [History] metFORMIN HCL 1,000 mg PO BID 11/10/22 [History] Mometasone/Formoterol [Dulera 100 Mcg-5 Mcg Inhaler] 2 puff INHALATION RT-BID 12/22/22 [History] Follow up Appointment(s)/Referral(s): Apurva Parmar, PAC [Family Provider] - 1-2 days
[2022-12-25 17:15] LABS: Anisocytosis Slight; Hypochromasia Moderate; MCH 30.1 pg (25.0-35.0); MCHC 32.2 g/dL (31.0-37.0); MCV 93.5 fL (80.0-100.0); Poikilocytosis Slight; RBC 2.78 m/uL (4.30-5.90); RDW 16.3 % (11.5-15.5); WBC 14.9 k/uL (3.8-10.6)
[2022-12-25 17:30] LABS: HGB 8.4 gm/dL (13.0-17.5)
[2022-12-25 17:31] LABS: Platelet Count 100 k/uL (150-450)
[2022-12-25 17:36] LABS: Glucose,Whole Blood 192 mg/dL (70-110)
[2022-12-25] MEDS ORDERED: fentaNYL (PF). 1,000 MCG in SODIUM CHLORIDE 0.9% 80 ML IV SCH (18:45)
[2022-12-25] MEDS: POTASSIUM CHLORIDE 20 MEQ in WATER FOR INJECTION 1 100ML.BAG IVPB SCH ×2 (21:07→23:18)
[2022-12-25 23:21] LABS: Glucose,Whole Blood 216 mg/dL (70-110)
[2022-12-26] MEDS: INSULIN ASPART (NovoLOG) 100 UNIT/ML VIAL SQ SCH (00:11)
[2022-12-26] MEDS: SODIUM CHLORIDE 0.9% 1,000 ML IV SCH (00:13)
[2022-12-26] MEDS: NITROGLYCERIN OINT 1 INCH/GM PACKET TOPICAL SCH (00:21)
[2022-12-26 00:56] VITALS: TEMP 98.7
[2022-12-26 01:18] LABS: Anisocytosis Slight; HCT 26.7 % (39.0-53.0); HGB 8.8 gm/dL (13.0-17.5); Hypochromasia Moderate; MCH 31.1 pg (25.0-35.0); MCHC 33.1 g/dL (31.0-37.0); MCV 93.8 fL (80.0-100.0); Mean Platelet Volume 8.6; Platelet Count 103 k/uL (150-450); Poikilocytosis Moderate; RBC 2.84 m/uL (4.30-5.90); RDW 16.6 % (11.5-15.5)
[2022-12-26 02:09] VITALS: RESP 16
[2022-12-26 03:40] VITALS: BP 104/59
[2022-12-26 04:26] VITALS: PULSE 82
[2022-12-26 05:28] LABS: African American GFR (CKD) >90 (>60 ml/min/1.73 sqM); Anion Gap 7 mmol/L; Blood Urea Nitrogen 35 mg/dL (9-20); Calcium 7.2 mg/dL (8.4-10.2); Carbon Dioxide 16 mmol/L (22-30); Chloride 124 mmol/L (98-107); Glucose 144 mg/dL (74-99); Magnesium 1.9 mg/dL (1.6-2.3); Non-African American GFR(CKD) 85 (>60 ml/min/1.73 sqM); Potassium 3.6 mmol/L (3.5-5.1); Sodium 147 mmol/L (137-145)
--- NOTE | 2022-12-30 17:08 | CDI ---
Documentation Clarification Form Date: 12/30/2022 04:37:52 PM From: Gretchen Muller RN, CCDS Email: [email or web address] Admit Date: 12/22/2022 11:05:00 PM Patient Name: Prem Vincent Visit Number: [id number] Discharge Date: 12/26/2022 05:00:00 AM ATTENTION: The Clinical Documentation Specialists (CDI) and [facility] Coding Staff appreciate your assistance in clarifying documentation. Please respond to the clarification below the line at the bottom and electronically sign. The CDI & [facility] Coding staff will review the response and follow-up if needed. Please note: Queries are made part of the Legal Health Record. If you have any questions, please contact the author of this message via ITS. Dr. Mark Ponce Liver cirrhosis is documented in the progress notes and the patient was found to have esophageal varices. Additional clarification is requested. Patient history/risk factors: ulcerative colitis, CAD status post CABG, hypertension, dyslipidemia, COPD, type 2 diabetes presenting with GI bleed. Admitted with esophageal varices, acute blood loss anemia and hemorrhagic shock. Clinical Indicators: 12/23 CTA abdomen and pelvis: Subtle surface nodularity of the liver. Correlate for cirrhosis. Splenomegaly. 12/22 Labs: platelets [phone]; Albumin 2.5; AST 32; ALT 20; INR 1.3; Ammonia 41-32 12/23 EGD: Actively bleeding distal esophageal varix status post variceal ligation as described above. Large distal esophageal varices. Large clot in the fundus of the stomach. 12/24 IM: "GI following. On 40 mg IV twice a day Protonix, octreotide infusion at 50 MCG per hour. He likely has cirrhosis." 12/25 GI: "CT abdomen and pelvis does report nodular contour of the liver. Liver cirrhosis. May be related to nonalcoholic fatty liver." Discharge summary: "Acute blood loss anemia secondary to upper GI bleed. Esophageal varices status post ligation. Suspected cirrhosis." Treatment: s/p variceal ligation, 5 units PRBC's Medication: Lactulose 30gm po TID 12/23-12/25 Consults: GI as above Please clarify the relationship, if any, which is clinically appropriate for this patient: [ x ] Esophageal varices due to liver cirrhosis [ ] Esophageal varices are not due to liver cirrhosis [ ] Other explanation of clinical findings (please specify) [ ] Unable to determine (no explanation for clinical findings) MTDD
== END 2022-12-26 05:00 | disposition short-term general hospital (02) | DRG 432 ==
LOC: EC 20:33 → 3SCARD 23:05 → 2SICU 12-23 01:29
PROVIDERS: ADMIT Student in an Organized Health Care Education/Training Program; ATTEND Student in an Organized Health Care Education/Training Program
PROC: 30233N1 Transfusion of Nonautologous Red Blood Cells into Peripheral Vein, Percutaneous Approach (ICD-10-PCS; 2022-12-22)
PROC: 5A1945Z Respiratory Ventilation, 24-96 Consecutive Hours (ICD-10-PCS; 2022-12-23)
PROC: 0BH17EZ Insertion of Endotracheal Airway into Trachea, Via Natural or Artificial Opening (ICD-10-PCS; 2022-12-23)
PROC: 3E043XZ Introduction of Vasopressor into Central Vein, Percutaneous Approach (ICD-10-PCS; 2022-12-23)
PROC: 4A133J1 Monitoring of Arterial Pulse, Peripheral, Percutaneous Approach (ICD-10-PCS; 2022-12-23)
PROC: 04HY32Z Insertion of Monitoring Device into Lower Artery, Percutaneous Approach (ICD-10-PCS; 2022-12-23)
PROC: 4A133B1 Monitoring of Arterial Pressure, Peripheral, Percutaneous Approach (ICD-10-PCS; 2022-12-23)
PROC: 06HY33Z Insertion of Infusion Device into Lower Vein, Percutaneous Approach (ICD-10-PCS; 2022-12-23)
PROC: 06L38ZZ Occlusion of Esophageal Vein, Via Natural or Artificial Opening Endoscopic (ICD-10-PCS; principal; 2022-12-23 08:00)
DX: K74.60 Unspecified cirrhosis of liver (principal); I21.4 Non-ST elevation (NSTEMI) myocardial infarction; I85.11 Secondary esophageal varices with bleeding; R57.8 Other shock; J69.0 Pneumonitis due to inhalation of food and vomit; J96.01 Acute respiratory failure with hypoxia; R57.1 Hypovolemic shock; D62 Acute posthemorrhagic anemia; D68.4 Acquired coagulation factor deficiency; E87.20 Acidosis, unspecified; J98.11 Atelectasis; K51.90 Ulcerative colitis, unspecified, without complications; I70.0 Atherosclerosis of aorta; J44.9 Chronic obstructive pulmonary disease, unspecified; F10.20 Alcohol dependence, uncomplicated; I10 Essential (primary) hypertension; E78.5 Hyperlipidemia, unspecified; E11.9 Type 2 diabetes mellitus without complications; Z79.84 Long term (current) use of oral hypoglycemic drugs; R32 Unspecified urinary incontinence; K21.9 Gastro-esophageal reflux disease without esophagitis; Z79.899 Other long term (current) drug therapy; G89.29 Other chronic pain; M54.9 Dorsalgia, unspecified; F41.9 Anxiety disorder, unspecified; I25.2 Old myocardial infarction; I25.10 Atherosclerotic heart disease of native coronary artery without angina pectoris; M19.90 Unspecified osteoarthritis, unspecified site; Z79.51 Long term (current) use of inhaled steroids; Z79.82 Long term (current) use of aspirin; Z86.718 Personal history of other venous thrombosis and embolism; Z95.1 Presence of aortocoronary bypass graft; Z96.642 Presence of left artificial hip joint; Z71.3 Dietary counseling and surveillance; Z88.8 Allergy status to other drugs, medicaments and biological substances
CPT/HCPCS: 36415; 36430; 36600; 43244; 51702; 71045; 74174; 80048; 80053; 80074; 82103; 82105; 82140; 82272; 82390; 82553; 82805; 83036; 83735; 84132; 84484; 85025; 85027; 85610; 85730; 86850; 86900; 86901; 86920; 87040; 87070; 87205; 87449; 87635; 93308; 94002; 94003; 94640; 96361; 96374; 99291

== ENCOUNTER → 2023-04-15 | Outpatient (CLI) | payer OTHER ==
--- NOTE | 2023-04-16 13:29 | US ---
EXAMINATION TYPE: US arterial LE single level DATE OF EXAM: 04/15/2023 3:06 PM CLINICAL INDICATION: Male, 77 years old with history of M79.609 PAIN IN UNSPECIFIED LIMB; Pain in rig ht foot. Patient states no rest pain or claudication. Only pain in right foot. Right foot has noticea ble swelling. Prior AINSLEY 2018. CTA 2019 History of: Smoker: Yes Hypertension: No Diabetic: Yes Hyperlipidemia: Yes TIA/CVA: No Previous Vascular Surgery: Yes CABG 30 years ago CAD: Yes IN: Yes Vascular Ulcers: No Claudication: No Gangrene: No Right Brachial Pressure: 111 Left Brachial Pressure: 104 Ankle-Brachial Indices: Right: 1.36 Left: 1.24 Doppler Waveforms: Right: TECHNICAL WRITER AND EDITOR: Triphasic PSV: 56.9 cm/s DFA: Biphasic PSV: 86.9cm/s SFA: Triphasic PSV: 74.7 cm/s Popliteal Artery: Biphasic PSV: 53.6 cm/s STUCCO WORKER: Biphasic PSV: 60.6 cm/s Peroneal Artery: Biphasic PSV: 30.5 cm/s YENNI: Biphasic PSV: 72.8 cm/s Left: TECHNICAL WRITER AND EDITOR: Triphasic PSV: 82.4 cm/s DFA: Biphasic PSV: 78.2 cm/s SFA: Triphasic PSV: 80.8 cm/s Popliteal Artery: Biphasic PSV: 43.1 cm/s STUCCO WORKER: Biphasic PSV: 71.9 cm/s Peroneal Artery: Triphasic PSV: 29.6 cm/s YENNI: Biphasic PSV: 54.7 cm/s Duplex Ratios: Right: 1.0 Left: 1.19 Plaque formation noted throughout bilateral lower extremities. No elevated velocities. IMPRESSION: Normal bilateral AINSLEY.
== END | disposition home or self-care (01) ==
LOC: RADUSWWP 13:19
PROVIDERS: ATTEND Family Medicine
DX: M79.671 Pain in right foot (principal); M79.609 Pain in unspecified limb; E78.5 Hyperlipidemia, unspecified; E11.9 Type 2 diabetes mellitus without complications
CPT/HCPCS: 93922

== ENCOUNTER 2023-04-20 07:00 | Day surgery (SDC) | payer MEDICARE, OTHER ==
[2023-04-20] MEDS: LACTATED RINGERS 1,000 ML IV SCH (07:40)
[2023-04-20 07:54] LABS: Glucose,Whole Blood 132 mg/dL (70-110)
[2023-04-20 08:04] VITALS: RESP 16; TEMP 97.4
[2023-04-20] MEDS ORDERED: LIDOCAINE 1% INJ 10MG/ML (20 ML MDV) ONE (08:22)
[2023-04-20] MEDS ORDERED: PROPOFOL 10 MG/ML 20 ML VIAL IV ONE (08:22)
--- NOTE | 2023-04-20 08:34 | P.PCN ---
Date of Procedure: 04/20/23 Procedure(s) Performed: BRIEF HISTORY: Patient is a 77-year-old, pleasant, white male recently diagnosed with liver cirrhosis and he presented with esophageal variceal bleeding in December 2022. He had EGD with variceal ligation. He scheduled for repeat upper endoscopy as a part of follow-up of esophageal varices. PROCEDURE PERFORMED: Esophagogastroduodenoscopy with variceal ligation. PREOPERATIVE DIAGNOSIS: History of bleeding esophageal varices in 2022 status post variceal ligation. IV sedation per anesthesia. PROCEDURE: After informed consent was obtained, the patient was brought into the endoscopy unit. IV sedation was administered by Anesthesia under continuous monitoring. Initially the Olympus GIF-140 video endoscope was inserted into the mouth. Esophagus intubated without any difficulty. It was gradually advanced into the stomach and duodenum and carefully examined. The bulb and the second part of the duodenum appeared normal. The scope at this time was withdrawn to the stomach, adequately insufflated with air, and upon careful examination, mucosa of the antrum, body, cardia and the fundus had changes consistent with moderate to severe portal hypertensive gastropathy. The scope was then withdrawn into the esophagus. The GE junction was located at 39 cm from the incisors. The remainder large distal esophageal varices identified with a red ave watkins. At this time the scope was removed and a bili of esophageal variceal ligation equipment was introduced into the tip of the scope and esophagus intubated without any difficulty and was gradually advanced into the distal esophagus. Using suction total of 5 bands were deployed in the distal and mid esophageal varices. The proximal esophagus appeared normal and the patient tolerated the procedure well. IMPRESSION: 1. Large mid and distal esophageal varices status post variceal ligation as described above. 2. Moderate to severe portal hypertensive gastropathy. RECOMMENDATIONS: The findings of this examination were discussed with the patient as well as his family.. Advised on a soft diet today. Continue with propranolol 10 mg 3 times daily. Follow up in office in one month.
[2023-04-20 08:57] LABS: Glucose,Whole Blood 130 mg/dL (70-110)
[2023-04-20 09:12] VITALS: BP 133/77; PULSE 71
== END 2023-04-20 09:56 | disposition home or self-care (01) ==
LOC: ORWHC2ENDO 07:00
PROVIDERS: ATTEND Internal Medicine Gastroenterology
DX: I85.10 Secondary esophageal varices without bleeding (principal); K31.89 Other diseases of stomach and duodenum; K76.6 Portal hypertension; K74.60 Unspecified cirrhosis of liver; Z79.899 Other long term (current) drug therapy
CPT/HCPCS: 43244; J2001; J2704; 43239

== ENCOUNTER 2023-07-06 07:26 | Day surgery (SDC) | payer OTHER ==
[2023-07-05 11:08] VITALS: BMI 25.1
[~2023-07-06 07:26] MED LIST changes: +LIDOCAINE 1% (10MG/ML) FOR IV START INTRADERMA PRN
[2023-07-06] MEDS: LACTATED RINGERS 1,000 ML IV ONE (08:15)
[2023-07-06 08:19] LABS: Glucose,Whole Blood 154 mg/dL (70-110)
[2023-07-06] MEDS ORDERED: LIDOCAINE 1% INJ 10MG/ML (20 ML MDV) ONE (08:23)
[2023-07-06] MEDS ORDERED: PROPOFOL 10 MG/ML 20 ML VIAL IV ONE (08:23)
[2023-07-06 08:25] VITALS: TEMP 97.8
--- NOTE | 2023-07-06 08:34 | P.PCN ---
Date of Procedure: 07/06/23 Procedure(s) Performed: BRIEF HISTORY: Patient is a 77-year-old, pleasant, white fmale scheduled for an upper endoscopy as a part of follow-up of large esophageal varices. History of liver cirrhosis. He has history of prior esophageal variceal bleeding in January 2023 for which he underwent esophageal variceal ligation. Last EGD with ligation was performed in March 2023. PROCEDURE PERFORMED: Esophagogastroduodenoscopy. PREOPERATIVE DIAGNOSIS: Follow-up large esophageal varices and prior history of esophageal variceal bleeding. IV sedation per anesthesia. PROCEDURE: After informed consent was obtained, the patient was brought into the endoscopy unit. IV sedation was administered by Anesthesia under continuous monitoring. Initially the Olympus GIF-140 video endoscope was inserted into the mouth. Esophagus intubated without any difficulty. It was gradually advanced into the stomach and duodenum and carefully examined. The bulb and the second part of the duodenum appeared normal. The scope at this time was withdrawn to the stomach, adequately insufflated with air, and upon careful examination, mucosa of the antrum, body, cardia and the fundus had changes consistent with moderate to severe portal hypertensive gastropathy.. The scope was then withdrawn into the esophagus. The GE junction was located at 39 cm from the incisors. Large mid and distal esophageal varices identified. At this time the scope was removed and esophageal variceal ligation equipment was introduced on t he tip of the scope and esophagus intubated without any difficulty. Was gradually advanced into the distal esophagus. Using suction total of 6 bands were deployed in a spiral fashion in the distal and mid esophageal varices. The rest of the esophagus appeared normal. Ther patient tolerated the procedure well. IMPRESSION: 1. Large mid and distal esophageal varices s/p variceal ligation and total of 6 bands were deployed. 2. Moderate to severe portal hypertensive gastropathy. RECOMMENDATIONS: The findings of this examination were discussed with the patient as well as his family.. He was advised to be on a soft diet today. Recommended repeat EGD with variceal ligation in 6 months.
[2023-07-06 09:14] VITALS: BP 144/88; PULSE 71; RESP 14
== END 2023-07-06 09:16 | disposition home or self-care (01) ==
LOC: ORWHC2ENDO 07:26
PROVIDERS: ATTEND Internal Medicine Gastroenterology
DX: I85.10 Secondary esophageal varices without bleeding (principal); K76.6 Portal hypertension; K31.89 Other diseases of stomach and duodenum; I25.10 Atherosclerotic heart disease of native coronary artery without angina pectoris; I10 Essential (primary) hypertension; E78.5 Hyperlipidemia, unspecified; J44.9 Chronic obstructive pulmonary disease, unspecified; E11.9 Type 2 diabetes mellitus without complications; K74.60 Unspecified cirrhosis of liver; Z79.84 Long term (current) use of oral hypoglycemic drugs; Z79.899 Other long term (current) drug therapy; Z95.5 Presence of coronary angioplasty implant and graft; Z98.890 Other specified postprocedural states; Z88.8 Allergy status to other drugs, medicaments and biological substances
CPT/HCPCS: 43244; J2001; J2704

== ENCOUNTER 2023-11-10 17:35 | Inpatient (IN) | payer OTHER ==
--- NOTE | 2023-11-10 18:30 | ED ---
Altered Mental Status HPI - General Chief Complaint: Altered Mental Status Stated Complaint: AMS Time Seen by Provider: 11/10/23 18:28 Source: patient, family, RN notes reviewed Mode of arrival: wheelchair Limitations: no limitations - History of Present Illness Initial Comments: 78-year-old male presenting to the ER with a chief complaint of altered mental status. is providing most of HPI. states he has a history of advanced liver disease and for the past 3 days he has been refusing to take his medications including lactulose. She believes he is having an increase in his ammonia level. She states for the past week he has been "loopy". He is typically able to work a cell phone and TV remote but has not been unable to do this for the week. She states confusion has been worse in the past 3 days. Denies any falls. Denies any fevers or chills. Patient denies any pain. - Related Data Home Medications Medication Instructions Recorded Confirmed Aspirin 81 mg PO DAILY 05/28/16 11/10/23 Nitroglycerin Sl Tabs [Nitrostat] 0.4 mg SL Q5M PRN 05/28/16 11/10/23 Omeprazole [PriLOSEC] 20 mg PO DAILY 05/28/16 11/10/23 Cyanocobalamin (Vitamin B-12) 1,000 mcg PO DAILY 11/10/22 11/10/23 [Vitamin B-12] Empagliflozin [Jardiance] 10 mg PO DAILY 11/10/22 11/10/23 metFORMIN HCL 1,000 mg PO BID 11/10/22 11/10/23 Ezetimibe [Zetia] 10 mg PO HS 04/16/23 11/10/23 Ferrous Sulfate [Feosol] 325 mg PO BID 04/16/23 11/10/23 Folic Acid 1 mg PO DAILY 04/16/23 11/10/23 Furosemide [Lasix] 20 mg PO DAILY 04/16/23 11/10/23 Lactulose [Constulose] 15 ml PO BID@0800,1400 04/16/23 11/10/23 Rifaximin [Xifaxan] 550 mg PO BID 04/16/23 11/10/23 Spironolactone [Aldactone] 50 mg PO DAILY 04/16/23 11/10/23 Thiamine [Vitamin B-1] 100 mg PO DAILY 04/16/23 11/10/23 Mesalamine [Lialda] 1.2 mg PO BID 07/05/23 11/10/23 Gabapentin [Neurontin] 400 mg PO TID 11/10/23 11/10/23 Magnesium Oxide 420mg 420 mg PO BID 11/10/23 11/10/23 traZODone HCL [Desyrel] 50 mg PO HS 11/10/23 11/10/23 Allergies Allergy/AdvReac Type Severity Reaction Status Date / Time Dvamfun-WTW-SpS Reductase AdvReac severe Verified 11/10/23 19:16 Inhibitor muscle [Wsfytxs-Uma-Mpj Reductase cramps Inhibitor] Review of Systems ROS Statement: Those systems with pertinent positive or pertinent negative responses have been documented in the HPI. ROS Other: All systems not noted in ROS Statement are negative. Past Medical History Past Medical History: Coronary Artery Disease (CAD), COPD, Diabetes Mellitus, Deep Vein Thrombosis (DVT), GERD/Reflux, Hyperlipidemia, Hypertension, Myocardial Infarction ([place]), Osteoarthritis (OA) Additional Past Medical History / Comment(s): esophageal varices, able to stand to transfer, has nerve damage-rt drop foot Dec 2022-had hospital admission for GI bleed and had EGD w/ varices-was intubated & under sedation for varices treatment-transferred to [facility]-total hospitalization 18 days, continual pain rt leg pain,Ulcerative colitis. Chronic Back Pain. Dec 2022 covid infections,DVT years ago,no longer needing b/p meds Last Myocardial Infarction Date:: 1992 History of Any Multi-Drug Resistant Organisms: None Reported Past Surgical History: Coronary Bypass/CABG, Heart Catheterization, Joint Replacement Additional Past Surgical History / Comment(s): colonoscopy, emily cataract surgery, triple bypass 25 yrs ago, left hip replacement, EGDs w/ varices tx,mult heartcaths Past Anesthesia/Blood Transfusion Reactions: No Reported Reaction Additional Past Anesthesia/Blood Transfusion Reaction / Comment(s): no transfusion reactions Past Psychological History: Anxiety Smoking Status: Former smoker - Past Family History Brother(s) Family Medical History: CVA/TIA, Deep Vein Thrombosis (DVT) Father Family Medical History: Cancer General Exam - General Exam Comments Initial Comments: Visual Physical Exam Vital signs reviewed General: nontoxic, no acute distress. Head: Normocephalic, atraumatic Eyes: PERRLA, EOMI ENT: Airway patent Chest: Nonlabored breathing Skin: No visual rash, normal skin tone Neuro: Alert and oriented 3 Musculoskeletal: No gross abnormalities Limitations: no limitations General appearance: alert, in no apparent distress Respiratory exam: Present: normal lung sounds bilaterally. Absent: respiratory distress, wheezes, rales, rhonchi, stridor Cardiovascular Exam: Present: regular rate, normal rhythm, normal heart sounds. Absent: systolic murmur, diastolic murmur, rubs, gallop, clicks GI/Abdominal exam: Present: soft, normal bowel sounds. Absent: distended, tenderness, guarding, rebound, rigid Extremities exam: Present: normal inspection, full ROM, normal capillary refill. Absent: tenderness, pedal edema, joint swelling, calf tenderness Neurological exam: Present: alert, oriented X3, CN II-XII intact Psychiatric exam: Present: normal affect, normal mood Skin exam: Present: warm, dry, intact, normal color. Absent: rash Course Vital Signs 11/10/23 11/10/23 17:39 18:56 Temperature 97.5 F L 98 F Pulse Rate 81 78 Respiratory 18 16 Rate Blood Pressure 118/70 132/63 O2 Sat by Pulse 96 95 Oximetry - Reevaluation(s) Reevaluation #1: 11/10/23 20:18 Case discussed with sound physician, Dr. Goodwin for admission Medical Decision Making - Medical Decision Making I performed the quick note portion of this chart. Electronically signed by Thea Vigil PA-C Was pt. sent in by a medical professional or institution (ANNIKA Segovia, ORDNANCE ENGINEER, urgent care, hospital, or longterm...) When possible be specific @ -No Did you speak to anyone other than the patient for history (EMS, parent, family, police, friend...)? What history was obtained from this source @ -Significant other, at bedside, providing HPI and past medical history in its entirety. Did you review nursing and triage notes (agree or disagree)? Why? @ -I reviewed and agree with nursing and triage notes Were old charts reviewed (outside hosp., previous admission, EMS record, old EKG, old radiological studies, urgent care reports/EKG's, longterm records)? Report findings @ -No old charts were reviewed Differential Diagnosis (chest pain, altered mental status, abdominal pain women, abdominal pain men, vaginal bleeding, weakness, fever, dyspnea, syncope, headache, dizziness, GI bleed, back pain, seizure, CVA, palpatations, mental health, musculoskeletal)? @ -Differential Altered Mental Status:Hypoglycemia, DKA, hypercapnia, ETOH, ove rdose, CO poisoning, trauma, myxedema coma, HTN encephalopathy, infection, encephalitis, psychosis, intercranial hemorrhage, hepatic encephalopathy, meningitis, CVA, this is not meant to be an all-inclusive list EKG interpreted by me (3pts min.). @ -None done X-rays interpreted by me (1pt min.). @ -Chest x-ray interpreted by me negative for acute cardiopulmonary process. CT interpreted by me (1pt min.). @ -None done U/S interpreted by me (1pt. min.). @ -None done What testing was considered but not performed or refused? (CT, X-rays, U/S, labs)? Why? @ -None What meds were considered but not given or refused? Why? @ -None Did you discuss the management of the patient with other professionals (professionals i.e. , PA, ORDNANCE ENGINEER, lab, RT, psych nurse, social security benefits interviewer, property management supervisor, teacher, deputy probation officer, director case)? Give summary @ -Case discussed with Sound physician, Dr. Goodwin, for admission. Was smoking cessation discussed for >3mins.? @ -No Was critical care preformed (if so, how long)? @ -No Were there social determinants of health that impacted care today? How? (Homelessness, low income, unemployed, alcoholism, drug addiction, transportation, low edu. Level, literacy, decrease access to med. care, correction, rehab)? @ -No Was there de-escalation of care discussed even if they declined (Discuss DNR or withdrawal of care, Hospice)? DNR status @ -No What co-morbidities impacted this encounter? (DM, HTN, Smoking, COPD, CAD, Cancer, CVA, ARF, Chemo, Hep., AIDS, mental health diagnosis, sleep apnea, morbid obesity)? @ -liver disease, DM, HTN Was patient admitted / discharged? Hospital course, mention meds given and route, prescriptions, significant lab abnormalities, going to OR and other pertinent info. @ -Admitted. 78-year-old male presenting to the ER with altered mental status per significant other. History and physical exam completed. Vitals within normal limits. Patient is ANO x 3 and no signs of acute distress. Patient denying any pain at this time. Exam benign. CBC unremarkable. Coagulation studies normal. CMP remarkable for sodium 135, carbon dioxide 19, glucose 133. Ammonia 61. Troponin undetectable. Urinalysis showing 4+ glucose which is likely related to diabetes. Viral swabs negative. Chest x-ray interpreted by me negative for acute cardiopulmonary process. Patient received 500 mL of IV fluids. Admission considered for encephalopathy and to monitor ammonia levels. Case discussed with [facility] [place] physician, for admission. Patient agreeable for admission. Patient admitted in stable condition for further evalu ation and treatment. Case discussed with ED attending, Dr. Coronado. Undiagnosed new problem with uncertain prognosis? @ -No Drug Therapy requiring intensive monitoring for toxicity (Heparin, Nitro, Insulin, Cardizem)? @ -No Were any procedures done? @ -No Diagnosis/symptom? @ -Elevated ammonia level/encephalopathy Acute, or Chronic, or Acute on Chronic? @ -Acute Uncomplicated (without systemic symptoms) or Complicated (systemic symptoms)? @ -Complicated Side effects of treatment? @ -No Exacerbation, Progression, or Severe Exacerbation? @ -No Poses a threat to life or bodily function? How? (Chest pain, [place], [place], pneumonia, PE, COPD, DKA, ARF, appy, cholecystitis, CVA, Diverticulitis, Homicidal, Suicidal, threat to staff... and all critical care pts) @ -Yes - Lab Data Result diagrams: 11/10/23 18:06 11/10/23 18:06 Lab Results 11/10/23 11/10/23 11/10/23 Range/Units 18:06 18:06 18:06 WBC 5.0 (3.8-10.6) k/uL RBC 4.74 (4.30-5.90) m/uL Hgb 14.8 (13.0-17.5) gm/dL Hct 43.7 (39.0-53.0) % MCV 92.2 (80.0-100.0) fL MCH 31.1 (25.0-35.0) pg MCHC 33.8 (31.0-37.0) g/dL RDW 15.0 (11.5-15.5) % Plt Count 139 L (150-450) k/uL MPV 7.2 Neutrophils % 64 % Lymphocytes % 20 % Monocytes % 8 % Eosinophils % 3 % Basophils % 2 % Neutrophils # 3.2 (1.3-7.7) k/uL Lymphocytes # 1.0 (1.0-4.8) k/uL Monocytes # 0.4 (0-1.0) k/uL Eosinophils # 0.2 (0-0.7) k/uL Basophils # 0.1 (0-0.2) k/uL PT 10.8 (10.0-12.5) sec INR 1.0 (<1.2) APTT 23.7 (22.0-30.0) sec Sodium 135 L (137-145) mmol/L Potassium 4.1 (3.5-5.1) mmol/L Chloride 99 (98-107) mmol/L Carbon Dioxide 19 L (22-30) mmol/L Anion Gap 17 mmol/L BUN 16 (9-20) mg/dL Creatinine 0.69 (0.66-1.25) mg/dL Est GFR (CKD-EPI)AfAm >90 (>60 ml/min/1.73 sqM) Est GFR (CKD-EPI)NonAf >90 (>60 ml/min/1.73 sqM) Glucose 133 H (74-99) mg/dL Calcium 9.8 (8.4-10.2) mg/dL Total Bilirubin 0.9 (0.2-1.3) mg/dL AST 28 (17-59) U/L ALT 17 (4-49) U/L Alkaline Phosphatase 113 (38-126) U/L Ammonia (<30) umol/L Troponin I (0.000-0.034) ng/mL Total Protein 7.5 (6.3-8.2) g/dL Albumin 4.3 (3.5-5.0) g/dL Urine Color Urine Appearance (Clear) Urine pH (5.0-8.0) Ur Specific [place] (1.001-1.035) Urine Protein (Negative) Urine Glucose (UA) (Negative) Urine Ketones (Negative) Urine Blood (Negative) Urine Nitrite (Negative) Urine Bilirubin (Negative) Urine Urobilinogen (<2.0) mg/dL Ur Leukocyte Esterase (Negative) Influenza Type A (PCR) (Not Detectd) Influenza Type B (PCR) (Not Detectd) RSV (PCR) (Not Detectd) SARS-CoV-2 (PCR) (Not Detectd) 11/10/23 11/10/23 11/10/23 Range/Units 18:06 18:06 18:06 WBC (3.8-10.6) k/uL RBC (4.30-5.90) m/uL Hgb (13.0-17.5) gm/dL Hct (39.0-53.0) % MCV (80.0-100.0) fL MCH (25.0-35.0) pg MCHC (31.0-37.0) g/dL RDW (11.5-15.5) % Plt Count (150-450) k/uL MPV Neutrophils % % Lymphocytes % % Monocytes % % Eosinophils % % Basophils % % Neutrophils # (1.3-7.7) k/uL Lymphocytes # (1.0-4.8) k/uL Monocytes # (0-1.0) k/uL Eosinophils # (0-0.7) k/uL Basophils # (0-0.2) k/uL PT (10.0-12.5) sec INR (<1.2) APTT (22.0-30.0) sec Sodium (137-145) mmol/L Potassium (3.5-5.1) mmol/L Chloride (98-107) mmol/L Carbon Dioxide (22-30) mmol/L Anion Gap mmol/L BUN (9-20) mg/dL Creatinine (0.66-1.25) mg/dL Est GFR (CKD-EPI)AfAm (>60 ml/min/1.73 sqM) Est GFR (CKD-EPI)NonAf (>60 ml/min/1.73 sqM) Glucose (74-99) mg/dL Calcium (8.4-10.2) mg/dL Total Bilirubin (0.2-1.3) mg/dL AST (17-59) U/L ALT (4-49) U/L Alkaline Phosphatase (38-126) U/L Ammonia 61 H (<30) umol/L Troponin I <0.012 (0.000-0.034) ng/mL Total Protein (6.3-8.2) g/dL Albumin (3.5-5.0) g/dL Urine Color Urine Appearance (Clear) Urine pH (5.0-8.0) Ur Specific [place] (1.001-1.035) Urine Protein (Negative) Urine Glucose (UA) (Negative) Urine Ketones (Negative) Urine Blood (Negative) Urine Nitrite (Negative) Urine Bilirubin (Negative) Urine Urobilinogen (<2.0) mg/dL Ur Leukocyte Esterase (Negative) Influenza Type A (PCR) Not Detected (Not Detectd) Influenza Type B (PCR) Not Detected (Not Detectd) RSV (PCR) Not Detected (Not Detectd) SARS-CoV-2 (PCR) Not Detected (Not Detectd) 11/10/23 Range/Units 19:14 WBC (3.8-10.6) k/uL RBC (4.30-5.90) m/uL Hgb (13.0-17.5) gm/dL Hct (39.0-53.0) % MCV (80.0-100.0) fL MCH (25.0-35.0) pg MCHC (31.0-37.0) g/dL RDW (11.5-15.5) % Plt Count (150-450) k/uL MPV Neutrophils % % Lymphocytes % % Monocytes % % Eosinophils % % Basophils % % Neutrophils # (1.3-7.7) k/uL Lymphocytes # (1.0-4.8) k/uL Monocytes # (0-1.0) k/uL Eosinophils # (0-0.7) k/uL Basophils # (0-0.2) k/uL PT (10.0-12.5) sec INR (<1.2) APTT (22.0-30.0) sec Sodium (137-145) mmol/L Potassium (3.5-5.1) mmol/L Chloride (98-107) mmol/L Carbon Dioxide (22-30) mmol/L Anion Gap mmol/L BUN (9-20) mg/dL Creatinine (0.66-1.25) mg/dL Est GFR (CKD-EPI)AfAm (>60 ml/min/1.73 sqM) Est GFR (CKD-EPI)NonAf (>60 ml/min/1.73 sqM) Glucose (74-99) mg/dL Calcium (8.4-10.2) mg/dL Total Bilirubin (0.2-1.3) mg/dL AST (17-59) U/L ALT (4-49) U/L Alkaline Phosphatase (38-126) U/L Ammonia (<30) umol/L Troponin I (0.000-0.034) ng/mL Total Protein (6.3-8.2) g/dL Albumin (3.5-5.0) g/dL Urine Color Yellow Urine Appearance Clear (Clear) Urine pH 5.5 (5.0-8.0) Ur Specific [place] 1.031 (1.001-1.035) Urine Protein Negative (Negative) Urine Glucose (UA) 4+ H (Negative) Urine Ketones Negative (Negative) Urine Blood Negative (Negative) Urine Nitrite Negative (Negative) Urine Bilirubin Negative (Negative) Urine Urobilinogen <2.0 (<2.0) mg/dL Ur Leukocyte Esterase Negative (Negative) Influenza Type A (PCR) (Not Detectd) Influenza Type B (PCR) (Not Detectd) RSV (PCR) (Not Detectd) SARS-CoV-2 (PCR) (Not Detectd) - Radiology Data Radiology results: report reviewed, image reviewed Disposition Clinical Impression: Increased ammonia level, Encephalopathy Disposition: ADMITTED IP TO THIS [facility] Condition: Stable Time of Disposition: 20:18
[2023-11-10 18:33] LABS: Basophils # (A) 0.1 k/uL (0-0.2); Basophils % (A) 2 %; Eosinophils # (A) 0.2 k/uL (0-0.7); Eosinophils % (A) 3 %; HCT 43.7 % (39.0-53.0); HGB 14.8 gm/dL (13.0-17.5); Lymphocytes % (A) 20 %; MCH 31.1 pg (25.0-35.0); MCHC 33.8 g/dL (31.0-37.0); MCV 92.2 fL (80.0-100.0); Mean Platelet Volume 7.2; Monocytes # (A) 0.4 k/uL (0-1.0); Monocytes % (A) 8 %; Neutrophils # (A) 3.2 k/uL (1.3-7.7); Neutrophils % (A) 64 %; Platelet Count 139 k/uL (150-450); RBC 4.74 m/uL (4.30-5.90)
--- NOTE | 2023-11-10 18:39 | XR ---
EXAMINATION TYPE: XR chest 2V DATE OF EXAM: 11/10/2023 COMPARISON: 12/25/2022 INDICATION: Altered mental status TECHNIQUE: Frontal and lateral views of the chest are obtained. FINDINGS: The heart size is normal. The pulmonary vasculature is normal. The lungs are clear. Sternotomy wires are present IMPRESSION: 1. No acute pulmonary process. [facility], , 11/10/2023 6:36 PM
[2023-11-10 18:48] LABS: ALT 17 U/L (4-49); AST 28 U/L (17-59); African American GFR (CKD) >90 (>60 ml/min/1.73 sqM); Albumin 4.3 g/dL (3.5-5.0); Alkaline Phosphatase 113 U/L (38-126); Anion Gap 17 mmol/L; Blood Urea Nitrogen 16 mg/dL (9-20); Calcium 9.8 mg/dL (8.4-10.2); Carbon Dioxide 19 mmol/L (22-30); Chloride 99 mmol/L (98-107); Glucose 133 mg/dL (74-99); Non-African American GFR(CKD) >90 (>60 ml/min/1.73 sqM); Potassium 4.1 mmol/L (3.5-5.1); Sodium 135 mmol/L (137-145); Total Bilirubin 0.9 mg/dL (0.2-1.3); Total Protein 7.5 g/dL (6.3-8.2)
[2023-11-10 19:06] LABS: Partial Thromboplastin Time 23.7 sec (22.0-30.0); Prothrombin Time 10.8 sec (10.0-12.5)
[2023-11-10 19:34] LABS: Appearance,Urine Clear (Clear); Bilirubin,Urine Negative (Negative); Blood,Urine Negative (Negative); Color,Urine Yellow; Glucose,Urine (UA) 4+ (Negative); Ketones,Urine Negative (Negative); Leukocyte Esterase,Urine Negative (Negative); Nitrite,Urine Negative (Negative); PH, Urine 5.5 (5.0-8.0); Protein,Urine Negative (Negative); Specific Gravity,Urine 1.031 (1.001-1.035); Urobilinogen,Urine <2.0 mg/dL (<2.0)
[2023-11-10] MEDS ORDERED: NALOXONE 0.4 MG/ML 1 ML VIAL IV PRN (20:18)
[2023-11-10] MEDS ORDERED: ONDANSETRON 4 MG/2 ML VIAL IVP PRN (20:18)
[2023-11-10] MEDS: SODIUM CHLORIDE 0.9% 1,000 ML IV SCH (20:29)
[2023-11-10] MEDS: SODIUM CHLORIDE 0.9% 500 ML 500 ML IV STA (20:29)
--- NOTE | 2023-11-11 02:19 | P.HPIM ---
History of Present Illness H&P Date: 11/10/23 Chief Complaint: confusion 78 year old male with End stage liver disease, CAD s/p CABG patient is awake alert, denies any medical concerns at this time. he claims that he feels fine, and is not sure why he is here, he blames it on the "women" in his house who insisted that he comes to the hospital. he reports chronic bilateral feet pain and constipation no family at bedside at time of my evaluation. upon discussing the case with his RN, and ED staff, was concerned regarding progressive confusion over the past 3 days along with non compliance with his meds and lactulose, she was concerned regarding his ammonia levels. no report of fever, chills, abd pain , nausea vomiting, or GI bleeding denies tobacco smoking , illicit drugs or alcohol review of systems Pertinent positives as noted in HPI. All other systems were reviewed and are negative on exam Constitutional: No acute distress, Eyes: Anicteric sclerae, moist conjunctiva, Pupils equal round reactive to light ENMT: NC/AT Oropharynx clear, no erythema, or exudates Neck: Supple, no masses, or JVD No carotid bruits No thyromegaly Lungs: Clear to auscultation Clear to percussion Normal respiratory effort, no accessory muscle use Cardiovascular: Heart regular in rate and rhythm, No murmurs, gallops, or rubs No peripheral edema Abdominal: Soft Nontender, no guarding, rebound or rigidity Abdomen moving with respiration Normoactive bowel sounds Extremities: No digital cyanosis No clubbing Pedal pulses intact and symmetrical Radial pulses intact and symmetrical No calf tenderness Psychiatric: Alert and oriented to person, place and time Neuro Muscles Strength 4/5 in all 4 extremities Sensation to light touch grossly present throughout Cranial nerves II-XII grossly intact Past Medical History Past Medical History: Coronary Artery Disease (CAD), COPD, Diabetes Mellitus, Deep Vein Thrombosis (DVT), GERD/Reflux, Hyperlipidemia, Hypertension, Myocardial Infarction ([place]), Osteoarthritis ([place]) Additional Past Medical History / Comment(s): esophageal varices, able to stand to transfer, has nerve damage-rt drop foot Dec 2022-had hospital admission for GI bleed and had EGD w/ varices-[facility]ub[facility] & [facility]transferred to [facility]-total hospitalization 18 days, continual pain rt leg pain,Ulcerative colitis. Chronic Back Pain. Dec 2022 covid infections,DVT years ago,no longer needing b/p meds Last Myocardial Infarction Date:: 1992 History of Any Multi-Drug Resistant Organisms: None Reported Past Surgical History: Coronary Bypass/CABG, Heart Catheterization, Joint Replacement Additional Past Surgical History / Comment(s): colonoscopy, emily cataract surgery, triple bypass 25 yrs ago, left hip replacement, EGDs w/ varices tx,mult heartcaths Past Anesthesia/Blood Transfusion Reactions: No Reported Reaction Additional Past Anesthesia/Blood Transfusion Reaction / Comment(s): no transfusion reactions Past Psychological History: Anxiety Smoking Status: Former smoker - Past Family History Brother(s) Family Medical History: CVA/TIA, Deep Vein Thrombosis (DVT) Father Family Medical History: Cancer Medications and Allergies Home Medications Medication Instructions Recorded Confirmed Type Aspirin 81 mg PO DAILY 05/28/16 11/10/23 History Nitroglycerin Sl Tabs [Nitrostat] 0.4 mg SL Q5M PRN 05/28/16 11/10/23 History Omeprazole [PriLOSEC] 20 mg PO DAILY 05/28/16 11/10/23 History Cyanocobalamin (Vitamin B-12) 1,000 mcg PO DAILY 11/10/22 11/10/23 History [Vitamin B-12] Empagliflozin [Jardiance] 10 mg PO DAILY 11/10/22 11/10/23 History metFORMIN HCL 1,000 mg PO BID 11/10/22 11/10/23 History Ezetimibe [Zetia] 10 mg PO HS 04/16/23 11/10/23 History Ferrous Sulfate [Feosol] 325 mg PO BID 04/16/23 11/10/23 History Folic Acid 1 mg PO DAILY 04/16/23 11/10/23 History Furosemide [Lasix] 20 mg PO DAILY 04/16/23 11/10/23 History Lactulose [Constulose] 15 ml PO BID@0800,1400 04/16/23 11/10/23 History Rifaximin [Xifaxan] 550 mg PO BID 04/16/23 11/10/23 History Spironolactone [Aldactone] 50 mg PO DAILY 04/16/23 11/10/23 History Thiamine [Vitamin B-1] 100 mg PO DAILY 04/16/23 11/10/23 History Mesalamine [Lialda] 1.2 mg PO BID 07/05/23 11/10/23 History Gabapentin [Neurontin] 400 mg PO TID 11/10/23 11/10/23 History Magnesium Oxide 420mg 420 mg PO BID 11/10/23 11/10/23 History traZODone HCL [Desyrel] 50 mg PO HS 11/10/23 11/10/23 History Allergies Allergy/AdvReac Type Severity Reaction Status Date / Time Bsakads-UBZ-YeM Reductase AdvReac severe Verified 11/10/23 19:16 Inhibitor muscle [Xkvxqto-Wfq-Wwh Reductase cramps Inhibitor] Physical Exam Vitals: Vital Signs Temp Pulse Resp BP Pulse Ox 11/10/23 18:56 98 F 78 16 132/63 95 11/10/23 17:39 97.5 F L 81 18 118/70 96 Intake and Output 11/10/23 11/10/23 11/10/23 06:59 14:59 22:59 Other: Weight 83.915 kg Results CBC & Chem 7: 11/10/23 18:06 11/10/23 18:06 Labs: Abnormal Lab Results - Last 24 Hours (Table) 11/10/23 11/10/23 11/10/23 Range/Units 18:06 18:06 18:06 Plt Count 139 L (150-450) k/uL Sodium 135 L (137-145) mmol/L Carbon Dioxide 19 L (22-30) mmol/L Glucose 133 H (74-99) mg/dL Ammonia 61 H (<30) umol/L Urine Glucose (UA) (Negative) 11/10/23 Range/Units 19:14 Plt Count (150-450) k/uL Sodium (137-145) mmol/L Carbon Dioxide (22-30) mmol/L Glucose (74-99) mg/dL Ammonia (<30) umol/L Urine Glucose (UA) 4+ H (Negative) Assessment and Plan Assessment: 78 year old male with end stage liver disease, coming in for increase confusion and non compliance with meds, I discussed the case with ED doc and I accepted the admission for hepatic encephalopathy with anticipated length of stay < 2 mnidnights acute hepatic encephalopathy , improving ammonia 61 , continue to trend lactulose 30 gm PO tid , target 3-5 BM no astrexis continue rifaximin WBC 5 unremarkable , afebrile Hgb 14.8 unremarkable continue spironolactone d/c IVF normal saline liver enz unremarkable Bili 0.9, AST 28 , ALT 17 , INR 1 CAD s/p CABG continue with aspirin and zetia DM insulin sliding scale hold oral hypoglycemic s COPD compensated duoneb qid PRN sob full code DVT PPX heparin sc tid
[2023-11-11] MEDS ORDERED: DEXTROSE 50% SYRINGE 50 ML IVP PRN ×2 (02:32)
[2023-11-11] MEDS ORDERED: IPRATROPIUM-ALBUTEROL 3 ML NEB INHALATION PRN (02:33)
[2023-11-11 06:10] LABS: Glucose,Whole Blood 138 mg/dL (70-110)
[2023-11-11] MEDS: PANTOPRAZOLE 40 MG TABLET PO SCH (06:38)
[2023-11-11] MEDS: INSULIN ASPART (NovoLOG) 100 UNIT/ML VIAL SQ SCH (06:41)
[2023-11-11] MEDS: ASPIRIN 81 MG PO SCH (08:49)
[2023-11-11] MEDS: LACTULOSE 20 GM/30 ML CUP PO SCH (08:49)
[2023-11-11] MEDS: THIAMINE 100 MG TAB PO SCH (08:49)
[2023-11-11] MEDS: GABAPENTIN 400 MG CAP PO SCH (08:49)
[2023-11-11] MEDS: SPIRONOLACTONE 25 MG TAB PO SCH (08:49)
[2023-11-11] MEDS: HEPARIN SODIUM,PORCINE 5,000 UNIT/ML 1 ML VIAL SQ SCH (08:49)
[2023-11-11] MEDS: RIFAXIMIN 550 MG TABLET PO SCH (08:50)
[2023-11-11 08:54] LABS: BUN/Creat Ratio 16.38 Ratio (12.00-20.00); Blood Urea Nitrogen 13.1 mg/dL (9.0-27.0); Carbon Dioxide 21.3 mmol/L (21.6-31.8); Chloride 102 mmol/L (96-109); Glucose 124 mg/dL (70-110); Potassium 4.1 mmol/L (3.5-5.5); Sodium 135 mmol/L (135-145)
[2023-11-11 08:55] LABS: ALT 15 U/L (10-49); AST 23 U/L (14-35); Albumin 3.9 g/dL (3.8-4.9); Albumin/Globulin Ratio 1.39 Ratio (1.60-3.17); Alkaline Phosphatase 116 U/L (41-126); Calcium 9.1 mg/dL (8.7-10.3); Globulin 2.8 g/dL (1.6-3.3); Total Bilirubin 0.7 mg/dL (0.3-1.2); Total Protein 6.7 g/dL (6.2-8.2)
[2023-11-11 12:06] LABS: Glucose,Whole Blood 133 mg/dL (70-110)
--- NOTE | 2023-11-11 15:15 | P.PN ---
Subjective Progress Note Date: 11/11/23 Hospital course: Patient is a 78 year-old male with a past medical history of end-stage liver disease, CAD status post CABG, hypertension, hyperlipidemia, esophageal varices with previous GI bleed and banding, ulcerative colitis, and chronic back pain with right foot drop. He presented to the hospital on 11/10/2023 secondary to progressively worsening confusion over the past 3 days and reports of noncompliance with his medications including lactulose. Upon arrival to our facility, patient underwent evaluation in the emergency department. Vital signs upon arrival show blood pressure 118/70, heart rate 81, respiratory rate 18, temp 97.5 F, and SpO2 of 96% on room air. Chest x-ray was completed negative for acute cardiopulmonary process. Labs were completed and reviewed. CBC showing thrombocytopenia with platelet count of 139. Coagulation profile was normal findings. BMP revealed mild hypocarbia with bicarb of 19 otherwise normal findings. Blood glucose was 133. Ammonia level was elevated at 61. Troponin was negative at less than 0.012. Urinalysis negative for infection. Influenza A, influenza B, RSV, and COVID PCR were negative. Patient was admitted under our services at this time for treatment of hepatic encep halopathy. Physical exam: Patient was seen and fully evaluated at bedside this morning. Patient remains alert to person and place only confused to time and situation. Patient states the year is 1998 and he is currently in the emergency department on the fourth floor. Patient unable to state why he is in the hospital or who brought him here. Patient stating his friend is in the room but no visitors noted. Patient currently denies having any pain or complaints at this time. Vital signs reviewed and stable. General: Nontoxic, no distress and appears stated age. Derm: Skin warm and dry, normal coloration for ethnicity. Head: Atraumatic, normocephalic and symmetric. Eyes: EOM's intact, no lid lag, and anicteric sclera Mouth: no lip lesions, mucus membranes moist. Poor dentition. Cardiovascular: regular rate and rhythm with normal S1S2, no murmur, positive posterior tibial pulses bilaterally, and cap refill < 2 seconds. Lungs: Respirations even, regular, and unlabored on room air. Lungs CTA bilaterally, no rhonchi, no rales, no wheezing, and no accessory muscle usage. Abdominal: soft, nontender to palpation, no guarding, no appreciable organomegaly Ext: Movement and sensation intact. No gross muscle atrophy, no edema, no contractures Neuro: Speech clear, face symmetrical and CN II-XII grossly intact with no noted focal neuro deficits Psych: Alert and oriented to person and place but confused to time and situation. Patient stating it is 1998. Assessment and Plan of Care: Hepatic encephalopathy End-stage liver cirrhosis -Ammonia level elevated at 62. Continue lactulose 30 g 3 times daily and rifaximin 550 mg twice daily -Neurochecks every 4 hours. -Telemetry monitoring. -Fall precautions. -Consult to PT/OT for evaluation and recommendations on possible SNF placement. -Continue to provide safe and supportive care and redirection as needed. Diabetes with hyperglycemia. -Hold metformin and Jardiance and continue glycemic protocol with NovoLog sliding scale. CAD status post CABG Hypertension Hyperlipidemia -Continue daily medication regimen with aspirin 81 mg daily, Zetia 10 mg nightly, Lasix 20 mg daily and Aldactone 50 mg daily. Data reviewed: -Morning labs reviewed. BMP showing improvement of hypocarbia with bicarb of 21.3. Blood glucose was 124. Liver profile unremarkable. Ammonia level remains elevated at 62. -Vital signs reviewed. Blood pressure 106/64, heart rate 73, respiratory rate 17, temp 98.2 F, and SpO2 of 93% on room air. CODE STATUS: Full code DVT prophylaxis: Subcutaneous heparin Anticipated discharge date: Pending clinical course Anticipated discharge place: residential facility Patient was seen independently by Nurse Pracitioner. This document was prepared using [employer] dictation software. Please allow for errors in search coordinator, while rare they do occur. I reviewed the documentation as provided by the RYAN above, who is the original author of this note. I agree with the documented assessment and plan, with the following changes: none Objective - Vital Signs Vital signs: Vital Signs Temp 97.6 F 11/10/23 23:18 Pulse 67 11/10/23 23:18 Resp 17 11/10/23 23:18 BP 103/54 11/10/23 23:18 Pulse Ox 94 L 11/10/23 23:18 FiO2 Intake & Output 11/10/23 11/11/23 11/11/23 18:59 06:59 18:59 Output Total 240 Balance -240 Weight 83.915 kg 83.915 kg Output: Urine 240 Other: Voiding Method Urinal # Voids 1 # Bowel Movements 1 - Labs CBC & Chem 7: 11/10/23 18:06 11/11/23 15:56 Labs: Abnormal Lab Results - Last 24 Hours (Table) 11/10/23 11/10/23 11/10/23 Range/Units 18:06 18:06 18:06 Plt Count 139 L (150-450) k/uL Sodium 135 L (137-145) mmol/L Carbon Dioxide 19 L (22-30) mmol/L Glucose 133 H (74-99) mg/dL POC Glucose (mg/dL) (70-110) mg/dL Ammonia 61 H (<30) umol/L Urine Glucose (UA) (Negative) 11/10/23 11/11/23 11/11/23 Range/Units 19:14 05:08 06:09 Plt Count (150-450) k/uL Sodium (137-145) mmol/L Carbon Dioxide (22-30) mmol/L Glucose (74-99) mg/dL POC Glucose (mg/dL) 138 H (70-110) mg/dL Ammonia 62 H (<30) umol/L Urine Glucose (UA) 4+ H (Negative)
[2023-11-11 15:32] VITALS: BMI 28.1
[2023-11-11 16:36] LABS: Glucose,Whole Blood 147 mg/dL (70-110)
[2023-11-11 17:25] LABS: ALT 16 U/L (4-49); AST 25 U/L (17-59); African American GFR (CKD) >90 (>60 ml/min/1.73 sqM); Albumin 3.7 g/dL (3.5-5.0); Albumin/Globulin Ratio 1.3; Alkaline Phosphatase 100 U/L (38-126); Anion Gap 11 mmol/L; Blood Urea Nitrogen 10 mg/dL (9-20); Carbon Dioxide 21 mmol/L (22-30); Chloride 104 mmol/L (98-107); Globulin 2.8 g/dL; Glucose 123 mg/dL (74-99); Non-African American GFR(CKD) >90 (>60 ml/min/1.73 sqM); Potassium 3.8 mmol/L (3.5-5.1); Sodium 136 mmol/L (137-145); Total Bilirubin 1.2 mg/dL (0.2-1.3); Total Protein 6.5 g/dL (6.3-8.2)
[2023-11-11] MEDS: EZETIMIBE 10 MG TAB PO SCH (20:30)
[2023-11-11] MEDS: IBUPROFEN 400 MG TAB PO PRN (20:30)
[2023-11-11 21:24] LABS: Glucose,Whole Blood 132 mg/dL (70-110)
[2023-11-12 06:02] LABS: Glucose,Whole Blood 156 mg/dL (70-110)
[2023-11-12] MEDS: LACTULOSE 20 GM/30 ML CUP PO SCH (08:50)
[2023-11-12] MEDS: FOLIC ACID 1 MG TAB PO SCH (08:50)
[2023-11-12] MEDS: FUROSEMIDE 20 MG TAB PO SCH (08:50)
[2023-11-12] MEDS: CYANOCOBALAMIN 500 MCG TAB PO SCH (08:51)
[2023-11-12 08:57] LABS: HCT 39.8 % (39.6-50.0); HGB 13.4 g/dL (13.0-17.0); MCH 30.9 pg (27.0-32.0); MCHC 33.7 g/dL (32.0-37.0); MCV 91.7 FL (80.0-97.0); NRBC Per 100 WBC 0 X 10*3/uL (0.00-0.01); Platelet Count 91 X 10*3/uL (140-440); RBC 4.34 X 10*6/uL (4.40-5.60); RDW 14.9 % (11.5-14.5)
[2023-11-12 11:25] LABS: Glucose,Whole Blood 144 mg/dL (70-110)
--- NOTE | 2023-11-12 14:12 | P.PN ---
Subjective Progress Note Date: 11/12/23 Hospital course: Patient is a 78 year-old male with a past medical history of end-stage liver disease, CAD status post CABG, hypertension, hyperlipidemia, esophageal varices with previous GI bleed and banding, ulcerative colitis, and chronic back pain with right foot drop. He presented to the hospital on 11/10/2023 secondary to progressively worsening confusion over the past 3 days and reports of noncompliance with his medications including lactulose. Upon arrival to our facility, patient underwent evaluation in the emergency department. Vital signs upon arrival show blood pressure 118/70, heart rate 81, respiratory rate 18, temp 97.5 F, and SpO2 of 96% on room air. Chest x-ray was completed negative for acute cardiopulmonary process. Labs were completed and reviewed. CBC showing thrombocytopenia with platelet count of 139. Coagulation profile was normal findings. BMP revealed mild hypocarbia with bicarb of 19 otherwise normal findings. Blood glucose was 133. Ammonia level was elevated at 61. Troponin was negative at less than 0.012. Urinalysis negative for infection. Influenza A, influenza B, RSV, and COVID PCR were negative. Patient was admitted under our services at this time for treatment of hepatic encep halopathy. Physical exam: Patient was seen and fully evaluated at bedside this morning. Patient remains alert to person and place only confused to time and situation, but mentation seems to be improving. Patient states the year is 2020 which is a little closer than yesterday's 1998 and states he is at [facility]. No further episodes of reported hallucinations. Vital signs reviewed and stable. General: Nontoxic, no distress and appears stated age. Derm: Skin warm and dry, normal coloration for ethnicity. Head: Atraumatic, normocephalic and symmetric. Eyes: EOM's intact, no lid lag, and anicteric sclera Mouth: no lip lesions, mucus membranes moist. Poor dentition. Cardiovascular: regular rate and rhythm with normal S1S2, no murmur, positive posterior tibial pulses bilaterally, and cap refill < 2 seconds. Lungs: Respirations even, regular, and unlabored on room air. Lungs CTA bilaterally, no rhonchi, no rales, no wheezing, and no accessory muscle usage. Abdominal: soft, nontender to palpation, no guarding, no appreciable organomegaly Ext: Movement and sensation intact. No gross muscle atrophy, no edema, no contractures Neuro: Speech clear, face symmetrical and CN II-XII grossly intact with no noted focal neuro deficits Psych: Alert and oriented to person and place but confused to time and situation. Patient stating it is 1998. Assessment and Plan of Care: Hepatic encephalopathy End-stage liver cirrhosis -With moderate liquid stool output will decrease lactulose to 30 g twice daily and continue rifaximin 550 mg twice daily. -Neurochecks every 4 hours. -Telemetry monitoring. -Fall precautions. -PT/OT evaluated, patient will require discharge to SNF. -Continue to provide safe and supportive care and redirection as needed. Diabetes with hyperglycemia. -Hold metformin and Jardiance and continue glycemic protocol with NovoLog sliding scale. Hemoglobin A1c 6.6%. CAD status post CABG Hypertension Hyperlipidemia -Continue daily medication regimen with aspirin 81 mg daily, Zetia 10 mg nightly, Lasix 20 mg daily and Aldactone 50 mg daily. Data reviewed: -Morning labs reviewed. CBC showing continued bicytopenia with WBC count of 4.20 and platelet count of 91. Blood glucose 156. Magnesium was low at 1.6. -Vital signs reviewed. Blood pressure 127/75, heart rate 63, respiratory rate 17, temp 97.3 F, and SpO2 of 97% on room air. CODE STATUS: Full code DVT prophylaxis: Subcutaneous heparin Anticipated discharge date: Insurance authorization requires a 3 night inpatient stay, per case management patient may be discharged to rehab on 11/15/2023. Anticipated discharge place: [facility] facility Patient was seen independently by Nurse Pracitioner. This document was prepared using [employer] dictation software. Please allow for errors in senior commissary agent, while rare they do occur. I reviewed the documentation as provided by the RYAN above, who is the original author of this note. I agree with the documented assessment and plan, with the following changes: none Objective - Vital Signs Vital signs: Vital Signs Temp 97.3 F L 11/12/23 07:03 Pulse 63 11/12/23 07:03 Resp 17 11/12/23 07:03 BP 127/75 11/12/23 07:03 Pulse Ox 97 11/12/23 07:03 FiO2 Intake & Output 11/11/23 11/12/23 11/12/23 18:59 06:59 18:59 Output Total 850 250 Balance -850 -250 Weight 83.915 kg Output: Urine 850 250 Other: Voiding Method Urinal Incontinent # Voids 1 # Bowel Movements 2 - Labs CBC & Chem 7: 11/12/23 06:07 11/11/23 15:56 Labs: Abnormal Lab Results - Last 24 Hours (Table) 11/11/23 11/11/23 11/11/23 Range/Units 05:03 12:05 15:56 Sodium 136 L (137-145) mmol/L Carbon Dioxide 21.3 L 21 L (21.6-31.8) mmol/L Creatinine 0.60 L (0.66-1.25) mg/dL Glucose 124 H 123 H (70-110) mg/dL POC Glucose (mg/dL) 133 H (70-110) mg/dL Albumin/Globulin Ratio 1.39 L (1.60-3.17) Ratio 11/11/23 11/11/23 11/12/23 Range/Units 16:35 21:21 06:01 Sodium (137-145) mmol/L Carbon Dioxide (21.6-31.8) mmol/L Creatinine (0.66-1.25) mg/dL Glucose (70-110) mg/dL POC Glucose (mg/dL) 147 H 132 H 156 H (70-110) mg/dL Albumin/Globulin Ratio (1.60-3.17) Ratio
[2023-11-12] MEDS: MAGNESIUM SULFATE-D5W PMX 1 GM in DEXTROSE/WATER 1 100ML.BAG IVPB SCH (15:11)
[2023-11-12 16:44] LABS: Glucose,Whole Blood 151 mg/dL (70-110)
[2023-11-12 20:59] LABS: Glucose,Whole Blood 149 mg/dL (70-110)
[2023-11-13 05:50] LABS: Glucose,Whole Blood 156 mg/dL (70-110)
[2023-11-13 09:18] LABS: HCT 40.8 % (39.6-50.0); HGB 14.1 g/dL (13.0-17.0); MCH 31.1 pg (27.0-32.0); MCHC 34.6 g/dL (32.0-37.0); MCV 89.9 FL (80.0-97.0); NRBC Per 100 WBC 0 X 10*3/uL (0.00-0.01); Platelet Count 115 X 10*3/uL (140-440); RBC 4.54 X 10*6/uL (4.40-5.60); RDW 14.9 % (11.5-14.5); WBC 6.93 X 10*3/uL (4.50-10.00)
[2023-11-13 09:50] LABS: Blood Urea Nitrogen 5.6 mg/dL (9.0-27.0); Glucose 141 mg/dL (70-110); Potassium 3.6 mmol/L (3.5-5.5); Sodium 138 mmol/L (135-145)
[2023-11-13 09:51] LABS: ALT 17 U/L (10-49); AST 25 U/L (14-35); Albumin 3.8 g/dL (3.8-4.9); Albumin/Globulin Ratio 1.36 Ratio (1.60-3.17); Alkaline Phosphatase 117 U/L (41-126); Carbon Dioxide 19.9 mmol/L (21.6-31.8); Chloride 105 mmol/L (96-109); Globulin 2.8 g/dL (1.6-3.3); Total Bilirubin 0.8 mg/dL (0.3-1.2); Total Protein 6.6 g/dL (6.2-8.2)
[2023-11-13 11:48] LABS: Glucose,Whole Blood 151 mg/dL (70-110)
--- NOTE | 2023-11-13 15:12 | P.PN ---
Subjective Progress Note Date: 11/13/23 Hospital course: Patient is a 78 year-old male with a past medical history of end-stage liver disease, CAD status post CABG, hypertension, hyperlipidemia, esophageal varices with previous GI bleed and banding, ulcerative colitis, and chronic back pain with right foot drop. He presented to the hospital on 11/10/2023 secondary to progressively worsening confusion over the past 3 days and reports of noncompliance with his medications including lactulose. Upon arrival to our facility, patient underwent evaluation in the emergency department. Vital signs upon arrival show blood pressure 118/70, heart rate 81, respiratory rate 18, temp 97.5 F, and SpO2 of 96% on room air. Chest x-ray was completed negative for acute cardiopulmonary process. Labs were completed and reviewed. CBC showing thrombocytopenia with platelet count of 139. Coagulation profile was normal findings. BMP revealed mild hypocarbia with bicarb of 19 otherwise normal findings. Blood glucose was 133. Ammonia level was elevated at 61. Troponin was negative at less than 0.012. Urinalysis negative for infection. Influenza A, influenza B, RSV, and COVID PCR were negative. Patient was admitted under our services at this time for treatment of hepatic encep halopathy. Physical exam: Patient was seen and fully evaluated at bedside this morning. Patient remains alert to person and place only confused to time and situation. he does appear to be more awake and alert. Patient has had moderate liquid stool output, lactulose decreased to 20 g twice daily. Patient currently reports feeling great and denies having any questions, needs, complaints, or concerns. Vital signs reviewed and stable. General: Nontoxic, no distress and appears stated age. Derm: Skin warm and dry, normal coloration for ethnicity. Head: Atraumatic, normocephalic and symmetric. Eyes: EOM's intact, no lid lag, and anicteric sclera Mouth: no lip lesions, mucus membranes moist. Poor dentition. Cardiovascular: regular rate and rhythm with normal S1S2, no murmur, positive posterior tibial pulses bilaterally, and cap refill < 2 seconds. Lungs: Respirations even, regular, and unlabored on room air. Lungs CTA bilaterally, no rhonchi, no rales, no wheezing, and no accessory muscle usage. Abdominal: soft, nontender to palpation, no guarding, no appreciable organomegaly Ext: Movement and sensation intact. No gross muscle atrophy, no edema, no contractures Neuro: Speech clear, face symmetrical and CN II-XII grossly intact with no noted focal neuro deficits Psych: Alert and oriented to person and place but remains confused to time and situation. Assessment and Plan of Care: Hepatic encephalopathy End-stage liver cirrhosis -Continues to have moderate liquid stool output lactulose again decreased to 20 g twice daily and continue rifaximin 550 mg twice daily. -Neurochecks every 4 hours. -Telemetry monitoring. -Fall precautions. -PT/OT evaluated, patient will require discharge to SNF. -Continue to provide safe and supportive care and redirection as needed. Diabetes with hyperglycemia. -Hold metformin and Jardiance and continue glycemic protocol with NovoLog sliding scale. Hemoglobin A1c 6.6%. CAD status post CABG Hypertension Hyperlipidemia -Continue daily medication regimen with aspirin 81 mg daily, Zetia 10 mg nightly, Lasix 20 mg daily and Aldactone 50 mg daily. Data reviewed: -Morning labs reviewed. CBC showing continued thrombocytopenia with platelet count of 115 otherwise normal findings. BMP showing high anion gap metabolic acidosis with chloride of 105, bicarb of 19.9, and anion gap of 13.10. Blood glucose 141. Magnesium 2.0. Liver profile unremarkable. -Vital signs reviewed. Blood pressure 117/22, heart rate 72, respiratory rate 16, temp 98.2 F, and SpO2 of 96% on room air. CODE STATUS: Full code DVT prophylaxis: Subcutaneous heparin Anticipated discharge date: Insurance authorization requires a 3 night inpatient stay, per case management patient may be discharged to rehab on 11/15/2023. Anticipated discharge place: shelter facility Patient was seen independently by Nurse Pracitioner. This document was prepared using [employer] dictation software. Please allow for errors in community outreach director, while rare they do occur. I reviewed the documentation as provided by the RYAN above, who is the original author of this note. I agree with the documented assessment and plan, with the following changes: none Objective - Vital Signs Vital signs: Vital Signs Temp 98.2 F 11/13/23 07:15 Pulse 72 11/13/23 07:15 Resp 16 11/13/23 07:15 BP 117/72 11/13/23 07:15 Pulse Ox 96 11/13/23 07:15 FiO2 Intake & Output 11/12/23 11/13/23 11/13/23 18:59 06:59 18:59 Output Total 1000 Balance -1000 Weight 69 kg Output: Urine 1000 Other: Voiding Method Urinal Urinal Incontinent Incontinent - Labs CBC & Chem 7: 11/13/23 05:03 11/13/23 05:03 Labs: Abnormal Lab Results - Last 24 Hours (Table) 11/12/23 11/12/23 11/12/23 Range/Units 06:07 06:07 11:24 WBC 4.20 L (4.50-10.00) X 10*3/uL RBC 4.34 L (4.40-5.60) X 10*6/uL RDW 14.9 H (11.5-14.5) % Plt Count 91 L (140-440) X 10*3/uL POC Glucose (mg/dL) 144 H (70-110) mg/dL Hemoglobin A1c 6.6 H (<=6.0) % 11/12/23 11/12/23 11/13/23 Range/Units 16:43 20:57 05:49 WBC (4.50-10.00) X 10*3/uL RBC (4.40-5.60) X 10*6/uL RDW (11.5-14.5) % Plt Count (140-440) X 10*3/uL POC Glucose (mg/dL) 151 H 149 H 156 H (70-110) mg/dL Hemoglobin A1c (<=6.0) %
[2023-11-13 16:49] LABS: Glucose,Whole Blood 167 mg/dL (70-110)
[2023-11-13] MEDS: LACTULOSE 20 GM/30 ML CUP PO SCH (20:53)
[2023-11-13 21:05] LABS: Glucose,Whole Blood 165 mg/dL (70-110)
[2023-11-14 05:46] LABS: Glucose,Whole Blood 133 mg/dL (70-110)
[2023-11-14 10:03] LABS: HCT 40.8 % (39.6-50.0); HGB 13.6 g/dL (13.0-17.0); MCH 30.8 pg (27.0-32.0); MCHC 33.3 g/dL (32.0-37.0); MCV 92.5 FL (80.0-97.0); Mean Platelet Volume 9.8 FL (9.5-12.2); NRBC Per 100 WBC 0 X 10*3/uL (0.00-0.01); Platelet Count 101 X 10*3/uL (140-440); RBC 4.41 X 10*6/uL (4.40-5.60); WBC 5.64 X 10*3/uL (4.50-10.00)
[2023-11-14 10:07] LABS: ALT 15 U/L (10-49); AST 25 U/L (14-35); Albumin 3.7 g/dL (3.8-4.9); Albumin/Globulin Ratio 1.42 Ratio (1.60-3.17); Alkaline Phosphatase 113 U/L (41-126); BUN/Creat Ratio 8.29 Ratio (12.00-20.00); Blood Urea Nitrogen 5.8 mg/dL (9.0-27.0); Calcium 8.8 mg/dL (8.7-10.3); Carbon Dioxide 21.4 mmol/L (21.6-31.8); Chloride 103 mmol/L (96-109); Globulin 2.6 g/dL (1.6-3.3); Glucose 140 mg/dL (70-110); Magnesium 1.7 mg/dL (1.5-2.4); Potassium 3.5 mmol/L (3.5-5.5); Sodium 137 mmol/L (135-145); Total Bilirubin 0.9 mg/dL (0.3-1.2); Total Protein 6.3 g/dL (6.2-8.2)
[2023-11-14 11:40] LABS: Glucose,Whole Blood 184 mg/dL (70-110)
--- NOTE | 2023-11-14 12:12 | P.PN ---
Subjective Progress Note Date: 11/14/23 Hospital course: Patient is a 78 year-old male with a past medical history of end-stage liver disease, CAD status post CABG, hypertension, hyperlipidemia, esophageal varices with previous GI bleed and banding, ulcerative colitis, and chronic back pain with right foot drop. He presented to the hospital on 11/10/2023 secondary to progressively worsening confusion over the past 3 days and reports of noncompliance with his medications including lactulose. Upon arrival to our facility, patient underwent evaluation in the emergency department. Vital signs upon arrival show blood pressure 118/70, heart rate 81, respiratory rate 18, temp 97.5 F, and SpO2 of 96% on room air. Chest x-ray was completed negative for acute cardiopulmonary process. Labs were completed and reviewed. CBC showing thrombocytopenia with platelet count of 139. Coagulation profile was normal findings. BMP revealed mild hypocarbia with bicarb of 19 otherwise normal findings. Blood glucose was 133. Ammonia level was elevated at 61. Troponin was negative at less than 0.012. Urinalysis negative for infection. Influenza A, influenza B, RSV, and COVID PCR were negative. Patient was admitted under our services at this time for treatment of hepatic encep halopathy. He is currently awaiting placement in residential facility for rehab with tentative discharge to rehab on 11/15/2023. Physical exam: Patient was seen and fully evaluated at bedside this morning. Patient awake and alert but remains oriented to person and place only and confused to time and situation. Patient expressing frustration stating he wants to go home when he was again informed of plans for residential facility, patient in agreement but expressed frustration. He denies having any pain or complaints. Vital signs reviewed and stable. General: Nontoxic, no distress and appears stated age. Derm: Skin warm and dry, normal coloration for ethnicity. Head: Atraumatic, normocephalic and symmetric. Eyes: EOM's intact, no lid lag, and anicteric sclera Mouth: no lip lesions, mucus membranes moist. Poor dentition. Cardiovascular: regular rate and rhythm with normal S1S2, no murmur, positive p osterior tibial pulses bilaterally, and cap refill < 2 seconds. Lungs: Respirations even, regular, and unlabored on room air. Lungs CTA bilaterally, no rhonchi, no rales, no wheezing, and no accessory muscle usage. Abdominal: soft, nontender to palpation, no guarding, no appreciable organomegaly Ext: Movement and sensation intact. No gross muscle atrophy, no edema, no contractures Neuro: Speech clear, face symmetrical and CN II-XII grossly intact with no noted focal neuro deficits Psych: Alert and oriented to person and place but remains confused to time and situation. Assessment and Plan of Care: Hepatic encephalopathy End-stage liver cirrhosis -Continue lactulose 20 g twice daily and rifaximin 550 mg twice daily.. -Neurochecks every 4 hours. -Telemetry monitoring. -Fall precautions. -PT/OT evaluated, patient will require discharge to SNF. -Continue to provide safe and supportive care and redirection as needed. Diabetes with hyperglycemia. -Hold metformin and Jardiance and continue glycemic protocol with NovoLog sliding scale. Hemoglobin A1c 6.6%. CAD status post CABG Hypertension Hyperlipidemia -Continue daily medication regimen with aspirin 81 mg daily, Zetia 10 mg nightly, Lasix 20 mg daily and Aldactone 50 mg daily. Data reviewed: -Morning labs reviewed. CBC showing continued thrombocytopenia with platelet count of 101 otherwise normal findings. BMP showing high anion gap metabolic acidosis slightly improving with chloride of 103, bicarb 21.4, and anion gap of 12.60. Blood glucose 140. Magnesium 1.7. Liver profile unremarkable with exception of hypoalbuminemia with albumin of 3.7 -Vital signs reviewed. Blood pressure running low this morning at 91/46, heart rate 71, respiratory rate 16, temp 98.1 F, and SpO2 of 99% on room air. CODE STATUS: Full code DVT prophylaxis: Subcutaneous heparin Anticipated discharge date: Insurance authorization requires a 3 night inpatient stay, per case management patient may be discharged to rehab on 11/15/2023. Anticipated discharge place: [facility] facility Patient was seen independently by Nurse Pracitioner. This document was prepared using [employer] dictation software. Please allow for errors in veterans contact representative, while rare they do occur. Objective - Vital Signs Vital signs: Vital Signs Temp 98.1 F 11/14/23 07:00 Pulse 71 11/14/23 07:00 Resp 16 11/14/23 07:00 BP 91/46 11/14/23 07:00 Pulse Ox 99 11/14/23 07:00 FiO2 Intake & Output 11/13/23 11/14/23 11/14/23 18:59 06:59 18:59 Output Total 400 350 100 Balance -400 -350 -100 Weight 65.5 kg Output: Urine 400 350 100 Other: Voiding Method Urinal Incontinent # Bowel Movements 1 - Labs CBC & Chem 7: 11/14/23 05:21 11/14/23 05:21 Labs: Abnormal Lab Results - Last 24 Hours (Table) 11/13/23 11/13/23 11/13/23 Range/Units 05:03 05:03 11:47 RDW 14.9 H (11.5-14.5) % Plt Count 115 L (140-440) X 10*3/uL Carbon Dioxide 19.9 L (21.6-31.8) mmol/L Anion Gap 13.10 H (4.00-12.00) mmol/L BUN 5.6 L (9.0-27.0) mg/dL BUN/Creatinine Ratio 8.00 L (12.00-20.00) Ratio Glucose 141 H (70-110) mg/dL POC Glucose (mg/dL) 151 H (70-110) mg/dL Albumin/Globulin Ratio 1.36 L (1.60-3.17) Ratio 11/13/23 11/13/23 11/14/23 Range/Units 16:48 21:01 05:44 RDW (11.5-14.5) % Plt Count (140-440) X 10*3/uL Carbon Dioxide (21.6-31.8) mmol/L Anion Gap (4.00-12.00) mmol/L BUN (9.0-27.0) mg/dL BUN/Creatinine Ratio (12.00-20.00) Ratio Glucose (70-110) mg/dL POC Glucose (mg/dL) 167 H 165 H 133 H (70-110) mg/dL Albumin/Globulin Ratio (1.60-3.17) Ratio
[2023-11-14] MEDS: POTASSIUM CHLORIDE ER 20 MEQ TAB.ER PO STA (13:18)
[2023-11-14] MEDS: MAGNESIUM SULFATE-D5W PMX 1 GM in DEXTROSE/WATER 1 100ML.BAG IVPB SCH (13:19)
[2023-11-14 16:59] LABS: Glucose,Whole Blood 165 mg/dL (70-110)
[2023-11-14 20:41] LABS: Glucose,Whole Blood 222 mg/dL (70-110)
[2023-11-15 05:56] LABS: Glucose,Whole Blood 140 mg/dL (70-110)
[2023-11-15 11:15] LABS: Glucose,Whole Blood 153 mg/dL (70-110)
--- NOTE | 2023-11-15 12:30 | P.DS ---
Providers Date of admission: 11/10/23 19:44 Expected date of discharge: 11/15/23 Attending physician: Liane Goodwin MD Primary care physician: [facility] Hospital Course: Discharge Diagnosis: Hepatic encephalopathy End-stage liver cirrhosis. Continue lactulose 20 g twice daily and rifaximin 550 mg twice daily. Recommend outpatient follow-up with Dr. Hodges, gastroe nterologist, once discharged from SNF. May hold rifaximin 550 mg twice daily while in residential facility and resume medication upon discharge from rehab. Diabetes with hyperglycemia. Hemoglobin A1c 6.6%. Patient to resume metformin and Jardiance. CAD status post CABG. Continue daily medication regimen with aspirin 81 mg daily, Zetia 10 mg nightly, Lasix 20 mg daily and Aldactone 50 mg daily. Hypertension Hyperlipidemia Hospital course: Patient is a 78 year-old male with a past medical history of end-stage liver disease, CAD status post CABG, hypertension, hyperlipidemia, esophageal varices with previous GI bleed and banding, ulcerative colitis, and chronic back pain with right foot drop. He presented to the hospital on 11/10/2023 secondary to progressively worsening confusion over the past 3 days and reports of noncompliance with his medications including lactulose. Upon arrival to our facility, patient underwent evaluation in the emergency department. Vital signs upon arrival show blood pressure 118/70, heart rate 81, respiratory rate 18, temp 97.5 F, and SpO2 of 96% on room air. Chest x-ray was completed negative for acute cardiopulmonary process. Labs were completed and reviewed. CBC showing thrombocytopenia with platelet count of 139. Coagulation profile was normal findings. BMP revealed mild hypocarbia with bicarb of 19 otherwise normal findings. Blood glucose was 133. Ammonia level was elevated at 61. Troponin was negative at less than 0.012. Urinalysis negative for infection. Influenza A, influenza B, RSV, and COVID PCR were negative. Patient was admit abhishek under our services at this time for treatment of hepatic encephalopathy. Lactulose dosages were increased and titrated back down for goal bowel movements of 2-3 daily. Patient continues to have episodes of confusion to situation and time but remains alert and oriented to person and place. Medically, patient is stable for discharge and being discharged to residential facility for rehab. Physical exam: Vital signs reviewed and stable. General: Nontoxic, no distress and appears stated age. Derm: Skin warm and dry, normal coloration for ethnicity. Head: Atraumatic, normocephalic and symmetric. Eyes: EOM's intact, no lid lag, and anicteric sclera Mouth: no lip lesions, mucus membranes moist. Poor dentition. Cardiovascular: regular rate and rhythm with normal S1S2, no murmur, positive posterior tibial pulses bilaterally, and cap refill < 2 seconds. Lungs: Respirations even, regular, and unlabored on room air. Lungs CTA bilaterally, no rhonchi, no rales, no wheezing, and no accessory muscle usage. Abdominal: soft, nontender to palpation, no guarding, no appreciable organomegaly Ext: Movement and sensation intact. No gross muscle atrophy, no edema, no contractures Neuro: Speech clear, face symmetrical and CN II-XII grossly intact with no noted focal neuro deficits Psych: Alert and oriented to person and place but remains confused to time and situation. A total of 34 minutes of time were spent preparing this complex discharge summary. Pt was discharged on 11/15/2023 at 9:52 AM. Patient was seen independently by Nurse Practitioner. This document was prepared using [id number] dictation software. 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 I reviewed the documentation as provided by the RYAN above, who is the original author of this note. I agree with the documented assessment and plan, with the following changes: none Patient Condition at Discharge: Stable Plan - Discharge Summary New Discharge Prescriptions: New Lactulose [Cephulac] 20 gm PO BID ml Continue Nitroglycerin Sl Tabs [Nitrostat] 0.4 mg SL Q5M PRN PRN Reason: Chest Pain Omeprazole [PriLOSEC] 20 mg PO DAILY Aspirin 81 mg PO DAILY metFORMIN HCL 1,000 mg PO BID Spironolactone [Aldactone] 50 mg PO DAILY Furosemide [Lasix] 20 mg PO DAILY Thiamine [Vitamin B-1] 100 mg PO DAILY Folic Acid 1 mg PO DAILY Ferrous Sulfate [Iron (65 MG Elemental)] 325 mg PO BID Ezetimibe [Zetia] 10 mg PO HS Mesalamine [Lialda] 1.2 mg PO BID Magnesium Oxide 420mg 420 mg PO BID traZODone HCL [Desyrel] 50 mg PO HS Empagliflozin [Jardiance] 10 mg PO DAILY Cyanocobalamin (Vitamin B-12) [Vitamin B-12] 1,000 mcg PO DAILY Gabapentin [Neurontin] 400 mg PO TID Discontinued Rifaximin [Xifaxan] 550 mg PO BID Lactulose [Constulose] 15 ml PO BID@0800,1400 Discharge Medication List Aspirin 81 mg PO DAILY 05/28/16 [History] Nitroglycerin Sl Tabs [Nitrostat] 0.4 mg SL Q5M PRN 05/28/16 [History] Omeprazole [PriLOSEC] 20 mg PO DAILY 05/28/16 [History] Cyanocobalamin (Vitamin B-12) [Vitamin B-12] 1,000 mcg PO DAILY 11/10/22 [H istory] Empagliflozin [Jardiance] 10 mg PO DAILY 11/10/22 [History] metFORMIN HCL 1,000 mg PO BID 11/10/22 [History] Ezetimibe [Zetia] 10 mg PO HS 04/16/23 [History] Ferrous Sulfate [Iron (65 MG Elemental)] 325 mg PO BID 04/16/23 [History] Folic Acid 1 mg PO DAILY 04/16/23 [History] Furosemide [Lasix] 20 mg PO DAILY 04/16/23 [History] Spironolactone [Aldactone] 50 mg PO DAILY 04/16/23 [History] Thiamine [Vitamin B-1] 100 mg PO DAILY 04/16/23 [History] Mesalamine [Lialda] 1.2 mg PO BID 07/05/23 [History] Gabapentin [Neurontin] 400 mg PO TID 11/10/23 [History] Magnesium Oxide 420mg 420 mg PO BID 11/10/23 [History] traZODone HCL [Desyrel] 50 mg PO HS 11/10/23 [History] Lactulose [Cephulac] 20 gm PO BID ml 11/15/23 [Rx] Follow up Appointment(s)/Referral(s): Fanny Hodges MD [STAFF PHYSICIAN] - 1 Week [facility] [Primary Care Provider] - 1-2 days Patient Instructions/Handouts: Cirrhosis (DC), Hepatic Encephalopathy (DC) Discharge Disposition: TRANSFER TO SNF/ECF
[2023-11-15 13:09] VITALS: BP 107/64; PULSE 70; RESP 18; TEMP 98.3
== END 2023-11-15 16:11 | DRG 442 ==
LOC: EC 17:35 → 3SCARD 19:43 → OBSVTOIN 19:44 → 3SCARD 20:50 → 4SSUR 22:08
PROVIDERS: ADMIT Internal Medicine; ATTEND Internal Medicine
DX: K76.82 Hepatic encephalopathy (principal); K51.90 Ulcerative colitis, unspecified, without complications; D69.6 Thrombocytopenia, unspecified; E11.65 Type 2 diabetes mellitus with hyperglycemia; E78.5 Hyperlipidemia, unspecified; F41.9 Anxiety disorder, unspecified; I10 Essential (primary) hypertension; I25.10 Atherosclerotic heart disease of native coronary artery without angina pectoris; I25.2 Old myocardial infarction; T47.3X6A Underdosing of saline and osmotic laxatives, initial encounter; G89.29 Other chronic pain; J44.9 Chronic obstructive pulmonary disease, unspecified; K59.00 Constipation, unspecified; K72.10 Chronic hepatic failure without coma; K74.60 Unspecified cirrhosis of liver; Z79.82 Long term (current) use of aspirin; Z79.84 Long term (current) use of oral hypoglycemic drugs; Z79.899 Other long term (current) drug therapy; Z87.891 Personal history of nicotine dependence; Z95.1 Presence of aortocoronary bypass graft; Z96.642 Presence of left artificial hip joint; Z91.128 Patient's intentional underdosing of medication regimen for other reason; Z71.3 Dietary counseling and surveillance; Z88.8 Allergy status to other drugs, medicaments and biological substances; Z20.822 Contact with and (suspected) exposure to COVID-19; Z86.16 Personal history of COVID-19; Z86.718 Personal history of other venous thrombosis and embolism; M54.9 Dorsalgia, unspecified; K21.9 Gastro-esophageal reflux disease without esophagitis; M21.371 Foot drop, right foot
CPT/HCPCS: 36415; 71046; 80053; 81003; 82140; 83036; 83735; 84484; 85025; 85027; 85610; 85730; 87636; 93005; 96360; 96361; 99285

== ENCOUNTER 2024-01-23 19:50 | Inpatient (IN) | payer OTHER, MEDICARE ==
--- NOTE | 2024-01-23 19:59 | ED ---
Psych HPI - General Stated Complaint: petition Time Seen by Provider: 01/23/24 19:58 Source: RN notes reviewed, old records reviewed Mode of arrival: ambulatory Limitations: no limitations - History of Present Illness Initial Comments: This is a 78-year-old male to the ER for evaluation patient presents today for evaluation regards to altered mental status delirium not acting appropriately acting confused MD Complaint: altered mental status -: days(s) Associated Psychiatric Symptoms: racing thoughts, auditory hallucinations, delusions Quality: constant, intermittent Worsens With: none - Related Data Home Medications Medication Instructions Recorded Confirmed Aspirin 81 mg PO DAILY 05/28/16 11/10/23 Nitroglycerin Sl Tabs [Nitrostat] 0.4 mg SL Q5M PRN 05/28/16 11/10/23 Omeprazole [PriLOSEC] 20 mg PO DAILY 05/28/16 11/10/23 Cyanocobalamin (Vitamin B-12) 1,000 mcg PO DAILY 11/10/22 11/10/23 [Vitamin B-12] Empagliflozin [Jardiance] 10 mg PO DAILY 11/10/22 11/10/23 metFORMIN HCL 1,000 mg PO BID 11/10/22 11/10/23 Ezetimibe [Zetia] 10 mg PO HS 04/16/23 11/10/23 Ferrous Sulfate [Iron (65 MG 325 mg PO BID 04/16/23 11/10/23 Elemental)] Folic Acid 1 mg PO DAILY 04/16/23 11/10/23 Furosemide [Lasix] 20 mg PO DAILY 04/16/23 11/10/23 Spironolactone [Aldactone] 50 mg PO DAILY 04/16/23 11/10/23 Thiamine [Vitamin B-1] 100 mg PO DAILY 04/16/23 11/10/23 Mesalamine [Lialda] 1.2 mg PO BID 07/05/23 11/10/23 Gabapentin [Neurontin] 400 mg PO TID 11/10/23 11/10/23 Magnesium Oxide 420mg 420 mg PO BID 11/10/23 11/10/23 traZODone HCL [Desyrel] 50 mg PO HS 11/10/23 11/10/23 Previous Rx's Medication Instructions Recorded Lactulose [Cephulac] 20 gm PO BID ml 11/15/23 Allergies Allergy/AdvReac Type Severity Reaction Status Date / Time [id number] Reductase AdvReac severe Verified 11/10/23 19:16 Inhibitor muscle [Gmextge-Qcr-Gad Reductase cramps Inhibitor] Review of Systems ROS Statement: Those systems with pertinent positive or pertinent negative responses have been documented in the HPI. ROS Other: All systems not noted in ROS Statement are negative. Past Medical History Past Medical History: Coronary Artery Disease (CAD), COPD, Diabetes Mellitus, Deep Vein Thrombosis (DVT), GERD/Reflux, Hyperlipidemia, Hypertension, Myocardial Infarction (NM), Osteoarthritis (OA) Additional Past Medical History / Comment(s): esophageal varices, able to stand to transfer, has nerve damage-rt drop foot Dec 2022-had hospital admission for GI bleed and had EGD w/ varices-was intubated & under sedation for varices treatment-transferred to [facility]-total hospitalization 18 days, continual pain rt leg pain,Ulcerative colitis. Chronic Back Pain. Dec 2022 covid infections,DVT years ago,no longer needing b/p meds Last Myocardial Infarction Date:: 1992 History of Any Multi-Drug Resistant Organisms: None Reported Past Surgical History: Coronary Bypass/CABG, Heart Catheterization, Joint Replacement Additional Past Surgical History / Comment(s): colonoscopy, emily cataract surgery, triple bypass 25 yrs ago, left hip replacement, EGDs w/ varices tx,mult heartcaths Past Anesthesia/Blood Transfusion Reactions: No Reported Reaction Additional Past Anesthesia/Blood Transfusion Reaction / Comment(s): no transfusi on reactions Past Psychological History: Anxiety Smoking Status: Former smoker - Past Family History Brother(s) Family Medical History: CVA/TIA, Deep Vein Thrombosis (DVT) Father Family Medical History: Cancer General Exam Limitations: altered mental status, physical limitation General appearance: alert, in no apparent distress Head exam: Present: atraumatic, normocephalic, normal inspection Eye exam: Present: normal appearance, PERRL, EOMI. Absent: scleral icterus, conjunctival injection, periorbital swelling ENT exam: Present: normal exam, mucous membranes moist Neck exam: Present: normal inspection. Absent: tenderness, meningismus, lymphadenopathy Respiratory exam: Present: normal lung sounds bilaterally. Absent: respiratory distress, wheezes, rales, rhonchi, stridor Cardiovascular Exam: Present: regular rate, normal rhythm, normal heart sounds. Absent: systolic murmur, diastolic murmur, rubs, gallop, clicks GI/Abdominal exam: Present: soft, normal bowel sounds. Absent: distended, tenderness, guarding, rebound, rigid Extremities exam: Present: normal inspection, full ROM, normal capillary refill. Absent: tenderness, pedal edema, joint swelling, calf tenderness Back exam: Present: normal inspection Neurological exam: Present: alert, oriented X3, CN II-XII intact Psychiatric exam: Present: normal affect, normal mood Skin exam: Present: warm, dry, intact, normal color. Absent: rash Course Vital Signs 01/23/24 01/23/24 01/23/24 20:09 22:26 23:05 Temperature 98.2 F Pulse Rate 91 77 Respiratory 20 16 Rate Blood Pressure 133/76 99/79 O2 Sat by Pulse 98 97 Oximetry - Reevaluation(s) Reevaluation #1: 01/23/24 23:11 Medical records reviewed Reevaluation #2: 01/23/24 23:11 Patient symptoms unchanged Reevaluation #3: 01/23/24 23:11 Patient informed of results questions answered Reevaluation #4: Was pt. sent in by a medical professional or institution (, PA, CLEANER HOUSEKEEPING, urgent care, hospital, or [place] health care facility...) When possible be specific @ -no Did you speak to anyone other than the patient for history (EMS, parent, family, police, friend...)? What history was obtained from this source @ -no Did you review nursing and triage notes (agree or disagree)? Why? @ -agree Are old charts reviewed (outside hosp., previous admission, EMS record, old EKG, old radiological studies, urgent care reports/EKG's, [place] health care facility records)? Report findings @ -yes Differential Diagnosis (chest pain, altered mental status, abdominal pain women, abdominal pain men, vaginal bleeding, weakness, fever, dyspnea, syncope, headache, dizziness, GI bleed, back pain, seizure, CVA, palpatations, mental health, musculoskeletal)? @ -prior EKG interpreted by me (3pts min.). @ -yes X-rays interpreted by me (1pt min.). @ -yes negative for acute disease CT interpreted by me (1pt min.). @ -no U/S interpreted by me (1pt. min.). @ -no What testing was considered but not performed or refused? (CT, X-rays, U/S, labs)? Why? @ -none What meds were considered but not given or refused? Why? @ -none Did you discuss the management of the patient with other professionals (professionals i.e. , PA, [employer]KEEP[employer], lab, RT, psych nurse, health and social care teacher, flat spring assembler, teacher, chief science officer, case management assistant)? Give summary @ -no Was smoking cessation discussed for >3mins.? @ -no Was critical care preformed (if so, how long)? @ -no Were there social determinants of health that impacted care today? How? (H omelessness, low income, unemployed, alcoholism, drug addiction, transportation, low edu. Level, literacy, decrease access to med. care, prison, rehab)? @ -none Was there de-escalation of care discussed even if they declined (Discuss DNR or withdrawal of care, Hospice)? DNR status @ -no What co-morbidities impacted this encounter? (DM, HTN, Smoking, COPD, CAD, Cancer, CVA, ARF, Chemo, Hep., AIDS, mental health diagnosis, sleep apnea, morbid obesity)? @ -none Was patient admitted / discharged? Hospital course, mention meds given and route, prescriptions, significant lab abnormalities, going to OR and other pertinent info. @ - Undiagnosed new problem with uncertain prognosis? @ -no Drug Therapy requiring intensive monitoring for toxicity (Heparin, Nitro, Insulin, Cardizem)? @ -no Were any procedures done? @ -no Diagnosis/symptom? @ - Acute, or Chronic, or Acute on Chronic? @ -Acute Uncomplicated (without systemic symptoms) or Complicated (systemic symptoms)? @ -Complicated Side effects of treatment? @ -no Exacerbation, Progression, or Severe Exacerbation? @ -exacerbation Poses a threat to life or bodily function? How? (Chest pain, USA, NM, pneumonia, PE, COPD, DKA, ARF, appy, cholecystitis, CVA, Diverticulitis, Homicidal, Suicidal, threat to staff... and all critical care pts) @ -yes Reevaluation #5: Differential Altered Mental Status: Hypoglycemia, DKA, hypercapnia, ETOH, overdose, CO poisoning, trauma, myxedema coma, HTN encephalopathy, infection, encephalitis, psychosis, intercranial hemorrhage, hepatic encephalopathy, meningitis, CVA, this is not meant to be an all-inclusive list - Consultations Consultation #1: Spoke with [facility] who agrees to admit this patient Medical Decision Making - Medical Decision Making 78 male will be admitted for elevated ammonia altered mental status UTI, need for psychiatric evaluation - Lab Data Result diagrams: 01/23/24 20:13 01/23/24 20:13 Lab Results 01/23/24 01/23/24 01/23/24 Range/Units 20:13 20:13 20:13 WBC 11.7 H (3.8-10.6) k/uL RBC 4.18 L (4.30-5.90) m/uL Hgb 13.2 (13.0-17.5) gm/dL Hct 40.0 (39.0-53.0) % MCV 95.6 (80.0-100.0) fL MCH 31.6 (25.0-35.0) pg MCHC 33.1 (31.0-37.0) g/dL RDW 15.3 (11.5-15.5) % Plt Count 151 (150-450) k/uL MPV 7.0 Neutrophils % 82 % Lymphocytes % 8 % Monocytes % 8 % Eosinophils % 0 % Basophils % 0 % Neutrophils # 9.6 H (1.3-7.7) k/uL Lymphocytes # 1.0 (1.0-4.8) k/uL Monocytes # 0.9 (0-1.0) k/uL Eosinophils # 0.0 (0-0.7) k/uL Basophils # 0.1 (0-0.2) k/uL PT 10.9 (10.0-12.5) sec INR 1.0 (<1.2) APTT 23.2 (22.0-30.0) sec Sodium (137-145) mmol/L Potassium (3.5-5.1) mmol/L Chloride (98-107) mmol/L Carbon Dioxide (22-30) mmol/L Anion Gap mmol/L BUN (9-20) mg/dL Creatinine (0.66-1.25) mg/dL Est GFR (CKD-EPI)AfAm (>60 ml/min/1.73 sqM) Est GFR (CKD-EPI)NonAf (>60 ml/min/1.73 sqM) Glucose (74-99) mg/dL Calcium (8.4-10.2) mg/dL Total Bilirubin (0.2-1.3) mg/dL AST (17-59) U/L ALT (4-49) U/L Alkaline Phosphatase (38-126) U/L Ammonia (<30) umol/L Total Protein (6.3-8.2) g/dL Albumin (3.5-5.0) g/dL Urine Color Colorless Urine Appearance Cloudy (Clear) Urine pH 5.5 (5.0-8.0) Ur Specific Dawson 1.017 (1.001-1.035) Urine Protein Trace H (Negative) Urine Glucose (UA) 4+ H (Negative) Urine Ketones 1+ H (Negative) Urine Blood Trace H (Negative) Urine Nitrite Positive (Negative) Urine Bilirubin Negative (Negative) Urine Urobilinogen <2.0 (<2.0) mg/dL Ur Leukocyte Esterase Large H (Negative) Urine RBC 12 H (0-5) /hpf Urine WBC >182 H (0-5) /hpf Urine WBC Clumps Many H (None) /hpf Ur Squamous Epith Cells 1 (0-4) /hpf Calcium Oxalate Crystal Rare H (None) /hpf Urine Bacteria Occasional H (None) /hpf Urine Mucus Rare H (None) /hpf Urine Yeast (Budding) Few H (None) /hpf Urine Opiates Screen Not Detected (NotDetected) Ur Oxycodone Screen Not Detected (NotDetected) Urine Methadone Screen Not Detected (NotDetected) Ur Barbiturates Screen Not Detected (NotDetected) U Tricyclic Antidepress Not Detected (NotDetected) Ur Phencyclidine Scrn Not Detected (NotDetected) Ur Amphetamines Screen Not Detected (NotDetected) U Methamphetamines Scrn Not Detected (NotDetected) U Benzodiazepines Scrn Not Detected (NotDetected) Urine Cocaine Screen Not Detected (NotDetected) U Marijuana (THC) Screen Not Detected (NotDetected) Serum Alcohol mg/dL 01/23/24 01/23/24 Range/Units 20:13 20:13 WBC (3.8-10.6) k/uL RBC (4.30-5.90) m/uL Hgb (13.0-17.5) gm/dL Hct (39.0-53.0) % MCV (80.0-100.0) fL MCH (25.0-35.0) pg MCHC (31.0-37.0) g/dL RDW (11.5-15.5) % Plt Count (150-450) k/uL MPV Neutrophils % % Lymphocytes % % Monocytes % % Eosinophils % % Basophils % % Neutrophils # (1.3-7.7) k/uL Lymphocytes # (1.0-4.8) k/uL Monocytes # (0-1.0) k/uL Eosinophils # (0-0.7) k/uL Basophils # (0-0.2) k/uL PT (10.0-12.5) sec INR (<1.2) APTT (22.0-30.0) sec Sodium 132 L (137-145) mmol/L Potassium 4.3 (3.5-5.1) mmol/L Chloride 97 L (98-107) mmol/L Carbon Dioxide 17 L (22-30) mmol/L Anion Gap 18 mmol/L BUN 27 H (9-20) mg/dL Creatinine 0.98 (0.66-1.25) mg/dL Est GFR (CKD-EPI)AfAm 86 (>60 ml/min/1.73 sqM) Est GFR (CKD-EPI)NonAf 74 (>60 ml/min/1.73 sqM) Glucose 151 H (74-99) mg/dL Calcium 9.6 (8.4-10.2) mg/dL Total Bilirubin 1.4 H (0.2-1.3) mg/dL AST 33 (17-59) U/L ALT 31 (4-49) U/L Alkaline Phosphatase 94 (38-126) U/L Ammonia 52 H (<30) umol/L Total Protein 7.8 (6.3-8.2) g/dL Albumin 4.6 (3.5-5.0) g/dL Urine Color Urine Appearance (Clear) Urine pH (5.0-8.0) Ur Specific Dawson (1.001-1.035) Urine Protein (Negative) Urine Glucose (UA) (Negative) Urine Ketones (Negative) Urine Blood (Negative) Urine Nitrite (Negative) Urine Bilirubin (Negative) Urine Urobilinogen (<2.0) mg/dL Ur Leukocyte Esterase (Negative) Urine RBC (0-5) /hpf Urine WBC (0-5) /hpf Urine WBC Clumps (None) /hpf Ur Squamous Epith Cells (0-4) /hpf Calcium Oxalate Crystal (None) /hpf Urine Bacteria (None) /hpf Urine Mucus (None) /hpf Urine Yeast (Budding) (None) /hpf Urine Opiates Screen (NotDetected) Ur Oxycodone Screen (NotDetected) Urine Methadone Screen (NotDetected) Ur Barbiturates Screen (NotDetected) U Tricyclic Antidepress (NotDetected) Ur Phencyclidine Scrn (NotDetected) Ur Amphetamines Screen (NotDetected) U Methamphetamines Scrn (NotDetected) U Benzodiazepines Scrn (NotDetected) Urine Cocaine Screen (NotDetected) U Marijuana (THC) Screen (NotDetected) Serum Alcohol <10 mg/dL - EKG Data -: EKG Interpreted by Me (EKG is sinus 88 MO 140 QRS 77 QTc 418) - Radiology Data Radiology results: report reviewed (CT brain is negative for acute disease), image reviewed Disposition Clinical Impression: Altered mental status, Encephalopathy, Diarrhea, UTI (urinary tract infection), Delirium due to general medical condition, Increased ammonia level Disposition: ADMITTED IP TO THIS HOSP Condition: Fair Is patient prescribed a controlled substance at d/c from ED?: No Time of Disposition: 22:00
[2024-01-23 20:35] LABS: Basophils # (A) 0.1 k/uL (0-0.2); Basophils % (A) 0 %; Eosinophils % (A) 0 %; HGB 13.2 gm/dL (13.0-17.5); Lymphocytes % (A) 8 %; MCH 31.6 pg (25.0-35.0); MCHC 33.1 g/dL (31.0-37.0); MCV 95.6 fL (80.0-100.0); Monocytes # (A) 0.9 k/uL (0-1.0); Monocytes % (A) 8 %; Neutrophils # (A) 9.6 k/uL (1.3-7.7); Neutrophils % (A) 82 %; Platelet Count 151 k/uL (150-450); RBC 4.18 m/uL (4.30-5.90); RDW 15.3 % (11.5-15.5); WBC 11.7 k/uL (3.8-10.6)
[2024-01-23 20:52] LABS: Prothrombin Time 10.9 sec (10.0-12.5)
[2024-01-23 20:53] LABS: Partial Thromboplastin Time 23.2 sec (22.0-30.0)
[2024-01-23 21:00] LABS: AST 33 U/L (17-59); African American GFR (CKD) 86 (>60 ml/min/1.73 sqM); Albumin 4.6 g/dL (3.5-5.0); Alcohol <10 mg/dL; Alkaline Phosphatase 94 U/L (38-126); Anion Gap 18 mmol/L; Appearance,Urine Cloudy (Clear); Bacteria,Urine Occasional /hpf; Bilirubin,Urine Negative (Negative); Blood Urea Nitrogen 27 mg/dL (9-20); Blood,Urine Trace (Negative); Budding Yeast,Urine Few /hpf; Calcium 9.6 mg/dL (8.4-10.2); Calcium Oxalate Crystals,Urine Rare /hpf; Carbon Dioxide 17 mmol/L (22-30); Chloride 97 mmol/L (98-107); Color,Urine Colorless; Glucose 151 mg/dL (74-99); Glucose,Urine (UA) 4+ (Negative); Ketones,Urine 1+ (Negative); Leukocyte Esterase,Urine Large (Negative); Mucus,Urine Rare /hpf; Nitrite,Urine Positive (Negative); Non-African American GFR(CKD) 74 (>60 ml/min/1.73 sqM); PH, Urine 5.5 (5.0-8.0); Potassium 4.3 mmol/L (3.5-5.1); Protein,Urine Trace (Negative); RBC,Urine 12 /hpf (0-5); Sodium 132 mmol/L (137-145); Specific Gravity,Urine 1.017 (1.001-1.035); Squamous Epithelial Cell,Urine 1 /hpf (0-4); Total Bilirubin 1.4 mg/dL (0.2-1.3); Total Protein 7.8 g/dL (6.3-8.2); Urobilinogen,Urine <2.0 mg/dL (<2.0); WBC,Urine >182 /hpf (0-5)
[2024-01-23 21:06] LABS: ALT 31 U/L (4-49)
[2024-01-23 21:14] LABS: Amphetamine Screen,Urine Not Detected (NotDetected); Barbiturate Screen,Urine Not Detected (NotDetected); Benzodiazepines Screen,Urine Not Detected (NotDetected); Cocaine Screen,Urine Not Detected (NotDetected); Methadone Screen, Urine Not Detected (NotDetected); Opiate Screen,Urine Not Detected (NotDetected); Oxycodone Screen, Urine Not Detected (NotDetected); Phencyclidine Screen,Urine Not Detected (NotDetected); Tricyclic Antidepressant,Urine Not Detected (NotDetected); Urn Cannabinoid Scrn Not Detected (NotDetected)
[2024-01-23] MEDS: HALOPERIDOL LACTATE 5 MG/ML 1 ML VIAL IM STA (21:30)
[2024-01-23] MEDS: SODIUM CHLORIDE 0.9% 1,000 ML IV ONE (21:33)
[2024-01-23] MEDS: LORazepam 2 MG/ML INJ IV STA (21:35)
[2024-01-23] MEDS ORDERED: NALOXONE 0.4 MG/ML 1 ML VIAL IV PRN (22:11)
[2024-01-23] MEDS ORDERED: LORazepam 0.5 MG TAB PO PRN (22:11)
[2024-01-23] MEDS: SODIUM CHLORIDE 0.9% 1,000 ML IV SCH (22:35)
--- NOTE | 2024-01-24 00:35 | CT ---
EXAM: CT Head Without Intravenous Contrast CLINICAL HISTORY: ITS.REASON CT Reason: Altered mental status TECHNIQUE: Axial computed tomography images of the head/brain without intravenous contrast. This CT exam was performed using one or more of the following dose reduction techniques: automated exposure control, adjustment of the mA and/or kV according to patient size, and/or use of iterative reconstruction technique. COMPARISON: No relevant prior studies available. FINDINGS: Brain: Moderate low-attenuation foci cerebral white matter. Cerebral volume loss. No hemorrhage. Ventricles: No acute findings. No ventriculomegaly. Bones/joints: Unremarkable. No acute fracture. Soft tissues: Unremarkable. Sinuses: Unremarkable as visualized. No acute sinusitis. Mastoid air cells: Unremarkable as visualized. No mastoid effusion. IMPRESSION: No acute findings in the head/brain. Moderate chronic small vessel ischemic disease.
[2024-01-24] MEDS ORDERED: DEXTROSE 50% SYRINGE 50 ML IVP PRN ×2 (08:30)
[2024-01-24] MEDS: SODIUM CHLORIDE 0.9% 500 ML 500 ML IV ONE (08:46)
[2024-01-24] MEDS ORDERED: QUEtiapine 25 MG TAB PO PRN (11:08)
[2024-01-24 12:11] LABS: Glucose,Whole Blood 120 mg/dL (70-110)
[2024-01-24] MEDS: INSULIN ASPART (NovoLOG) 100 UNIT/ML VIAL SQ SCH (12:12)
--- NOTE | 2024-01-24 15:26 | P.HPIM ---
History of Present Illness H&P Date: 01/24/24 History of present illness; Patient is 78-year-old male with CAD, COPD, diabetes mellitus, history of DVT, history of CABG, and esophageal varices presenting with altered mental status. Patient is highly distractible with racing thoughts, pressured speech with delusions. Patient states that he has had urinary incontinence for the last 3 weeks. He states he has no other history of urinary incontinence. He has no stated pain or other concerns at this time. Unable to obtain further history due to poor mentation. EKG done in the ER independently interpreted showed heart rate of 88, no ST se gment elevation or depression seen, no T-wave inversions seen. CT head done independently interpreted showed no acute intracranial process. Spoke with the ER physician, patient admission was accepted by internal medicine service for treatment of metabolic encephalopathy and UTI. REVIEW OF SYSTEMS: Unable to obtain due to metabolic encephalopathy PHYSICAL EXAMINATION: Vitals reviewed GENERAL: No acute distress. Well developed, well nourished. HEENT: Pupils are round and equally reacting to light. EOMI. No scleral icterus. Normocephalic, atraumatic. CARDIOVASCULAR: S1 and S2 present. No murmurs, rubs, or gallops. PULMONARY: Chest is clear to auscultation, no wheezing, rhonchi, or crackles. ABDOMEN: Soft, nontender, nondistended, normoactive bowel sounds. No palpable organomegaly. MUSCULOSKELETAL: No apparent joint swelling and deformities. EXTREMITIES: No apparent cyanosis, clubbing, or pedal edema. NEUROLOGICAL: Racing thoughts, delusions. The patient is alert and oriented x3, Gross neurological examination did not reveal any focal deficits. SKIN: No apparent rashes. Assessment and plan Patient is 78-year-old male with CAD, history of CABG, COPD, diabetes mellitus, history of DVT, esophageal varices presenting with altered mental status. # Metabolic encephalopathy possibly secondary to UTI versus hepatic Initial WBC 11.7 UA findings positive for nitrates and leukocyte esterase and WBCs greater than 182 Urine culture pending Ammonia 52 elevated, CK 30 decreased, bicarb 17, anion gap 18 Continue ceftriaxone 2 g IV daily Begin lactulose 20 g 3 times daily, goal 3-5 bowel movements Seroquel 12.5 mg nightly as needed for agitation Resume home trazodone at bedtime Monitor CBC #Hyponatremia hypochloremic, hypovolemic Initial sodium 132, chloride 97 are decreased Continue IV NS 75 mL/h Continue to monitor CMP #Diabetes mellitus, type 2 #Hyperglycemia Holding oral medications Begin Accu-Cheks and low-dose sliding scale, monitor for hypoglycemia Pending HbA1c Chronic Medical Conditions #Hyperlidemia - Resume home ezetimibe #GERD - Resume home medication #Chronic back pain Decrease home gabapentin 200 mg 3 times daily F: IV Normal saline 75 mL/hr E: Replete as needed N: Regular diet DVT ppx: Subq Lovenox 40 meq daily Code status: Full code Anticipated discharge place: Pending clinical course Anticipated discharge time: Greater than 2 days Dictation was produced using [employer] dictation software. Please excuse any grammatical, word or spelling errors. Dr. Jt MD I have performed a history and physical examination and medical decision making of this patient, discussed the same with the the resident, and agree with the assessment and plan as written. I performed brief physical exam. Past Medical History Past Medical History: Coronary Artery Disease (CAD), COPD, Diabetes Mellitus, Deep Vein Thrombosis (DVT), GERD/Reflux, Hyperlipidemia, Hypertension, Myocardial Infarction (GA), Osteoarthritis (OA) Additional Past Medical History / Comment(s): esophageal varices; able to stand to transfer, has nerve damage; rt drop foot Dec 2022-had hospital admission for GI bleed and had EGD w/varices-was intubated for varices treatment, transferred to [facility], total hospitalization 18 days, chronic rt leg pain; ulcerative colitis; chronic back pain; 01/14 covid,DVT "years ago"; no longer needing b/p meds; pt on lactulose for liver failure Last Myocardial Infarction Date:: 1992 History of Any Multi-Drug Resistant Organisms: None Reported Past Surgical History: Coronary Bypass/CABG, Heart Catheterization, Joint Replacement Additional Past Surgical History / Comment(s): colonoscopy, emily cataract surgery, triple bypass 25 yrs ago, left hip replacement, EGDs w/ varices tx, multiple heart caths Past Anesthesia/Blood Transfusion Reactions: No Reported Reaction Additional Past Anesthesia/Blood Transfusion Reaction / Comment(s): no transfusion reactions Smoking Status: Former smoker - Past Family History Brother(s) Family Medical History: CVA/TIA, Deep Vein Thrombosis (DVT) Father Family Medical History: Cancer Medications and Allergies Home Medications Medication Instructions Recorded Confirmed Type Aspirin 81 mg PO DAILY 05/28/16 01/24/24 History Nitroglycerin Sl Tabs [Nitrostat] 0.4 mg SL Q5M PRN 05/28/16 01/24/24 History Omeprazole [PriLOSEC] 20 mg PO DAILY 05/28/16 01/24/24 History Empagliflozin [Jardiance] 10 mg PO DAILY 11/10/22 01/24/24 History metFORMIN HCL 1,000 mg PO BID 11/10/22 01/24/24 History Ezetimibe [Zetia] 10 mg PO HS 04/16/23 01/24/24 History Ferrous Sulfate [Iron (65 MG 325 mg PO BID 04/16/23 01/24/24 History Elemental)] Folic Acid 1 mg PO DAILY 04/16/23 01/24/24 History Furosemide [Lasix] 20 mg PO DAILY 04/16/23 01/24/24 History Spironolactone [Aldactone] 50 mg PO DAILY 04/16/23 01/24/24 History Thiamine [Vitamin B-1] 100 mg PO DAILY 04/16/23 01/24/24 History Mesalamine [Lialda] 1.2 mg PO BID 07/05/23 01/24/24 History Gabapentin [Neurontin] 400 mg PO TID 11/10/23 01/24/24 History traZODone HCL [Desyrel] 50 mg PO HS 11/10/23 01/24/24 History Lactulose [Cephulac] 20 gm PO BID ml 11/15/23 01/24/24 Rx Acetaminophen Tab [Tylenol] 650 mg PO Q6H PRN 01/24/24 01/24/24 History Cholecalciferol [Vitamin D3 (25 50 mcg PO DAILY 01/24/24 01/24/24 History Mcg = 1000 Iu)] Cyanocobalamin [Vitamin B-12] 1,000 mcg PO DAILY 01/24/24 01/24/24 History Magnesium Oxide [Mag-Ox] 400 mg PO BID 01/24/24 01/24/24 History Allergies Allergy/AdvReac Type Severity Reaction Status Date / Time Segweho-OZW-ZoD Reductase AdvReac severe Verified 01/24/24 09:52 Inhibitor muscle [Ujftguh-Bco-Joj Reductase cramps Inhibitor] Physical Exam Vitals: Vital Signs Temp Pulse Pulse Resp BP BP Pulse Ox 01/24/24 12:08 98 F 69 18 116/49 97 01/24/24 07:10 98.1 F 64 18 88/41 97 01/24/24 02:02 16 01/23/24 23:54 97.6 F 90 16 119/67 98 01/23/24 23:15 98.4 F 01/23/24 23:05 77 16 99/79 97 01/23/24 22:26 98.2 F 01/23/24 20:09 91 20 133/76 98 Intake and Output 01/23/24 01/24/24 01/24/24 22:59 06:59 14:59 Intake Total 590 Output Total 400 150 Balance 190 -150 Intake: Oral 590 Output: Urine 400 150 Other: Voiding Method Urinal Urinal # Voids 1 # Bowel Movements 0 1 Weight 80.739 kg 80.739 kg Results CBC & Chem 7: 01/25/24 04:00 01/25/24 04:00 Labs: Abnormal Lab Results - Last 24 Hours (Table) 01/23/24 01/23/24 01/23/24 Range/Units 20:13 20:13 20:13 WBC 11.7 H (3.8-10.6) k/uL RBC 4.18 L (4.30-5.90) m/uL Neutrophils # 9.6 H (1.3-7.7) k/uL Sodium 132 L (137-145) mmol/L Chloride 97 L (98-107) mmol/L Carbon Dioxide 17 L (22-30) mmol/L BUN 27 H (9-20) mg/dL Glucose 151 H (74-99) mg/dL POC Glucose (mg/dL) (70-110) mg/dL Total Bilirubin 1.4 H (0.2-1.3) mg/dL Ammonia (<30) umol/L Creatine Kinase (55-170) U/L Urine Protein Trace H (Negative) Urine Glucose (UA) 4+ H (Negative) Urine Ketones 1+ H (Negative) Urine Blood Trace H (Negative) Ur Leukocyte Esterase Large H (Negative) Urine RBC 12 H (0-5) /hpf Urine WBC >182 H (0-5) /hpf Urine WBC Clumps Many H (None) /hpf Calcium Oxalate Crystal Rare H (None) /hpf Urine Bacteria Occasional H (None) /hpf Urine Mucus Rare H (None) /hpf Urine Yeast (Budding) Few H (None) /hpf 01/23/24 01/24/24 01/24/24 Range/Units 20:13 08:35 12:09 WBC (3.8-10.6) k/uL RBC (4.30-5.90) m/uL Neutrophils # (1.3-7.7) k/uL Sodium (137-145) mmol/L Chloride (98-107) mmol/L Carbon Dioxide (22-30) mmol/L BUN (9-20) mg/dL Glucose (74-99) mg/dL POC Glucose (mg/dL) 120 H (70-110) mg/dL Total Bilirubin (0.2-1.3) mg/dL Ammonia 52 H (<30) umol/L Creatine Kinase 30 L (55-170) U/L Urine Protein (Negative) Urine Glucose (UA) (Negative) Urine Ketones (Negative) Urine Blood (Negative) Ur Leukocyte Esterase (Negative) Urine RBC (0-5) /hpf Urine WBC (0-5) /hpf Urine WBC Clumps (None) /hpf Calcium Oxalate Crystal (None) /hpf Urine Bacteria (None) /hpf Urine Mucus (None) /hpf Urine Yeast (Budding) (None) /hpf Thrombosis Risk Factor Assmnt - Choose All That Apply Any of the Below Risk Factors Present?: Yes Each Factor Represents 1 point: Abnormal pulmonary function (COPD), Obesity (BMI >25) Other Risk Factors: Yes Each Risk Factor Represents 3 Points: Age 75 years or older Other congenital or acquired thrombophilia - If yes, enter type in comment: No Thrombosis Risk Factor Assessment Total Risk Factor Score: 5 Thrombosis Risk Factor Assessment Level: High Risk
[2024-01-24] MEDS: GABAPENTIN 100 MG CAP PO SCH (16:34)
[2024-01-24] MEDS: LACTULOSE 20 GM/30 ML CUP PO SCH (16:34)
[2024-01-24] MEDS: ASPIRIN 81 MG PO SCH (16:34)
[2024-01-24 17:17] LABS: Glucose,Whole Blood 119 mg/dL (70-110)
[2024-01-24 20:04] LABS: Glucose,Whole Blood 211 mg/dL (70-110)
[2024-01-24] MEDS ORDERED: LACTULOSE 20 GM/30 ML CUP PO SCH (21:00)
[2024-01-24] MEDS: EZETIMIBE 10 MG TAB PO SCH (21:54)
[2024-01-24] MEDS: MAGNESIUM OXIDE 400 MG TAB PO SCH (21:54)
[2024-01-24] MEDS: FERROUS SULFATE 325 MG TAB PO SCH (21:54)
[2024-01-24] MEDS: traZODone HCL 50 MG TAB PO SCH (21:54)
[2024-01-25 07:13] LABS: Glucose,Whole Blood 134 mg/dL (70-110)
[2024-01-25] MEDS: PANTOPRAZOLE 40 MG TABLET PO SCH (08:14)
[2024-01-25] MEDS: THIAMINE 100 MG TAB PO SCH (08:14)
[2024-01-25] MEDS: ENOXAPARIN 40 MG/0.4 ML SYRINGE SQ SCH (08:14)
[2024-01-25] MEDS: CYANOCOBALAMIN 500 MCG TAB PO SCH (08:14)
[2024-01-25] MEDS: FOLIC ACID 1 MG TAB PO SCH (08:14)
[2024-01-25 08:20] LABS: Basophils # (A) 0.04 X 10*3/uL (0.00-0.10); Basophils % (A) 0.9 %; Eosinophils # (A) 0.11 X 10*3/uL (0.04-0.35); Eosinophils % (A) 2.4 %; HCT 29.5 % (39.6-50.0); HGB 10.1 g/dL (13.0-17.0); Lymphocytes # (A) 1.15 X 10*3/uL (0.90-5.00); Lymphocytes % (A) 25.1 %; MCH 32.4 pg (27.0-32.0); MCHC 34.2 g/dL (32.0-37.0); MCV 94.6 FL (80.0-97.0); Mean Platelet Volume 10.5 FL (9.5-12.2); Monocytes # (A) 0.83 X 10*3/uL (0.20-1.00); Monocytes % (A) 18.1 %; NRBC Per 100 WBC 0 X 10*3/uL (0.00-0.01); Neutrophils # (A) 2.44 X 10*3/uL (1.80-7.70); Neutrophils % (A) 53.3 %; Platelet Count 87 X 10*3/uL (140-440); RBC 3.12 X 10*6/uL (4.40-5.60); RDW 15.8 % (11.5-14.5); WBC 4.58 X 10*3/uL (4.50-10.00)
[2024-01-25 09:17] LABS: ALT 17 U/L (10-49); AST 29 U/L (14-35); Albumin 3.5 g/dL (3.8-4.9); Albumin/Globulin Ratio 1.52 Ratio (1.60-3.17); Alkaline Phosphatase 64 U/L (41-126); Blood Urea Nitrogen 16.1 mg/dL (9.0-27.0); Calcium 8.4 mg/dL (8.7-10.3); Chloride 106 mmol/L (96-109); Globulin 2.3 g/dL (1.6-3.3); Glucose 125 mg/dL (70-110); Potassium 3.9 mmol/L (3.5-5.5); Sodium 136 mmol/L (135-145); Total Bilirubin 0.5 mg/dL (0.3-1.2); Total Protein 5.8 g/dL (6.2-8.2)
[2024-01-25 12:11] LABS: Glucose,Whole Blood 129 mg/dL (70-110)
--- NOTE | 2024-01-25 16:01 | P.PN ---
Subjective Progress Note Date: 01/25/24 History of present illness; Patient is 78-year-old male with CAD, COPD, diabetes mellitus, history of DVT, history of CABG, UC and esophageal varices presenting with altered mental status. Patient is highly distractible with racing thoughts, pressured speech with delusions. Patient states that he has had urinary incontinence for the last 3 weeks. He states he has no other history of urinary incontinence. He has no stated pain or other concerns at this time. Unable to obtain further history due to poor mentation. EKG done in the ER independently interpreted showed heart rate of 88, no ST segment elevation or depression seen, no T-wave inversions seen. CT head done independently interpreted showed no acute intracranial process. Progress notes: January 25, 2024 Patient seen and examined at bedside. No events overnight. Patient from [facility] and began to have concerning behavior and was brought here by family. He has had 1 bowel movement overnight. He continues to have poor mentation and is easily distracted with racing thoughts. He remains on ceftriaxone 2 g IVPB daily. His initial ammonia has decreased to 36 which is improved. He is on lactulose with a goal of 3-5 bowel movements daily. Labs WBC 4.58, hemoglobin 10.1, sodium 136, potassium 3.9, bicarb 18, BUN 16.1, creatinine 0.7, glucose 134, total bilirubin 0.5. REVIEW OF SYSTEMS: Reviewed, pertinent positive and negatives as above PHYSICAL EXAMINATION: Vitals reviewed GENERAL: No acute distress. Well developed, well nourished. HEENT: Pupils are round and equally reacting to light. EOMI. No scleral icterus. Normocephalic, atraumatic. CARDIOVASCULAR: S1 and S2 present. No murmurs, rubs, or gallops. PULMONARY: Chest is clear to auscultation, no wheezing, rhonchi, or crackles. ABDOMEN: Soft, nontender, nondistended, normoactive bowel sounds. No palpable organomegaly. MUSCULOSKELETAL: No apparent joint swelling and deformities. EXTREMITIES: No apparent cyanosis, clubbing, or pedal edema. Mild asterixis NEUROLOGICAL: Racing thoughts, delusions. The patient is alert and oriented x2, Gross neurological examination did not reveal any focal deficits. SKIN: No apparent rashes. Assessment and plan Patient is 78-year-old male with CAD, history of CABG, UC, COPD, diabetes mellitus, history of DVT, esophageal varices presenting with altered mental status. # Hepatic encephalopathy, due to [place] advanced liver disease Initial ammonia 52 => 36, initial CK 30 decreased, bicarb 17, anion gap 18 Continue ceftriaxone 2 g IV daily Begin lactulose 20 g 3 times daily, goal 3-5 bowel movements Resume home medications Seroquel 12.5 mg nightly as needed for agitation Resume home trazodone at bedtime PT OT consulted Monitor CBC #UTI Initial WBC 11.7 => 4.58 Urine culture no growth Continue ceftriaxone 2 g IV daily UA findings positive for nitrates and leukocyte esterase and WBCs greater than 182 #Hyponatremia hypochloremic, hypovolemic, improved Initial sodium 132, chloride 97 are decreased Continue IV NS 75 mL/h Continue to monitor CMP #Diabetes mellitus, type 2 #Hyperglycemia Holding oral medications Begin Accu-Cheks and low-dose sliding scale, monitor for hypoglycemia HbA1c 6.6 Chronic Medical Conditions #Hyperlidemia - Resume home ezetimibe #GERD - Resume home medication #Chronic back pain Decrease home gabapentin 200 mg 3 times daily F: IV Normal saline 75 mL/hr E: Replete as needed N: Regular diet DVT ppx: Subq Lovenox 40 meq daily Code status: Full code Anticipated discharge place: [facility] Anticipated discharge time: 1 to 2 days Dictation was produced using [employer] dictation software. Please excuse any grammatical, word or spelling errors. Dr. Jt MD I have performed a history and physical examination and medical decision making of this patient, discussed the same with the the resident, and agree with the assessment and plan as written. I performed brief physical exam. Objective - Vital Signs Vital signs: Vital Signs Temp 98.2 F 01/25/24 13:17 Pulse 64 01/25/24 14:00 Resp 18 01/25/24 13:17 BP 98/44 01/25/24 14:00 Pulse Ox 97 01/25/24 14:00 FiO2 Intake & Output 01/24/24 01/25/24 01/25/24 18:59 06:59 18:59 Intake Total 1375 590 Output Total 350 400 390 Balance 1025 190 -390 Intake: Intake, IV Titration 1375 Amount Sodium Chloride 0.9% 1, 825 000 ml @ 75 mls/hr IV . [id number] KATELYNN Rx#:[id number] Sodium Chloride 0.9% 500 500 ml 500 ml @ 999 mls/hr IV .Q31M ONE Rx#:[id number] cefTRIAXone 2 gm In 50 Sodium Chloride 0.9% 50 ml @ 100 mls/hr IVPB Q24HR [facility] Rx#:[id number] Oral 590 Output: Urine 350 400 390 Other: Voiding Method Urinal Urinal Urinal # Voids 1 # Bowel Movements 1 1 - Labs CBC & Chem 7: 01/25/24 04:00 01/25/24 04:00 Labs: Abnormal Lab Results - Last 24 Hours (Table) 01/24/24 01/24/24 01/25/24 Range/Units 17:16 20:02 04:00 RBC 3.12 L (4.40-5.60) X 10*6/uL Hgb 10.1 L (13.0-17.0) g/dL Hct 29.5 L (39.6-50.0) % MCH 32.4 H (27.0-32.0) pg RDW 15.8 H (11.5-14.5) % Plt Count 87 L (140-440) X 10*3/uL Carbon Dioxide (21.6-31.8) mmol/L BUN/Creatinine Ratio (12.00-20.00) Ratio Glucose (70-110) mg/dL POC Glucose (mg/dL) 119 H 211 H (70-110) mg/dL Hemoglobin A1c (<=6.0) % Calcium (8.7-10.3) mg/dL Ammonia (<30) umol/L Total Protein (6.2-8.2) g/dL Albumin (3.8-4.9) g/dL Albumin/Globulin Ratio (1.60-3.17) Ratio 01/25/24 01/25/24 01/25/24 Range/Units 04:00 04:00 04:02 RBC (4.40-5.60) X 10*6/uL Hgb (13.0-17.0) g/dL Hct (39.6-50.0) % MCH (27.0-32.0) pg RDW (11.5-14.5) % Plt Count (140-440) X 10*3/uL Carbon Dioxide 18.0 L (21.6-31.8) mmol/L BUN/Creatinine Ratio 23.00 H (12.00-20.00) Ratio Glucose 125 H (70-110) mg/dL POC Glucose (mg/dL) (70-110) mg/dL Hemoglobin A1c 6.6 H (<=6.0) % Calcium 8.4 L (8.7-10.3) mg/dL Ammonia 36 H (<30) umol/L Total Protein 5.8 L (6.2-8.2) g/dL Albumin 3.5 L (3.8-4.9) g/dL Albumin/Globulin Ratio 1.52 L (1.60-3.17) Ratio 01/25/24 01/25/24 Range/Units 07:11 12:09 RBC (4.40-5.60) X 10*6/uL Hgb (13.0-17.0) g/dL Hct (39.6-50.0) % MCH (27.0-32.0) pg RDW (11.5-14.5) % Plt Count (140-440) X 10*3/uL Carbon Dioxide (21.6-31.8) mmol/L BUN/Creatinine Ratio (12.00-20.00) Ratio Glucose (70-110) mg/dL POC Glucose (mg/dL) 134 H 129 H (70-110) mg/dL Hemoglobin A1c (<=6.0) % Calcium (8.7-10.3) mg/dL Ammonia (<30) umol/L Total Protein (6.2-8.2) g/dL Albumin (3.8-4.9) g/dL Albumin/Globulin Ratio (1.60-3.17) Ratio Microbiology - Last 24 Hours (Table) 01/23/24 09:58 Urine Culture - Final Urine,Voided
[2024-01-25 17:59] LABS: Glucose,Whole Blood 138 mg/dL (70-110)
[2024-01-25 20:51] LABS: Glucose,Whole Blood 151 mg/dL (70-110)
[2024-01-26 00:56] VITALS: RESP 16
[2024-01-26 06:57] LABS: Glucose,Whole Blood 162 mg/dL (70-110)
[2024-01-26] MEDS: SODIUM CHLORIDE 0.9% 500 ML 500 ML IV ONE (08:46)
[2024-01-26 08:54] LABS: ALT 18 U/L (10-49); AST 30 U/L (14-35); Albumin 3.4 g/dL (3.8-4.9); Albumin/Globulin Ratio 1.48 Ratio (1.60-3.17); Alkaline Phosphatase 65 U/L (41-126); BUN/Creat Ratio 13.71 Ratio (12.00-20.00); Blood Urea Nitrogen 9.6 mg/dL (9.0-27.0); Calcium 8.3 mg/dL (8.7-10.3); Carbon Dioxide 15.4 mmol/L (21.6-31.8); Chloride 107 mmol/L (96-109); Globulin 2.3 g/dL (1.6-3.3); Glucose 131 mg/dL (70-110); Magnesium 1.9 mg/dL (1.5-2.4); Potassium 3.8 mmol/L (3.5-5.5); Sodium 135 mmol/L (135-145); Total Bilirubin 0.6 mg/dL (0.3-1.2); Total Protein 5.7 g/dL (6.2-8.2)
[2024-01-26 09:26] LABS: Basophils # (A) 0.05 X 10*3/uL (0.00-0.10); Basophils % (A) 1.3 %; Eosinophils # (A) 0.09 X 10*3/uL (0.04-0.35); Eosinophils % (A) 2.3 %; HCT 30.8 % (39.6-50.0); HGB 10.3 g/dL (13.0-17.0); Immature Platelet Fraction 2.6 % (1.1-6.1); Lymphocytes # (A) 0.78 X 10*3/uL (0.90-5.00); MCH 31.6 pg (27.0-32.0); MCHC 33.4 g/dL (32.0-37.0); MCV 94.5 FL (80.0-97.0); Mean Platelet Volume 10.5 FL (9.5-12.2); Monocytes # (A) 0.57 X 10*3/uL (0.20-1.00); Monocytes % (A) 14.6 %; NRBC Per 100 WBC 0 X 10*3/uL (0.00-0.01); Neutrophils % (A) 61.5 %; Platelet Count 72 X 10*3/uL (140-440); RBC 3.26 X 10*6/uL (4.40-5.60); RDW 15.6 % (11.5-14.5)
[2024-01-26 12:00] LABS: Glucose,Whole Blood 123 mg/dL (70-110)
[2024-01-26 12:47] VITALS: BP 116/50; PULSE 67; TEMP 97.4
--- NOTE | 2024-01-26 16:16 | P.DS ---
Providers Date of admission: 01/23/24 22:11 Expected date of discharge: 01/26/24 Attending physician: Radha Olmos Primary care physician: Pascual Morin Hospital Course: Discharge diagnoses; # Hepatic encephalopathy, due to [place] advanced liver disease #UTI #Hyponatremia hypochloremic, hypovolemic, improved #Diabetes mellitus, type 2 #Hyperglycemia #Hyperlidemia #GERD #Chronic back pain #CAD Hospital course; History of present illness; Patient is 78-year-old male with CAD, COPD, diabetes mellitus, history of DVT, history of CABG, UC and esophageal varices presenting with altered mental status. Patient is highly distractible with racing thoughts, pressured speech with delusions. Patient states that he has had urinary incontinence for the last 3 weeks. He states he has no other history of urinary incontinence. He has no stated pain or other concerns at this time. Unable to obtain further history due to poor mentation. EKG done in the ER independently interpreted showed heart rate of 88, no ST segment elevation or depression seen, no T-wave inversions seen. CT head done independently interpreted showed no acute intracranial process, with moderate chronic small vessel ischemic disease. While in hospital patient was treated for hepatic encephalopathy due to underlying advanced liver disease. He was given lactulose, and ammonia normalized. He continued to be A+O x [address] which seems to be his baseline. He continues to have delusions. May have component of underlying vascular dementia. Patient will be discharged to SNF in stable condition. Discontinue gabapentin, begin Cymbalta. 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 PHYSICAL EXAMINATION: Vitals reviewed GENERAL: No acute distress. Well developed, well nourished. HEENT: Pupils are round and equally reacting to light. EOMI. No scleral icterus. Normocephalic, atraumatic. CARDIOVASCULAR: S1 and S2 present. No murmurs, rubs, or gallops. PULMONARY: Chest is clear to auscultation, no wheezing, rhonchi, or crackles. ABDOMEN: Soft, nontender, nondistended, normoactive bowel sounds. No palpable organomegaly. MUSCULOSKELETAL: No apparent joint swelling and deformities. EXTREMITIES: No apparent cyanosis, clubbing, or pedal edema. NEUROLOGICAL: Racing thoughts, delusions. The patient is alert and oriented x2, Gross neurological examination did not reveal any focal deficits. SKIN: No apparent rashes. Dictation was produced using [employer] dictation software. please excuse any grammatical, word or spelling errors. Patient Condition at Discharge: Stable Plan - Discharge Summary New Discharge Prescriptions: New DULoxetine HCL [Cymbalta] 30 mg PO BID 30 Days #60 cap Continue Nitroglycerin Sl Tabs [Nitrostat] 0.4 mg SL Q5M PRN PRN Reason: Chest Pain Omeprazole [PriLOSEC] 20 mg PO DAILY Aspirin 81 mg PO DAILY metFORMIN HCL 1,000 mg PO BID Spironolactone [Aldactone] 50 mg PO DAILY Furosemide [Lasix] 20 mg PO DAILY Thiamine [Vitamin B-1] 100 mg PO DAILY Folic Acid 1 mg PO DAILY Ferrous Sulfate [Iron (65 MG Elemental)] 325 mg PO BID Ezetimibe [Zetia] 10 mg PO HS Mesalamine [Lialda] 1.2 mg PO BID traZODone HCL [Desyrel] 50 mg PO HS Acetaminophen Tab [Tylenol] 650 mg PO Q6H PRN PRN Reason: Pain Cyanocobalamin [Vitamin B-12] 1,000 mcg PO DAILY Cholecalciferol [Vitamin D3 (25 Mcg = 1000 Iu)] 50 mcg PO DAILY Empagliflozin [Jardiance] 10 mg PO DAILY Lactulose [Cephulac] 20 gm PO BID ml Magnesium Oxide [Mag-Ox] 400 mg PO BID Discontinued Gabapentin [Neurontin] 400 mg PO TID Discharge Medication List Aspirin 81 mg PO DAILY 05/28/16 [History] Nitroglycerin Sl Tabs [Nitrostat] 0.4 mg SL Q5M PRN 05/28/16 [History] Omeprazole [PriLOSEC] 20 mg PO DAILY 05/28/16 [History] Empagliflozin [Jardiance] 10 mg PO DAILY 11/10/22 [History] metFORMIN HCL 1,000 mg PO BID 11/10/22 [History] Ezetimibe [Zetia] 10 mg PO HS 04/16/23 [History] Ferrous Sulfate [Iron (65 MG Elemental)] 325 mg PO BID 04/16/23 [History] Folic Acid 1 mg PO DAILY 04/16/23 [History] Furosemide [Lasix] 20 mg PO DAILY 04/16/23 [History] Spironolactone [Aldactone] 50 mg PO DAILY 04/16/23 [History] Thiamine [Vitamin B-1] 100 mg PO DAILY 04/16/23 [History] Mesalamine [Lialda] 1.2 mg PO BID 07/05/23 [History] traZODone HCL [Desyrel] 50 mg PO HS 11/10/23 [History] Lactulose [Cephulac] 20 gm PO BID ml 11/15/23 [Rx] Acetaminophen Tab [Tylenol] 650 mg PO Q6H PRN 01/24/24 [History] Cholecalciferol [Vitamin D3 (25 Mcg = 1000 Iu)] 50 mcg PO DAILY 01/24/24 [History] Cyanocobalamin [Vitamin B-12] 1,000 mcg PO DAILY 01/24/24 [History] Magnesium Oxide [Mag-Ox] 400 mg PO BID 01/24/24 [History] DULoxetine HCL [Cymbalta] 30 mg PO BID 30 Days #60 cap 01/26/24 [Rx] Follow up Appointment(s)/Referral(s): Pascual Morin MD [Primary Care Provider] - 1-2 days
== END 2024-01-26 19:22 | DRG 689 ==
LOC: EC 19:50 → 5NMEDONC 22:11
PROVIDERS: ADMIT Hospitalist; ATTEND Hospitalist
DX: N39.0 Urinary tract infection, site not specified (principal); G93.41 Metabolic encephalopathy; E87.1 Hypo-osmolality and hyponatremia; K76.82 Hepatic encephalopathy; K75.81 Nonalcoholic steatohepatitis (NASH); E11.65 Type 2 diabetes mellitus with hyperglycemia; E86.1 Hypovolemia; E87.8 Other disorders of electrolyte and fluid balance, not elsewhere classified; E78.5 Hyperlipidemia, unspecified; I25.10 Atherosclerotic heart disease of native coronary artery without angina pectoris; K21.9 Gastro-esophageal reflux disease without esophagitis; G89.29 Other chronic pain; J44.9 Chronic obstructive pulmonary disease, unspecified; I10 Essential (primary) hypertension; F41.9 Anxiety disorder, unspecified; M54.9 Dorsalgia, unspecified; Z86.718 Personal history of other venous thrombosis and embolism; Z95.1 Presence of aortocoronary bypass graft; Z79.84 Long term (current) use of oral hypoglycemic drugs; Z79.82 Long term (current) use of aspirin; Z79.899 Other long term (current) drug therapy; Z87.19 Personal history of other diseases of the digestive system; I25.2 Old myocardial infarction; Z87.891 Personal history of nicotine dependence; Z96.642 Presence of left artificial hip joint
CPT/HCPCS: 36415; 70450; 80053; 80306; 80320; 81001; 82140; 82550; 83036; 83735; 85025; 85610; 85730; 87086; 93005; 94760; 96361; 96365; 96375; 99285

== ENCOUNTER 2024-09-05 08:18 | Day surgery (SDC) | payer OTHER ==
[2024-09-05 08:58] LABS: Platelet Count 111 10*3/uL (140-440)
[2024-09-05 09:16] LABS: African American GFR (CKD) >90 (>60 ml/min/1.73 sqM); Non-African American GFR(CKD) 85 (>60 ml/min/1.73 sqM)
[2024-09-05 09:21] LABS: INR 1.2 (<1.2); Prothrombin Time 13.1 sec (10.0-12.5)
[2024-09-05] MEDS: ALBUMIN HUMAN 25% 50 ML in EMPTY BAG 1 BAG IVPB SCH (09:37)
[2024-09-05 10:08] VITALS: RESP 18; TEMP 97.9
--- NOTE | 2024-09-05 10:55 | US ---
EXAMINATION TYPE: US paracentesis abd w/image DATE OF EXAM: 09/05/2024 CLINICAL HISTORY: Ascites The procedure was discussed with the patient. The risks, complications, benefits, and alternatives we re discussed and any questions were answered. Informed consent was obtained. The patient was placed s upine on the ultrasound table and prepped and draped in the usual sterile fashion. All elements of maximal barrier technique were utilized. Under ultrasound guidance, access into the right lower quadrant was obtained, via the paracentesis catheter system and direct ultrasound guidanc e. Approximately 5 liters of straw-colored fluid was removed. The patient was stable throughout the proc edure and remained stable upon discharge from Department of Radiology. IMPRESSION: Successful therapeutic paracentesis under ultrasound guidance. [facility], , 09/05/2024 10:52 AM
[2024-09-05 10:56] VITALS: BP 119/65; PULSE 71
== END 2024-09-05 10:35 | disposition home or self-care (01) ==
LOC: RADPROMAIN 08:18
PROVIDERS: ATTEND Internal Medicine
DX: K70.31 Alcoholic cirrhosis of liver with ascites (principal)
CPT/HCPCS: 82565; 85049; 85610; 36415; 49083; P9047